=== PATIENT | female | born 1980 | race Caucasian/White ===

== ENCOUNTER 2019-08-04 12:22 | Observation (INO) | payer BC, SELFPAY ==
[2019-08-04 13:00] VITALS: BP 103/62; PULSE 70
[2019-08-04 13:12] VITALS: BMI 24.6
--- NOTE | 2019-08-04 13:12 | OBADM ---
This patient, Shruti Luque, admitted to the OB room OB Post 117 for observation. Patient/family oriented to hospital policies and general routines including ID bracelet, bed and alarms, visiting hours, pain management, procedures, bathroom and other care routines, personal items, smoking policy, room service/diet, and visiting hours. Patient/Family are encouraged to report perceived risks to care and to ask questions if they do not understand what they are told or what they should do.
[2019-08-04 13:16] VITALS: BP 104/60; PULSE 74
[2019-08-04 13:29] LABS: Add Urine Microscopic? YES; Appearance Urine Cloudy (Clear); Bacteria Urine Trace /hpf; Bilirubin Urine Negative (Negative); Blood Urine 3+ (Negative); Color Urine Yellow (Yellow); Glucose Urine UA Negative (Negative); Ketones Urine Negative (Negative); Leukocyte Esterase Ur Trace LEU/UL (Negative); Mucus Urine Rare /lpf; Nitrate Urine Negative (Negative); Protein Urine Negative (Negative); RBC Urine >75 /hpf (0-2); Specific Grav Ur 1.016 (1.001-1.035); Squamous Epithelial Cell Urine Many /hpf (Few); Urobilinogen Urine Negative mg/dL (<2.0)
[2019-08-04 13:30] VITALS: BP 105/63; PULSE 98
[2019-08-04 13:45] VITALS: BP 101/62; PULSE 74
[2019-08-04 14:00] VITALS: BP 99/85; PULSE 96
--- NOTE | 2019-08-07 18:26 | PM.OBTRLD ---
OB - Triage/Final Diagnosis Evaluation Laboratory results: Laboratory Tests 08/04/19 13:06 Urine Color Yellow Urine Appearance Cloudy H Urine pH 6.0 Ur Specific [place] 1.016 Urine Protein Negative Urine Glucose (UA) Negative Urine Ketones Negative Ur Blood (Man) 3+ H Urine Nitrate Negative Urine Bilirubin Negative Urine Urobilinogen Negative Leukocyte Esterase Rfl Trace H Urine RBC >75 H Urine WBC 7-9 H Ur Squamous Epith Cells Many H Urine Bacteria Trace Urine Mucus Rare Final Diagnosis (1) Back pain affecting : Code(s): O99.89 - Other specified diseases and conditions complicating , childbirth and the puerperium; M54.9 - Dorsalgia, unspecified Status: Acute (2) Vaginal discharge during : Code(s): O26.899 - Other specified related conditions, unspecified trimester; N89.8 - Other specified noninflammatory disorders of vagina Status: Acute
== END 2019-08-04 14:10 | disposition home or self-care (01) ==
PROVIDERS: Admitting Provider Obstetrics & Gynecology; Visit Provider Obstetrics & Gynecology
DX: O26.892 Other specified pregnancy related conditions, second trimester (principal); N89.8 Other specified noninflammatory disorders of vagina; O99.89 Other specified diseases and conditions complicating pregnancy, childbirth and the puerperium; M54.9 Dorsalgia, unspecified; Z3A.22 22 weeks gestation of pregnancy
CPT/HCPCS: 81001; 87086; G0378; G0379

== ENCOUNTER 2019-09-18 14:51 | Observation (INO) | payer BC, SELFPAY ==
--- NOTE | 2019-09-18 15:31 | OBADM ---
This patient, Shruti Luque, admitted to the OB room OB Post 113 for observation. Patient/family oriented to hospital policies and general routines including ID bracelet, bed and alarms, visiting hours, pain management, procedures, bathroom and other care routines, personal items, smoking policy, room service/diet, and visiting hours. Patient/Family are encouraged to report perceived risks to care and to ask questions if they do not understand what they are told or what they should do.
[2019-09-18 15:43] VITALS: BMI 25.2
[2019-09-18 16:00] VITALS: BP 82/39; PULSE 76
[2019-09-18 16:00] LABS: Add Urine Microscopic? YES; Amorphous Sediment Urine Few; Appearance Urine Cloudy (Clear); Bacteria Urine Trace /hpf; Bilirubin Urine Negative (Negative); Blood Urine Negative (Negative); Color Urine Yellow (Yellow); Glucose Urine UA Negative (Negative); Ketones Urine 1+ mg/dL (Negative); Leukocyte Esterase Ur 2+ LEU/UL (NEGATIVE); Mucus Urine Rare /lpf; Nitrate Urine Negative (Negative); Protein Urine Negative (Negative); Specific Grav Ur 1.016 (1.001-1.035); Squamous Epithelial Cell Urine Many /hpf (Few); Urobilinogen Urine Negative mg/dL (<2.0)
--- NOTE | 2019-09-18 16:55 | PM.OBTRLD ---
OB - Triage/Final Diagnosis Visit Information Date of evaluation: 09/18/19 Comments/Additional reasons for admission: dehydration Evaluation Laboratory results: Laboratory Tests 09/18/19 15:37 Urine Color Yellow Urine Appearance Cloudy H Urine pH 7.0 Ur Specific [place] 1.016 Urine Protein Negative Urine Glucose (UA) Negative Urine Ketones 1+ H Ur Blood (Man) Negative Urine Nitrate Negative Urine Bilirubin Negative Urine Urobilinogen Negative Ur Leukocyte Esterase 2+ H Urine RBC 3-5 H Urine WBC 10-15 H Ur Squamous Epith Cells Many H Amorphous Sediment Few H Urine Bacteria Trace Urine Mucus Rare Vital signs: Vital Signs - 24 hr 09/18/19 16:00 Pulse Rate 76 Blood Pressure 82/39 L
[2019-09-18] MEDS: DEXTROSE 5%/LACTATED RINGERS 1,000 ML 125 ML IV CONT (16:57)
[2019-09-18] MEDS: CYCLOBENZAPRINE HCL 10 MG TABLET PO (16:57)
--- NOTE | 2019-09-18 19:16 | PC.NURSE ---
report received from dayshift rn stating day shft rn had received verbal discharge order per dr marcial and that once pt ivf were complete and pt had eaten meal tray pt may be discharged.
== END 2019-09-18 19:40 | disposition home or self-care (01) ==
PROVIDERS: Admitting Provider Obstetrics & Gynecology; PCP Family Medicine; Visit Provider Obstetrics & Gynecology
DX: O99.283 Endocrine, nutritional and metabolic diseases complicating pregnancy, third trimester (principal); E86.0 Dehydration; Z3A.29 29 weeks gestation of pregnancy
CPT/HCPCS: 81001; 87086; 87088; 96360; 96361; A9270; G0378; G0379; J7121

== ENCOUNTER 2019-11-21 05:05 | Observation (INO) | payer BC, SELFPAY ==
--- NOTE | 2019-11-21 07:32 | OBADM ---
This patient, Shruti Luque, admitted to the OB room Labor/Delivery/Recovery 106 for observation. Patient/family oriented to hospital policies and general routines including ID bracelet, bed and alarms, visiting hours, pain management, procedures, bathroom and other care routines, personal items, smoking policy, room service/diet, and visiting hours. Patient/Family are encouraged to report perceived risks to care and to ask questions if they do not understand what they are told or what they should do.
--- NOTE | 2019-11-29 07:05 | PM.OBTRLD ---
OB - Triage/Final Diagnosis Visit Information Date of evaluation: 11/21/19 Reason for evaluation: threatened labor
== END 2019-11-21 08:00 | disposition home or self-care (01) ==
PROVIDERS: Admitting Provider Student in an Organized Health Care Education/Training Program; PCP Family Medicine; Visit Provider Student in an Organized Health Care Education/Training Program
DX: O47.9 False labor, unspecified (principal); Z3A.00 Weeks of gestation of pregnancy not specified
CPT/HCPCS: G0378; G0379

== ENCOUNTER 2019-11-24 12:25 | Outpatient (CLI) | payer BC, SELFPAY ==
[2019-11-24 13:13] VITALS: BP 118/80; PULSE 113
--- NOTE | 2019-11-24 14:00 | PC.NURSE ---
1310- called, informed that pt came in stating she has been leaking green fluid since . 2 ROM plus's performed, both negative. Moderate amount of thick light green mucus found upon SVE. Discharge order received and order received to inform pt that the discharge will be examine on an outpatient basis in the office this week and can be physiological.
--- NOTE | 2019-11-24 14:03 | PC.NURSE ---
1225-Pt came in after calling and stating she has been leaking green fluid for the last two days.
--- NOTE | 2019-11-24 14:05 | PC.NURSE ---
1310-temp 99.2
== END 2019-11-24 13:25 | disposition home or self-care (01) ==
LOC: ANHLDR 15:18 → ANHOBOP 15:18
PROVIDERS: PCP Family Medicine; Visit Provider Student in an Organized Health Care Education/Training Program
DX: O42.90 Premature rupture of membranes, unspecified as to length of time between rupture and onset of labor, unspecified weeks of gestation (principal); Z3A.00 Weeks of gestation of pregnancy not specified
CPT/HCPCS: 59025; 84112; 99199

== ENCOUNTER 2019-11-24 19:55 | Inpatient (IN) | payer BC, SELFPAY ==
[2019-11-24] VITALS (10 sets, daily range): BP systolic 95–143; BP diastolic 73–109; PULSE 71–93; BMI 28.3
[2019-11-24 20:44] LABS: Basophils Percent Auto 0.3 % (0.2-1.2); Eosinophils Absolute Auto 0.1 K/mm3 (0-0.3); Eosinophils Percent Auto 0.5 % (0-4.4); Hemoglobin 11.7 g/dL (12.0-15.0); Immature Granulocyte Absolute 0.06 K/mm3 (0.00-0.031); Immature Granulocyte Percent A 0.4 % (0-0.5); Lymphocytes Percent Auto 16.8 % (18.3-44.2); Mean Corpuscular HGB Conc 33.4 g/dl (32-36); Mean Corpuscular Hemoglobin 30.5 pg (26-34); Mean Corpuscular Volume 91.1 fl (80-100); Monocytes Absolute Auto 0.9 K/mm3 (0.1-0.6); Monocytes Percent Auto 6.6 % (2.6-8.5); Neutrophils Absolute Auto 10.8 K/mm3 (1.3-6.7); Neutrophils Percent Auto 75.4 % (45.5-73.1); Platelet Count Result 269 k/mm3 (150-375); Red Blood Count 3.84 M/mm3 (4.2-5.4); Red Cell Distribution Width 14.4 % (11.5-14.5); White Blood Count 14.3 K/mm3 (4.5-10.0)
[2019-11-24] MEDS: LACTATED RINGERS 1,000 ML 125 ML IV CONT (20:55)
[2019-11-24] MEDS: AMPICILLIN 2 GM/NS 100 ML 2 GM/100 ML BAG IVPB (20:56)
--- NOTE | 2019-11-24 21:00 | LDADM ---
This patient, Shruti Luque, was admitted to Labor/Delivery/Recovery 108 on 11/24/19 at 19:55. Plans for labor, pain management and were discussed with patient. Patient/family oriented to hospital policies and general routines including ID bracelet, bed and alarms, visiting hours, pain management, procedures, bathroom and other care routines, personal items, smoking policy, room service/diet and guest tray routines, infant security routines, and visiting hours. Patient/Family are encouraged to report perceived risks to care and to ask questions if they do not understand what they are told or what they should do. See OBIX for further documentation.
[2019-11-24] MEDS: FAMOTIDINE 20 MG/2 ML VIAL IV PUSH (23:32)
[2019-11-24] MEDS: OXYTOCIN 30 UNITS/NS 500 ML 30 UNITS/500 ML BAG IV CONT (23:32)
[2019-11-25] VITALS (27 sets, daily range): BP systolic 104–152; BP diastolic 64–99; PULSE 55–90; RESP 16–18; TEMP 36.6–37.1
[2019-11-25] MEDS: AMPICILLIN 1 GM/NS 50 ML 1 GM/50 ML BAG IVPB (00:57)
--- NOTE | 2019-11-25 01:59 | WPDOBADMIT ---
Obstetrics - Admit Note Admission Note: record reviewed. Additions to the history and/or subsequent changes in the physical findings follow. 39 y/o at 38 4/7 weeks here with gush of fluid. SROM diagnosed. Now augmenting labor with oxytocin. She has had lower back surgery. Anesthesia has evaluated her and does not think she is an epidural candidate. GBS pos. Smoker. AVSS NST reactive TOCO: contractions every 2-5 min ABD soft, nontender, gravid, vertex EXT nontender Cervix 6-7/80/-1. Vertex. A: IUP at term with SROM. GBS pos. P: Ampicillin. Oxytocin. Anticipate .
[2019-11-25] MEDS: PROMETHAZINE HCL 25 MG/ML AMPUL IM (02:04)
--- NOTE | 2019-11-25 04:21 | PM.OBDSVD ---
DS: Admitting Diagnosis Admitting Diagnosis Admitting Diagnosis: IUP at 38 4/7 weeks SROM GBS colonization DS: Discharge Diagnosis Discharge Diagnosis (1) (normal spontaneous vaginal delivery): Code(s): O80 - Encounter for full-term uncomplicated delivery Status: Acute (2) GBS (group B Streptococcus carrier), +RV culture, currently : Code(s): O99.820 - Streptococcus B carrier state complicating Status: Acute OB - DS: Summary OB Procedures : None OB Procedures Intrapartum: Spontaneous Vag Delivery OB Procedures: : None Time Spent with Patient Time attestation: Total time spent providing and/or coordinating discharge services: DS: Data Data Completed and Pending Labs on day of discharge: Labs from last 24 hours 11/24/19 11/24/19 11/24/19 20:36 20:36 20:36 WBC 14.3 H RBC 3.84 L Hgb 11.7 L Hct 35.0 L MCV 91.1 MCH 30.5 MCHC 33.4 RDW 14.4 Plt Count 269 MPV 11.0 H Immature Gran % (Auto) 0.4 Neut % (Auto) 75.4 H Lymph % (Auto) 16.8 L [place] % (Auto) 6.6 Eos % (Auto) 0.5 Baso % (Auto) 0.3 Lymph # (Auto) 2.40 [place] # (Auto) 0.9 H Eos # (Auto) 0.1 Baso # (Auto) 0.0 Abs Immat Gran (auto) 0.06 H Absolute Neuts (auto) 10.8 H Absolute Nucleated RBC 0.0 Nucleated RBC % 0.0 RPR Pending Blood Type B Positive Antibody Screen Negative Discharge Plan Discharge Attending physician on discharge: Srini Almonte Discharging Clinician: Srini Almonte Patient Disposition: Home, Self-Care Activity: pelvic rest Diet: regular Discharge Instructions: Call or return if temperature above 100.4? F, increased abdominal pain, increased vaginal bleeding or any new problems. Education: Mom and Baby Guide Given to: Mother Follow-Up: Call your delivering provider's office for an appointment to be seen in: 6 Weeks Mom and baby should come to the [facility] for the follow-up appointment. Appointment Date/Time: November 29, 2019 at 8:00 am What to expect at your follow-up visit: Blood Pressure Check Physical Assessment Call [phone] if you are unable to keep your appointment time. BREAST CARE: 1. Wear a snug supportive bra. 2. For engorgement discomfort: Breast Feeding: A. Apply warm moist washcloths B. Express milk as needed to relieve engorgement C. Wear loose clothing Bottle Feeding: A. May apply ice packs 3. For sore nipples: A. Identify correct latch-on B. Apply warm moist washcloths before and after nursing C. Air dry nipples after nursing D. May apply Lansinoh cream to nipples EPISIOTOMY/PERINEAL CARE: 1. Until bleeding stops, use your alejandra bottle after urinating 2. Change your pad frequently throughout the day 3. You may take sitz baths several times a day (fill your bathtub with warm water and soak for 20 minutes.) Do NOT bathe in the water 4. No tub baths until seen by your physician - You may shower ACTIVITY: 1. Rest as much as possible. 2. Do not exercise or lift anything heavier than your baby (such as laundry or other children.) 3. Avoid stairs or driving as much as possible. 4. Do not put anything into the vagina. No douching, tampons, or sexual activity until seen by physician. NOTIFY PHYSICIAN IF YOU HAVE ANY QUESTIONS OR IF ANY OF THE FOLLOWING SYMPTOMS OCCUR: 1. If your episiotomy or incision becomes red, swollen, or more painful than what you have experienced in the hospital. 2. If your vaginal bleeding becomes foul smelling. 3. If your vaginal bleeding becomes more heavy than a period or if your bleeding changes from pink to bright red. However, you may pass an occasional walnut-sized clot once or twice for the first week . 4. If you experience a sharp, shooting pain in you calves. 5. If you discover a hard, red
--- NOTE | 2019-11-25 04:24 | PM.OBPRVD ---
OB - Delivery Note Procedure Delivery date: 11/25/19 Procedure: Delivery augmentation: pitocin Delivery monitor: external FHT and external uterine Route of delivery: Delivery repair: vicryl (3-0) Specimen: Yes (cord blood) Estimated blood loss (mL): 120 Anesthesia type: Local (1% lidocaine) Disposition: PACU Complications: None Narrative: 39 y/o at 38 4/7 weeks gestation who presented to the hospital with complaint of leakage of fluid. SROM was diagnosed. She received ampicillin for GBS colonization. Oxytocin was administered intravenously for labor augmentation. Her labor progressed and her cervix dilated completely. She pushed with good effort and delivered the infant's head to the perineum, followed by the body. The nose and mouth were bulb suctioned. After a delay, the cord was clamped and cut. The infant was handed off the field. Cord blood was collected. The placenta delivered spontaneously and was grossly normal in appearance. The usual 3 vessel cord was noted. Bilateral periurethral lacerations was sustained. These were infiltrated with a total of 8 mL of 1% lidocaine and reapproximated using 3 0 Vicryl in interrupted, figure of eight fashion. Excellent hemostasis resulted as did excellent reapproximation of the normal anatomy. Needle and instrument counts were correct. The patient was taken to recovery room in stable condition. The went to the nursery in stable condition. I was present and scrubbed for the entire delivery. [place] Baby Date of : 11/25/19 Time of : 04:00 Weeks of gestation at delivery: 38 Infant gender: Female Weight (pounds): 7 Weight (ounces): 7 presentation: vertex position: Left Occiput Anterior Placenta delivery description: Spontaneous cord vessel description: 3 Vessels score one minute: 7 score five minutes: 7
[2019-11-25] MEDS: IBUPROFEN 600 MG TABLET PO ×3 (05:43→19:45)
[2019-11-25] MEDS: BENZOCAINE 20% AER SPR (*SP) 56 GM CAN 1 SPRAY TOPICAL (07:58)
[2019-11-25] MEDS: ACETAMINOPHEN 325 MG TABLET 650 MG PO ×3 (07:58→19:45)
[2019-11-25] MEDS: WITCH HAZEL 40 PADS 1 PAD TOPICAL (07:58)
--- NOTE | 2019-11-25 09:38 | PC.NURSE ---
Addendum entered by Melodie Choudhury RN 11/25/19 09:38: admitted to room at 0829 Original Note: This patient, Shruti Luque, was received from PACU on 11/25/19 at 0829. . Patient/family oriented to unit policies and routines
[2019-11-25] MEDS: DOCUSATE SODIUM 100 MG CAPSULE PO (13:48)
[2019-11-25] MEDS: MULTIVIT/MIN/PREN/FOL AC/IRON TABLET 1 TAB PO (13:48)
[2019-11-25] MEDS: CYCLOBENZAPRINE HCL 10 MG TABLET PO (21:31)
[2019-11-26] MEDS: ACETAMINOPHEN 325 MG TABLET 650 MG PO ×3 (04:43→19:25)
[2019-11-26] MEDS: IBUPROFEN 600 MG TABLET PO ×3 (04:44→19:25)
[2019-11-26 04:52] LABS: Hematocrit 31.9 % (37.0-47.0); Hemoglobin 10.6 g/dL (12.0-15.0)
--- NOTE | 2019-11-26 07:17 | PM.OBPNVD ---
OB - PN: Subj Subjective Date/time seen: 11/26/19 07:17 Patient comments: no complaints, pain well controlled and tolerating diet Joiner feeding status: exclusively breast feeding Narrative: patient doing well this AM. No complaints. Pain is well controlled. She reports minimal bleeding. She is ambulating and voiding without difficulty. She is tolerating PO. She denies N/V, fever, chills. OB - PN: Obj Data Labs CBC & Chem 7: 11/26/19 04:42 Labs: Laboratory Results - last 24 hr 11/26/19 04:42 Hgb 10.6 L Hct 31.9 L OB - PN A/P Plan day: 1 Plan: routine care Comments: patient doing well H/H stable continue routine care Time Spent With Patient Time: Total time spent is greater than 50% in coordination of care (as documented) at patient's floor/unit and/or counseling patient: Time with patient: less than 15 minutes Review of Systems Review of Systems: All systems reviewed & are unremarkable except as noted in HPI and below Exam Const: General: comfortable and no acute distress Resp: Effort & Inspection: normal respiratory effort Cardio: Rate: regular rate GI: GI Palp: Yes Soft to palpation and No Tenderness to palpation present (GI) Auscultation: normal bowel sounds Other: fundus firm and below umbilicus. Psych: Affect: normal affect
[2019-11-26 07:42] VITALS: BP 99/61; PULSE 53; RESP 16; TEMP 37.1
[2019-11-26 08:50] LABS: Rapid Plasma Reagin Non-Reactive (NonReactive)
--- NOTE | 2019-11-26 09:10 | PC.NURSE ---
Went to take baby back to the mother after being in the nursery for the agency director to assess baby and mother is not in her room. She has been off the floor now for an hour, infant is hungry and has not eaten since 414 when she was fed a bottle in the nursery by the nurse per mother's request.
--- NOTE | 2019-11-26 09:25 | PC.NURSE ---
Mother called out for assist with feeding. Mother is independently attempting to breast. Mother reports has difficulties with latch, she will attempt, bottle feed and then pump. Reviewed feeding cues, frequencies, duration of feedings, feeding elimination flow sheet, and signs of adequate intake. Demonstrated stimulation techniques to wake for feeding. Assisted with to breast. Reviewed positioning/alignment in cross cradle, holding breast in U hold and guided asymmetrical latch on. Discussed rational for each. Infant keeps tongue up and does not drop to allow nipple over tongue. Mother will get to latch with nipple under tongue. will make a few attempts to suckle and will pull off. Several attempts made without a successful latch. Offered and explained the nipple shield. Nipple shield provided to mother due to ineffective feeding. Discussed nipple shield precautions and possible complications. Instructions given on application and cleaning of shield. Patient able to return demonstration on proper application of shield. Discussed the need for regular pumping if continues to nurse with the shield. Patient verbalizes understanding. With shield in place, was able to latch correctly. Infant nursed eagerly with steady draws for a short burst and would pull off crying. Several attempts made with bursts and pulling off. Suggested mother attempt to breast each feeding using the nipple shield, then supplement and pump. Discussed infant will have to learn to suckle with tongue down and the firm shield and bottle will assist with tongue training.
[2019-11-26] MEDS: FLUoxetine HCL 20 MG CAPSULE 40 MG PO (12:50)
[2019-11-26] MEDS: WITCH HAZEL 40 PADS 1 PAD TOPICAL (12:51)
[2019-11-26] MEDS: DOCUSATE SODIUM 100 MG CAPSULE PO (12:51)
[2019-11-26] MEDS: BENZOCAINE 20% AER SPR (*SP) 56 GM CAN 1 SPRAY TOPICAL (12:51)
[2019-11-26] MEDS: MULTIVIT/MIN/PREN/FOL AC/IRON TABLET 1 TAB PO (12:54)
[2019-11-26 19:18] VITALS: BP 117/83; PULSE 65; RESP 16; TEMP 36.7
[2019-11-26] MEDS: CYCLOBENZAPRINE HCL 10 MG TABLET PO (23:01)
--- NOTE | 2019-11-27 07:11 | PM.OBDSVD ---
OB - DS: Summary OB Procedures : None OB Procedures Intrapartum: Spontaneous Vag Delivery OB Procedures: : None Status at Discharge Functional status at discharge: independent ambulation Overall status at discharge: patient is back to baseline Time Spent with Patient Time attestation: Total time spent providing and/or coordinating discharge services: Time spent: Less than 30 minutes Exam Const: General: comfortable and no acute distress Resp: Effort & Inspection: normal respiratory effort Auscultation: clear to auscultation bilaterally Cardio: Rate: regular rate GI: GI Palp: Yes Soft to palpation Auscultation: normal bowel sounds Other: Fundus firm below umbilicus Psych: Appearance: grossly normal Mental Status: mental status grossly normal Affect: normal affect DS: Data Data Completed and Pending Labs on day of discharge: Labs from last 24 hours 11/24/19 20:36 RPR Non-reactive Discharge Plan Discharge Attending physician on discharge: Srini Almonte Discharging Clinician: Srini Almonte Patient Disposition: Home, Self-Care Activity: pelvic rest Diet: regular Discharge Instructions: Call or return if temperature above 100.4? F, increased abdominal pain, increased vaginal bleeding or any new problems. Patient Instructions: How to Stop Smoking (DC), Vaginal Delivery (DC) Stand Alone Forms: General Discharge Information Follow-up/Referrals: Srini Almonte MD [Physician] - (6 weeks) Discharge Medications: New ibuprofen 600 mg tablet 600 mg PO Q6H PRN (Reason: cramps) Qty: 30 RF: 0 fluoxetine 20 mg Tablet 40 mg PO DAILY Qty: 30 RF: 0 ibuprofen 600 mg Tablet 600 mg PO Q6H PRN (Reason: Cramping) Qty: 30 RF: 0 Ggo-A-Ueocff Cream 1 applic topical PRN PRN (Reason: Sore Nipples) Qty: 1 RF: 0 acetaminophen [Mapap (acetaminophen)] 325 mg Tablet 650 mg PO Q6H PRN (Reason: Mild Pain (1-3) Or Headache) Qty: 30 RF: 0 Continued 28-800 mg-mcg Tablet 1 tablet PO DAILY RF: 0 cyclobenzaprine 10 mg tablet 10 mg PO HS Qty: 20 RF: 0 fluoxetine [Prozac] 40 mg Capsule 40 mg PO DAILY Qty: 30 RF: 3 Date of admission: 11/24/19 19:55 Primary Care Provider: Steffi,Patrick Admitting Provider: Srini Almonte Attending physician on admission: Srini Almonte
[2019-11-27] MEDS: IBUPROFEN 600 MG TABLET PO (07:39)
[2019-11-27] MEDS: ACETAMINOPHEN 325 MG TABLET 650 MG PO (07:39)
[2019-11-27] MEDS: MULTIVIT/MIN/PREN/FOL AC/IRON TABLET 1 TAB PO (07:40)
[2019-11-27] MEDS: FLUoxetine HCL 20 MG CAPSULE 40 MG PO (07:40)
[2019-11-27] MEDS: DOCUSATE SODIUM 100 MG CAPSULE PO (07:40)
[2019-11-27 08:35] VITALS: BP 108/52; PULSE 62; RESP 18; TEMP 36.7; O2SAT 97
--- NOTE | 2019-11-27 11:25 | PC.NURSE ---
Consult with pt., mother states she has been pumping and bottle feeding formula due to cigarette smoking. Discussed nicotine does pass into breastmilk and is fussy and may have some effects from this. Mother states she is cutting back on amount of cigarettes per day and plans to stop within a few weeks. Advised mother to discuss with ICP, and to continue to put to breast and supplement after as she has been. Mother is currently , supplementing and then pumping due to sleepiness and difficulties with latching. Assisted mother with a breastpump thru her insurance. Mother is able to independently latch infant with appropriate positioning/alignment. She denies any nipple discomfort, is feeding as required and waking infant to feed if needed. Infant is currently meeting outcomes for weight, output, jaundice and feeding frequencies. Mother states she feels confident to continue current feeding plan at home and plans to discontinue supplementation once her milk is in and is more consistent with . Reviewed transition to breast milk, signs of adequate intake, and engorgement/relief. Instructed to call ICP if intake/output less than required. Reviewed regular medications mother is taking. Information provided per Lexi. Reviewed community resources on the [facility] website and in the Mom/Baby guide. Information on outpatient services provided. Mother has no further questions at this time.
[2019-11-29 08:20] VITALS: BP 121/77; PULSE 68; RESP 20; TEMP 36.7; O2SAT 100
== END 2019-11-27 14:40 | disposition home or self-care (01) | DRG 806 ==
LOC: ANHLDR 11-25 04:22 → ANHOB2 11-25 08:33
PROVIDERS: Admitting Provider Obstetrics & Gynecology; PCP Family Medicine; Visit Provider Student in an Organized Health Care Education/Training Program
DX: O99.824 Streptococcus B carrier state complicating childbirth (principal); Q79.60 Ehlers-Danlos syndrome, unspecified; Z37.0 Single live birth; Z3A.38 38 weeks gestation of pregnancy; O99.334 Smoking (tobacco) complicating childbirth; F17.210 Nicotine dependence, cigarettes, uncomplicated; O71.82 Other specified trauma to perineum and vulva; O99.344 Other mental disorders complicating childbirth; F32.9 Major depressive disorder, single episode, unspecified; O99.354 Diseases of the nervous system complicating childbirth; G25.81 Restless legs syndrome; O99.89 Other specified diseases and conditions complicating pregnancy, childbirth and the puerperium; M79.7 Fibromyalgia
CPT/HCPCS: 36415; 85014; 85018; 85025; 86592; 86850; 86900; 86901; A9270; J0290; J2550; J2590; J3010; J7120

== ENCOUNTER 2020-03-17 03:40 | Outpatient (CLI) | payer BC, SELFPAY ==
[2020-03-17 20:39] LABS: SARS-CoV-2 RNA PCR Negative
== END 2020-03-17 03:41 | disposition home or self-care (01) ==
LOC: ANHCOVIDDT 03:41
PROVIDERS: PCP Family Medicine; Visit Provider Student in an Organized Health Care Education/Training Program
DX: Z01.812 Encounter for preprocedural laboratory examination (principal); Z11.59 Encounter for screening for other viral diseases
CPT/HCPCS: 87635; C9803; U0003

== ENCOUNTER 2020-03-17 09:16 | Outpatient (CLI) | payer BC, SELFPAY ==
[2020-03-17 09:31] LABS: Hemoglobin 13.3 g/dL (12.0-15.0); Mean Corpuscular HGB Conc 33.3 g/dl (32-36); Mean Corpuscular Hemoglobin 30.4 pg (26-34); Mean Corpuscular Volume 91.5 fl (80-100); Mean Platelet Volume 8.8 fl (7.4-10.4); Platelet Count Result 417 k/mm3 (150-375); Red Blood Count 4.37 M/mm3 (4.2-5.4); Red Cell Distribution Width 15.4 % (11.5-14.5); White Blood Count 10.6 K/mm3 (4.5-10.0)
== END 2020-03-17 09:17 | disposition home or self-care (01) ==
LOC: ANHSURGERY 09:19
PROVIDERS: PCP Family Medicine; Visit Provider Student in an Organized Health Care Education/Training Program
DX: Z01.818 Encounter for other preprocedural examination (principal)
CPT/HCPCS: 36415; 85027; 86850; 86900; 86901

== ENCOUNTER 2020-03-20 01:31 | Day surgery (SDC) | payer BC, SELFPAY ==
[2020-03-13 13:05] VITALS: BMI 23.5
--- NOTE | 2020-03-19 23:42 | PM.IMHP ---
H&P: HPI History of Present Illness Date/Time: 03/19/20 23:42 Chief complaint: Desires Sterilization Narrative: 39 y/o desiring permanent contraception. She would like laparoscopic bilateral salpingectomy. Review of Systems Review of Systems: All systems reviewed & are unremarkable except as noted in HPI and below PMFSH Past Medical History Medical History Justina-Danlos syndrome Fibromyalgia Surgical History Surgical History Previous back surgery Social History Social History Smoking packs per day: 0.5 Smoking cigarettes per day: 10.0 Years smoked: 13 Smoking pack-years: 6.50 Smoking status: Current every day smoker Tobacco type: cigarettes Alcohol intake: current Drinks per week: 1 Substance use: current Gender identity (if verbalized by the patient): Female Spiritual care concerns: No Meds Home Medications and Allergies Home Medications Medication Instructions Recorded Confirmed Type ibuprofen 600 mg PO Q6H PRN #30 tablet 11/25/19 03/13/20 Rx fluoxetine 40 mg PO HS 03/13/20 03/13/20 History Allergies Allergy/AdvReac Type Severity Reaction Status Date / Time prochlorperazine AdvReac Muscle Verified 03/13/20 13:05 [From Compazine] Spasms Exam Const: Orientation/consciousness: patient oriented x3 Other: Well-developed, well-nourished female in no acute distress. Neck: Thyroid: thyroid normal Lymphatic: no lymphadenopathy noted (in neck, axilla or inguinal nodes) Resp: Effort & Inspection: normal respiratory effort Auscultation: clear to auscultation bilaterally Cardio: Rate: regular rate Rhythm: regular rhythm Heart sounds: S1 normal heart sound present and S2 normal heart sound present GI: Other: ABD: Soft, nontender, nondistended. No guarding or rebound tenderness. No hepatosplenomegaly. : General: Yes no CVA tenderness Other: External genitalia: normal female hair distribution, without lesion. Urethral meatus: no lesion, non prolapsed. Bladder: no mass, nontender Vagina: well-estrogenized, without lesion or discharge. No cystocele or rectocele. Cervix: no lesion or discharge. Uterus: small, anteverted, freely mobile, nontender Adnexa: no mass or tenderness. Anus/perineum: no lesions, nontender Back/Spine/Pelvis: Back: no CVA tenderness Skin: General skin exam: normal color and no rashes or lesions noted Neuro: General: patient oriented x3 Extrem: Other: Extremities: nontender with no edema Psych: Mental Status: mental status grossly normal Affect: normal affect Assessment and Plan Assessment and plan (1) Unwanted fertility: Code(s): Z30.09 - Encounter for other general counseling and advice on contraception Status: Acute Assessment and Plan: She understands there are temporary methods of contraception available to her. She understands that there are nonsurgical options as well as surgical options. She understands that bilateral salpingectomies will render her permanently sterile. She understands that there is a failure rate associated with salpingectomies, as well as an inherent ectopic gestation risk. Furthermore, she understands risks of surgery to include risks of anesthesia, risks of pain, infection, bleeding, blood products, thromboembolic phenomena and damage to adjacent structures such as bowel, bladder, ureters, blood vessels and nerves. She understands all these risks and elects to proceed with surgery.
[2020-03-20] VITALS (7 sets, daily range): BP systolic 103–126; BP diastolic 56–74; PULSE 58–77; RESP 12–16; TEMP 36.2–36.6; O2SAT 96–100
[2020-03-20] MEDS: ACETAMINOPHEN 500 MG TABLET 1000 MG PO (11:41)
[2020-03-20] MEDS: LACTATED RINGERS 1,000 ML 30 ML IV CONT ×2 (11:46→14:00)
[2020-03-20] MEDS: KETOROLAC 15 MG/ML VIAL (*BKC) IV PUSH (11:55)
--- NOTE | 2020-03-20 12:01 | WPDANESEPPF ---
Anes - Initial Pre Proc Eval Procedure: Operation Date: 03/20/20 13:00 Proposed Procedures p Laparoscopic Bilateral Salpingectomy - Srini Almonte MD Date/Time: 03/20/20 12:01 Surgeon: Srini Almonte MD Pre Op Diagnosis: Desires Sterilization Patient Data Age: 39 Gender: F Height: 5 ft 7 in Weight: 68.8 kg Last Vital Signs Temp 36.6 C 03/20/20 11:56 Pulse 66 03/20/20 11:56 BP 109/71 03/20/20 11:56 Pulse Ox 100 03/20/20 11:56 Allergies Allergy/AdvReac Type Severity Reaction Status Date / Time prochlorperazine AdvReac Muscle Verified 03/13/20 13:05 [From Compazine] Spasms Home Medications Medication Instructions Recorded Confirmed Type ibuprofen 600 mg PO Q6H PRN #30 tablet 11/25/19 03/13/20 Rx fluoxetine 40 mg PO HS 03/13/20 03/13/20 History Patient hx anesthesia problems: none Family hx anesthesia problems: none PMFSH Past Medical History Medical History Justina-Danlos syndrome Fibromyalgia Surgical History Surgical History Previous back surgery Social History Social History Smoking packs per day: 0.5 Smoking cigarettes per day: 10.0 Years smoked: 13 Smoking pack-years: 6.50 Smoking status: Current every day smoker Tobacco type: cigarettes Alcohol intake: current Drinks per week: 1 Substance use: current Gender identity (if verbalized by the patient): Female Spiritual care concerns: No Anes - Eval Final PreProcedure Day of Procedure 03/20/20 12:01 Patient weight: normal Heart: regular rate and rhythm Lungs: decreased breath sounds Airway: Mallampati scale class II Neurological: alert and oriented Last oral intake: >/= 8 hours ASA classification: III Emergent: no Anesthetic plan: proceed Anesthesia type and monitoring: general ETT and standard monitoring Informed Consent: The patient's anesthetic plan and its attendant risks and benefits were discussed with the patient/family/POA. Questions were solicited and answers provided to the satisfaction of the patient/family/POA.
--- NOTE | 2020-03-20 12:15 | WPDHPUPDATE1 ---
History and Physical Update Update Date/Time: 03/20/20 12:15 History and Physical has been reviewed, including an updated exam of the patient. There are NO changes in the patient's condition. Risks, benefits, and alternatives have been discussed and questions answered. Patient agrees to proceed with procedure.
--- NOTE | 2020-03-20 13:53 | P.OP_ITS ---
Procedure Note - Detailed Date of procedure: 03/20/20 Pre-op diagnosis: Desires Sterilization Post-op diagnosis: same Procedure performed: Laparoscopic bilateral salpingectomy Description of procedure: The patient was taken to the operating room where general endotracheal anesthesia was administered. She was prepared and draped in the usual sterile fashion in the dorsal lithotomy position. The bladder was drained with a red rubber catheter. A sterile speculum was inserted into the vagina and the anterior lip of the cervix was grasped with a single-toothed tenaculum. The acorn uterine manipulator was placed. The speculum was withd rawn. Gloves were changed and attention was turned to the abdomen. An infraumbilical skin incision was made with a scalpel. The abdomen was tented and a 5 millimeter bladeless trocar trocar was advanced under direct laparoscopic visualization. Pneumoperitoneum was administered using carbon dioxide gas. A survey of the pelvis and abdomen yielded the findings noted above. The left Fallopian tube was grasped and elevated. The tube was freed from the mesentery using laparoscopic scissors. The tube was amputated and passed off to be sent to pathology. The right side was similarly identified, freed and excised. The pelvis was irrigated with warmed normal saline. Hemostasis was excellent. The trocar was withdrawn and the gas was allowed to escape. The skin incision was reapproximated using 4-0 Vicryl in interrupted subcuticular fashion. Dermaflex was applied externally. The vaginal instrumentation was withdrawn and hemostasis was excellent here as well. Sponge, lap, needle and instrument counts were correct. The patient was awakened and taken to recovery in stable condition. I was present and scrubbed through the entire procedure. Implants: None Anesthesia: GETA Surgeon: Red Snyder MD Estimated blood loss (mL): 10 Drains: No Packing: No Pathology: yes (bilateral Fallopian tubes) Complications: None Condition: stable Disposition: PACU Findings: Normal-appearing uterus, tubes and ovaries. Normal anterior and posterior cul-de-sac. Normal bilateral round and uterosacral ligaments. Normal-appearing vermiform appendix.
[2020-03-20] MEDS: fentaNYL CITRATE INJ (*CRX) 100 MCG/2 ML VIAL 25 MCG IV PUSH ×8 (14:04→14:31)
[2020-03-20] MEDS: SCOPOLAMINE 1.5 MG PATCH TRANSDERM (14:24)
== END 2020-03-20 15:36 | disposition home or self-care (01) ==
PROVIDERS: PCP Family Medicine; Visit Provider Student in an Organized Health Care Education/Training Program
PROC: (CPT 49320; principal; 2020-03-20 13:00)
DX: Z30.2 Encounter for sterilization (principal); Q79.60 Ehlers-Danlos syndrome, unspecified; M79.7 Fibromyalgia; F17.210 Nicotine dependence, cigarettes, uncomplicated
CPT/HCPCS: 58661; 88302; A9270; J1100; J1885; J2250; J2704; J3010; J7030; J7120

== ENCOUNTER 2020-12-15 18:17 | Emergency (ER) | payer BC, SELFPAY ==
--- NOTE | ~2020-12-15 | CT_ITS ---
EXAMINATION: CT abdomen pelvis w con DATE: 12/15/2020 21:55 INDICATION: Right lower quadrant abdominal pain, nausea and diarrhea TECHNIQUE: Computed tomography (CT) of the abdomen and pelvis was performed with 100 mL Omnipaque-350 intravenous contrast. Automated exposure control and iterative reconstruction technique were employe d. The dose-length product was 402.08 mGy-cm. COMPARISON: 06/07/2017 FINDINGS: Minimal dependent atelectasis in the bilateral lower lobes. Heart size is normal. No pericardial or p leural effusion. Incompletely visualized at least 1.8 cm nodular density at the inferior left breast. Liver, gallbladder, spleen, pancreas and bilateral adrenal glands are normal. There are couple nonob structing bilateral 1-2 mm renal stones. No evident ureteral stones or hydronephrosis. A couple left renal cysts the largest measuring 9 mm . Duplicated bilateral renal veins including circumaortic left renal veins. A few small phleboliths in the pelvis. Bladder, anteverted uterus and bilateral adnexa are unremarkable. No abnormal bowel wall thickening or obstruction. Normal appendix. No free intraper itoneal gas or fluid. No pathologically enlarged abdominal or pelvic lymphadenopathy. Mild lumbar lev ocurvature. Instrumented anterior and posterior spinal fusion at L5-S1 with interbody bone graft cage s and bilateral vertical aurora and pedicle screw fixation. IMPRESSION: 1. Nonobstructing 1-2 mm bilateral renal stones. No ureteral stones or hydronephrosis. 2. Incompletely visualized at least 1.8 cm nodular density at the inferior left breast. Consider br[facility] ultrasound for further evaluation. Reviewed, dictated and finalized at location A. IMPRESSION: 1. Nonobstructing 1-2 mm bilateral renal stones. No ureteral stones or hydronep hrosis. 2. Incompletely visualized at least 1.8 cm nodular density at the inferior left breast. Consider breast ultrasound for further evaluation.
[2020-12-15 19:15] VITALS: BP 113/87; PULSE 90; RESP 18; TEMP 36.1; O2SAT 99
--- NOTE | 2020-12-15 19:44 | ED.ABDPAIN ---
HPI - Abdominal Pain General Chief Complaint: Abdominal Pain Stated Complaint: abd pain,R side pain Time Seen by Provider: 12/15/20 19:44 Source: patient Mode of arrival: ambulatory Limitations: no limitations History of Present Illness HPI narrative: 40-year-old woman comes in today complaining of intermittent sharp right lower quadrant and right flank pain radiating to her groin and nausea that started yesterday morning about 11:00 a.m.. She started her period yesterday and she has had some diarrhea since 2 days ago. Her appetite has been good, eating just prior to arrival. States she often has cramping but this is different. She states she also has a history of kidney stones but this feels different. She has had no vomiting, fever, dysuria, hematuria, cough, cold symptoms, or chest pain. MD elicited complaint: abdominal pain Related Data Home Medications Medication Instructions Recorded Confirmed fluoxetine 40 mg PO HS 03/13/20 12/15/20 Allergies Allergy/AdvReac Type Severity Reaction Status Date / Time prochlorperazine AdvReac Muscle Verified 03/13/20 13:05 [From Compazine] Spasms Review of Systems Review of Systems: All systems reviewed & are unremarkable except as noted in HPI and below Constitutional: Constitutional: Denies chills and Denies fever(s) Eyes: Eyes: Denies change in vision and Denies photophobia ENT: Denies nasal congestion and Denies sore throat Cardiovascular: Cardiovascular: Denies chest pain and Denies radiating jaw, neck or arm pain Respiratory: Respiratory: Denies cough and Denies dyspnea Gastrointestinal: Gastrointestinal: Reports as per HPI, Reports abdominal pain, Reports diarrhea, Reports nausea and Denies vomiting Genitourinary: Genitourinary: Denies hematuria, Reports nocturia and Denies dysuria Musculoskeletal: Musculoskeletal: Denies back pain, Denies arthralgias and Denies joint swelling Integumentary/Breasts: Skin/Breast: Denies pruritus, Denies erythema and Denies rash Neurologic: Denies vertigo, Denies dizziness and Denies syncope Hematologic/Lymphatic: Hematologic/Lymphatic: Denies easy bleeding and Denies easy bruising PMFSH Past Medical History Medical History Justina-Danlos syndrome Fibromyalgia Surgical History Surgical History Previous back surgery Social History Social History Smoking packs per day: 0.5 Smoking cigarettes per day: 10.0 Years smoked: 13 Smoking pack-years: 6.50 Smoking status: Current every day smoker Tobacco type: cigarettes Alcohol intake: current Drinks per week: 1 Substance use: current Gender identity (if verbalized by the patient): Female Spiritual care concerns: No Exam Const: General: healthy appearing and alert Orientation/consciousness: patient oriented x3 Limitations: no limitations Other: Moderate acute distress. HENMT: Head: normal to inspection Mouth: Yes moist mucous membranes Eyes: Conjunctivae: conjunctivae normal Pupils: Equal, round and reactive pupils present EOM: EOMs intact bilaterally Resp: Effort & Inspection: normal respiratory effort and not labored Auscultation: clear to auscultation bilaterally, no rales, no rhonchi and no wheezes Cardio: Rate: regular rate Rhythm: regular rhythm Heart sounds: no murmurs GI: Inspection: non-distended GI Palp: Yes Soft to palpation, Yes Tenderness to palpation present (GI) (Right lower quadrant), No Guarding due to palpation present (GI), No Rigid due to palpation and No Palpable mass present Auscultation: normal bowel sounds Skin: General skin exam: normal color, no jaundice and no pallor Rashes: no rashes Neuro: General: patient oriented x3, moves all extremities, no focal motor deficits and CN's II-XI intact bilaterally Speech: normal speech Gait exam (Neuro):
[2020-12-15] MEDS: SODIUM CHLORIDE 0.9% IV 1,000 ML 999 ML IV CONT (20:00)
[2020-12-15] MEDS: MORPHINE SULFATE (*CRX) 4 MG/ML INJ IV PUSH (20:00)
[2020-12-15] MEDS: ONDANSETRON INJ 4 MG/2 ML VIAL IV PUSH (20:00)
[2020-12-15 20:11] LABS: Basophils Absolute Auto 0.07 K/mm3 (0.00-0.10); Basophils Percent Auto 0.7 % (0.0-1.0); Eosinophils Absolute Auto 0.63 K/mm3 (0.02-0.50); Eosinophils Percent Auto 6.7 % (1.0-6.0); Hemoglobin 12.4 g/dL (12.0-15.0); Immature Granulocyte Absolute 0.04 K/mm3 (0.00-0.00); Immature Granulocyte Percent A 0.4 % (0.0-0.0); Lymphocytes Absolute Auto 3.99 K/mm3 (1.10-4.50); Lymphocytes Percent Auto 42.3 % (18.0-42.0); Mean Corpuscular HGB Conc 31.8 g/dL (32.0-36.0); Mean Corpuscular Hemoglobin 28.4 pg (27.0-31.0); Mean Corpuscular Volume 89.4 fL (78.0-102.0); Mean Platelet Volume 8.9 fl (9.2-11.8); Monocytes Absolute Auto 0.86 K/mm3 (0.10-0.90); Monocytes Percent Auto 9.1 % (2.0-11.0); Neutrophils Absolute Auto 3.8 K/mm3 (1.7-7.2); Neutrophils Percent Auto 40.8 % (50.0-70.0); Platelet Count Result 475 K/mm3 (150-420); Red Blood Count 4.36 M/mm3 (4.20-5.40); White Blood Count 9.4 K/mm3 (4.8-10.8)
[2020-12-15 20:21] LABS: Add Urine Microscopic? YES; Appearance Urine Sl Cloudy (Clear); Bilirubin Urine Negative (Negative); Blood Urine 3+ (Negative); Color Urine Yellow (Yellow); Glucose Urine UA Negative (Negative); Ketones Urine Negative (Negative); Leukocyte Esterase Ur Negative LEU/UL (Negative); Nitrate Urine Negative (Negative); Protein Urine 1+ (Negative); Specific Grav Ur >= 1.030 (1.010-1.020); Urobilinogen Urine 0.2 mg/dL (0.2-1.0); pH Urine 5.5 (5.0-8.0)
[2020-12-15 20:36] LABS: Alanine Aminotransferase 26 U/L (14-59); Albumin Level 3.7 g/dL (3.4-5.0); Alkaline Phosphatase 97 U/L (46-116); Anion Gap 9 mmol/L (8-16); Bilirubin,Total 0.1 mg/dL (0.00-1.00); Blood Urea Nitrogen 20 mg/dL (7-18); Carbon Dioxide 28 mmol/L (21-32); Chloride 107 mmol/L (98-108); Estimated CRCL calculation 67 ml/min; Estimated Glomerular Filt Rate > 60; Glucose 76 mg/dL (70-99); Lipase 162 U/L (73-393); Osmolality Calculated 299 mOsm/kg (285-295); Potassium 3.9 mmol/L (3.5-5.1); Sodium 144 mmol/L (136-145); Total Protein 6.9 g/dL (6.4-8.2)
[2020-12-15 20:38] LABS: SARS-CoV-2 Ag Negative (Negative)
[2020-12-15 20:44] LABS: Bacteria Urine Trace /hpf; Calcium Oxalate Crystals Urine Present /hpf; Squamous Epithelial Cell Urine Rare /hpf (Few); WBC Urine 0-3 /hpf (0-3)
[2020-12-15 20:46] LABS: Lactic Acid Reflex 0.6 mmol/L (0.4-2.0)
[2020-12-15 20:52] LABS: Calcium 8.6 mg/dL (8.5-10.1)
[2020-12-15 20:56] LABS: Beta HCG Quantitative < 1.00 mIU/mL (0-6)
[2020-12-15] MEDS: HYDROmorphone HCL INJ (*CRX) 2 MG/ML VIAL 0.5 MG IV PUSH (21:00)
--- NOTE | 2020-12-15 21:36 | PC.NURSE ---
IV started 2049, completed 2139
[2020-12-15 22:31] VITALS: BP 132/68; PULSE 88; RESP 18; TEMP 37; O2SAT 98
[2020-12-15 23:23] LABS: Aspartate Amino Transferase 15 U/L (15-37)
== END 2020-12-15 22:38 | disposition home or self-care (01) ==
PROVIDERS: Emergency Provider Emergency Medicine; PCP Family Medicine
DX: R10.31 Right lower quadrant pain (principal); Z20.822 Contact with and (suspected) exposure to COVID-19
CPT/HCPCS: 36415; 74177; 80053; 81001; 83605; 83690; 84702; 85025; 87426; 96361; 96374; 96375; 99283; 99284; C9803; J1170; J2270; J2405; J7030; Q9967

== ENCOUNTER 2020-12-24 12:09 | Outpatient (CLI) | payer BC, SELFPAY ==
--- NOTE | ~2020-12-24 | MMUS_ITS ---
EXAMINATION: MM diagnostic tyesha BI w mary, US breast LT limited HISTORY: Mass at the 6:00 location of the left breast. TECHNIQUE: Craniocaudal, mediolateral, and mediolateral oblique 3-D tomosynthesis images of the [place] ts were performed and synthetic 2-D images were generated. CAD analysis was submitted and interpreted . High resolution limited left breast ultrasound was performed. COMPARISON: None, baseline BREAST PARENCHYMAL COMPOSITION: The breasts are heterogeneously dense, which may obscure small masses . FINDINGS: MAMMOGRAPHIC FINDINGS: Right breast: There is no evidence of suspicious mass, calcification, or architectural distortion to suggest malignancy. Left breast: There is a 2.2 cm oval, obscured, equal density mass in the middle third of the lower br east at the 6:00 location 4.5 cm from the nipple corresponding to the mammographic finding cancer. Th ere are also grouped fine pleomorphic calcifications in the middle third of the upper outer quadrant of the breast at the 1:00 location 6 cm from the nipple. ULTRASOUND: There is a 1.7 x 1.1 cm oval, circumscribed, parallel, hypoechoic mass with posterior acoustic enhanc ement and peripheral vascularity at the 4:00 location 4 cm from the nipple corresponding to palpable abnormality of concern. There is also an approximately 1.6 x 0.4 cm oval, circumscribed, parallel, hy poechoic mass with internal calcification at the 1:00 location 3 cm from the nipple. IMPRESSION: 1. Indeterminate masses at the 4:00 location and 1:00 location of the left breast. The mass at the 4: 00 location corresponds to the palpable abnormality. The mass at the 1:00 location may correspond to be grouped calcifications in the upper outer quadrant of the breast. 2. Ultrasound-guided biopsy of the sonographically detected masses at 4:00 and 1:00 is recommended. I f the biopsy marker at the 1:00 location does not correspond to the grouped fine pleomorphic calcific ations, follow-up stereotactic biopsy of the calcifications would be recommended. BI-RADS category 4, suspicious findings. Reviewed, dictated and finalized at location A. IMPRESSION: 1. Indeterminate masses at the 4:00 location and 1:00 location of the left br[facility]. The mass at the 4:00 location corresponds to the palpable abnormality. The mass at the 1:00 location may correspond to be grouped calcifications in the up per outer quadrant of the breast. 2. Ultrasound-guided biopsy of the sonographically detected masses at 4:00 and 1:00 is recommended. If the biopsy marker at the 1:00 location does not corresp ond to the grouped fine pleomorphic calcifications, follow-up stereotactic biop sy of the calcifications would be recommended. BI-RADS category 4, suspicious findings.
== END 2020-12-24 12:10 | disposition home or self-care (01) ==
PROVIDERS: PCP Family Medicine; Visit Provider Nurse Practitioner Psychiatric/Mental Health
DX: N63.21 Unspecified lump in the left breast, upper outer quadrant (principal)
CPT/HCPCS: 76642; 77062; 77066; G0279

== ENCOUNTER 2020-12-31 13:00 | Outpatient (CLI) | payer BC, SELFPAY ==
--- NOTE | ~2020-12-31 | MMUS_ITS ---
EXAMINATION: US breast biopsy LT w image, US breast bx add lesion LT, MM post biopsy diagnostic LT DATE: 12/31/2020 14:34 (accession [id number]), 12/31/2020 14:34 (accession [id number]), 12/08 14:41 (accession [id number]) INDICATION: Indeterminate mass at the 4:00 location of the left breast and indeterminate calcificatio ns with associated mass in the upper outer quadrant of the breast. Ultrasound-guided core biopsy is r equested to evaluate for malignancy. TECHNIQUE AND FINDINGS: The risks and potential benefits of the procedure were discussed with the patient including bleeding and infection. A time out was performed. The skin of the left breast was prepared and draped in usual sterile fashion. 1% lidocaine was used for superficial anesthesia. 1% lidocaine with epinephrine was used for deep anesthesia. A vacuum-assisted biopsy gun needle was advanced through to the outer edge of the mass at the 4:00 po sition from a lateral approach utilizing sonographic guidance. A total of three tissue core samples w ere obtained through the lesion. A tissue marker clip was then placed at the biopsy site. A vacuum-as sisted biopsy gun needle was then advanced through to the outer edge of the mass and calcification at the 1:00 from a lateral approach utilizing sonographic guidance. A total of five tissue core samples were obtained through the lesion. A tissue marker clip was then placed at the biopsy site. Of note, the biopsy marker at the 1:00 position is seen in the area of calcification. Hemostasis was achieved. A sterile bandage was applied. The patient tolerated procedure well and there was no evidence of immediate complication. The patient was given verbal instructions to return to the Emergency Department in the event of severe breast pa in or rapid breast enlargement. A two view left breast mammogram was obtained to document tissue ruchi er placements. IMPRESSION: 1. Successful ultrasound-guided vacuum-assisted biopsy of left breast masses and indeterminate calcif ications with tissue marker placements. Reviewed, dictated and finalized at location A. IMPRESSION: 1. Successful ultrasound-guided vacuum-assisted biopsy of left breast masses an d indeterminate calcifications with tissue marker placements. IMPRESSION: 1. Successful ultrasound-guided vacuum-assisted biopsy of left breast masses an d indeterminate calcifications with tissue marker placements.
== END 2020-12-31 13:01 | disposition home or self-care (01) ==
LOC: CHSIMG 13:02
PROVIDERS: PCP Family Medicine; Visit Provider Nurse Practitioner Psychiatric/Mental Health
DX: C50.412 Malignant neoplasm of upper-outer quadrant of left female breast (principal); Z17.0 Estrogen receptor positive status [ER+]; D24.2 Benign neoplasm of left breast
CPT/HCPCS: 19083; 19084; 77065; 88305; 88342; A4648

== ENCOUNTER 2021-01-02 06:53 | Emergency (ER) | payer BC, SELFPAY ==
--- NOTE | ~2021-01-02 | CT_ITS ---
EXAMINATION: CT abd pelvis lumbar wo con EXAM DATE: 01/02/2021 08:01 INDICATION: low back/flank pain, hx of kidney stones. TECHNIQUE: Spiral CT of the abdomen and pelvis, and lumbar spine was performed without contrast. Ax ial, coronal and sagittal images of the abdomen and pelvis were reviewed. Axial, coronal and sagittal images of the lumbar spine were reviewed. The dose-length product (DLP) for this examination was 36 6.83 mGy-cm. The exposure was tailored according to patient size (auto mA exposure control), and ite rative reconstruction (ASIR) was used as additional dose reduction technique. Comparison is made to p rior examination from 12/16/2019. FINDINGS: The liver, spleen, adrenal glands and pancreas are unremarkable. Gallbladder is unremarkab le. No biliary obstruction. There is 2 mm right superior calyceal stone. Several other smaller punc valera bilateral calyceal stones. No ureteral stones or hydronephrosis. The uterus is anteverted and m orphologically normal. The bladder is unremarkable. There is no retroperitoneal or pelvic lymphade nopathy. The appendix is normal. The stomach and small bowel are unremarkable. There is expected amount of c olonic stool. No free intraperitoneal gas. The heart is normal in size. There are no pericardial or pleural effusions. The lung bases are unremarkable. Lumbar spine demonstrates mild levoscoliosis. Posterior and interbody fusion at L4-5, with L5 laminec tomies. There is no lucency surrounding the pedicular screws. Incomplete solid bone bridging at the i nterbody device. The vertebral bodies are aligned in the AP dimension. Vertebral body and disc height s are well-maintained. There are no acute fractures identified. There are no bony erosions identified . There is moderate to severe bilateral facet arthropathy at L4-5, moderate at L3-4. Mild disc bulge at L4-5. Lumbar neural foramina an Central canal appear widely patent. There are no osteoblastic or o steolytic lesions identified. There is mild bilateral sacroiliac joint primary osteoarthritis. IMPRESSION: 1. No acute intra-abdominal findings. 2. Small bilateral nephrolithiasis. 3. Intact L5-S1 fusion. 4. Advanced L4-5 facet arthropathy. No stenosis. 5. Mild lumbar levoscoliosis. Reviewed, dictated and finalized at location A.
[2021-01-02] MEDS: KETOROLAC 30 MG/ML VIAL (*BKC) (07:18)
[2021-01-02 07:20] VITALS: BP 121/86; PULSE 84; RESP 16; TEMP 36.9; O2SAT 99
--- NOTE | 2021-01-02 07:20 | ED.GENADULT ---
HPI - General Adult General Chief complaint: Back Pain/Injury Stated complaint: BACK PAIN Source: patient Mode of arrival: ambulatory Limitations: no limitations History of Present Illness HPI narrative: Shruti is a 40M with a PMH of fibromyalgia, Justina-Danlos type 3, and chronic back pain s/p L5/S1 fusion that presented with right sided low back pain. She has had some back pain for some time but it has been worse for the last day particularly. It is right sided tail bone pain that does not radiate. No loss of bowel or bladder control, numbness/tingling, or lower extremity weakness/paralysis. Related Data Home Medications Medication Instructions Recorded Confirmed fluoxetine 40 mg PO HS 03/13/20 01/02/21 cholecalciferol (vitamin D3) 100 mcg PO DAILY 01/02/21 01/02/21 Allergies Allergy/AdvReac Type Severity Reaction Status Date / Time prochlorperazine AdvReac Muscle Verified 03/13/20 13:05 [From Compazine] Spasms Review of Systems Constitutional: Constitutional: Reports no additional constitutional complaints Eyes: Eyes: Reports no additional eye complaints ENT: Reports system reviewed and no additional complaints, except as documented Cardiovascular: Cardiovascular: Reports no additional cardiovascular complaints Respiratory: Respiratory: Reports no additional respiratory complaints Gastrointestinal: Gastrointestinal: Reports no additional gastrointestinal complaints Genitourinary: Genitourinary: Reports no additional female genitourinary complaints Musculoskeletal: Musculoskeletal: Reports as per HPI Integumentary/Breasts: Skin/Breast: Reports system reviewed and no additional complaints, except as docu Neurologic: Reports system reviewed and no additional complaints, except as documented Psychiatric: Psychiatric: Reports no additional psychiatric complaints Endocrine: Endocrine: Reports no additional endocrine complaints Hematologic/Lymphatic: Hematologic/Lymphatic: Reports no additional hematologic/lymphatic complaints Allergic/Immunologic: Allergic/Immunologic: Reports no additional allergic/immunologic complaints [facility] Past Medical History Medical History Justina-Danlos syndrome Fibromyalgia Surgical History Surgical History Previous back surgery Social History Social History Smoking packs per day: 0.5 Smoking cigarettes per day: 10.0 Years smoked: 13 Smoking pack-years: 6.50 Smoking status: Current every day smoker Tobacco type: cigarettes Alcohol intake: current Drinks per week: 1 Substance use: current Gender identity (if verbalized by the patient): Female Spiritual care concerns: No Exam Const: General: no acute distress Orientation/consciousness: patient oriented x3 Limitations: No altered mental status HENMT: Head: normal to inspection Other: atraumatic Eyes: Conjunctivae: conjunctivae normal Pupils: Equal, round and reactive pupils present Neck: Neck: normal visual inspection Chest: Chest palpation & inspection: normal inspection of the chest Resp: Effort & Inspection: normal respiratory effort, not labored and not tachypneic Auscultation: clear to auscultation bilaterally Cardio: Rate: regular rate and not tachycardic Rhythm: regular rhythm Heart sounds: no murmurs GI: Inspection: non-distended GI Palp: Yes Soft to palpation, No Tenderness to palpation present (GI), No Guarding due to palpation present (GI) and No Rigid due to palpation : General: Yes no CVA tenderness Back/Spine/Pelvis: Back: no CVA tenderness Skin: General skin exam: normal color Rashes: no rashes Neuro: General: patient oriented x3, moves all extremities, no meningeal signs, no focal motor deficits and CN's II-XI intact bilaterally Speech: normal speech Other: 5/5 strength through the lowe
[2021-01-02 07:42] LABS: Appearance Urine Clear (Clear); Bilirubin Urine Negative (Negative); Color Urine Light Yellow (Yellow); Glucose Urine UA Negative (Negative); Ketones Urine Negative (Negative); Leukocyte Esterase Ur Trace (Negative); Nitrate Urine Negative (Negative); Protein Urine Negative (Negative); Urobilinogen Urine 0.2 mg/dL (0.2-1.0)
[2021-01-02 07:43] LABS: Pregnancy On Board Control Positive; Urine Pregnancy Test Negative
[2021-01-02] MEDS: MORPHINE SULFATE (*CRX) 4 MG/ML INJ IV PUSH (07:44)
[2021-01-02 07:47] LABS: Basophils Absolute Auto 0.06 K/mm3 (0.00-0.10); Basophils Percent Auto 0.6 % (0.0-1.0); Eosinophils Absolute Auto 0.51 K/mm3 (0.02-0.50); Eosinophils Percent Auto 5.3 % (1.0-6.0); Hemoglobin 12.2 g/dL (12.0-15.0); Immature Granulocyte Absolute 0.03 K/mm3 (0.00-0.00); Immature Granulocyte Percent A 0.3 % (0.0-0.0); Lymphocytes Percent Auto 27.1 % (18.0-42.0); Mean Corpuscular HGB Conc 31.3 g/dL (32.0-36.0); Mean Corpuscular Hemoglobin 27.5 pg (27.0-31.0); Mean Platelet Volume 8.8 fl (9.2-11.8); Monocytes Absolute Auto 0.81 K/mm3 (0.10-0.90); Monocytes Percent Auto 8.4 % (2.0-11.0); Neutrophils Absolute Auto 5.6 K/mm3 (1.7-7.2); Neutrophils Percent Auto 58.3 % (50.0-70.0); Platelet Count Result 394 K/mm3 (150-420); Red Blood Count 4.43 M/mm3 (4.20-5.40); Red Cell Distribution Width 15.1 % (11.6-14.4); White Blood Count 9.6 K/mm3 (4.8-10.8)
[2021-01-02 07:59] LABS: Add Urine Microscopic? YES; Blood Urine Trace-lysed (Negative); WBC Urine 0-3 /hpf (0-3)
[2021-01-02 08:00] LABS: Squamous Epithelial Cell Urine Moderate /hpf (Few)
[2021-01-02 08:01] LABS: Bacteria Urine Trace /hpf
[2021-01-02 08:05] LABS: Alanine Aminotransferase 21 U/L (14-59); Albumin Level 3.5 g/dL (3.4-5.0); Alkaline Phosphatase 90 U/L (46-116); Anion Gap 11 mmol/L (8-16); Aspartate Amino Transferase 11 U/L (15-37); Bilirubin,Total 0.3 mg/dL (0.00-1.00); Blood Urea Nitrogen 11 mg/dL (7-18); Calcium 8.5 mg/dL (8.5-10.1); Carbon Dioxide 23 mmol/L (21-32); Chloride 105 mmol/L (98-108); Estimated CRCL calculation 84 ml/min; Estimated Glomerular Filt Rate > 60; Glucose 92 mg/dL (70-99); Lipase 76 U/L (73-393); Osmolality Calculated 287 mOsm/kg (285-295); Potassium 3.9 mmol/L (3.5-5.1); Sodium 139 mmol/L (136-145); Total Protein 6.8 g/dL (6.4-8.2)
[2021-01-02 08:50] VITALS: BP 113/83; PULSE 64
== END 2021-01-02 08:50 | disposition home or self-care (01) ==
PROVIDERS: Emergency Provider Family Medicine; PCP Family Medicine
DX: M54.5 Low back pain (principal)
CPT/HCPCS: 36415; 72131; 74176; 80053; 81001; 81025; 83690; 85025; 96374; 96375; 99283; 99284; J1885; J2270

== ENCOUNTER 2021-04-30 12:08 | Outpatient (CLI) | payer BC, SELFPAY ==
[2021-04-30 18:15] LABS: SARS-CoV-2 Ag Negative (Negative)
== END 2021-04-30 12:09 | disposition home or self-care (01) ==
LOC: CHSLAB 12:11
PROVIDERS: PCP Family Medicine; Visit Provider Nurse Practitioner Psychiatric/Mental Health
DX: Z20.822 Contact with and (suspected) exposure to COVID-19 (principal)
CPT/HCPCS: 87426; C9803

== ENCOUNTER 2021-05-26 17:46 | Emergency (ER) | payer OTHER, SELFPAY ==
--- NOTE | ~2021-05-26 | CT_ITS ---
EXAMINATION:CT diagnostic chest wo con DATE: 05/26/2021 19:57 INDICATION: Right breast abscess. TECHNIQUE: Computed tomography (CT) of the chest was performed without intravenous contrast. Automate d exposure control and iterative reconstruction technique were employed. The dose-length product (DLP ) was 252.92 mGy-cm. COMPARISON: CT abdomen and pelvis 01/02/2021 FINDINGS: There is mild scarring at the lung apices. There is minimal atelectasis bilaterally. A calc ified left lung nodule is consistent with old granulomatous disease. No pleural effusion. The heart s ize is normal. No pericardial effusion. There are bilateral breast implants. There are foci of gas ar ound the right breast implant. There is mild thoracic spondylosis. IMPRESSION: 1. Foci of gas around the right breast implant. Reviewed, dictated and finalized at location A. N PICKER
[2021-05-26 18:10] VITALS: BP 119/107; PULSE 89; RESP 20; TEMP 36.8; O2SAT 100
[2021-05-26 19:06] LABS: Basophils Absolute Auto 0.06 K/mm3 (0.00-0.10); Basophils Percent Auto 0.6 % (0.0-1.0); Eosinophils Absolute Auto 0.36 K/mm3 (0.02-0.50); Eosinophils Percent Auto 3.8 % (1.0-6.0); Hematocrit 34.9 % (35.0-49.0); Hemoglobin 10.7 g/dL (12.0-15.0); Immature Granulocyte Absolute 0.03 K/mm3 (0.00-0.00); Immature Granulocyte Percent A 0.3 % (0.0-0.0); Lymphocytes Absolute Auto 3.22 K/mm3 (1.10-4.50); Lymphocytes Percent Auto 33.9 % (18.0-42.0); Mean Corpuscular HGB Conc 30.7 g/dL (32.0-36.0); Mean Corpuscular Hemoglobin 25.8 pg (27.0-31.0); Mean Corpuscular Volume 84.1 fL (78.0-102.0); Mean Platelet Volume 9.7 fl (9.2-11.8); Monocytes Absolute Auto 0.93 K/mm3 (0.10-0.90); Monocytes Percent Auto 9.8 % (2.0-11.0); Neutrophils Absolute Auto 4.9 K/mm3 (1.7-7.2); Neutrophils Percent Auto 51.6 % (50.0-70.0); Platelet Count Result 444 K/mm3 (150-420); Red Blood Count 4.15 M/mm3 (4.20-5.40); Red Cell Distribution Width 16.6 % (11.6-14.4); White Blood Count 9.5 K/mm3 (4.8-10.8)
[2021-05-26] MEDS: cefTRIAXone 1 GM VIAL IM (19:10)
[2021-05-26] MEDS: KETOROLAC (*BKC) 60 MG/2 ML VIAL IM (19:10)
[2021-05-26] MEDS: ONDANSETRON HCL ODT 4 MG TABLET PO (19:10)
[2021-05-26 19:11] VITALS: BP 123/82; PULSE 80; RESP 20; O2SAT 100
--- NOTE | 2021-05-26 19:24 | PC.NURSE ---
Took Pt reoprt on Pt at this time. Pt. resting comfortable on stretcher. Stretcher in low Position. Significant other at bedside.
--- NOTE | 2021-05-26 19:25 | PC.NURSE ---
Pt to CT per w/c at this time.
[2021-05-26] MEDS: LIDOCAINE HCL 1% LOCAL INJ 20 ML VIAL (20:20)
--- NOTE | 2021-05-26 20:23 | ED.SKABFB ---
HPI - Skin/Abscess/Foreign Bdy General Chief complaint: Skin/Abscess/Foreign Body Stated complaint: possible infection rt breast Time Seen by Provider: 05/26/21 17:50 Source: patient, family and RN notes reviewed Mode of arrival: ambulatory Limitations: no limitations History of Present Illness complaint: abscess/boil (right breast lateral redness and swelling + minimal clear drainage) Onset (ago): day(s) (3) Tetanus up to date: yes Location: chest (right breast) Severity: mild Severity scale (1-10): 3 Quality: aching and dull Pain Consistency: constant Relieving factors: none Exacerbating factors: none Context: recent antibiotic and other (post surgical) Associated symptoms: denies other symptoms Treatments prior to arrival: bandages Related Data Home Medications Medication Instructions Recorded Confirmed fluoxetine 40 mg PO HS 03/13/20 05/26/21 cholecalciferol (vitamin D3) 100 mcg PO DAILY 01/02/21 05/26/21 Allergies Allergy/AdvReac Type Severity Reaction Status Date / Time prochlorperazine AdvReac Muscle Verified 05/26/21 18:22 [From Compazine] Spasms Review of Systems Review of Systems: All systems reviewed & are unremarkable except as noted in HPI and below PMFSH Past Medical History Medical History (Updated 06/08/21 @ 13:44 by Courtney Novak MD) Cellulitis of right breast Justina-Danlos syndrome Fibromyalgia Surgical History Surgical History Previous back surgery Social History Social History Smoking packs per day: 0.5 Smoking cigarettes per day: 10.0 Years smoked: 13 Smoking pack-years: 6.50 Smoking status: Current every day smoker Tobacco type: cigarettes Alcohol intake: current Drinks per week: 1 Substance use: current Gender identity (if verbalized by the patient): Female Sexual Orientation (if Verbalized by the Patient): Straight or Heterosexual Spiritual care concerns: No Exam Const: General: no acute distress Nutritional Appearance: well nourished Orientation/consciousness: patient oriented x3 Limitations: no limitations HENMT: Head: normal to inspection Ears: external ears normal and TM's normal bilaterally General nose exam: Normal external nose present and Normal nares present Face and sinus: no sinus tenderness Mouth: Yes lip normal Eyes: Conjunctivae: conjunctivae normal Pupils: Equal, round and reactive pupils present EOM: EOMs intact bilaterally Neck: Neck: normal visual inspection Chest: Chest palpation & inspection: normal inspection of the chest Resp: Effort & Inspection: normal respiratory effort Auscultation: clear to auscultation bilaterally Cardio: Rate: regular rate Rhythm: regular rhythm GI: Auscultation: normal bowel sounds : General: Yes bladder normal to palpation and Yes no CVA tenderness Back/Spine/Pelvis: Back: no CVA tenderness Skin: General skin exam: normal color Rashes: no rashes Other: lateral right breast lesion: with mild redness Neuro: General: moves all extremities, no meningeal signs, no focal motor deficits and CN's II-XI intact bilaterally Extrem: General: normal to inspection and no pedal edema Psych: Appearance: grossly normal and well kempt Mental Status: mental status grossly normal Affect: normal affect Thought content: Yes Normal thought content present Course Course Emergency Course: Pt was stable and pain-free in the ED. Reevaluation(s) Reevaluation #1: VSS. pt will seek early Surgical review. Date: 05/26/21 Time: 18:45 Vital Signs Vital signs: Vital Signs Temperature 36.8 C 05/26/21 18:10 Pulse Rate 89 05/26/21 18:10 Respiratory Rate 20 05/26/21 18:10 Blood Pressure 119/107 H 05/26/21 18:10 Pulse Oximetry 100 05/26/21 18:10 Temperature 36.7 C 05/26/21 20:37 Pulse Rate 60 05/26/21 20:37 Respiratory Rate 18 05/26/21 20:37 Blood
--- NOTE | 2021-05-26 20:27 | PC.NURSE ---
Pt returned form Ct. 0 Change in condition. Awaiting results.
[2021-05-26 20:37] VITALS: BP 118/80; PULSE 60; RESP 18; TEMP 36.7; O2SAT 98
== END 2021-05-26 20:37 | disposition home or self-care (01) ==
PROVIDERS: Emergency Provider Emergency Medicine; PCP Family Medicine
DX: L03.90 Cellulitis, unspecified (principal)
CPT/HCPCS: 36415; 71250; 85025; 96372; 99283; 99284; A9270; J0696; J1885

== ENCOUNTER 2021-09-05 06:50 | Emergency (ER) | payer OTHER, SELFPAY ==
[2021-09-05 07:08] VITALS: BP 110/84; PULSE 111; RESP 16; TEMP 36.5; O2SAT 98
--- NOTE | 2021-09-05 07:12 | ED.WOUNDLAC ---
HPI - Wound/Laceration General Chief Complaint: Wound/Laceration Stated Complaint: pain in R ribs after breast tissue plastic sewer Source: patient and family Mode of arrival: ambulatory Limitations: no limitations History of Present Illness HPI narrative: This is a 41-year-old female was seen at [facility] had a breast plastic sewer place with a drain, patient is here today with pain and tenderness at the drainage site on the right lateral breast area, site is draining the port drain is patent there is no surrounding erythema and no swelling in the surrounding area where the port is, with no fever chills, the patient rates her pain about a 7/10 is down to her last 2 pills of oxycodone is currently on doxycycline. Onset (ago): hour(s) Related Data Home Medications Medication Instructions Recorded Confirmed fluoxetine 40 mg PO HS 03/13/20 09/05/21 cholecalciferol (vitamin D3) 100 mcg PO DAILY 01/02/21 09/05/21 doxycycline hyclate 100 mg PO BID 09/05/21 09/05/21 Allergies Allergy/AdvReac Type Severity Reaction Status Date / Time prochlorperazine AdvReac Muscle Verified 09/05/21 07:02 [From Compazine] Spasms Review of Systems Review of Systems: All systems reviewed & are unremarkable except as noted in HPI and below PMFSH Past Medical History Medical History Cellulitis of right breast Justina-Danlos syndrome Fibromyalgia Surgical History Surgical History Previous back surgery Social History Social History Smoking packs per day: 0.5 Smoking cigarettes per day: 10.0 Years smoked: 13 Smoking pack-years: 6.50 Smoking status: Current every day smoker Tobacco type: cigarettes Alcohol intake: current Drinks per week: 1 Substance use: current Gender identity (if verbalized by the patient): Female Sexual Orientation (if Verbalized by the Patient): Straight or Heterosexual Spiritual care concerns: No Exam Const: General: no acute distress and alert Orientation/consciousness: patient oriented x3 HENMT: Head: normal to inspection Eyes: Conjunctivae: conjunctivae normal Pupils: Equal, round and reactive pupils present Neck: Neck: normal visual inspection, no lymphadenopathy and no meningeal signs Chest: Chest palpation & inspection: normal inspection of the chest Resp: Effort & Inspection: normal respiratory effort Auscultation: clear to auscultation bilaterally Cardio: Rate: regular rate Rhythm: regular rhythm GI: GI Palp: Yes Soft to palpation Percussion: Yes normal to percussion Back/Spine/Pelvis: Back: no CVA tenderness Skin: Other: Has a drain in place right lateral breast area with drain is patent with no surrounding erythema no redness. Neuro: General: patient oriented x3 and moves all extremities Course Course Emergency Course: Patient received a 60mg IM Toradol, patient Pain level has improved. Vital Signs Vital signs: Vital Signs Temperature 36.5 C 09/05/21 07:08 Pulse Rate 111 H 09/05/21 07:08 Respiratory Rate 16 09/05/21 07:08 Blood Pressure 110/84 09/05/21 07:08 Pulse Oximetry 98 09/05/21 07:08 Temperature 36.5 C 09/05/21 07:08 Pulse Rate 111 H 09/05/21 07:08 Respiratory Rate 16 09/05/21 07:08 Blood Pressure 110/84 09/05/21 07:08 Pulse Oximetry 98 09/05/21 07:08 Critical Care Time Critical Care Time Critical Care Time: No Discharge Plan Discharge Clinical Impression: Cellulitis Qualifiers: Site of cellulitis: unspecified site Qualified Code(s): L03.90 - Cellulitis, unspecified Patient Disposition: Home, Self-Care Condition: Stable Instructions: Antibiotic Form, Cellulitis (ED) Additional Instructions: advised to continue current antibiotics, and will advised patient to follow-up with physician that place the drain, continue current ant
[2021-09-05] MEDS: KETOROLAC (*BKC) 60 MG/2 ML VIAL IM (07:25)
[2021-09-05 07:30] VITALS: BP 110/84; PULSE 111; RESP 16; TEMP 36.5; O2SAT 98
== END 2021-09-05 07:31 | disposition home or self-care (01) ==
PROVIDERS: Emergency Provider Emergency Medicine; PCP Family Medicine
DX: L03.90 Cellulitis, unspecified (principal)
CPT/HCPCS: 96372; 99283; J1885

== ENCOUNTER 2021-09-18 01:46 | Emergency (ER) | payer OTHER, SELFPAY ==
[2021-09-18 01:46] VITALS: BP 137/98; PULSE 98; RESP 16; TEMP 36.7; O2SAT 98
[2021-09-18 01:49] VITALS: BP 126/76; PULSE 90; RESP 16; O2SAT 98
--- NOTE | 2021-09-18 02:05 | ED.GENADULT ---
HPI - General Adult General Chief complaint: Unspecified Stated complaint: Right Sided Numbness Source: patient and family Mode of arrival: ambulatory Limitations: no limitations History of Present Illness HPI narrative: This is a 41-year-old female recently diagnosed with shingles patch on the left midback area apparently appears crusting currently there is no oozing or drainage presents this morning with headache and some blurred vision with upper back pain, patient was recently started on acyclovir and gabapentin if by her primary care physician, currently headache is eased to around 6 out of 10, with some no neurological deficits no fever chills no rash around her facial area no neck injury no blurry vision no dizziness no chest pain or shortness of breath no abdominal pain no dysuria. there is no neck pain no neck stiffness no fever chills no slurred speech. Onset (ago): hour(s) Location: head Radiation: back Related Data Home Medications Medication Instructions Recorded Confirmed fluoxetine 40 mg PO HS 03/13/20 09/05/21 cholecalciferol (vitamin D3) 100 mcg PO DAILY 01/02/21 09/05/21 bupropion HCl 150 mg PO DAILY 09/18/21 09/18/21 gabapentin 100 mg PO TID 09/18/21 09/18/21 valacyclovir 1,000 mg PO TID 09/18/21 09/18/21 Allergies Allergy/AdvReac Type Severity Reaction Status Date / Time prochlorperazine AdvReac Muscle Verified 09/18/21 02:07 [From Compazine] Spasms Review of Systems Review of Systems: All systems reviewed & are unremarkable except as noted in HPI and below PMFSH Past Medical History Medical History Cellulitis of right breast Justina-Danlos syndrome Fibromyalgia Surgical History Surgical History Previous back surgery Social History Social History Smoking packs per day: 0.5 Smoking cigarettes per day: 10.0 Years smoked: 13 Smoking pack-years: 6.50 Smoking status: Current every day smoker Tobacco type: cigarettes Alcohol intake: current Drinks per week: 1 Substance use: current Gender identity (if verbalized by the patient): Female Sexual Orientation (if Verbalized by the Patient): Straight or Heterosexual Spiritual care concerns: No Exam Const: General: cooperative and healthy appearing HENMT: Head: normal to inspection Ears: hearing grossly normal bilaterally General nose exam: Normal external nose present Face and sinus: normal facial exam Mouth: Yes Normal oral and palatal mucosa present Throat: posterior oropharynx normal Eyes: General: appearance normal, both eyes and all related structures Neck: Neck: normal visual inspection, full ROM, no lymphadenopathy and no meningeal signs Resp: Effort & Inspection: normal respiratory effort Cardio: Jugular venous distension: no JVD Palpation: normal PMI Rate: regular rate Rhythm: regular rhythm GI: Inspection: normal to inspection Back/Spine/Pelvis: Back: no CVA tenderness Cervical Spine: normal cervical lordosis Skin: General skin exam: normal color Full body images: 1. Patch in healing process with scabs diagnosis is shingles Neuro: General: oriented to person, oriented to place, oriented to time, patient oriented x3, gait normal, tone normal, moves all extremities and Normal light touch and pain sensation Extrem: General: normal to inspection, full ROM and capillary refill normal Psych: Appearance: grossly normal and well kempt Course Course Emergency Course: Patient received 4mg of IM morphine and has no neurological deficit and has a follow-up appoint with her primary care physician advised her to discontinue the gabapentin until she sees her primary care doctor. Critical Care Time Critical Care Time Critical Care Time: No Discharge Plan Discharge Clinical Impression: Headache Qualifiers: Headache typ
[2021-09-18] MEDS: MORPHINE SULFATE (*CRX) 4 MG/ML INJ IM (02:17)
== END 2021-09-18 02:28 | disposition home or self-care (01) ==
PROVIDERS: Emergency Provider Emergency Medicine; PCP Family Medicine
DX: R51.9 Headache, unspecified (principal); B02.8 Zoster with other complications
CPT/HCPCS: 96372; 99283; J2270

== ENCOUNTER 2022-01-18 21:07 | Emergency (ER) | payer OTHER, SELFPAY ==
--- NOTE | ~2022-01-18 | XR_ITS ---
EXAM: XR pelvis 1-2V DATE: 01/18/2022 22:17 HISTORY: LOWER BACK PAIN/NO TRAUMA . COMPARISON: None available. FINDINGS: Lower lumbar fusion hardware. Normal mineralization. No fracture or dislocation. No lytic o r blastic lesion. Joint spaces are maintained. No erosion or periosteal change. Soft tissues within n ormal limits. IMPRESSION: No acute osseous finding in the pelvis. Reviewed, dictated and finalized at location K.
--- NOTE | ~2022-01-18 | XR_ITS ---
EXAMINATION: XR chest 1V portable Exam Date/Time: 01/18/2022 22:02 CDT HISTORY: SHAKEY Comparison: None available. RESULT: Lines, tubes, and devices: Bilateral breast augmentation. Lungs and pleura: Clear. Cardiomediastinal silhouette: Normal. Other: No acute osseous or upper abdominal finding. IMPRESSION: No acute cardiopulmonary process. Reviewed, dictated and finalized at location K.
--- NOTE | 2022-01-18 21:38 | ED.GENADULT ---
HPI - General Adult General Chief complaint: Unspecified Stated complaint: headache, chills, pedal numbness Time Seen by Provider: 01/18/22 21:37 Mode of arrival: wheelchair History of Present Illness HPI narrative: 41-year-old female with a history of Justina-Danlos, fibromyalgia status post back surgery, anxiety /depression, breast cancer status post bilateral mastectomy in 2020( positive family history of breast cancer with possible BRCA 1) presents to the ER with a 4 day history of -- nausea without vomiting. no abdominal pain or diarrhea. -- Heartburn -- numbness and tingling of her toes and fingertips -- chronic Backpain with new onset jaw pain, ear pain and right sacroiliac pain she had been having these symptoms for the past 3-4 days but they got worse when she went to her son's football game today afternoon. she had a CT in the past which revealed L5-S1 fusion, L4/5 facet arthropathy and bilateral sacroiliac osteoarthritis. -- generalized headache -- chest discomfort without any radiation. -- Fever with a T-max of 38.3?. Onset (ago): day(s) ( Started 3 days ago.) Location: chest and back Radiation: non-radiation Severity: moderate Quality: aching Pain Consistency: intermittent Relieving factors: none Exacerbating factors: none Associated symptoms: chest pain Related Data Home Medications Medication Instructions Recorded Confirmed fluoxetine 20 mg tablet 60 mg PO HS 03/13/20 01/18/22 cholecalciferol (vitamin D3) 100 100 mcg PO DAILY 01/02/21 09/18/21 mcg (4,000 unit) tablet bupropion HCl 150 mg 24 hr tablet, 300 mg PO DAILY 09/18/21 01/18/22 extended release gabapentin 100 mg capsule 100 mg PO TID 09/18/21 09/18/21 valacyclovir 1 gram tablet 1,000 mg PO TID 09/18/21 09/18/21 Allergies Allergy/AdvReac Type Severity Reaction Status Date / Time prochlorperazine AdvReac Muscle Verified 01/18/22 21:34 [From Compazine] Spasms Review of Systems Review of Systems: All systems reviewed & are unremarkable except as noted in HPI and below Constitutional: Constitutional: Reports as per HPI, Reports no additional constitutional complaints, Reports body ache(s), Reports chills and Reports fever(s) Eyes: Eyes: Reports as per HPI and Reports no additional eye complaints ENT: Reports system reviewed and no additional complaints, except as documented, Reports as per HPI and Reports headache(s) Cardiovascular: Cardiovascular: Reports as per HPI, Reports no additional cardiovascular complaints and Reports chest pain Respiratory: Respiratory: Reports as per HPI and Reports no additional respiratory complaints Gastrointestinal: Gastrointestinal: Reports as per HPI and Reports no additional gastrointestinal complaints Genitourinary: Genitourinary: Reports no additional female genitourinary complaints and Reports as per HPI Musculoskeletal: Musculoskeletal: Reports no additional musculoskeletal complaints, Reports as per HPI, Reports back pain, Reports myalgias and Reports arthralgias Integumentary/Breasts: Skin/Breast: Reports system reviewed and no additional complaints, except as docu and Reports as per HPI Neurologic: Reports system reviewed and no additional complaints, except as documented, Reports as per HPI and Reports numbness Psychiatric: Psychiatric: Reports no additional psychiatric complaints, Reports as per HPI and Reports anxiety Endocrine: Endocrine: Reports no additional endocrine complaints and Reports as per HPI Hematologic/Lymphatic: Hematologic/Lymphatic: Reports no additional hematologic/lymphatic complaints and Reports as per HPI Allergic/Immunologic: Allergic/Immunologic: Reports no additional allergic/immunologic complaints and Reports as per HPI PMFSH Past Medical History Medical History Cellulitis of right breast Justina-Danlos syndrome Fibromyalgia Surgical History Surgical History (Reviewed 01/18/22 @ 22:03 by Cas Munoz
[2022-01-18 21:40] VITALS: BP 111/66; PULSE 106; RESP 16; TEMP 38.3; O2SAT 100
[2022-01-18 21:45] LABS: Add Urine Microscopic? NO; Appearance Urine Clear (Clear); Bilirubin Urine Negative (Negative); Blood Urine Negative (Negative); Color Urine Light Yellow (Yellow); Glucose Urine UA Negative (Negative); Ketones Urine Negative (Negative); Leukocyte Esterase Ur Negative LEU/UL (Negative); Nitrate Urine Negative (Negative); Protein Urine Negative (Negative); Specific Grav Ur 1.025 (1.010-1.020); Urobilinogen Urine 0.2 mg/dL (0.2-1.0)
[2022-01-18 21:47] LABS: Pregnancy On Board Control Positive; Urine Pregnancy Test Negative
--- NOTE | 2022-01-18 21:55 | ECG_ITS ---
Measurements Intervals [place] Rate: 107 P: 69 MD: 142 QRS: 52 QRSD: 93 T: 60 QT: 306 QTc: 410 Interpretive Statements SINUS TACHYCARDIA POSSIBLE LEFT ATRIAL ENLARGEMENT INCOMPLETE RIGHT BUNDLE BRANCH BLOCK ABNORMAL ECG NO PREVIOUS ECG AVAILABLE FOR COMPARISON Electronically Signed On 01-19-2022 6:33:13 CDT by Arias Vasques D.O.
[2022-01-18] MEDS: KETOROLAC 30 MG/ML VIAL (*BKC) IM (22:05)
[2022-01-18] MEDS: ONDANSETRON HCL ODT 4 MG TABLET PO (22:05)
[2022-01-18 22:22] LABS: Basophils Absolute Auto 0.04 K/mm3 (0.00-0.10); Basophils Percent Auto 0.5 % (0.0-1.0); Eosinophils Absolute Auto 0.14 K/mm3 (0.02-0.50); Eosinophils Percent Auto 1.7 % (1.0-6.0); Hematocrit 33.2 % (35.0-49.0); Hemoglobin 10.1 g/dL (12.0-15.0); Immature Granulocyte Absolute 0.03 K/mm3 (0.00-0.00); Immature Granulocyte Percent A 0.4 % (0.0-0.0); Lymphocytes Percent Auto 2.4 % (18.0-42.0); Mean Corpuscular HGB Conc 30.4 g/dL (32.0-36.0); Mean Corpuscular Hemoglobin 24.2 pg (27.0-31.0); Mean Corpuscular Volume 79.4 fL (78.0-102.0); Mean Platelet Volume 9.2 fl (9.2-11.8); Monocytes Absolute Auto 0.75 K/mm3 (0.10-0.90); Neutrophils Absolute Auto 7.1 K/mm3 (1.7-7.2); Platelet Count Result 416 K/mm3 (150-420); Red Blood Count 4.18 M/mm3 (4.20-5.40); Red Cell Distribution Width 20.5 % (11.6-14.4); White Blood Count 8.3 K/mm3 (4.8-10.8)
[2022-01-18 22:43] LABS: SARS-CoV-2 Ag Positive (Negative)
[2022-01-18 22:45] LABS: Alanine Aminotransferase 20 U/L (14-59); Albumin Level 3.7 g/dL (3.4-5.0); Alkaline Phosphatase 127 U/L (46-116); Anion Gap 7 mmol/L (8-16); Aspartate Amino Transferase 13 U/L (15-37); Bilirubin,Total 0.1 mg/dL (0.00-1.00); Blood Urea Nitrogen 13 mg/dL (7-18); Calcium 9.1 mg/dL (8.5-10.1); Carbon Dioxide 27 mmol/L (21-32); Chloride 103 mmol/L (98-108); Estimated CRCL calculation 68 ml/min; Estimated Glomerular Filt Rate > 60; Glucose 111 mg/dL (70-99); NT Pro B Type Natriuretic Pept 61 pg/mL (0-125); Osmolality Calculated 285 mOsm/kg (285-295); Potassium 3.4 mmol/L (3.5-5.1); Sodium 137 mmol/L (136-145); Total Protein 6.8 g/dL (6.4-8.2)
[2022-01-18] MEDS: POTASSIUM CHLORIDE 20 MEQ TABLET PO (23:23)
[2022-01-18 23:31] VITALS: BP 110/65; PULSE 98; RESP 16; TEMP 37.2; O2SAT 99
== END 2022-01-18 23:33 | disposition home or self-care (01) ==
PROVIDERS: Emergency Provider Internal Medicine Critical Care Medicine; PCP Family Medicine
DX: U07.1 COVID-19 (principal); R52 Pain, unspecified; E86.0 Dehydration
CPT/HCPCS: 36415; 71045; 72170; 80053; 81003; 81025; 83880; 84484; 85025; 87426; 93005; 96372; 99284; A9270; C9803; J1885

== ENCOUNTER 2022-05-01 15:22 | Emergency (ER) | payer OTHER, MEDICAID, SELFPAY ==
--- NOTE | ~2022-05-01 | XR_ITS ---
EXAMINATION: XR chest 2V Exam Date/Time: 05/01/2022 16:30 [employer] HISTORY: Cough X 4 DAYS/HX OF DOUBLE MASECTOMY Comparison: None available. RESULT: Lines, tubes, and devices: Bilateral breast reconstruction. Lungs and pleura: Clear. Cardiomediastinal silhouette: Stable. Other: No acute osseous or upper abdominal finding. IMPRESSION: No acute cardiopulmonary process. Reviewed, dictated and finalized at location K. MBLER [employer]AME
[2022-05-01 15:28] VITALS: BP 94/70; PULSE 69; RESP 18; TEMP 36.6; O2SAT 100
[2022-05-01 15:37] VITALS: O2SAT 100
--- NOTE | 2022-05-01 15:39 | ED.URI ---
HPI - URI/Sore Throat General Chief Complaint: Upper Respiratory Infection Stated Complaint: fever, coughing Time Seen by Provider: 05/01/22 15:24 History of Present Illness HPI Narrative: This is a 41-year-old female with past medical history of Justina-Danlos and fibromyalgia, who presents to the emergency department complaining of 4 days worth of upper respiratory congestion, cough productive nonbloody, yellow sputum and myalgias. The patient states her symptoms are somewhat improved with ibuprofen but have been overall worsening. She states her muscle aches are 3 of 10 and diffuse, accompanied by chest soreness with coughing. She has had intermittent nausea and vomiting without bleeding. She is not vaccinated for COVID or flu. She states her last menstrual period was 2 weeks ago, they occur regularly and she is status post bilateral oophorectomy. Related Data Home Medications Medication Instructions Recorded Confirmed fluoxetine 20 mg tablet 60 mg PO HS 03/13/20 01/18/22 cholecalciferol (vitamin D3) 100 100 mcg PO DAILY 01/02/21 09/18/21 mcg (4,000 unit) tablet bupropion HCl 150 mg 24 hr tablet, 300 mg PO DAILY 09/18/21 01/18/22 extended release gabapentin 100 mg capsule 100 mg PO TID 09/18/21 09/18/21 valacyclovir 1 gram tablet 1,000 mg PO TID 09/18/21 09/18/21 Allergies Allergy/AdvReac Type Severity Reaction Status Date / Time prochlorperazine AdvReac Muscle Verified 01/18/22 21:34 [From Compazine] Spasms Review of Systems Review of Systems: CONSTITUTIONAL: Fever, chills, Denies sweats. EYES: Denies visual changes, redness, or discharge. ENT: Rhinorrhea, congestion, sore throat, Denies otalgia. CARDIOVASCULAR: Chest soreness related to coughing denies other chest pain, palpitations, or edema. RESPIRATORY: cough productive of yellow sputum without blood Denies dyspnea. GASTROINTESTINAL: Nausea and intermittent vomiting, Denies abdominal pain, or diarrhea. GENITOURINARY: Denies dysuria or hematuria. SKIN: Denies rash or itching. MUSCULOSKELETAL: Diffuse myalgias denies back pain, joint pain NEUROLOGIC: Denies headache, numbness, dizziness, or weakness. PSYCHIATRIC: Denies anxiety or depression. PMFSH Past Medical History Medical History Cellulitis of right breast Justina-Danlos syndrome Fibromyalgia Surgical History Surgical History Previous back surgery Social History Social History (Updated 05/01/22 @ 15:45 by Eleazar Davidson MD) Smoking status: Former smoker Tobacco type: cigarettes Alcohol intake: current Drinks per week: 1 Substance use: current Gender identity (if verbalized by the patient): Female Sexual Orientation (if Verbalized by the Patient): Straight or Heterosexual Spiritual care concerns: No Exam Narrative: GENERAL: Well-developed, well-nourished, appears uncomfortable HEAD: Normocephalic, atraumatic. EYES: PERRLA and EOMI. ENT: Clear bilateral nasal drainage, no epistaxis. Mucous membranes moist. Oropharynx without tonsillar hypertrophy exudate or other lesions. NECK: Supple. No adenopathy or masses. No carotid bruits or JVD CHEST: Clear to auscultation. No respiratory distress. No wheezes rales or rhonchi HEART: Regular rate and rhythm. No murmur heard. Normal peripheral pulses. ABDOMEN: Soft, nontender, nondistended, normal active bowel sounds. EXTREMITIES: Normal range of motion. No edema. SKIN: Warm, dry, no rash. NEURO: No focal deficits. Alert and oriented x3. PSYCH: Normal mood and affect. Course Course Emergency Course: 16:56 - The patient tested negative for COVID, RSV and flu. Chest x-ray is not concerning for pneumonia. Patient states her nausea is improved with Zofran. Will discharge home for symptomatic management. Discussed return emergency precautions including signs/symptoms of respiratory distress and ACS. The pat
[2022-05-01] MEDS: ONDANSETRON HCL ODT 4 MG TABLET PO (15:47)
[2022-05-01] MEDS: ACETAMINOPHEN 500 MG TABLET 1000 MG PO (15:47)
[2022-05-01 16:13] LABS: Influenza A QL RT-PCR Negative (Negative); Influenza B QL RT-PCR Negative (Negative); SARS-CoV-2 RNA PCR Negative (Negative)
[2022-05-01 16:14] LABS: RSV RNA, RT-PCR Negative (Negative)
[2022-05-01 16:55] VITALS: BP 107/67; PULSE 81; RESP 16; TEMP 36.8; O2SAT 98
== END 2022-05-01 17:05 | disposition home or self-care (01) ==
PROVIDERS: Emergency Provider Preventive Medicine Aerospace Medicine; PCP Family Medicine
DX: R50.9 Fever, unspecified (principal); R05.9 Cough, unspecified; R09.89 Other specified symptoms and signs involving the circulatory and respiratory systems; Q79.60 Ehlers-Danlos syndrome, unspecified; M79.7 Fibromyalgia; Z87.891 Personal history of nicotine dependence; Z20.822 Contact with and (suspected) exposure to COVID-19
CPT/HCPCS: 71046; 87637; 99283; A9270

== ENCOUNTER 2022-05-17 19:03 | Emergency (ER) | payer MEDICAID, SELFPAY ==
[2022-05-17] VITALS (8 sets, daily range): BP systolic 128–149; BP diastolic 88–95; PULSE 64–75; RESP 18–26; TEMP 36.4–36.6; O2SAT 95–100
--- NOTE | ~2022-05-17 | CT_ITS ---
EXAMINATION: CT brain wo con DATE: 05/17/2022 20:04 INDICATION: AMS, confusion, claims to have used drugs today . TECHNIQUE: Computed tomography (CT) of the head was performed without intravenous contrast. The mA wa s adjusted according to patient size. Iterative reconstruction technique was employed. The dose-lengt h product was 605.33 mGy-cm. COMPARISON: None. FINDINGS: Exam limited by nonstandard positioning and planes of reconstruction as well as portions of the left scalp be excluded from the [id number]. No acute intracranial hemorrhage or extra-axial fluid colle ction. No hydrocephalus, mass, or herniation. No acute ischemic infarct. Unremarkable dural venous sinus attenuation. No acute osseous abnormality. Trace left mastoid fluid, the remaining aerated spaces are clear. IMPRESSION: Limited examination as detailed above. No definite acute intracranial process. Reviewed, dictated and finalized at location K. [facility] [employer] [facility]
--- NOTE | 2022-05-17 19:40 | PC.NURSE ---
Pt is alert and answers all ERP Dr Gaston's questions. She is hyperventilating during assessment and c/o leg spasms. ERP encouraged pt t slow breathing as hyperventilating causes this issue. Pt follows commands but states she can't move her arms or legs. During neuro test, pt has noted good reflexes during testing. She won't move her head when asked, and keeps head turned to side during testing. Pt asking for b-friend. Monitor shows NSR, VSS.
--- NOTE | 2022-05-17 19:41 | ECG_ITS ---
Measurements Intervals [place] Rate: 74 P: 71 CT: 151 QRS: 50 QRSD: 84 T: 56 QT: 384 QTc: 427 Interpretive Statements SINUS RHYTHM WITH SINUS ARRHYTHMIA POSSIBLE LEFT ATRIAL ENLARGEMENT MINIMAL Q WAVES- ANTEROLATERAL LEADS BORDERLINE ECG COMPARED TO ECG 01/18/2022 22:04:17 SINUS RHYTHM NOW PRESENT SINUS ARRHYTHMIA NOW PRESENT Electronically Signed On 05-17-2022 20:18:55 LEATHER STITCHER by Arias Vasques D.O.
--- NOTE | 2022-05-17 19:54 | ED.GENADULT ---
HPI - General Adult General Chief complaint: Altered Mental Status Stated complaint: ambulance Time Seen by Provider: 05/17/22 19:29 Source: patient and EMS Limitations: no limitations History of Present Illness HPI narrative: Patient is a 42-year-old white female brought in by EMS. Patient stated she did not feel well at work and left work early today and was at home at 1:00 a.m. parent. 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 . She had taken some liquid marijuana. EMS gave her Narcan with no report changes. They gave her Zofran 4 mg her EKG per EMS was okay her vital signs were also okay per EMS. Blood sugar was 80. Today she said she went to [place] to get some cigarettes she was complaining of dizziness and vertigo symptoms had told her boss that she was not feeling right so she went home early took some ibuprofen and her Prozac. She has multiple complaints she says she can move her arms and then she cannot move her legs. She fit as she feels tingling all over pain in left foot. Denies any other pains or difficulty breathing or changes in her vision. Denies any chest pain shortness of breath or cough. EMS said they gave her Narcan but they did see much change in her. Said she was altered is talking more now. Patient said she took some with liquid we had meeting marijuana today but denied other illicit drug use. Related Data Home Medications Medication Instructions Recorded Confirmed fluoxetine 20 mg tablet 60 mg PO HS 03/13/20 05/17/22 cholecalciferol (vitamin D3) 100 100 mcg PO DAILY 01/02/21 05/17/22 mcg (4,000 unit) tablet bupropion HCl 150 mg 24 hr tablet, 300 mg PO DAILY 09/18/21 05/17/22 extended release Allergies Allergy/AdvReac Type Severity Reaction Status Date / Time prochlorperazine AdvReac Muscle Verified 01/18/22 21:34 [From Compazine] Spasms Review of Systems Constitutional: Constitutional: Reports no additional constitutional complaints, Denies chills, Denies fatigue, Denies fever(s) and Denies weakness Eyes: Eyes: Denies no additional eye complaints and Denies change in vision ENT: Reports system reviewed and no additional complaints, except as documented, Reports vertigo and Reports dizziness Cardiovascular: Cardiovascular: Denies no additional cardiovascular complaints and Denies chest pain Respiratory: Respiratory: Denies no additional respiratory complaints, Denies chest congestion, Denies cough and Denies dyspnea Gastrointestinal: Gastrointestinal: Reports no additional gastrointestinal complaints, Denies abdominal pain, Denies diarrhea, Denies nausea and Denies vomiting Genitourinary: Genitourinary: Denies no additional female genitourinary complaints, Reports abnormal vaginal bleeding, Denies hematuria, Denies nocturia, Denies dysuria and Denies flank pain Comments: she started her period yesterday and has had some cramping today. Musculoskeletal: Musculoskeletal: Reports no additional musculoskeletal complaints and Denies as per HPI Neurologic: Reports system reviewed and no additional complaints, except as documented, Reports as per HPI, Denies confusion, Reports dizziness and Denies headache(s) Comments: Feels numb and tingly all over. Psychiatric: Psychiatric: Reports anxiety Hematologic/Lymphatic: Hematologic/Lymphatic: Denies easy bleeding and Denies easy bruising [facility] Past Medical History Medical History Cellulitis of right breast Justina-Danlos syndrome Fibromyalgia Surgical History Surgical History Previous back surgery Social History Social History (Reviewed 05/17/22 @ 20:42 by Germain Gaston,
[2022-05-17] MEDS: SODIUM CHLORIDE 0.9% IV 1,000 ML 999 ML IV CONT (19:58)
[2022-05-17 20:09] LABS: Hematocrit 35.1 % (35.0-49.0); Hemoglobin 10.8 g/dL (12.0-15.0); Immature Platelet Fraction Pct 1.6 % (1.0-7.0); Mean Corpuscular HGB Conc 30.8 g/dL (32.0-36.0); Mean Corpuscular Hemoglobin 24.3 pg (27.0-31.0); Mean Corpuscular Volume 78.9 fL (78.0-102.0); Mean Platelet Volume 9.2 fl (9.2-11.8); Platelet Count Result 672 K/mm3 (150-420); Red Blood Count 4.45 M/mm3 (4.20-5.40); Red Cell Distribution Width 18.2 % (11.6-14.4); White Blood Count 9.4 K/mm3 (4.8-10.8)
[2022-05-17 20:21] LABS: Amphetamine Screen Urine Positive (Negative); Barbiturate Screen Urine Negative (Negative); Benzodiazepines Screen Urine Negative (Negative); Cannabinoid Screen Urine Positive (Negative); Cocaine Screen Urine Negative (Negative); Methadone Screen Urine Negative (Negative); Opiate Screen Urine Negative (Negative); Phencyclidine Screen Urine Negative (Negative)
[2022-05-17 20:29] LABS: Partial Thromboplastin Time 25.7 SEC (23.90-30.70); Prothrombin Time 10.7 Seconds (9.50-12.10)
[2022-05-17 20:30] LABS: Alanine Aminotransferase 16 U/L (14-59); Albumin Level 3.7 g/dL (3.4-5.0); Alkaline Phosphatase 117 U/L (46-116); Anion Gap 7 mmol/L (8-16); Aspartate Amino Transferase 21 U/L (15-37); Bilirubin,Total 0.2 mg/dL (0.00-1.00); Blood Urea Nitrogen 14 mg/dL (7-18); Calcium 8.9 mg/dL (8.5-10.1); Carbon Dioxide 27 mmol/L (21-32); Chloride 102 mmol/L (98-108); Estimated CRCL calculation 76 ml/min; Estimated Glomerular Filt Rate > 60; Glucose 87 mg/dL (70-99); Magnesium 2.1 mg/dL (1.8-2.4); Osmolality Calculated 281 mOsm/kg (285-295); Potassium 3.3 mmol/L (3.5-5.1); Sodium 136 mmol/L (136-145); Total Protein 7.1 g/dL (6.4-8.2)
--- NOTE | 2022-05-17 20:35 | PC.NURSE ---
Pt crying upon entering room, VSS, monitor shows NSR, Pt encouraged to turn her head straight and cries when asked to do any commands, Pt head assisted to move to side and pt. then moves her head per self c little help. Pt reports unable to move extremities but yet has good reflexes present. Will continue to monitor and awaiting lab tests.
[2022-05-17 20:47] LABS: Influenza A QL RT-PCR Negative (Negative); Influenza B QL RT-PCR Negative (Negative); SARS-CoV-2 RNA PCR Negative (Negative)
[2022-05-17 20:48] LABS: RSV RNA, RT-PCR Negative (Negative)
--- NOTE | 2022-05-17 21:30 | PC.NURSE ---
Pt re-evaluated by ERP, pt awakens easily when entering room, still holds her head to side and states her extremities are numb and tingling and states she can't move anything. When assisting her head to neutral position, pt will hold it there and still answers all questions appropriately. Pts b-friend in room at bedside and ERP discussed option c pt and b-friend for further neuro eval and transfer. Pt agreeable to go where needed.
--- NOTE | 2022-05-17 22:02 | PC.NURSE ---
Pt in room discussing transfer c b-friend, this RN called back to room, pt upset about treatment and transfer. Pt not wanting this MD to take care of her and wanting to go home now, pt is refusing transfer to anyplace else and states she will get up on her own, now she only has paresthias c numbness and cramping to her lower legs. Pt will sign AMA form.
--- NOTE | 2022-05-17 22:05 | PC.NURSE ---
DR Gaston in to speak c pt. She tells him she doesn't want transfer and is upset about his treatment. Dr Gaston spoke c pt and b-friend in length about need for transfer and further neurology workup if she isn't able to walk. Pt then sat up on side of bed per self, angry at this time and wanting sign AMA even p all risks/benefits explained to pt and her b-friend. B-friend agreeable to taking pt home, she rewports she will call her FMD in morning. Dr Gaston specifically stated to pt. and b-friend that he was concernedfor her and she could return anytime. Pt still wanting to go home and not be transferred.
--- NOTE | 2022-05-17 22:11 | PC.NURSE ---
Pt sitting on side of bed by herself at time of d/c, pt is able to lift herself from bed and sit upright in w/c out by herself. Pt signed AMA and left c b-friend stating she will see her Dr tomorrow.
--- NOTE | 2022-05-20 13:39 | PC.NURSE ---
FINAL URINE CULTURE REPORT: NO GROWTH, NO FURTHER ACTION NEEDED.
--- NOTE | 2022-05-25 14:29 | PC.NURSE ---
FINAL BLOOD CULTURE RESULTS X2: NO GROWTH AFTER 5 DAYS. NO FURTHER ACTION NEEDED.
== END 2022-05-17 22:15 | disposition left against medical advice (07) ==
PROVIDERS: Emergency Provider Emergency Medicine; PCP Family Medicine
DX: R29.818 Other symptoms and signs involving the nervous system (principal); R53.1 Weakness; R41.82 Altered mental status, unspecified; R79.89 Other specified abnormal findings of blood chemistry; Q79.60 Ehlers-Danlos syndrome, unspecified; M79.7 Fibromyalgia; Z87.891 Personal history of nicotine dependence; Z20.822 Contact with and (suspected) exposure to COVID-19; F12.90 Cannabis use, unspecified, uncomplicated
CPT/HCPCS: 36415; 70450; 80053; 80307; 83735; 84484; 85027; 85055; 85610; 85730; 87040; 87086; 87637; 93005; 96360; 99284; J7030

== ENCOUNTER 2024-07-31 22:57 | Emergency (ER) | payer OTHER, SELFPAY ==
[2024-07-31 22:57] VITALS: BP 128/90; PULSE 100; RESP 20; TEMP 36.7; O2SAT 100
--- OUTSIDE RECORDS SUMMARY | 2024-07-31 23:01 | XMS_ITS ---
Author Organization [facility] Address [address] [place] [address] Care Team Providers Care Supervisor Forming And Tempering Name Role Phone Patrick Kapadia MD Primary Care Provider Active Problems Problem Noted Date Diagnosed Date Pericarditis 05/15/2024 Chest pain, unspecified type 05/14/2024 Smoker 05/14/2024 Mass of right breast 04/26/2022 Absence of both breasts 08/19/2021 Overview (08/19/2021): Added automatically from request for surgery [id number] Encounter to discuss treatment options 2 Infection of breast implant 05/27/2021 Overview (05/27/2021): Added automatically from request for surgery [id number] Encounter for postoperative wound check 05/14/19 22 History of breast cancer 05/14/2021 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 Past Treatment and Therapy Plans No past plan information found. Lifetime Dose Tracking * Chemical Lifetime Dose Automatic Entry Manual Entr y Air kerma at the reference point (Ka,r) 399 mGy 0 mGy 399 mGy
--- OUTSIDE RECORDS SUMMARY | 2024-07-31 23:01 | XMS_ITS | Clinical Summary ---
Author Organization [facility] Address [address] [place] [address] Care Team Providers Care Traffic Chief Name Role Phone Patrick Kapadia MD Primary Care Provider [phone] Allergies Active Allergy Reactions Criticality Noted Date Comments Prochlorperazine Muscle pain Medium 02/02/2021 Sulfamethoxazole-Trimethoprim Rash Medium 2018 Medications ibuprofen (ADVIL,MOTRIN) 200 mg tab/cap Take 2 tablet/capsul e (400 mg total) by mouth as needed for pain Active acetaminophen-aspi rin-caffeine (EXCEDRIN MIGRAINE) 250-250-65 mg per tablet Take 1 tablet by mouth as needed for pain or headaches Active acetaminophen (TYLENOL) 500 mg tablet Take 2 tablets (1,000 mg total) by mouth as needed for pain Active multivitamin capsule Take 1 capsule by mouth paid search marketing strategist before breakfast Active cyclobenzaprine (FLEXERIL) 5 mg tablet Take 1 tablet (5 mg total) by mouth 3 (three) times a day as needed for muscle spasms 15 tablet 2 Active buPROPion XL (WELLBUTRIN XL) 300 mg 24 hr tablet 2 Active ondansetron ODT (ZOFRAN-ODT) 4 mg disintegrating tablet Take 1 tablet (4 mg total) by mouth every 8 (eight) hours as needed for nausea or vomiting 12 tablet 5 Active ALPRAZolam (XANAX) 0.25 mg tablet Take 1 tablet (0.25 mg total) by mouth nightly as needed for anxiety Active nicotine (NICODERM CQ) [address] 1 patch on the skin daily 30 patch 1 5 Active dicyclomine (BENTYL) 20 mg tablet Take 1 tablet (20 mg total) by mouth 2 (two) times a day 60 tablet 5 Active diclofenac sodium (VOLTAREN) 1 % gel Apply 4 g topically 4 (four) times a day 100 g 5 Active ferrous sulfate 325 mg (65 mg of elemental iron) tabletIndications: Iron Deficiency Anemia Take 1 tablet (325 mg total) by mouth every other day 15 tablet 1 5 025 Active Problems Problem Noted Date Diagnosed Date Pericarditis 05/15/2024 Chest pain, unspecified type 05/14/2024 Smoker 05/14/2024 Mass of right breast 04/26/2022 Absence of both breasts 08/19/2021 Overview (08/19/2021): Added automatically from request for surgery [id number] Encounter to discuss treatment options 2 Infection of breast implant 05/27/2021 Overview (05/27/2021): Added automatically from request for surgery [id number] Encounter for postoperative wound check 05/14/19 22 History of breast cancer 05/14/2021 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 05/09/2020 Overview (03/09/2021): Added automatically from request for surgery [id number] Encounters Date Type Department Care Team Description 05/18/2024 Telephone [facility] Cardiology [address] [facility] [address] [place] [address] Ritu Contreras NP 05/15/2024 3:30 PM BRANCH CREDIT COUNSELOR - 05/15/2024 4:30 PM [facility] Surgery [facility] Cardiac Transport Tank Technician [address] [place] [address] Ja Porras MD LEFT HEART CATHETERIZATION WITH CORONARY ANGIOGRAPHY AND WITH OR WITHOUT LEFT VENTRICULOGRAM [id number] 05/14/2024 7:31 PM BRANCH CREDIT COUNSELOR - 05/16/2024 11:40 AM [facility] Hospital Encounter [address] [address] Sheri Carr MD Brother, MD Branden Bazzi Vibhu, MD Telemaque, Magdalene Weaver MD Chest pain, unspecified type (Primary Dx); SOB (shortness of breath); Pericarditis; Smoker Discharge Disposition: Discharge to home or self care 05/08/2024 11:15 PM BRANCH CREDIT COUNSELOR - 05/09/2024 12:47 AM [facility] Emergency [address] [address] Viral syndrome (Primary Dx); Anemia, unspecified type Discharge Disposition: Discharge to home or self care from Last 3 Months Immunizations Immunization Administration Dates Next Due DTP 11/06/1986,12/14/1983,1982 ,1982,1982 MMR 07/19/1991,10/12/1983 OPV 11/06/1986,10/12/1983,1982 ,1982 Tdap 09/11/2019 Surgical History Surgery Date Site/Laterality Comments SALPINGECTOMY 03/09/2020 - 04/07/2020 Bilateral BREAST BIOPSY 05/09/2020 - 05/08/2021 Left BACK SURGERY 2009, 2012 MASTECTOMY 03/27/2021 Bilateral sentinal lymph node, bilateral tissue expanders. TISSUE RN HOSPITAL REMOVAL 05/09/2021 - 06/08/2021 Right TISSUE RN HOSPITAL PLACEMENT 08/07/2021 - 09/05/2021 Right Medical History Medical History Date Comments Depression PONV (postoperative nausea and vomiting) Nausea - IV antiemetics have helped in the past Family History Medical History Relation Name Comments No Known Problems Father No Known Problems Mother Breast cancer Mother's Sister Heart attack Paternal Grandfather Sudden Cardiac Paternal Grandfather Anesthesia problems Neg Hx Relation Name Status Comments Father Mother Mother's Sister Paternal Grandfather Social History Tobacco Use Types Packs/Day Years Used Date Smoking Tobacco: Every Day Cigarettes 0.3 20 Started: 2001; Last attempted to quit: 2021 Smokeless Tobacco: Never Tobacco Cessation:Ready to Q uit: Not Asked; Counseling Given: Not Answered [facility] Utilities Answer Date Recorded In the past 12 months has th e electric, gas, oil, or water company threatened to shut off services in your home? No 05/15/2024 Social Connection and Isolation Panel [NHANES] A nswer Date Recorded In a typical week, how many times do you talk on the phone with family, friends, or neighbors? Three times a week 05/15/19 How often do you get togethe r with friends or relatives? Three times a week 05/15/2024 How often do you attend chur ch or anabaptist services? Never 05/15/2024 Do you belong to any clubs o r organizations such as faith groups, unions, fraternal or athletic groups, or school groups? No 05/15/2024 How often do you attend meet ings of the clubs or organizations you belong to? Never 05/15/2024 Are you , , di vorced, , never , or living with a partner? Living with partner 05/15/2024 AUDIT-C Answer Date Recorded Q1: How often do you have a drink containing alcohol? Never 05/15/2024 Q2: How many drinks containi ng alcohol do you have on a typical day when you are drinking? Patient does not drink Q3: How often do you have si x or more drinks on one occasion? Never 05/15/2024 Overall Financial Resource Strain (CARDIA) Answe r Date Recorded How hard is it for you to pa y for the very basics like food, housing, medical care, and heating? Somewhat hard 05/15/2024 Hunger Vital Sign Answer Date Recorded Within the past 12 months, y ou worried that your food would run out before you got the money to buy more. Sometimes true Within the past 12 months, t he food you bought just didn't last and you didn't have money to get more. Sometimes true 11/2024 PRAPARE - Transportation Answer Date Re corded In the past 12 months, has l ack of transportation kept you from medical appointments or from getting medications? No 11/2024 In the past 12 months, has l ack of transportation kept you from meetings, work, or from getting things needed for daily living? No 05/15/2024 Housing Stability Vital Sign Answer Abhishek e Recorded In the last 12 months, was t here a time when you were not able to pay the mortgage or rent on time? No 05/15/2024 In the past 12 months, how m any times have you moved where you were living? 1 05/15/2024 At any time in the past 12 m [facility], were you homeless or living in a mcc (including now)? No 05/15/2024 Personal Safety Answer Date Recorded Have you ever been in or are you currently in a harmful physical or emotional relationship or is someone making you feel afraid or unsafe? Denies 05/14/2024 Comments No Sex and Gender Information Value Date Recorded Sex Assigned at Not on file Legal Sex Female 3:11 PM CDT Gender Identity Not on file Sexual Orientation Not on file Obstetrics History Last Filed Vital Signs Vital Sign Reading Time Taken Comments Blood Pressure 116/72 05/16/2024 11:00 AM BRANCH CREDIT COUNSELOR Pulse 72 05/16/2024 11:00 AM BRANCH CREDIT COUNSELOR Temperature 36.6 C (97.8 F) 05/16/2024 11:00 AM BRANCH CREDIT COUNSELOR Respiratory Rate 18 05/16/2024 11:00 AM BRANCH CREDIT COUNSELOR Oxygen Saturation 100% 05/16/2024 11:00 AM BRANCH CREDIT COUNSELOR Inhaled Oxygen Concentration - - Weight 63.5 kg (140 lb) 05/14/2024 6:43 PM BRANCH CREDIT COUNSELOR Height 170.2 cm (5' 7 ) 05/14/2024 6:43 PM BRANCH CREDIT COUNSELOR Body Mass Index 21.93 05/14/2024 6:43 PM BRANCH CREDIT COUNSELOR Plan of Treatment Health Maintenance Due Date Last Done Comments Breast Cancer Screening-Mammogram 1982 Cervical Cancer Screening 1982 Depression Screening 1982 Hepatitis C Screening 1982 Varicella Vaccines (1 of 2 - 13+ 2-dose series) 1995 Hepatitis B Screening 2000 Regular Well Visit/Exam 18-64 2000 Pneumococcal vaccine <65 (1 of 2 - PCV) 2001 Influenza Vaccine (#1) 2024 DTaP/Tdap/Td Vaccine (7 - Td or Tdap) 09/10/2029 09/11/2019, 11/06/1986, 12/14/1983, Additional history exists HPV Vaccines Aged Out No longer eligi ble based on patient's age to complete this topic Medical Devices Implanted Type Area Professor Of Food Biochemistry Device Identifier Shelf Expiration Date Model / Serial / Lot [employer] Natrelle Inspira Smooth Shell Surface Xfull Profile Implant 445cc Srx-445 - [id number] - [id number] Implanted:Qty: 1 on 02/25/2022 by Red Leon MD at [facility] Breast Right: Breast [employer] [id number] 02/22/2026 SRX-445 / [id number] / [employer] Natrelle Inspira Smooth Shell Surface Xfull Profile Implant 445cc Srx-445 - [id number] - [id number] Implanted:Qty: 1 on 02/25/2022 by Red Leon MD at [facility] Breast Right: Breast [employer] [id number] 02/10/2026 SRX-445 / [id number] / [employer] 756a-Bz-60-T Implant Mammary Natrelle Te Smooth 257m-Hb-68-T With Fourte - [id number] - [id number] Implanted:Qty: 1 on 03/27/2021 by Red Leon MD at [facility] Right: Breast [employer] [id number] 01/04/2024 133S-FX-1 1-T / [id number] / [id number] [employer] 142y-Fz-73-T Implant Mammary Natrelle Te Smooth 766z-Vk-51-T With Fourte - [id number] - [id number] Implanted:Qty: 1 on 08/27/2021 by Red Loen MD at [facility] Right: Breast [employer] [id number] 08/12/2025 133S-FX-1 1-T / [id number] / Description:Filled with 100c c of 0.9% Sodium Chloride [employer] System Closure Repair Femoral Artery Suture Mediated Perclose Prostyle 96251-08 - [id number] Implanted:Qty: 1 on 05/15/2024 by Ja Porras MD at [facility] [employer] 03/08/2026 [id number] / / [id number] Explanted Type Area Professor Of Food Biochemistry Device Identifier Shelf Expiration Date Model / Serial / Lot Right Tissue Petroleum Transport Driver Explanted:Qty : 1 on 02/25/2022 by Red Leon MD at [facility] Breast Right: Breast [employer] / / [id number] [employer] 602e-Ha-68-T Implant Mammary Naomi Te Smooth 771d-Gr-40-T With Fourte - [id number] - [id number] Implanted:Qty : 1 on 03/27/2021 by Red Leon MD at [facility] Explanted:Qty : 1 on 02/25/2022 by Nataliya Noe MD at [facility] Left: Breast [employer] [id number] 11/25/2023 133S-FX-1 1-T / [id number] / [id number] Procedures Procedure Name Priority Date/Time Associated Diagnosis Comments DIFFERENTIAL AUTO Add On 05/16/2024 8:4 6 AM BRANCH CREDIT COUNSELOR CBC WITH AUTO DIFFERENTIAL Add-On 05/16/2024 8:46 AM BRANCH CREDIT COUNSELOR EGFR Routine 05/16/2024 2:52 AM BRANCH CREDIT COUNSELOR HEPARIN ANTI FACTOR XA ACTIVITY Routine 05/16/2024 2:52 AM BRANCH CREDIT COUNSELOR BASIC METABOLIC PANEL Routine 05/16/2024 2:52 AM BRANCH CREDIT COUNSELOR LEFT HEART CATHETERIZATION WITH CORONARY ANGIOGRAPHY AND WITH AND WITHOUT LEFT VENTRICULOGRAM Routine 05/15/2024 3:51 PM BRANCH CREDIT COUNSELOR Chest pain, unspecified type POCT ACTIVATED CLOTTING TIME, LOW RANGE Routine 05/15/2024 3:31 PM BRANCH CREDIT COUNSELOR B ABO / RH CONFIRMATION TESTING STAT 05/15/2024 2:10 PM BRANCH CREDIT COUNSELOR ANTIBODY SCREEN STAT 05/15/2024 12:56 PM BRANCH CREDIT COUNSELOR ABO/RH STAT 05/15/2024 12:56 PM BRANCH CREDIT COUNSELOR HCG, BLOOD, QUANTITATIVE STAT 05/15/2024 12:56 PM BRANCH CREDIT COUNSELOR TYPE AND SCREEN STAT 05/15/2024 12:56 PM BRANCH CREDIT COUNSELOR HEPARIN ANTI FACTOR XA ACTIVITY Timed 05/15/2024 10:01 AM BRANCH CREDIT COUNSELOR TRANSTHORACIC ECHO (TTE) COMPLETE W DOPPLER/CF WO CONTRAST Routine 05/15/2024 9:27 AM BRANCH CREDIT COUNSELOR ECG 12-LEAD Routine 05/15/2024 9:24 AM BRANCH CREDIT COUNSELOR ECG 12-LEAD Routine 05/15/2024 8:03 AM BRANCH CREDIT COUNSELOR CRP (ACUTE PHASE) Timed 05/15/2024 7:2 5 AM BRANCH CREDIT COUNSELOR ERYTHROCYTE SEDIMENTATION RATE Routine 05/15/2024 7:25 AM BRANCH CREDIT COUNSELOR TROPONIN T HIGH-SENSITIVITY 6-HOUR Timed 05/15/2024 7:25 AM BRANCH CREDIT COUNSELOR TROPONIN T HIGH-SENSITIVITY 4-HR Timed 05/15/2024 5:11 AM BRANCH CREDIT COUNSELOR TROPONIN T HIGH-SENSITIVITY 2-HOUR Timed 05/15/2024 3:47 AM BRANCH CREDIT COUNSELOR HEPARIN ANTI FACTOR XA ACTIVITY Timed 05/15/2024 3:47 AM BRANCH CREDIT COUNSELOR EGFR Routine 05/15/2024 1:29 AM BRANCH CREDIT COUNSELOR TROPONIN T HIGH-SENSITIVITY SERIES (BASELINE, 2HR, 4HR, 6HR) Routine 05/15/2024 1:29 AM BRANCH CREDIT COUNSELOR CBC WITHOUT DIFFERENTIAL Routine 05/15/2024 1:29 AM BRANCH CREDIT COUNSELOR BASIC METABOLIC PANEL Routine 05/15/2024 1:29 AM BRANCH CREDIT COUNSELOR TROPONIN T HIGH-SENSITIVITY 6-HOUR Timed 05/15/2024 1:29 AM BRANCH CREDIT COUNSELOR CBC WITHOUT DIFFERENTIAL STAT 05/14/2024 11:19 PM BRANCH CREDIT COUNSELOR TROPONIN T HIGH-SENSITIVITY 4-HR Timed 05/14/2024 11:19 PM BRANCH CREDIT COUNSELOR PROTIME-INR STAT 05/14/2024 9:16 PM BRANCH CREDIT COUNSELOR HEPARIN ANTI FACTOR XA ACTIVITY STAT 05/14/2024 9:16 PM BRANCH CREDIT COUNSELOR LIPID PANEL Timed 05/14/2024 8:38 PM BRANCH CREDIT COUNSELOR IRON PROFILE W/ IBC Timed 05/14/2024 8 :38 PM BRANCH CREDIT COUNSELOR TROPONIN T HIGH-SENSITIVITY 2-HOUR Timed 05/14/2024 8:38 [address]CH CR[address] CHEST PE W CONTRAST ED 8:30 PM BRANCH CREDIT COUNSELOR POCT TROPONIN DEVICE Routine 05/14/2024 6:59 PM BRANCH CREDIT COUNSELOR XR CHEST 1 VIEW ED 05/14/2024 6:52 PM BRANCH CREDIT COUNSELOR EGFR STAT 05/14/2024 6:48 PM BRANCH CREDIT COUNSELOR DIFFERENTIAL AUTO STAT 05/14/2024 6:4 8 PM BRANCH CREDIT COUNSELOR TROPONIN T HIGH-SENSITIVITY SERIES (BASELINE, 2HR, 4HR, 6HR) STAT 05/14/2024 6:48 PM BRANCH CREDIT COUNSELOR COMPREHENSIVE METABOLIC PANEL STAT 05/14/2024 6:48 PM BRANCH CREDIT COUNSELOR CBC WITH AUTO DIFFERENTIAL STAT 05/14/2024 6:48 PM BRANCH CREDIT COUNSELOR ECG 12-LEAD Routine 05/14/2024 6:41 PM BRANCH CREDIT COUNSELOR ECG 12-LEAD STAT 05/14/2024 6:41 PM BRANCH CREDIT COUNSELOR URINALYSIS, MICROSCOPIC ONLY STAT 05/08/2024 8:37 PM BRANCH CREDIT COUNSELOR URINE CULTURE STAT 05/08/2024 8:37 PM BRANCH CREDIT COUNSELOR URINALYSIS AND REFLEX TO MICROSCOPIC AND CULTURE STAT 05/08/2024 8:37 PM BRANCH CREDIT COUNSELOR EGFR STAT 05/08/2024 8:32 PM BRANCH CREDIT COUNSELOR DIFFERENTIAL AUTO STAT 05/08/2024 8:3 2 PM BRANCH CREDIT COUNSELOR SEPSIS LACTATE WITH REFLEX Routine 05/08/2024 8:32 PM BRANCH CREDIT COUNSELOR COMPREHENSIVE METABOLIC PANEL STAT 05/08/2024 8:32 PM BRANCH CREDIT COUNSELOR CBC WITH AUTO DIFFERENTIAL STAT 05/08/2024 8:32 PM BRANCH CREDIT COUNSELOR INFLUENZA A/B, RSV, AND COVID-19 PCR Routine 05/08/2024 8:32 PM BRANCH CREDIT COUNSELOR XR CHEST 1 VIEW ED 05/08/2024 8:26 PM BRANCH CREDIT COUNSELOR from Last 3 Months Results * Differential, auto (05/16/2024 8:46 AM BRANCH CREDIT COUNSELOR) Pathologist [facility] [place] Neutrophil abs 4.6 1.5 - 6.5 K/cumm Imm gran abs 0.0 0.0 - 0.1 K/cumm [facility] Lymphocyte abs 2.6 0.8 - 3.3 K/cumm [facility] Monocyte abs 0.8 0.2 - 0.8 K/cumm [facility] Eosinophil abs 0.1 0.0 - 0.5 K/cumm [facility] Basophil abs 0.1 0.0 - 0.1 K/cumm [facility] Neutrophil pct 56.1 % [facility] Comment: Interpretive Data Percent cell count reference ranges are not reported, since discordance with absolute values may lead to misinterpretation of CBC data. Current Interpretive Data was last revised on 2017. Imm gran pct 0.4 % [facility] Comment: Interpretive Data Percent cell count reference ranges are not reported, since discordance with absolute values may lead to misinterpretation of CBC data. Current Interpretive Data was last revised on 2017. Lymphocyte pct 31.6 % [facility] Comment: Interpretive Data Percent cell count reference ranges are not reported, since discordance with absolute values may lead to misinterpretation of CBC data. Current Interpretive Data was last revised on 2017. Monocyte pct 10.1 % [facility] Comment: Interpretive Data Percent cell count reference ranges are not reported, since discordance with absolute values may lead to misinterpretation of CBC data. Current Interpretive Data was last revised on 2017. Eosinophil pct 1.1 % [facility] Comment: Interpretive Data Percent cell count reference ranges are not reported, since discordance with absolute values may lead to misinterpretation of CBC data. Current Interpretive Data was last revised on 2017. Basophil pct 0.7 % [facility] Comment: Interpretive Data Percent cell count reference ranges are not reported, since discordance with absolute values may lead to misinterpretation of CBC data. Current Interpretive Data was last revised on 2017. Blood 05/16/2024 8:46 AM BRANCH CREDIT COUNSELOR 05/16/2024 8:52 AM BRANCH CREDIT COUNSELOR us Magdalene Spears MD LAB BLOOD ORDERABLES Final Result [facility] [address] [facility] Department [place] [address] * (ABNORMAL) CBC with auto differential (05/16/2024 8:46 AM BRANCH CREDIT COUNSELOR) Pathologist [facility] [place] WBC 8.1 3.8 - 9.9 K/cumm Hgb 7.6(L) 11.9 - 15.5 g/dL [facility] Hct 27.0(L) 35.6 - 45.5 % [facility] Plt 466(H) 150 - 400 K/cumm [facility] MPV 8.9(L) 9.1 - 12.3 fL [facility] RBC 3.77(L) 3.90 - 5.20 M/cumm [facility] MCV 71.6(L) 81.3 - 96.4 fL [facility] MCH 20.2(L) 27.1 - 33.3 pg [facility] MCHC 28.1(L) 32.3 - 35.7 g/dL [facility] RDW CV 19.0(H) 11.1 - 14.9 % [facility] RDW SD 48.7(H) 35.7 - 48.1 fL [facility] NRBC abs 0.00 0.00 - 0.01 K/cumm [facility] Blood 05/16/2024 8:46 AM BRANCH CREDIT COUNSELOR 05/16/2024 8:52 AM BRANCH CREDIT COUNSELOR us Magdalene Spears MD LAB BLOOD ORDERABLES Final Result [facility] [address] [facility] Department [place] [address] * eGFR (05/16/2024 2:52 AM BRANCH CREDIT COUNSELOR) eGFR >90 >=60 mL/min/1. 73 m2 Comment: Interpretive Data Reference Interval Normal >/= 90 mL/min/1.73m2 Mildly decreased* 60 - 89 mL/min/1.73m2 Mildly to moderately decreased 45 - 59 mL/min/1.73m2 Moderately to severely decreased 30 - 44 mL/min/1.73m2 Severely decreased 15 - 29 mL/min/1.73m2 Kidney Failure < 15 mL/min/1.73m2 *Relative to young adult level Estimated glomerular filtration rate is determined by the 2020 CKD-EPI equation recommended by the National Kidney Foundation (A Unifying Approach to GFR Estimation: Recommendations of the NKF-ASK Task Force on Reassessing the Inclusion of Race in Diagnosing Kidney Disease, JASN 2020). The CKD-EPI equation should not be used for patients with unstable renal function and has not been validated in children and those over 70. Current interpretive data was last reviewed 2021. Blood 05/16/2024 2:52 AM BRANCH CREDIT COUNSELOR 05/16/2024 3:10 AM BRANCH CREDIT COUNSELOR us Eileen Otero MD LAB BLOOD ORDERABLES Final Resul t Performing Organization Address [facility]/ZIP Co de Phone Number [facility] [id number] [facility] [place] [address] * Heparin anti factor Xa activity (05/16/2024 2:52 AM BRANCH CREDIT COUNSELOR) Pathologist [facility] [place] Anti Factor Xa 0.23 IUnits/mL Comment: Ref Range Low Interpretive Data Enoxaparin therapeutic range (peak): VTE treatment, Q12hr dosin.60-1.00 IUnits/mL VTE treatment, Q24hr dosin.00-2.00 IUnits/mL Q24hr dosing for renal impairment (CrCl <30 mL/min): 0.60-1.00 IUnits/mL VTE prevention: 0.10-0.40 IUnits/mL - Anti-Xa therapeutic ranges apply to blood samples drawn 4 hours after last dose (peak). - Unfractionated heparin (UFH) therapeutic range: 0.30-0.70 IUnits/mL - Direct factor Xa inhibitors (rivaroxaban, apixaban): Results must be interpreted qualitatively. No activity detected suggests little anticoagulant activity. - In severe antithrombin deficiency, anti-Xa measurement may be inaccurate. - Interpretive guidelines developed in adult populations. Interpretive guidelines for pediatric patients have not been rigorously defined. - Current interpretive data was last revised on 2018. Blood 05/16/2024 2:52 AM BRANCH CREDIT COUNSELOR 05/16/2024 3:10 AM BRANCH CREDIT COUNSELOR Magdalene Spears MD LAB BLOOD ORDERABLES Final Result Performing Organization Address City/[facility]/ZIP Co de Phone Number [facility] [address] [facility] [place] [address] * (ABNORMAL) Basic metabolic panel (05/16/2024 2:52 AM BRANCH CREDIT COUNSELOR) Pathologist [facility] [place] Sodium 143 135 - 145 mmol/L Potassium, pl 4.0 3.3 - 4.9 mmol/L [facility] Chloride 111(H) 97 - 110 mmol/L [facility] CO2 23 22 - 32 mmol/L [facility] Anion gap 9 2 - 15 mmol/L [facility] BUN 10 6 - 25 mg/dL [facility] Creatinine 0.59(L) 0.60 - 1.10 mg/dL [facility] Glucose 108 70 - 199 mg/dL [facility] Comment: Interpretive Data Fasting glucose >/= 126 mg/dl is diagnostic for diabetes. Fasting is defined as no caloric intake for at least 8 hours. Fasting glucose between 100 mg/dl to 125 mg/dl is diagnostic of prediabetes. In a patient with classic symptoms of hyperglycemia or hyperglycemic crisis, a random glucose >/= 200 mg/dl is diagnostic for diabetes. In the absence of unequivocal hyperglycemia, results should be confirmed by repeat testing. The classification and Diagnosis of Diabetes Diabetes Care 202; 46: S19-S40. Current interpretive data was last revised 2022. Calcium 8.6 8.5 - 10.3 mg/dL [facility] Blood 05/16/2024 2:52 AM BRANCH CREDIT COUNSELOR 05/16/2024 3:10 AM BRANCH CREDIT COUNSELOR us Eileen Otero MD LAB BLOOD ORDERABLES Final Resul t [facility] [address] [facility] Department [place] [address] * LEFT HEART CATHETERIZATION WITH CORONARY ANGIOGRAPHY AND WITH AND WITHOUT LEFT VENTRICULOGRAM (05/15/2024 3:51 PM BRANCH CREDIT COUNSELOR) Anatomical Region Laterality Modality X-Ray Angiograph y Narrative 05/16/2024 7:19 AM BRANCH CREDIT COUNSELOR Patient Id: Shruti Luque is a 44 y.o. female. MR#: [id number] Date of the procedure: 05/15/2024 Procedure: Left heart catheterization Coronary angiogram Left ventricular cineangiogram Perclose Moderate sedation Indications: I was asked by Dr. Garcia to do cardiac catheterization on this patient came in chest pain and EKG showed J-point elevation in the inferior and the anterolateral leads with a GA depressions suggestive of pericarditis. But her troponins increased. Given the clinical scenario of the asked to do cardiac catheterization. Procedure, complications and rationale for cardiac catheterization discussed in detail. She understood and agreed to proceed. All questions answered. Procedure and complications of the cardiac catheterization, PCI and stent placement discussed with the patient in detail. Alternatives for cardiac catheterization including medical therapy also discussed. Pros and cons of the medical therapy and cardiac catheterization also discussed. Patient understood and agreed to proceed with cardiac catheterization. Patient aware of all the risks of the cardiac catheterization and the PCI including but not limited to bleeding, bruising, need for blood transfusion, neurovascular complications, need for peripheral vascular surgery, thrombus formation, embolization, CVA, pulmonary emboli, pseudoaneurysm formation, AV fistula formation, loss of limb, allergic reactions, worsening of renal function, renal failure, possible permanent hemodialysis, x-ray exposure, coronary perforation, dissection of coronaries vessels, distal embolization, pericardial effusion, need for pericardiocentesis, subacute closure of the coronaries, arrhythmias, emergency bypass, CVA, need for intra-aortic balloon pump placement, need for IFR measurement, need for Impella placement need for blood pressure supporting medications and devices. Also discussed about dislodgement of the stents with embolization also. Patient also aware of risk of . Patient verbalized understanding of all the risks and benefits. Patient understood and agreed to proceed with cardiac catheterization and intervention. Procedure Note: Patient brought to cardiac catheterization lab after obtaining informed consent. Right femoral region prepped and draped in the usual fashion. Six American sheath placed in the right femoral artery by using Seldinger technique. Left heart catheterization and CHAPA left ventricular cineangiogram performed by using 6 American pigtail catheter. Left and right coronary angiography performed using 6 American JL4 and 6 JR4 catheters. There were no complications. The sheath removed and hemostasis secured with Perclose. Anesthesia: Local Moderate sedation: Patient received 1 mg of Versed and 75 mcg of fentanyl by the nurse for conscious sedation. Patient vital signs monitored under my supervision in the laborer laboratory during and after the procedure for at least the 30 minutes. Please see the laborer laboratory log report for details Hemodynamics: Procedure performed with patient in sinus rhythm. Systemic arterial blood pressure is 105/71 with a mean of 88 mm of mercury. Left ventricular systolic pressure is 109 mm of mercury with an elevated end-diastolic pressure 16 mm of mercury . There is no peak to peak gradient noted across the aortic valve on pullback Medication: lidocaine: 20 cc Sublingual nitroglycerin: 0.4 mg Contrast: 110 cc IV Versed: 1 mg IV Fentanyl: 75 mcg Left ventricular cineangiogram: CHAPA left ventricular cineangiogram normal wall motion. Visually estimated ejection fraction around 55%. Coronary circulation: Coronary circulation is right dominant Left main coronary artery: Normal angiographically Left anterior descending artery: Gives diagonal branches and extends around the apex and it has mid 25% stenosis with a slight ectasia. First diagonal branch is medium to large in size and normal. Second, 3rd 4th diagonal branches are small and normal Circumflex coronary artery: Gives marginal branches and is normal. First 2 marginal branches are tiny vessels and normal. Third marginal is large and normal. Right coronary artery: Gives PDA and PLV branches and has a mid 25% smooth narrowing Impressions: Nonocclusive coronary artery disease Normal left ventricle wall motion Visually estimated ejection fraction around 55% Elevated left ventricular end-diastolic pressure Plan: Findings discussed with the patient , vicky, nurse practitioner Remingtonnd also Dr. Garcia. Continue IV fluids. Encouraged patient to take p.o. fluids. Closure device instructions were given. Advised patient not to drive for 24 hours and not to lift any weights more than 5 lb for next 1 week. Advised patient to contact me or go to emergency room if patient has any groin problems. Advised patient follow-up with the primary care physician in 2 weeks. Risk modification discussed. Copy to Patrick Kapadia MD This report was transcribed using the [employer] voice recognition system without human wood processing worker. In an effort to expedite patient care, this report has not been adjusted for typographical, grammatical, and syntax by a trained medical van driver. Despite proof reading there may be errors. Please contact me if you have any questions. us Ritu Contreras NP CV CARDIAC CATH PROCEDURES Final Result * POCT Activated clotting time, low range (05/15/2024 3:31 PM BRANCH CREDIT COUNSELOR) ACT 123 123 - 168 sec POC Performer [id number] DEEPAK SIMEON POC Device Number [id number] DEEPAK Blood 05/15/2024 3:31 PM BRANCH CREDIT COUNSELOR 05/15/2024 3:31 PM BRANCH CREDIT COUNSELOR Magdalene Spears MD LAB POCT ORDERABLES - DEVICE Final Result [address] [address] * ABO / Rh Confirmation Testing (05/15/2024 2:10 PM BRANCH CREDIT COUNSELOR) Pathologist [facility] [place] ABO/Rh Confirmation B Positive MHB Blood 05/15/2024 2:10 PM BRANCH CREDIT COUNSELOR 05/15/2024 2:41 PM BRANCH CREDIT COUNSELOR Ja Porras MD LAB BLOOD ORDERABLES Final Result Performing Organization Address [facility] Co de Phone Number [address] [place] [place] [address] MHB * ABO/Rh (05/15/2024 12:56 PM BRANCH CREDIT COUNSELOR) Pathologist [facility] [place] ABO/Rh B Positive Blood 05/15/2024 12:5 6 PM BRANCH CREDIT COUNSELOR 05/15/2024 1:11 PM BRANCH CREDIT COUNSELOR Ja Porras MD LAB BLOOD BANK TEST ORDERAB LES Final Result Performing Organization Address [facility] Co de Phone Number [address] [place] [address] * Antibody screen (05/15/2024 12:56 PM BRANCH CREDIT COUNSELOR) Pathologist [facility] [place] Migdalia, indirect, Gel Interpretation Negative ABSC Blood 05/15/2024 12:5 6 PM BRANCH CREDIT COUNSELOR 05/15/2024 1:11 PM BRANCH CREDIT COUNSELOR Ja Porras MD LAB BLOOD BANK TEST ORDERAB LES Final Result Performing Organization Address [facility] Co de Phone Number [address] [place] [address] * hCG, blood, quantitative (05/15/2024 12:56 PM BRANCH CREDIT COUNSELOR) Pathologist [facility] [place] hCG, quant <5.0 0.0 - 5.0 IUnits/L Comment: Interpretive Data Male: < 5 IU/L Non- premenopausal Female: <5 IU/L The Sol hCG Beta Quant assay procedure was used. Results from different manufacturers or methods may not be comparable. Serial testing should be performed using the same method. Interpretive Data was last revised on 2023 Blood 05/15/2024 12:5 6 PM BRANCH CREDIT COUNSELOR 05/15/2024 1:11 PM BRANCH CREDIT COUNSELOR Ja Porras MD LAB BLOOD ORDERABLES Final Result Performing Organization Address [facility] de Phone Number DEEPAK [address] [facility] [place] [address] * Heparin anti factor Xa activity (05/15/2024 10:01 AM BRANCH CREDIT COUNSELOR) [facility] Anti Factor Xa 0.30 IUnits/mL Comment: Interpretive Data Enoxaparin therapeutic range (peak): VTE treatment, Q12hr dosin.60-1.00 IUnits/mL VTE treatment, Q24hr dosin.00-2.00 IUnits/mL Q24hr dosing for renal impairment (CrCl <30 mL/min): 0.60-1.00 IUnits/mL VTE prevention: 0.10-0.40 IUnits/mL - Anti-Xa therapeutic ranges apply to blood samples drawn 4 hours after last dose (peak). - Unfractionated heparin (UFH) therapeutic range: 0.30-0.70 IUnits/mL - Direct factor Xa inhibitors (rivaroxaban, apixaban): Results must be interpreted qualitatively. No activity detected suggests little anticoagulant activity. - In severe antithrombin deficiency, anti-Xa measurement may be inaccurate. - Interpretive guidelines developed in adult populations. Interpretive guidelines for pediatric patients have not been rigorously defined. - Current interpretive data was last revised on 2018. Blood 05/15/2024 10:0 1 AM BRANCH CREDIT COUNSELOR 05/15/2024 10:58 AM BRANCH CREDIT COUNSELOR Eileen Otero MD LAB BLOOD ORDERABLES Final Resul t Performing Organization Address City/[facility]/ZIP Co de Phone Number DEEPAK [address] [facility] Department [place] [address] * TRANSTHORACIC ECHO (TTE) COMPLETE W DOPPLER/CF WO CONTRAST (05/15/2024 9:27 AM BRANCH CREDIT COUNSELOR) Anatomical Region Laterality Modality Ultrasound 05/15/2024 9:01 AM BRANCH CREDIT COUNSELOR Narrative 05/15/2024 11:15 AM BRANCH CREDIT COUNSELOR Adult Echocardiogram + ----- + :Name: SHRUTI LUQUE Study Date: 05/15/2024 Status: B : : Patient Location: [address]^[id number]^Height: 67 in : : Weight: 140 lbBP: 126/79 mmHg: :: 1980 Gender: Female BSA: 1.7 m2 : :Reason For Study: myocarditis : :Ordering Physician: : :SHERI CARR : : : :Performed By: Reji Marino, : :MARIO, RVT : + ----- + Procedure A two-dimensional transthoracic echocardiogram with color flow and Doppler was performed. The study was technically difficult due to patient's 'body habitus'. Left Ventricle Left ventricular chamber size is normal. There is normal left ventricular wall thickness. Left ventricular systolic function is normal. The left ventricular ejection fraction is normal. Ejection Fraction = 55-60%. No obvious regional wall motion abnormalities noted. Right Ventricle The right ventricle is normal in size and function. Atria The left atrial size is normal. Right atrial size is normal. There is no Doppler evidence for an atrial septal defect. Mitral Valve The mitral valve is normal. There is no evidence of mitral valve prolapse. There is no mitral valve stenosis. There is no mitral regurgitation noted. Tricuspid Valve The tricuspid valve is normal. There is trace tricuspid regurgitation. Right ventricular systolic pressure is normal. Aortic Valve The aortic valve is not well visualized. No aortic stenosis . No aortic regurgitation is present. Pulmonic Valve The pulmonic valve is not well visualized. Great Vessels The aortic root is normal size. Pericardium There is no pericardial effusion. Diastology Mitral inflow pattern is normal. E/E prime ratio is <8 suggesting normal pulmonary wedge pressure and no LV diastolic dysfunction. Interpretation Summary Left ventricular systolic function is normal. Ejection Fraction = 55-60%. There is trace tricuspid regurgitation. Right ventricular systolic pressure is normal. + + :Measurements with Normals : :IVSd: (0.6-1.2 LVIDd: (3.5-5.7 Ao root diam: (2.0-3.7 : :0.65 cm cm) 3.7 cm cm) 2.8 cm cm) : :LVPWd: (0.6-1.1 LVIDs: (3.1-4.6 LA dimension: (1.9-4.0 : :0.75 cm cm) 2.6 cm cm) 2.3 cm cm) : + + MMode/2D Measurements & Calculations FS: 31.2 % Ao root area: LVLd ap4: 9.3 cm SV(MOD-sp4): EDV(Teich): 6.2 cm2 EDV(MOD-sp4): 40.2 ml 58.9 ml 73.6 ml ESV(Teich): LVLs ap4: 7.8 cm 23.7 ml ESV(MOD-sp4): 33.4 ml EF(MOD-sp4): 54.6 % Doppler Measurements & Calculations MV E max true: MV dec time: Ao V2 max: LV V1 max P.4 cm/sec 0.20 sec 116.0 cm/sec 2.8 mmHg MV A max true: Ao max P.4 mmHg LV V1 max: 51.4 cm/sec 83.6 cm/sec MV E/A: 1.4 TR max true: RAP systole: 210.0 cm/sec 3.0 mmHg TR max P.6 mmHg RVSP(TR): 20.6 mmHg Electronically signed by: Ja Porras MD 05/15/2024 11:15 AM Procedure Note Ja Porras MD - 05/15/2024 Adult Echocardiogram + ----- + :Name: SHRUTI LUQUE Study Date: 05/15/2024Status: ADITHYA : : Patient Location: [address]^[id number]^Height: 67 in : : : 140 lbBP: 126/79 mmHg: :: 1980 Gender: FemaleBSA: 1.7 m2 : :Reason For Study: myocarditis: :Ordering Physician:: :SHERI CARR: :: :Performed By: Reji Marino,: :AMLKA MARTINT: + ----- + Procedure A two-dimensional transthoracic echocardiogram with color flow and Dopplerwas performed. The study was technically difficult due to patient's 'body habitus'. Left Ventricle Left ventricular chamber size is normal. There is normal left ventricularwall thickness. Left ventricular systolic function is normal. The leftventricular ejection fraction is normal. Ejection Fraction = 55-60%. No obviousregional wall motion abnormalities noted. Right Ventricle The right ventricle is normal in size and function. Atria The left atrial size is normal. Right atrial size is normal. There is no Doppler evidence for an atrial septal defect. Mitral Valve The mitral valve is normal. There is no evidence of mitral valveprolapse. There is no mitral valve stenosis. There is no mitral regurgitationnoted. Tricuspid Valve The tricuspid valve is normal. There is trace tricuspid regurgitation.Right ventricular systolic pressure is normal. Aortic Valve The aortic valve is not well visualized. No aortic stenosis . No aortic regurgitation is present. Pulmonic Valve The pulmonic valve is not well visualized. Great Vessels The aortic root is normal size. Pericardium There is no pericardial effusion. Diastology Mitral inflow pattern is normal. E/E prime ratio is <8 suggesting normal pulmonary wedge pressure and no LV diastolic dysfunction. Interpretation Summary Left ventricular systolic function is normal. Ejection Fraction = 55-60%. There is trace tricuspid regurgitation. Right ventricular systolic pressure is normal. + + :Measurements with Normals: :IVSd: (0.6-1.2 LVIDd: (3.5-5.7 Ao root diam:(2.0-3.7 : :0.65 cm cm) 3.7 cm cm) 2.8 cm cm): :LVPWd: (0.6-1.1 LVIDs: (3.1-4.6 LA dimension:(1.9-4.0 : :0.75 cm cm) 2.6 cm cm) 2.3 cm cm): + + MMode/2D Measurements & Calculations FS: 31.2 % Ao root area: LVLd ap4: 9.3 cm SV(MOD-sp4): EDV(Teich): 6.2 cm2 EDV(MOD-sp4): 40.2 ml 58.9 ml 73.6 ml ESV(Teich): LVLs ap4: 7.8 cm 23.7 ml ESV(MOD-sp4): 33.4 ml EF(MOD-sp4): 54.6 % Doppler Measurements & Calculations MV E max true: MV dec time: Ao V2 max: LV V1 max P.4 cm/sec 0.20 sec 116.0 cm/sec 2.8 mmHg MV A max true: Ao max P.4 mmHg LV V1 max: 51.4 cm/sec 83.6 cm/sec MV E/A: 1.4 TR max true: RAP systole: 210.0 cm/sec 3.0 mmHg TR max P.6 mmHg RVSP(TR): 20.6 mmHg Electronically signed by: Ja Porras MD 05/15/2024 11:15 AM us Sheri Carr MD CV ECHO PROCEDURES Monique l Result * ECG 12 lead (05/15/2024 9:24 AM BRANCH CREDIT COUNSELOR) Pathologist [facility] [place] Ventricular Rate EKG/Min 65 BPM [facility] Atrial Rate 65 BPM [facility] GA-Interval (MSEC) 142 ms [facility] QRS-Interval (MSEC) 88 ms [facility] QT-Interval (MSEC) 394 ms [facility] QTc 409 ms [facility] P Freeman 76 degrees [facility] R Freeman 69 degrees [facility] T Freeman 64 degrees [facility] Diagnosis Normal sinus rhythm ST elevation, consider early repolarization , pericarditis, or injury Abnormal ECG When compared with ECG of 15-MAY-2024 08:03, No significant change was found Confirmed by JAMES ROBBINS M.D. ([id number]) on 05/16/2024 3:16:42 PM [facility] 05/15/2024 9:24 AM BRANCH CREDIT COUNSELOR 05/16/2024 3:16 PM BRANCH CREDIT COUNSELOR us Magdalene Spears MD ECG ORDERABLES Monique l Result [facility] * ECG 12 lead (05/15/2024 8:03 AM BRANCH CREDIT COUNSELOR) Pathologist [facility] [place] Ventricular Rate EKG/Min 67 BPM [facility] Atrial Rate 67 BPM [facility] GA-Interval (MSEC) 150 ms [facility] QRS-Interval (MSEC) 80 ms [facility] QT-Interval (MSEC) 398 ms [facility] QTc 420 ms [facility] P Freeman 74 degrees [facility] R Freeman 51 degrees [facility] T Freeman 45 degrees [facility] Diagnosis Normal sinus rhythm ST elevation, consider early repolarization , pericarditis, vs injury Borderline ECG When compared with ECG of 14-MAY-2024 18:41, No significant change was found Confirmed by JAMES ROBBINS M.D. ([id number]) on 05/15/2024 5:23:45 PM [facility] 05/15/2024 8:03 AM BRANCH CREDIT COUNSELOR 05/15/2024 5:23 PM BRANCH CREDIT COUNSELOR Eileen Otero MD ECG ORDERABLES Final Result [facility] * (ABNORMAL) Troponin T high-sensitivity 6-hour (05/15/2024 7:25 AM BRANCH CREDIT COUNSELOR) Pathologist [facility] [place] Trop T hs 530(C) <=14 ng/L Comment: Critical Result called to and read back by Jo WARE [id number], DATE: 2024-05-15 08:34:40 BY: [id number] Interpretive Data For further hscTnT resources including the diagnostic algorithm and an aid in interpretation, copy and paste this link: [email or web address].[email or web address]/[email or web address] Current Interpretive Data last revised 2020. Trop T hs interp Significa nt(C) DEEPAK SIMEON Comment:Critical Result call ed to and read back by Jo WARE [id number], DATE: 2024-05-15 08:34:40 BY: [email or web address] Blood 05/15/2024 7:25 AM BRANCH CREDIT COUNSELOR 05/15/2024 8:04 AM BRANCH CREDIT COUNSELOR Eileen Otero MD LAB BLOOD ORDERABLES Final Resul t Performing Organization Address [facility] Co de Phone Number DEEPAK [address] [address] * Erythrocyte sedimentation rate (05/15/2024 7:25 AM BRANCH CREDIT COUNSELOR) Erythrocyte sedimentation rate <2 1 - 20 mm/hr Blood 05/15/2024 7:25 AM BRANCH CREDIT COUNSELOR 05/15/2024 8:03 AM BRANCH CREDIT COUNSELOR Eileen Otero MD LAB BLOOD ORDERABLES Final Resul t Performing Organization Address [facility] de Phone Number DEEPAK [address] [address] * CRP (acute phase) (05/15/2024 7:25 AM BRANCH CREDIT COUNSELOR) Pathologist [facility] [place] CRP <0.2 <=10.0 mg/L Blood 05/15/2024 7:25 AM BRANCH CREDIT COUNSELOR 05/15/2024 8:04 AM BRANCH CREDIT COUNSELOR Magdalene Spears MD LAB BLOOD ORDERABLES Final Result Performing Organization Address [facility] de Phone Number DEEPAK [address] [address] * (ABNORMAL) Troponin T high-sensitivity 4-hour (05/15/2024 5:11 AM BRANCH CREDIT COUNSELOR) Trop T hs 423(C) <=14 ng/L Comment: Critical Result called to and read back by [id number], DATE: 2024-05-15 06:15:57 BY: [id number] Interpretive Data For further hscTnT resources including the diagnostic algorithm and an aid in interpretation, copy and paste this link: [email or web address].[email or web address]/[email or web address] Current Interpretive Data last revised 2020. Trop T hs pct delta 49(C) % [facility] Comment:Critical Result call ed to and read back by [id number], DATE: 2024-05-15 06:15:57 BY: [id number] Trop T hs interp Significa nt(C) DEEPAK Comment:Critical Result call ed to and read back by [id number], DATE: 2024-05-15 06:15:57 BY: [id number] Blood 05/15/2024 5:11 AM BRANCH CREDIT COUNSELOR 05/15/2024 5:35 AM BRANCH CREDIT COUNSELOR Eileen Otero MD LAB BLOOD ORDERABLES Final Resul t Performing Organization Address [facility] de Phone Number DEEPAK [address] [place] [employer] [place] [address] * (ABNORMAL) Troponin T high-sensitivity 2-hour (05/15/2024 3:47 AM BRANCH CREDIT COUNSELOR) Trop T hs 348(C) <=14 ng/L Comment: Critical Result called to and read back by [id number], DATE: 2024-05-15 04:45:33 BY: [id number] Interpretive Data For further hscTnT resources including the diagnostic algorithm and an aid in interpretation, copy and paste this link: [email or web address] Current Interpretive Data last revised 2020. Trop T hs pct delta 23(C) % DEEPAK Comment:Critical Result call ed to and read back by [id number], DATE: 2024-05-15 04:45:33 BY: [id number] Trop T hs interp Significa nt(C) DEEPAK Comment:Critical Result call ed to and read back by [id number], DATE: 2024-05-15 04:45:33 BY: [id number] Blood 05/15/2024 3:47 AM BRANCH CREDIT COUNSELOR 05/15/2024 4:00 AM BRANCH CREDIT COUNSELOR Eileen Otero MD LAB BLOOD ORDERABLES Final Resul t Performing Organization Address City/[facility] Co de Phone Number DEEPAK [address] [place] [address] * Heparin anti factor Xa activity (05/15/2024 3:47 AM BRANCH CREDIT COUNSELOR) Anti Factor Xa 0.40 IUnits/mL Comment: Interpretive Data Enoxaparin therapeutic range (peak): VTE treatment, Q12hr dosin.60-1.00 IUnits/mL VTE treatment, Q24hr dosin.00-2.00 IUnits/mL Q24hr dosing for renal impairment (CrCl <30 mL/min): 0.60-1.00 IUnits/mL VTE prevention: 0.10-0.40 IUnits/mL - Anti-Xa therapeutic ranges apply to blood samples drawn 4 hours after last dose (peak). - Unfractionated heparin (UFH) therapeutic range: 0.30-0.70 IUnits/mL - Direct factor Xa inhibitors (rivaroxaban, apixaban): Results must be interpreted qualitatively. No activity detected suggests little anticoagulant activity. - In severe antithrombin deficiency, anti-Xa measurement may be inaccurate. - Interpretive guidelines developed in adult populations. Interpretive guidelines for pediatric patients have not been rigorously defined. - Current interpretive data was last revised on 2018. Blood 05/15/2024 3:47 AM BRANCH CREDIT COUNSELOR 05/15/2024 4:01 AM BRANCH CREDIT COUNSELOR us Eileen Otero MD LAB BLOOD ORDERABLES Final Resul t [facility] [address] [facility] Department [place] [address] * (ABNORMAL) Troponin T high-sensitivity 6-hour (05/15/2024 1:29 AM BRANCH CREDIT COUNSELOR) Trop T hs 278(C) <=14 ng/L Comment: Critical Result called to and read back by [id number], DATE: 2024-05-15 02:04:46 BY: [id number] Interpretive Data For further hscTnT resources including the diagnostic algorithm and an aid in interpretation, copy and paste this link: [email or web address]/show/[email or web address] Current Interpretive Data last revised 2020. Trop T hs delta See Comment ng/L DEEPAK Comment:Inappropriate collec tion time to report a delta. Trop T hs pct delta See Comment % DEEPAK Comment:Inappropriate collec tion time to report a delta. Trop T hs interp See Comment DEEPAK Comment:Inappropriate collec tion time to report a delta. Blood 05/15/2024 1:29 AM BRANCH CREDIT COUNSELOR 05/15/2024 1:33 AM BRANCH CREDIT COUNSELOR us Waqas Mcdonald MD LAB BLOOD ORDERABLE S Final Result Performing Organization Address City/[facility]/ZIP Co de Phone Number DEEPAK [address] [employer] [place], [place] [id number] * (ABNORMAL) Troponin T high-sensitivity series (baseline, 2hr, 4hr, 6hr) (05/15/2024 1:29 AM BRANCH CREDIT COUNSELOR) Pathologist [facility] [place] Trop T hs 283(C) <=14 ng/L Comment: Critical Result called to and read back by [id number], DATE: 2024-05-15 02:04:53 BY: [id number] Interpretive Data For further hscTnT resources including the diagnostic algorithm and an aid in interpretation, copy and paste this link: [email or web address]/[email or web address] Current Interpretive Data last revised 2020. Blood 05/15/2024 1:29 AM BRANCH CREDIT COUNSELOR 05/15/2024 1:33 AM BRANCH CREDIT COUNSELOR us Eileen Otero MD LAB BLOOD ORDERABLES Final Resul t DEEPAK [address] [place] [address] * eGFR (05/15/2024 1:29 AM BRANCH CREDIT COUNSELOR) Pathologist [facility] [place] eGFR >90 >=60 mL/min/1. 73 m2 Comment: Interpretive Data Reference Interval Normal >/= 90 mL/min/1.73m2 Mildly decreased* 60 - 89 mL/min/1.73m2 Mildly to moderately decreased 45 - 59 mL/min/1.73m2 Moderately to severely decreased 30 - 44 mL/min/1.73m2 Severely decreased 15 - 29 mL/min/1.73m2 Kidney Failure < 15 mL/min/1.73m2 *Relative to young adult level Estimated glomerular filtration rate is determined by the 2020 CKD-EPI equation recommended by the National Kid[employer] (A Unifying Approach to GFR Estimation: Recommendations of the NKF-ASK Task Force on Reassessing the Inclusion of Race in Diagnosing Kidney Disease, JASN 2020). The CKD-EPI equation should not be used for patients with unstable renal function and has not been validated in children and those over 70. Current interpretive data was last reviewed 2021. Blood 05/15/2024 1:29 AM BRANCH CREDIT COUNSELOR 05/15/2024 1:33 AM BRANCH CREDIT COUNSELOR us Eileen Otero MD LAB BLOOD ORDERABLES Final Resul t [facility] [address] [facility] Department of Laboratories [place] [address] * (ABNORMAL) CBC without differential (05/15/2024 1:29 AM BRANCH CREDIT COUNSELOR) WBC 11.3(H) 3.8 - 9.9 K/cumm Hgb 8.3(L) 11.9 - 15.5 g/dL [facility] Hct 28.7(L) 35.6 - 45.5 % [facility] Plt 577(H) 150 - 400 K/cumm [facility] MPV 8.8(L) 9.1 - 12.3 fL [facility] RBC 4.11 3.90 - 5.20 M/cumm [facility] MCV 69.8(L) 81.3 - 96.4 fL [facility] MCH 20.2(L) 27.1 - 33.3 pg [facility] MCHC 28.9(L) 32.3 - 35.7 g/dL [facility] RDW CV 19.0(H) 11.1 - 14.9 % [facility] RDW SD 46.5 35.7 - 48.1 fL [facility] NRBC abs 0.00 0.00 - 0.01 K/cumm [facility] Blood 05/15/2024 1:29 AM BRANCH CREDIT COUNSELOR 05/15/2024 1:33 AM BRANCH CREDIT COUNSELOR Eileen Otero MD LAB BLOOD ORDERABLES Final Resul t Performing Organization Address [facility] de Phone Number [address] [place] [address] * Basic metabolic panel (05/15/2024 1:29 AM BRANCH CREDIT COUNSELOR) [facility] Sodium 140 135 - 145 mmol/L Potassium, pl 3.6 3.3 - 4.9 mmol/L [facility] Chloride 106 97 - 110 mmol/L [facility] CO2 26 22 - 32 mmol/L [facility] Anion gap 8 2 - 15 mmol/L [facility] BUN 8 6 - 25 mg/dL [facility] Creatinine 0.61 0.60 - 1.10 mg/dL [facility] Glucose 86 70 - 199 mg/dL [facility] Comment: Interpretive Data Fasting glucose >/= 126 mg/dl is diagnostic for diabetes. Fasting is defined as no caloric intake for at least 8 hours. Fasting glucose between 100 mg/dl to 125 mg/dl is diagnostic of prediabetes. In a patient with classic symptoms of hyperglycemia or hyperglycemic crisis, a random glucose >/= 200 mg/dl is diagnostic for diabetes. In the absence of unequivocal hyperglycemia, results should be confirmed by repeat testing. The classification and Diagnosis of Diabetes Diabetes Care 2021; 46: S19-S40. Current interpretive data was last revised 2022. Calcium 8.6 8.5 - 10.3 mg/dL [facility] Blood 05/15/2024 1:29 AM BRANCH CREDIT COUNSELOR 05/15/2024 1:33 AM BRANCH CREDIT COUNSELOR us Eileen Otero MD LAB BLOOD ORDERABLES Final Resul t Performing Organization Address [facility] Co de Phone Number [address] [place] [address] * (ABNORMAL) Troponin T high-sensitivity 4-hour (05/14/2024 11:19 PM BRANCH CREDIT COUNSELOR) Pathologist [facility] [place] Trop T hs 238(C) <=14 ng/L Comment: Critical Result called to and read back by [id number], DATE: 2024-05-15 00:04:49 BY: [id number] Interpretive Data For further hscTnT resources including the diagnostic algorithm and an aid in interpretation, copy and paste this link: https://nrl.testcatalog.org/show/hsTrop Current Interpretive Data last revised 2020. Trop T hs pct delta 80(C) % [facility] Comment:Critical Result call ed to and read back by [id number], DATE: 2024-05-15 00:04:49 BY: [id number] Trop T hs interp Significa nt(C) [facility] Comment:Critical Result call ed to and read back by [id number], DATE: 2024-05-15 00:04:49 BY: [id number] Blood 05/14/2024 11:1 9 PM BRANCH CREDIT COUNSELOR 05/14/2024 11:26 PM BRANCH CREDIT COUNSELOR us Waqas Mcdonald MD LAB BLOOD ORDERABLE S Final Result [facility] [id number] [facility] [place] [address] * (ABNORMAL) CBC without differential (05/14/2024 11:19 PM BRANCH CREDIT COUNSELOR) [facility] WBC 10.9(H) 3.8 - 9.9 K/cumm Hgb 8.0(L) 11.9 - 15.5 g/dL [facility] Hct 27.2(L) 35.6 - 45.5 % [facility] Plt 539(H) 150 - 400 K/cumm [facility] MPV 8.7(L) 9.1 - 12.3 fL [facility] RBC 3.92 3.90 - 5.20 M/cumm [facility] MCV 69.4(L) 81.3 - 96.4 fL [facility] MCH 20.4(L) 27.1 - 33.3 pg [facility] MCHC 29.4(L) 32.3 - 35.7 g/dL [facility] RDW CV 19.0(H) 11.1 - 14.9 % [facility] RDW SD 46.5 35.7 - 48.1 fL [facility] NRBC abs 0.00 0.00 - 0.01 K/cumm [facility] Blood 05/14/2024 11:1 9 PM BRANCH CREDIT COUNSELOR 05/14/2024 11:26 PM BRANCH CREDIT COUNSELOR Narrative [facility] - 05/14/2024 11:28 PM BRANCH CREDIT COUNSELOR Baseline prior to heparin initiation Sheri Carr MD LAB BLOOD ORDERABLES nal Result [facility] [address] [facility] Department [place] [address] * Heparin anti factor Xa activity (05/14/2024 9:16 PM BRANCH CREDIT COUNSELOR) Anti Factor Xa <0.10 IUnits/mL Comment: Baseline RN: [id number]/ MLS: [id number] Interpretive Data Enoxaparin therapeutic range (peak): VTE treatment, Q12hr dosin.60-1.00 IUnits/mL VTE treatment, Q24hr dosin.00-2.00 IUnits/mL Q24hr dosing for renal impairment (CrCl <30 mL/min): 0.60-1.00 IUnits/mL VTE prevention: 0.10-0.40 IUnits/mL - Anti-Xa therapeutic ranges apply to blood samples drawn 4 hours after last dose (peak). - Unfractionated heparin (UFH) therapeutic range: 0.30-0.70 IUnits/mL - Direct factor Xa inhibitors (rivaroxaban, apixaban): Results must be interpreted qualitatively. No activity detected suggests little anticoagulant activity. - In severe antithrombin deficiency, anti-Xa measurement may be inaccurate. - Interpretive guidelines developed in adult populations. Interpretive guidelines for pediatric patients have not been rigorously defined. - Current interpretive data was last revised on 2018. Blood 05/14/2024 9:16 PM BRANCH CREDIT COUNSELOR 05/14/2024 9:19 PM BRANCH CREDIT COUNSELOR Narrative [facility] - 05/14/2024 9:40 PM BRANCH CREDIT COUNSELOR Baseline prior to heparin initiation Sheri Carr MD LAB BLOOD ORDERABLES Fi nal Result Performing Organization Address [facility] de Phone Number [address] [address] * Protime-INR (05/14/2024 9:16 PM BRANCH CREDIT COUNSELOR) Pathologist [facility] [place] PT 13.3 12.0 - 14.6 sec INR 1.0 0.9 - 1.2 [facility] Comment: Ref Range High Interpretive data Oral anticoagulant therapeutic ranges: Venous thromboembolism prophylaxis or treatment: 2.0-3.0 CARDIOLOGY Standard range: 2.0-3.0 High-intensity range: 2.5-3.5 Refer to indication-specific guidelines for appropriate target ranges for prosthetic heart valve replacement. Current interpretive data was last revised on 2019. Blood 05/14/2024 9:16 PM BRANCH CREDIT COUNSELOR 05/14/2024 9:19 PM BRANCH CREDIT COUNSELOR Sheri Carr MD LAB BLOOD ORDERABLES nal Result Performing Organization Address [facility] de Phone Number [address] [address] * (ABNORMAL) Troponin T high-sensitivity 2-hour (05/14/2024 8:38 PM BRANCH CREDIT COUNSELOR) Pathologist [facility] [place] Trop T hs 176(H) <=14 ng/L Comment: Interpretive Data For further hscTnT resources including the diagnostic algorithm and an aid in interpretation, copy and paste this link: https://nrl.testcatalog.org/show/hsTrop Current Interpretive Data last revised 2020. Trop T hs pct delta 33(C) % [facility] Comment:Critical Result call ed to and read back by [id number], DATE: 2024-05-14 21:09:28 BY: [id number] Trop T hs interp Significa nt(C) [facility] Comment:Critical Result call ed to and read back by [id number], DATE: 2024-05-14 21:09:28 BY: [id number] Blood 05/14/2024 8:38 PM BRANCH CREDIT COUNSELOR 05/14/2024 8:41 PM BRANCH CREDIT COUNSELOR us Waqas Mcdonald MD LAB BLOOD ORDERABLE S Final Result Performing Organization Address [facility] Co de Phone Number [address] [place] [address] * (ABNORMAL) Iron profile w/ IBC (05/14/2024 8:38 PM BRANCH CREDIT COUNSELOR) Iron 10(L) 35 - 145 mcg/dL TIBC 415(H) 250 - 400 mcg/dL [facility] Transferrin saturation 2(L) 20 - 50 % [facility] Blood 05/14/2024 8:38 PM BRANCH CREDIT COUNSELOR 05/14/2024 8:41 PM BRANCH CREDIT COUNSELOR us Sheri Carr MD LAB BLOOD ORDERABLES Fi nal Result Performing Organization Address [facility] Co de Phone Number [address] [address] * Lipid panel (05/14/2024 8:38 PM BRANCH CREDIT COUNSELOR) Cholesterol 124 30 - 199 mg/dL Comment: Interpretive Data Ages < or = 19 years Acceptable: <170 mg/dL Borderline high: 170-199 mg/dL High: >or= 200 mg/dL Ages > or = 20 years Desirable: <200 mg/dL Borderline high: 200-239 mg/dL High: >or= 240 mg/dL Literature References: 1. Expert Panel on Integrated Guidelines for Cardiovascular Health and Risk Reduction in Children and Adolescents. Pediatrics 2011;128:S213 2. NCEP Expert Panel. Circulation 2004;110:227 Current Interpretive Data was last revised on 2017. Triglycerides 95 <=149 mg/dL [facility] Comment: Interpretive Data Ages < or = 9 years Acceptable: <75 mg/dL Borderline high: 75-99 mg/dL High: >or= 100 mg/dL Ages 10 to 20 years Acceptable: <90 mg/dL Borderline high: 90-129 mg/dL High: >or= 130 mg/dL Ages > or = 20 years Desirable: <150 mg/dL Borderline high: 150-199 mg/dL High: 200-499 mg/dL Very high: >or= 499 mg/dL Literature References: 1. Expert Panel on Integrated Guidelines for Cardiovascular Health and Risk Reduction in Children and Adolescents. Pediatrics 2011;128:S213 2. NCEP Expert Panel. Circulation 2004;110:227 Current Interpretive Data was last revised on 2017. HDL 42 >=40 mg/dL [facility] Comment: Interpretive Data Ages < or = 19 years Acceptable: >45 mg/dL Borderline low: 40-45 mg/dL Low: <40 mg/dL Ages > or = 20 years Desirable: >or= 60 mg/dL Low: <40 mg/dL Literature References: 1. Expert Panel on Integrated Guidelines for Cardiovascular Health and Risk Reduction in Children and Adolescents. Pediatrics 2011;128:S213 2. NCEP Expert Panel. Circulation 2004;110:227 Current Interpretive Data was last revised on 2017. LDL, calculated 64 <=129 mg/dL [facility] Comment: Interpretive Data Ages < or = 19 years Acceptable: <110 mg/dL Borderline high: 110-129 mg/dL High: >or= 130 mg/dL Ages > or = 20 years Optimal: <100 mg/dL Near optimal: 100-129 mg/dL Borderline high: 130-159 mg/dL High: >160 mg/dL Calculated using the Ilya LDL-C estimating equation. This equation was implemented on 2023. Prior to this date LDL-C was estimated using the Friedewald equation. Literature References: 1. Expert Panel on Integrated Guidelines for Cardiovascular Health and Risk Reduction in Children and Adolescents. Pediatrics 2011;128:S213 2. NCEP Expert Panel. Circulation 2004;110:227 3. Ilya Huynh. TOÑO Cardiol. 2020 September 06;5(5):540-548. doi: 10.1001/jamacardio.2020.0013 Current Interpretive Data was last revised on 2023. Non-HDL Cholesterol 82 mg/dL [facility] Comment: Interpretive Data Ages < or = 19 years Acceptable: <120 mg/dL Borderline high: 120-144 mg/dL High: >145 mg/dL Ages > or = 20 years When triglycerides are >200 mg/dL, Non-HDL cholesterol is a secondary target of therapy with treatment goals that are 30 mg/dL greater than the LDL cholesterol target. Literature References: 1. Expert Panel on Integrated Guidelines for Cardiovascular Health and Risk Reduction in Children and Adolescents. Pediatrics 2011;128:S213 2. NCEP Expert Panel. Circulation 2004;110:227 Current Interpretive Data was last revised on 2017. Chol/HDL ratio 3 [facility] Blood 05/14/2024 8:38 PM BRANCH CREDIT COUNSELOR 05/14/2024 8:41 PM BRANCH CREDIT COUNSELOR Narrative [facility] - 05/14/2024 9:43 PM BRANCH CREDIT COUNSELOR This lipid panel was automatically ordered due to a significant change in Troponin. The dietary status of the patient at the collection time should be correlated with the lipid results. us Waqas Mcdonald MD LAB BLOOD ORDERABLE S Final Result [facility] [address] [facility] Department of Laboratories [place], [place] [id number] * CT Chest PE (CTA) W Contrast (05/14/2024 8:30 PM BRANCH CREDIT COUNSELOR) Anatomical Region Laterality Modality Body N/A Computed Tomogra phy 05/14/2024 8:36 PM BRANCH CREDIT COUNSELOR Narrative 05/14/2024 8:39 PM BRANCH CREDIT COUNSELOR EXAM DESCRIPTION: CT CHEST PE (CTA) W CONTRAST REASON FOR STUDY: Chest pain, PE suspected, high prob, is there a pe, clinical pericarditis C/o central chest pain for the past few days that has been intermittent. Patient states since this morning having a cramping and tightness in the chest. Patient states having lower jaw pain. Patient states nausea but no vomiting. Patient states dyspnea for the past week. Patient states non productive cough. States she was swabbed for covid and flu [place] and it was negative. Patient states EMS gave her 324mg of aspirin. Hx of breast CA. TECHNIQUE: CT angiogram of the chest performed with intravenous contrast using helical scanning technique with dynamic intravenous contrast injection. Reconstructed coronal and sagittal MPR images reviewed. All images stored on PACS. 3D MIP images rendered on scanning unit and reviewed at time of interpretation. Automated exposure control was used as a dose optimization technique for this examination. CONTRAST TYPE/DOSE: 100mL of IOVERSOL 350 MG IODINE/ML INTRAVENOUS SYRINGE injected via intravenous COMPARISON: 05/14/2024 FINDINGS: VASCULATURE: There is no definite evidence of a pulmonary embolus. The aorta is grossly normal in course and caliber without definite evidence of acute aortic injury or dissection. LUNGS: There is minimal to mild biapical pleural thickening and scarring. There is no definite evidence of a pneumothorax. There is scattered minimal to mild subsegmental atelectasis, which is most significant in the lung bases. There is no definite evidence of pleural effusion. There are patchy nodular airspace opacities in the posterolateral right upper lobe, which is concerning for airspace disease of inflammatory or infectious etiology. For example, there is a nodular opacity in the posterior right upper lobe measuring 0.4 cm (axial image 26). There is an irregular ground-glass nodular opacity in the lateral right upper lobe measuring 0.7 cm (axial image 42). MEDIASTINUM/JERRY: The heart size is normal. There is no definite evidence of pericardial effusion. There is no definite evidence of mediastinal, hilar, or axillary lymphadenopathy. There are scattered subcentimeter mediastinal lymph nodes noted with largest measuring 0.6 cm in the paratracheal region (axial image 48). CHEST WALL: Postsurgical changes of bilateral mastectomies with bilateral breast prostheses are noted. HARDWARE/LINES/TUBES: None. UPPER ABDOMEN: There are bilateral Bochdalek's hernias. The bilateral adrenal glands are grossly symmetrical and unremarkable. MUSCULOSKELETAL: There is a minimal to mild dextroscoliotic curvature of the spine with mild degenerative changes. OTHER: No significant abnormality. IMPRESSION: No definite evidence of pulmonary embolus. Patchy nodular airspace opacities in the posterolateral right upper lobe, which is concerning for airspace disease of inflammatory or infectious etiology, possibly atypical. Short-term follow-up CT in 6-12 weeks is recommended to assess for resolution and to exclude the presence of an underlying pulmonary nodule as clinically indicated. THIS IS AN ELECTRONICALLY VERIFIED FINAL REPORT 05/14/2024 8:39 PM - Electronically signed by Helene ISSA T: Report ID: [id number] Reading Location: [id number] Procedure Note Olivas Helene Ignacio, DO - 05/14/2024 EXAM DESCRIPTION: CT CHEST PE (CTA) W CONTRAST REASON FOR STUDY: Chest pain, PE suspected, high prob, is there a pe, clinical pericarditis C/o central chest pain for the past few days that has been intermittent. Patient states since this morning having a cramping and tightness in the chest. Patient states having lower jaw pain. Patient states nausea but no vomiting. Patient states dyspnea for the past week. Patient states non productive cough. States she was swabbed for covid and flu [place] and it was negative. Patient states EMS gave her 324mg of aspirin. Hx of breast CA. TECHNIQUE: CT angiogram of the chest performed with intravenous contrastusing helical scanning technique with dynamic intravenous contrast injection. Reconstructed coronal and sagittal MPR images reviewed. All images storedon PACS. 3D MIP images rendered on scanning unit and reviewed at time of interpretation. Automated exposure control was used as a doseoptimization technique for this examination. CONTRAST TYPE/DOSE: 100mL of IOVERSOL 350 MG IODINE/ML INTRAVENOUSSYRINGE injected via intravenous COMPARISON: 05/14/2024 FINDINGS: VASCULATURE: There is no definite evidence of a pulmonaryembolus. The aorta is grossly normal in course and caliber without definiteevidence of acute aortic injury or dissection. LUNGS: There is minimal to mild biapical pleural thickening andscarring. There is no definite evidence of a pneumothorax. There is scatteredminimal to mild subsegmental atelectasis, which is most significant in the lungbases. There is no definite evidence of pleural effusion. There are patchy nodular airspace opacities in the posterolateral rightupper lobe, which is concerning for airspace disease of inflammatory orinfectious etiology. For example, there is a nodular opacity in the posterior right upper lobe measuring 0.4 cm (axial image 26). There is an irregular ground-glass nodular opacity in the lateral right upper lobe measuring 0.7cm (axial image 42). MEDIASTINUM/JERRY: The heart size is normal. There is no definiteevidence of pericardial effusion. There is no definite evidence of mediastinal, hilar, or axillary lymphadenopathy. There are scattered subcentimeter mediastinal lymphnodes noted with largest measuring 0.6 cm in the paratracheal region (axialimage 48). CHEST WALL: Postsurgical changes of bilateral mastectomies withbilateral breast prostheses are noted. HARDWARE/LINES/TUBES: None. UPPER ABDOMEN: There are bilateral Bochdalek's hernias. The bilateral adrenal glands are grossly symmetrical and unremarkable. MUSCULOSKELETAL: There is a minimal to mild dextroscoliotic curvature ofthe spine with mild degenerative changes. OTHER: No significant abnormality. IMPRESSION: No definite evidence of pulmonary embolus. Patchy nodular airspace opacities in the posterolateral right upper lobe, which is concerning for airspace disease of inflammatory or infectious etiology, possibly atypical. Short-term follow-up CT in 6-12 weeks is recommended to assess for resolution and to exclude the presence of an underlying pulmonary nodule as clinically indicated. THIS IS AN ELECTRONICALLY VERIFIED FINAL REPORT 05/14/2024 8:39 PM - Electronically signed by Helene Olivas D.O. PS T: Report ID: [id number] Reading Location: [place] [address] Sheri Carr MD IMG CT PROCEDURES Final Result * (ABNORMAL) POCT troponin (05/14/2024 6:59 PM BRANCH CREDIT COUNSELOR) Pathologist [facility] [place] Troponin I Point of Care 0.78(C) 0.00 - 0.08 ng/mL Comment: Interpretive Data If result is <= 0.08 ng/mL: Not Detected. If result is > 0.08 ng/mL: Detected. The Milian iSTAT point of care assay (Troponin I) was used. The cutoff for a Detected result is 0.08 ng/mL. This Troponin I result will not always exactly correlate with the high sensitivity Troponin T result, which uses a cutoff of 0.022 ng/mL for males and 0.014 ng/mL for females. The point of care assay should be regarded as an initial screening test for the presence of cardiac troponin. Correlation with clinical findings and high sensitivity Troponin T results is recommended. Current interpretive data was last revised 2020. Blood 05/14/2024 6:59 PM BRANCH CREDIT COUNSELOR 05/14/2024 6:59 PM BRANCH CREDIT COUNSELOR us Notinfile Unknown LAB POCT ORDERABLES - DEVICE F inal Result [facility] [address] [facility] Department [place] [address] * XR Chest 1 Vw Portable (if patient condition/safety warrant portable) (05/14/2024 6:52 PM BRANCH CREDIT COUNSELOR) Anatomical Region Laterality Modality Body, Chest N/A Computed Radiogr aphy 05/14/2024 7:05 PM BRANCH CREDIT COUNSELOR Narrative 05/14/2024 7:05 PM BRANCH CREDIT COUNSELOR EXAM DESCRIPTION: XR CHEST 1 VIEW REASON FOR STUDY: chest pain Patient states having central chest pain for the past few days that has been intermittent. Patient states since this morning having a cramping and tightness in the chest. Patient states having lower jaw pain. Patient states nausea but no vomiting. Patient states dyspnea for the past week. Patient states non productive cough. States she was swabbed for covid and flu [place] and it was negative. Patient states EMS gave her 324mg of aspirin. TECHNIQUE: 1 radiographic view(s) of the chest. COMPARISON: 05/08/2024 FINDINGS: LUNGS: No focal opacity, pleural effusion, or pneumothorax. HEART/MEDIASTINUM: Cardiac silhouette normal in size. Mediastinal and hilar contours appear normal. LINES/TUBES: None. BONES: No acute osseous abnormality. IMPRESSION: No acute cardiopulmonary abnormality. THIS IS AN ELECTRONICALLY VERIFIED FINAL REPORT 05/14/2024 7:05 PM - Electronically signed by Van Moon M.D. KT T: Report ID: [id number] Reading Location: [id number] Procedure Note Van Moon MD - 05/14/2024 EXAM DESCRIPTION: XR CHEST 1 VIEW REASON FOR STUDY: chest pain Patient states having central chest pain for the past few days that hasbeen intermittent. Patient states since this morning having a cramping and tightness in the chest. Patient states having lower jaw pain. Patientstates nausea but no vomiting. Patient states dyspnea for the past week.Patient states non productive cough. States she was swabbed for [place]id and flu [place] and [place] was [place]. Patient states EMS gave [id number] of aspirin. TECHNIQUE: 1 radiographic view(s) of the chest. COMPARISON: 05/08/2024 FINDINGS: LUNGS: No focal opacity, pleural effusion, or pneumothorax. HEART/MEDIASTINUM: Cardiac silhouette normal in size. Mediastinal andhilar contours appear normal. LINES/TUBES: None. BONES: No acute osseous abnormality. IMPRESSION: No acute cardiopulmonary abnormality. THIS IS AN ELECTRONICALLY VERIFIED FINAL REPORT 05/14/2024 7:05 PM - Electronically signed by Van Moon M.D. KT T: Report ID: [id number] Reading Location: [place] [address] Sheri Carr MD IMG XR PROCEDURES Final Result * (ABNORMAL) Troponin T high-sensitivity series (baseline, 2hr, 4hr, 6hr) (05/14/2024 6:48 PM BRANCH CREDIT COUNSELOR) Pathologist [facility] [place] Trop T hs 132(H) <=14 ng/L Comment: Interpretive Data For further hscTnT resources including the diagnostic algorithm and an aid in interpretation, copy and paste this link: https://nrl.testcatalog.org/show/hsTrop Current Interpretive Data last revised 2020. Blood 05/14/2024 6:48 PM BRANCH CREDIT COUNSELOR 05/14/2024 6:52 PM BRANCH CREDIT COUNSELOR Sheri Carr MD LAB BLOOD ORDERABLES Fi nal Result [facility] [address] [facility] Department [place] [address] * eGFR (05/14/2024 6:48 PM BRANCH CREDIT COUNSELOR) Pathologist [facility] [place] eGFR >90 >=60 mL/min/1. 73 m2 Comment: Interpretive Data Reference Interval Normal >/= 90 mL/min/1.73m2 Mildly decreased* 60 - 89 mL/min/1.73m2 Mildly to moderately decreased 45 - 59 mL/min/1.73m2 Moderately to severely decreased 30 - 44 mL/min/1.73m2 Severely decreased 15 - 29 mL/min/1.73m2 Kidney Failure < 15 mL/min/1.73m2 *Relative to young adult level Estimated glomerular filtration rate is determined by the 2020 CKD-EPI equation recommended by the National Kid[employer] (A Unifying Approach to GFR Estimation: Recommendations of the NKF-ASK Task Force on Reassessing the Inclusion of Race in Diagnosing Kidney Disease, JASN 2020). The CKD-EPI equation should not be used for patients with unstable renal function and has not been validated in children and those over 70. Current interpretive data was last reviewed 2021. Blood 05/14/2024 6:48 PM BRANCH CREDIT COUNSELOR 05/14/2024 6:52 PM BRANCH CREDIT COUNSELOR Sheri Carr MD LAB BLOOD ORDERABLES nal Result [facility] [address] [facility] [place] [address] * Differential, auto (05/14/2024 6:48 PM BRANCH CREDIT COUNSELOR) Pathologist [facility] [place] Neutrophil abs 4.3 1.5 - 6.5 K/cumm Imm gran abs 0.0 0.0 - 0.1 K/cumm [facility] Lymphocyte abs 2.7 0.8 - 3.3 K/cumm [facility] Monocyte abs 0.7 0.2 - 0.8 K/cumm [facility] Eosinophil abs 0.1 0.0 - 0.5 K/cumm [facility] Basophil abs 0.1 0.0 - 0.1 K/cumm [facility] Neutrophil pct 54.4 % [facility] Comment: Interpretive Data Percent cell count reference ranges are not reported, since discordance with absolute values may lead to misinterpretation of CBC data. Current Interpretive Data was last revised on 2017. Imm gran pct 0.4 % [facility] Comment: Interpretive Data Percent cell count reference ranges are not reported, since discordance with absolute values may lead to misinterpretation of CBC data. Current Interpretive Data was last revised on 2017. Lymphocyte pct 34.1 % [facility] Comment: Interpretive Data Percent cell count reference ranges are not reported, since discordance with absolute values may lead to misinterpretation of CBC data. Current Interpretive Data was last revised on 2017. Monocyte pct 8.7 % [facility] Comment: Interpretive Data Percent cell count reference ranges are not reported, since discordance with absolute values may lead to misinterpretation of CBC data. Current Interpretive Data was last revised on 2017. Eosinophil pct 1.5 % [facility] Comment: Interpretive Data Percent cell count reference ranges are not reported, since discordance with absolute values may lead to misinterpretation of CBC data. Current Interpretive Data was last revised on 2017. Basophil pct 0.9 % [facility] Comment: Interpretive Data Percent cell count reference ranges are not reported, since discordance with absolute values may lead to misinterpretation of CBC data. Current Interpretive Data was last revised on 2017. Blood 05/14/2024 6:48 PM BRANCH CREDIT COUNSELOR 05/14/2024 6:52 PM BRANCH CREDIT COUNSELOR us Sheri Carr MD LAB BLOOD ORDERABLES Fi nal Result [facility] [address] [facility] Department of Laboratories [place], [place] [id number] * (ABNORMAL) CBC with auto differential (05/14/2024 6:48 PM BRANCH CREDIT COUNSELOR) WBC 7.8 3.8 - 9.9 K/cumm Hgb 8.0(L) 11.9 - 15.5 g/dL [facility] Hct 27.3(L) 35.6 - 45.5 % [facility] Plt 548(H) 150 - 400 K/cumm [facility] MPV 8.6(L) 9.1 - 12.3 fL [facility] RBC 3.93 3.90 - 5.20 M/cumm [facility] MCV 69.5(L) 81.3 - 96.4 fL [facility] MCH 20.4(L) 27.1 - 33.3 pg [facility] MCHC 29.3(L) 32.3 - 35.7 g/dL [facility] RDW CV 18.7(H) 11.1 - 14.9 % [facility] RDW SD 45.6 35.7 - 48.1 fL [facility] NRBC abs 0.00 0.00 - 0.01 K/cumm [facility] Blood Venous blood specimen / Unknown 05/14/2024 6:48 PM BRANCH CREDIT COUNSELOR 05/14/2024 6:52 PM BRANCH CREDIT COUNSELOR us Sheri Carr MD LAB BLOOD ORDERABLES Fi nal Result [facility] [address] [facility] [place] [address] * (ABNORMAL) Comprehensive metabolic panel (05/14/2024 6:48 PM BRANCH CREDIT COUNSELOR) Sodium 140 135 - 145 mmol/L Potassium, pl 4.0 3.3 - 4.9 mmol/L [facility] Chloride 106 97 - 110 mmol/L [facility] CO2 25 22 - 32 mmol/L [facility] Anion gap 9 2 - 15 mmol/L [facility] BUN 10 6 - 25 mg/dL [facility] Creatinine 0.63 0.60 - 1.10 mg/dL [facility] Glucose 102 70 - 199 mg/dL [facility] Comment: Interpretive Data Fasting glucose >/= 126 mg/dl is diagnostic for diabetes. Fasting is defined as no caloric intake for at least 8 hours. Fasting glucose between 100 mg/dl to 125 mg/dl is diagnostic of prediabetes. In a patient with classic symptoms of hyperglycemia or hyperglycemic crisis, a random glucose >/= 200 mg/dl is diagnostic for diabetes. In the absence of unequivocal hyperglycemia, results should be confirmed by repeat testing. The classification and Diagnosis of Diabetes Diabetes Care 2021; 46: S19-S40. Current interpretive data was last revised 2022. Calcium 8.5 8.5 - 10.3 mg/dL [facility] Bilirubin, total 0.2 0.1 - 1.2 mg/dL [facility] Protein, pl 5.9(L) 6.5 - 8.5 g/dL [facility] Albumin 3.8 3.5 - 5.0 g/dL [facility] Alk phos 85 40 - 130 Units/L [facility] ALT 20 7 - 45 Units/L [facility] AST 28 10 - 45 Units/L [facility] Blood 05/14/2024 6:48 PM BRANCH CREDIT COUNSELOR 05/14/2024 6:52 PM BRANCH CREDIT COUNSELOR us Sheri Carr MD LAB BLOOD ORDERABLES Fi nal Result Performing Organization Address City/[facility]/ZIP Co de Phone Number [facility] [address] [facility] Department of Laboratories [place] [id number] * ECG 12 lead (05/14/2024 6:41 PM BRANCH CREDIT COUNSELOR) Ventricular Rate EKG/Min 82 BPM [facility] Atrial Rate 82 BPM [facility] GA-Interval (MSEC) 142 ms [facility] QRS-Interval (MSEC) 76 ms [facility] QT-Interval (MSEC) 368 ms [facility] QTc 429 ms [facility] P Freeman 72 degrees [facility] R Freeman 51 degrees [facility] T Freeman 68 degrees [facility] Diagnosis Age and gender specific ECG analysis Normal sinus rhythm ST elevation, consider early repolarization , pericarditis, vs injury Abnormal ECG When compared with ECG of 14-MAY-2024 18:41, No significant change was found Confirmed by JAMES ROBBINS M.D. ([id number]) on 05/15/2024 4:24:16 PM [facility] 05/14/2024 6:41 PM BRANCH CREDIT COUNSELOR 05/15/2024 4:24 PM BRANCH CREDIT COUNSELOR us Jluis Mason MD ECG ORDERABLES Final Result Performing Organization Address [facility]/ZIP Co de Phone Number [facility] * ECG 12 lead (05/14/2024 6:41 PM BRANCH CREDIT COUNSELOR) Ventricular Rate EKG/Min 79 BPM [facility] Atrial Rate 79 BPM [facility] GA-Interval (MSEC) 142 ms [facility] QRS-Interval (MSEC) 78 ms [facility] QT-Interval (MSEC) 368 ms [facility] QTc 421 ms [facility] P Freeman 71 degrees [facility] R Freeman 46 degrees [facility] T Freeman 63 degrees [facility] Diagnosis Age and gender specific ECG analysis Normal sinus rhythm Early repolarization When compared with ECG of 14-MAR-2024 19:35, ST elevation now present in Inferior leads ST elevation now present in Lateral leads Early repolarization is now. Confirmed by SULTAN BARAJAS M.D. ([id number]) on 05/14/2024 8:09:34 PM [facility] 05/14/2024 6:41 PM BRANCH CREDIT COUNSELOR 05/14/2024 8:09 PM BRANCH CREDIT COUNSELOR us Sheri Carr MD ECG ORDERABLES Final R esult [facility] * (ABNORMAL) Urinalysis reflex to microscopic and culture Urine (05/08/2024 8:37 PM BRANCH CREDIT COUNSELOR) Color, ur Yellow Yellow Clarity, ur Cloudy(A) Clear [facility] Specific gravity, ur 1.025 1.003 - 1.030 [facility] pH, urine 6.0 [facility] Comment: Interpretive Data U rine pH is affected by diet, medications, systemic acid-base disturbances, and renal tubular function. pH may affect urinary stone formation. For example, urine pH below 6.0 may help reduce the tendency for calcium phosphate stones and pH greater than 6.0 may reduce the tendency for uric acid stone formation. Source: [facility] [employer] Current Interpretive Data was last revised on 2017 Protein, ur ql 1+(A) Negative [facility] Glucose, ur ql Negative Negative [facility] Ketones, ur Trace Negative [facility] Bilirubin, ur Negative Negative [facility] Blood, ur 3+(A) Negative [facility] Urobilinogen, ur 2.0(A) <2.0 mg/dL [facility] Nitrite, ur Negative Negative [facility] Leukocyte esterase, ur 3+(A) Negative [facility] UA reflex comment Reflex to microscopic UA will be performed. [facility] Urine 05/08/2024 8:37 PM BRANCH CREDIT COUNSELOR 05/08/2024 8:40 PM BRANCH CREDIT COUNSELOR Narrative [facility] - 05/08/2024 8:51 PM BRANCH CREDIT COUNSELOR If patient unable to urinate, straight cath Raymon Mendoza MD LAB MICROBIOLOGY - GENERAL ORDERABLES Final Result Performing Organization Address [facility] Co de Phone Number [address] [address] * (ABNORMAL) Urinalysis, microscopic only (05/08/2024 8:37 PM BRANCH CREDIT COUNSELOR) WBC, ur 11-20(A) 0 - 5 /HPF RBC, ur >50(A) 0 - 2 /HPF [facility] Epithelial cells, squamous, ur 1-5 0 - 5 /HPF [facility] Mucous, ur Present(A) [facility] Culture Reflex Comment Reflex to urine culture will be performed. [facility] Urine 05/08/2024 8:37 PM BRANCH CREDIT COUNSELOR 05/08/2024 8:40 PM BRANCH CREDIT COUNSELOR Raymon Mendoza MD LAB URINE ORDERABLE S Final Result Performing Organization Address [facility] de Phone Number [address] [address] * Urine culture Urine (05/08/2024 8:37 PM BRANCH CREDIT COUNSELOR) Report Final Report: Growth indicative of contamination with periurethral sowmya. Please submit a new specimen with special attention given to the collection process and to prompt transport to the laboratory. Comment:Testing performed by : [facility], [address], [place]., [address] Organism GROWTH INDICATES CONTAM WITH PERIURETHRAL SOWMYA. [facility] Urine 05/08/2024 8:37 PM BRANCH CREDIT COUNSELOR 05/09/2024 4:01 AM BRANCH CREDIT COUNSELOR Narrative [facility] - 05/10/2024 7:34 AM BRANCH CREDIT COUNSELOR Urine culture reflexed based upon urinalysis results. Testing performed by [facility] ([phone]) Raymon Mendoza MD LAB MICROBIOLOGY - GENERAL ORDERABLES Final Result Performing Organization Address [facility] Co de Phone Number [facility] [place] [address] * Influenza A/B, RSV, and COVID-19 PCR Nasopharyngeal (05/08/2024 8:32 PM BRANCH CREDIT COUNSELOR) [facility] COVID-19 RNA Negative Negative Influenza A RNA Negative Negative [facility] Influenza B RNA Negative Negative [facility] RSV RNA Negative Negative [facility] Comment: Interpretive data: Testing performed by [facility]. This test is performed using the Obvious Xpert Xpress CoV-2/Flu/RSV plus assay. This is a multiplex, real-time reverse transcriptase PCR assay intended for the qualitative detection of nucleic acid from SARS-CoV-2, influenza A, influenza B, and respiratory syncytial virus. This assay has been cleared by the [place] Food and Drug administration. The performance characteristics have been verified by the [facility]. Results must be considered in the clinical context, and a negative result does not rule out infection. Interpretive Data last revised 2023 Nasopharyngeal 05/08/2024 8: 32 PM BRANCH CREDIT COUNSELOR 05/08/2024 8:38 PM BRANCH CREDIT COUNSELOR Narrative [facility] - 05/08/2024 9:19 PM BRANCH CREDIT COUNSELOR Is the Patient experiencing symptoms consistent with COVID?->Yes Raymon Mendoza MD LAB MICROBIOLOGY - GENERAL ORDERABLES Final Result Performing Organization Address City/[facility]/ZIP Co de Phone Number [facility] [address] [place] [address] * Sepsis Lactate w/ Reflex (05/08/2024 8:32 PM BRANCH CREDIT COUNSELOR) [facility] Sepsis Lactate 1.0 0.7 - 2.0 mmol/L Blood 05/08/2024 8:32 PM BRANCH CREDIT COUNSELOR 05/08/2024 8:38 PM BRANCH CREDIT COUNSELOR Raymon Mendoza MD LAB BLOOD ORDERABLE S Final Result Performing Organization Address [facility] Co de Phone Number [facility] [address] [place] [place] [address] * eGFR (05/08/2024 8:32 PM BRANCH CREDIT COUNSELOR) Pathologist [facility] [place] eGFR >90 >=60 mL/min/1. 73 m2 Comment: Interpretive Data Reference Interval Normal >/= 90 mL/min/1.73m2 Mildly decreased* 60 - 89 mL/min/1.73m2 Mildly to moderately decreased 45 - 59 mL/min/1.73m2 Moderately to severely decreased 30 - 44 mL/min/1.73m2 Severely decreased 15 - 29 mL/min/1.73m2 Kidney Failure < 15 mL/min/1.73m2 *Relative to young adult level Estimated glomerular filtration rate is determined by the 2020 CKD-EPI equation recommended by the National Kid[employer] (A Unifying Approach to GFR Estimation: Recommendations of the NKF-ASK Task Force on Reassessing the Inclusion of Race in Diagnosing Kidney Disease, JASN 2020). The CKD-EPI equation should not be used for patients with unstable renal function and has not been validated in children and those over 70. Current interpretive data was last reviewed 2021. Blood 05/08/2024 8:32 PM BRANCH CREDIT COUNSELOR 05/08/2024 8:38 PM BRANCH CREDIT COUNSELOR Raymon Mendoza MD LAB BLOOD ORDERABLE S Final Result Performing Organization Address [facility] Co de Phone Number [facility] [address] [place] [address] * Differential, auto (05/08/2024 8:32 PM BRANCH CREDIT COUNSELOR) Pathologist [facility] [place] Neutrophil abs 4.2 1.5 - 6.5 K/cumm Imm gran abs 0.0 0.0 - 0.1 K/cumm [facility] Lymphocyte abs 1.9 0.8 - 3.3 K/cumm [facility] Monocyte abs 0.6 0.2 - 0.8 K/cumm [facility] Eosinophil abs 0.0 0.0 - 0.5 K/cumm [facility] Basophil abs 0.0 0.0 - 0.1 K/cumm [facility] Neutrophil pct 62.5 % [facility] Comment: Interpretive Data Percent cell count reference ranges are not reported, since discordance with absolute values may lead to misinterpretation of CBC data. Current Interpretive Data was last revised on 2017. Imm gran pct 0.4 % [facility] Comment: Interpretive Data Percent cell count reference ranges are not reported, since discordance with absolute values may lead to misinterpretation of CBC data. Current Interpretive Data was last revised on 2017. Lymphocyte pct 27.4 % [facility] Comment: Interpretive Data Percent cell count reference ranges are not reported, since discordance with absolute values may lead to misinterpretation of CBC data. Current Interpretive Data was last revised on 2017. Monocyte pct 9.1 % [facility] Comment: Interpretive Data Percent cell count reference ranges are not reported, since discordance with absolute values may lead to misinterpretation of CBC data. Current Interpretive Data was last revised on 2017. Eosinophil pct 0.3 % [facility] Comment: Interpretive Data Percent cell count reference ranges are not reported, since discordance with absolute values may lead to misinterpretation of CBC data. Current Interpretive Data was last revised on 2017. Basophil pct 0.3 % [facility] Comment: Interpretive Data Percent cell count reference ranges are not reported, since discordance with absolute values may lead to misinterpretation of CBC data. Current Interpretive Data was last revised on 2017. Blood 05/08/2024 8:32 PM BRANCH CREDIT COUNSELOR 05/08/2024 8:38 PM BRANCH CREDIT COUNSELOR us Raymon Mendoza MD LAB BLOOD ORDERABLE S Final Result [facility] [address] [facility] Department [place] [address] * (ABNORMAL) CBC with auto differential (05/08/2024 8:32 PM BRANCH CREDIT COUNSELOR) WBC 6.8 3.8 - 9.9 K/cumm Hgb 10.0(L) 11.9 - 15.5 g/dL [facility] Hct 34.8(L) 35.6 - 45.5 % [facility] Plt 492(H) 150 - 400 K/cumm [facility] MPV 9.0(L) 9.1 - 12.3 fL [facility] RBC 4.89 3.90 - 5.20 M/cumm [facility] MCV 71.2(L) 81.3 - 96.4 fL [facility] MCH 20.4(L) 27.1 - 33.3 pg [facility] MCHC 28.7(L) 32.3 - 35.7 g/dL [facility] RDW CV 19.0(H) 11.1 - 14.9 % [facility] RDW SD 46.3 35.7 - 48.1 fL [facility] NRBC abs 0.00 0.00 - 0.01 K/cumm [facility] Blood 05/08/2024 8:32 PM BRANCH CREDIT COUNSELOR 05/08/2024 8:38 PM BRANCH CREDIT COUNSELOR us Raymon Mendoza MD LAB BLOOD ORDERABLE S Final Result [facility] [address] [facility] Department [place] [address] * Comprehensive metabolic panel (05/08/2024 8:32 PM BRANCH CREDIT COUNSELOR) Sodium 138 135 - 145 mmol/L Potassium, pl 3.7 3.3 - 4.9 mmol/L [facility] Chloride 104 97 - 110 mmol/L [facility] CO2 22 22 - 32 mmol/L [facility] Anion gap 12 2 - 15 mmol/L [facility] BUN 17 6 - 25 mg/dL [facility] Creatinine 0.75 0.60 - 1.10 mg/dL [facility] Glucose 110 70 - 199 mg/dL [facility] Comment: Interpretive Data Fasting glucose >/= 126 mg/dl is diagnostic for diabetes. Fasting is defined as no caloric intake for at least 8 hours. Fasting glucose between 100 mg/dl to 125 mg/dl is diagnostic of prediabetes. In a patient with classic symptoms of hyperglycemia or hyperglycemic crisis, a random glucose >/= 200 mg/dl is diagnostic for diabetes. In the absence of unequivocal hyperglycemia, results should be confirmed by repeat testing. The classification and Diagnosis of Diabetes Diabetes Care 2021; 46: S19-S40. Current interpretive data was last revised 2022. Calcium 9.4 8.5 - 10.3 mg/dL [facility] Bilirubin, total 0.2 0.1 - 1.2 mg/dL [facility] Protein, pl 7.2 6.5 - 8.5 g/dL [facility] Albumin 4.4 3.5 - 5.0 g/dL [facility] Alk phos 90 40 - 130 Units/L [facility] ALT 13 7 - 45 Units/L [facility] AST 22 10 - 45 Units/L [facility] Blood 05/08/2024 8:32 PM BRANCH CREDIT COUNSELOR 05/08/2024 8:38 PM BRANCH CREDIT COUNSELOR us Raymon Mendoza MD LAB BLOOD ORDERABLE S Final Result [facility] [address] [facility] [place] [address] * XR Chest 1 Vw Portable (if patient condition/safety warrant portable) (05/08/2024 8:26 PM BRANCH CREDIT COUNSELOR) Anatomical Region Laterality Modality Body, Chest N/A Computed Radiogr aphy 05/08/2024 8:46 PM BRANCH CREDIT COUNSELOR Narrative 05/08/2024 8:49 PM BRANCH CREDIT COUNSELOR EXAM DESCRIPTION: XR CHEST 1 VIEW REASON FOR STUDY: Shortness of Breath Pt to ED with c/o shortness of breath, chills, n/v/d, and fatigue x 4 days. PMHx: breast cancer with double mastectomy Pt aox4, ambulatory, nad Breast Implants TECHNIQUE: Single radiographic view(s) of the chest. COMPARISON: Prior exam 03/14/2024 FINDINGS: LUNGS: Pulmonary vascularity appears normal. No confluent infiltrate or effusion. Costophrenic angles are sharp. HEART/MEDIASTINUM: Cardiac silhouette normal in size. Mediastinal and hilar contours appear normal. LINES/TUBES: None. BONES: No acute osseous abnormality. IMPRESSION: No acute cardiopulmonary abnormality. THIS IS AN ELECTRONICALLY VERIFIED FINAL REPORT 05/08/2024 8:49 PM - Electronically signed by Hussein BATRES T: Report ID: [id number] Reading Location: [place] [address] Procedure Note Hussein Jeffries MD - 05/08/2024 EXAM DESCRIPTION: XR CHEST 1 VIEW REASON FOR STUDY: Shortness of Breath Pt to ED with c/o shortness of breath, chills, n/v/d, and fatigue x 4days. PMHx: breast cancer with double mastectomy Pt aox4, ambulatory, nad Breast Implants TECHNIQUE: Single radiographic view(s) of the chest. COMPARISON: Prior exam 03/14/2024 FINDINGS: LUNGS: Pulmonary vascularity appears normal. No confluent infiltrate or effusion. Costophrenic angles are sharp. HEART/MEDIASTINUM: Cardiac silhouette normal in size. Mediastinal andhilar contours appear normal. LINES/TUBES: None. BONES: No acute osseous abnormality. IMPRESSION: No acute cardiopulmonary abnormality. THIS IS AN ELECTRONICALLY VERIFIED FINAL REPORT 05/08/2024 8:49 PM - Electronically signed by Hussein BATRES T: Report ID: [id number] Reading Location: [place] [address] Raymon Mendoza MD IMG XR PROCEDURES F inal Result from Last [address] [place] [place] [address] [facility] H[facility]/PPO Address: [address] [address] [place] [address] [employer] [facility] CHO[employer] [facility] H[facility]/PPO Address: [address] [address] [place] [address] [employer] [facility] [facility] [employer] [facility] Advance Directives For more information, please contact: [phone] * Full Code (Latest Code Status on File) Date Activated Date Inactivated Comments 05/15/2024 12:10 AM 05/16/2024 3:53 PM * Full Code Date Activated Date Inactivated Comments 03/27/2021 1:09 PM 03/28/2021 4:40 PM Care Teams Traffic Chief Relationship Specialty Start Date End Date Patrick Kapadia MD PCP - General Family Medicine 02/11/21
--- OUTSIDE RECORDS SUMMARY | 2024-07-31 23:01 | XMS_ITS | Referral Summary ---
Author Organization [facility] Address [address] [place] [address] Care Team Providers Care Gas Meter Prover Name Role Phone Patrick Kapadia MD Primary Care Provider [phone] Encounters Date Type Department Care Team Description 05/18/2024 Telephone [facility] Cardiology [address] [place] [phone] Ritu Contreras NP 05/14/2024 7:31 PM CEPHALOMETRIC ANALYST - 05/16/2024 11:40 AM [facility] Hospital Encounter [address] [address] Sheri Carr MD Brother, MD Branden Bazzi Vibhu, MD [facility], Magdalene Weaver MD Chest pain, unspecified type (Primary Dx); SOB (shortness of breath); Pericarditis; Smoker Discharge Disposition: Discharge to home or self care 05/15/2024 3:30 PM CEPHALOMETRIC ANALYST - 05/15/2024 4:30 PM [facility] Surgery [facility] Cardiac Design Teacher [address] [place] [id number] Ja Porras MD LEFT HEART CATHETERIZATION WITH CORONARY ANGIOGRAPHY AND WITH OR WITHOUT LEFT VENTRICULOGRAM [id number] 05/08/2024 11:15 PM CEPHALOMETRIC ANALYST - 05/09/2024 12:47 AM CEPHALOMETRIC ANALYST Emergency [address] [address] Viral syndrome (Primary Dx); Anemia, unspecified type Discharge Disposition: Discharge to home or self care from Last 3 Months Allergies Active Allergy Reactions Criticality Noted Date [...] multivitamin capsule Take 1 capsule by mouth marketing communication manager before breakfast Active cyclobenzaprine (FLEXERIL) 5 mg [...] (08/19/2021): Added automatically from request for surgery [id number] Encounter to discuss treatment options 2 Infection of breast implant 05/27/2021 Overview (05/27/2021): Added automatically from request for surgery [id number] Encounter for postoperative wound check 05/14/19 22 History of breast cancer 05/14/2021 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 05/09/2020 Overview (03/09/2021): Added automatically from request for surgery [id number] Immunizations Immunization Administration Dates Next Due DTP 11/06/1986,12/14/1983,1982 ,1982,1982 MMR 07/19/1991,10/12/1983 OPV 11/06/1986,10/12/1983,1982 ,1982 Tdap 09/11/2019 Social History Tobacco Use Types Packs/Day Years Used Date Smoking Tobacco: Every Day Cigarettes 0.3 20 Started: 2001; Last attempted to quit: 2021 Smokeless Tobacco: Never Tobacco Cessation:Ready to Q uit: Not Asked; Counseling Given: Not Answered [facility] Utilities Answer Date Recorded In the past 12 months has th [employer] electric, gas, oil, or water company threatened [...] often do you attend chur ch or adventism services? Never 05/15/2024 Do you belong to any clubs o r organizations such as pentecostal groups, unions, fraternal or athletic groups, or [...] any time in the past 12 m [facility], were you homeless or living in a detention (including now)? No 05/15/2024 Personal Safety Answer [...] on file Sexual Orientation Not on file Last Filed Vital Signs Vital Sign Reading Time Taken Comments Blood Pressure 116/72 05/16/2024 11:00 AM CEPHALOMETRIC ANALYST Pulse 72 05/16/2024 11:00 AM CEPHALOMETRIC ANALYST Temperature 36.6 C (97.8 F) 05/16/2024 11:00 AM CEPHALOMETRIC ANALYST Respiratory Rate 18 05/16/2024 11:00 AM CEPHALOMETRIC ANALYST Oxygen Saturation 100% 05/16/2024 11:00 AM CEPHALOMETRIC ANALYST Inhaled Oxygen Concentration - - Weight 63.5 kg (140 lb) 05/14/2024 6:43 PM CEPHALOMETRIC ANALYST Height 170.2 cm (5' 7 ) 05/14/2024 6:43 PM CEPHALOMETRIC ANALYST Body Mass Index 21.93 05/14/2024 6:43 PM CEPHALOMETRIC ANALYST Plan of Treatment Not on file Medical Devices Implanted Type Area Litigation Specialist Device Identifier Shelf Expiration Date Model / Serial / Lot [employer] Natrelle Inspira Smooth Shell Surface Xfull Profile Implant 445cc Srx-445 - [id number] - [id number] Implanted:Qty: 1 on 02/25/2022 by Red Leon MD at [facility] Breast Right: Breast [employer] [id number] 02/22/2026 SRX-445 / [id number] / [employer] Natrelle Inspira Smooth Shell Surface Xfull Profile Implant 445cc Srx-445 - [id number] - [id number] Implanted:Qty: 1 on 02/25/2022 by Red Leon MD at [facility] Breast Right: Breast [employer] [id number] 02/10/2026 SRX-445 / [id number] / [employer] 299c-Be-51-T Implant Mammary Natrelle Te Smooth 670d-Rl-69-T With Fourte - [id number] - [id number] Implanted:Qty: 1 on 03/27/2021 by Red Leon MD at [facility] Right: Breast [employer] [id number] 01/04/2024 133S-FX-1 1-T / [id number] / [id number] [employer] 525f-Pz-49-T Implant Mammary Natrelle Te Smooth 171a-Ao-28-T With Fourte - [id number] - [id number] Implanted:Qty: 1 on 08/27/2021 by Red Leon MD at [facility] Right: Breast [employer] [id number] 08/12/2025 133S-FX-1 1-T / [id number] / Description:Filled with 100c c of 0.9% Sodium Chloride [employer] System Closure Repair Femoral Artery Suture Mediated Perclose Prostyle 98678-10 - [id number] Implanted:Qty: 1 on 05/15/2024 by Ja Porras MD at [facility] [employer] 03/08/2026 96515-84 / / [id number] Explanted Type Area Litigation Specialist Device Identifier Shelf Expiration Date Model / Serial / Lot Right Tissue Heavy Lift Rigger Explanted:Qty : 1 on 02/25/2022 by Red Leon MD at [facility] Breast Right: Breast [employer] / / [id number] [employer] 794f-Eu-83-T Implant Mammary Natrelle Te Smooth 581f-Bl-90-T With Fourte - [id number] - [id number] Implanted:Qty : 1 on 03/27/2021 by Red Leon MD at [facility] Explanted:Qty : 1 on 02/25/2022 by Nataliya Noe MD at [facility] Left: Breast [employer] [id number] 11/25/2023 133S-FX-1 1-T / [id number] / [id number] Procedures Procedure Name Priority Date/Time Associated Diagnosis Comments DIFFERENTIAL AUTO Add On 05/16/2024 8:4 6 AM CEPHALOMETRIC ANALYST CBC WITH AUTO DIFFERENTIAL Add-On 05/16/2024 8:46 AM CEPHALOMETRIC ANALYST EGFR Routine 05/16/2024 2:52 AM CEPHALOMETRIC ANALYST HEPARIN ANTI FACTOR XA ACTIVITY Routine 05/16/2024 2:52 AM CEPHALOMETRIC ANALYST BASIC METABOLIC PANEL Routine 05/16/2024 2:52 AM CEPHALOMETRIC ANALYST LEFT HEART CATHETERIZATION WITH CORONARY ANGIOGRAPHY AND WITH AND WITHOUT LEFT VENTRICULOGRAM Routine 05/15/2024 3:51 PM CEPHALOMETRIC ANALYST Chest pain, unspecified type POCT ACTIVATED CLOTTING TIME, LOW RANGE Routine 05/15/2024 3:31 PM CEPHALOMETRIC ANALYST B ABO / RH CONFIRMATION TESTING STAT 05/15/2024 2:10 PM CEPHALOMETRIC ANALYST ANTIBODY SCREEN STAT 05/15/2024 12:56 PM CEPHALOMETRIC ANALYST ABO/RH STAT 05/15/2024 12:56 PM CEPHALOMETRIC ANALYST HCG, BLOOD, QUANTITATIVE STAT 05/15/2024 12:56 PM CEPHALOMETRIC ANALYST TYPE AND SCREEN STAT 05/15/2024 12:56 PM CEPHALOMETRIC ANALYST HEPARIN ANTI FACTOR XA ACTIVITY Timed 05/15/2024 10:01 AM CEPHALOMETRIC ANALYST TRANSTHORACIC ECHO (TTE) COMPLETE W DOPPLER/CF WO CONTRAST Routine 05/15/2024 9:27 AM CEPHALOMETRIC ANALYST ECG 12-LEAD Routine 05/15/2024 9:24 AM CEPHALOMETRIC ANALYST ECG 12-LEAD Routine 05/15/2024 8:03 AM CEPHALOMETRIC ANALYST CRP (ACUTE PHASE) Timed 05/15/2024 7:2 5 AM CEPHALOMETRIC ANALYST ERYTHROCYTE SEDIMENTATION RATE Routine 05/15/2024 7:25 AM CEPHALOMETRIC ANALYST TROPONIN T HIGH-SENSITIVITY 6-HOUR Timed 05/15/2024 7:25 AM CEPHALOMETRIC ANALYST TROPONIN T HIGH-SENSITIVITY 4-HR Timed 05/15/2024 5:11 AM CEPHALOMETRIC ANALYST TROPONIN T HIGH-SENSITIVITY 2-HOUR Timed 05/15/2024 3:47 AM CEPHALOMETRIC ANALYST HEPARIN ANTI FACTOR XA ACTIVITY Timed 05/15/2024 3:47 AM CEPHALOMETRIC ANALYST EGFR Routine 05/15/2024 1:29 AM CEPHALOMETRIC ANALYST TROPONIN T HIGH-SENSITIVITY SERIES (BASELINE, 2HR, 4HR, 6HR) Routine 05/15/2024 1:29 AM CEPHALOMETRIC ANALYST CBC WITHOUT DIFFERENTIAL Routine 05/15/2024 1:29 AM CEPHALOMETRIC ANALYST BASIC METABOLIC PANEL Routine 05/15/2024 1:29 AM CEPHALOMETRIC ANALYST TROPONIN T HIGH-SENSITIVITY 6-HOUR Timed 05/15/2024 1:29 AM CEPHALOMETRIC ANALYST CBC WITHOUT DIFFERENTIAL STAT 05/14/2024 11:19 PM CEPHALOMETRIC ANALYST TROPONIN T HIGH-SENSITIVITY 4-HR Timed 05/14/2024 11:19 PM CEPHALOMETRIC ANALYST PROTIME-INR STAT 05/14/2024 9:16 PM CEPHALOMETRIC ANALYST HEPARIN ANTI FACTOR XA ACTIVITY STAT 05/14/2024 9:16 PM CEPHALOMETRIC ANALYST LIPID PANEL Timed 05/14/2024 8:38 PM CEPHALOMETRIC ANALYST IRON PROFILE W/ IBC Timed 05/14/2024 8 :38 PM CEPHALOMETRIC ANALYST TROPONIN T HIGH-SENSITIVITY 2-HOUR Timed 05/14/2024 8:[address] CHEST PE W CONTRAST ED 8:30 PM CEPHALOMETRIC ANALYST POCT TROPONIN DEVICE Routine 05/14/2024 6:59 PM CEPHALOMETRIC ANALYST XR CHEST 1 VIEW ED 05/14/2024 6:52 PM CEPHALOMETRIC ANALYST EGFR STAT 05/14/2024 6:48 PM CEPHALOMETRIC ANALYST DIFFERENTIAL AUTO STAT 05/14/2024 6:4 8 PM CEPHALOMETRIC ANALYST TROPONIN T HIGH-SENSITIVITY SERIES (BASELINE, 2HR, 4HR, 6HR) STAT 05/14/2024 6:48 PM CEPHALOMETRIC ANALYST COMPREHENSIVE METABOLIC PANEL STAT 05/14/2024 6:48 PM CEPHALOMETRIC ANALYST CBC WITH AUTO DIFFERENTIAL STAT 05/14/2024 6:48 PM CEPHALOMETRIC ANALYST ECG 12-LEAD Routine 05/14/2024 6:41 PM CEPHALOMETRIC ANALYST ECG 12-LEAD STAT 05/14/2024 6:41 PM CEPHALOMETRIC ANALYST URINALYSIS, MICROSCOPIC ONLY STAT 05/08/2024 8:37 PM CEPHALOMETRIC ANALYST URINE CULTURE STAT 05/08/2024 8:37 PM CEPHALOMETRIC ANALYST URINALYSIS AND REFLEX TO MICROSCOPIC AND CULTURE STAT 05/08/2024 8:37 PM CEPHALOMETRIC ANALYST EGFR STAT 05/08/2024 8:32 PM CEPHALOMETRIC ANALYST DIFFERENTIAL AUTO STAT 05/08/2024 8:3 2 PM CEPHALOMETRIC ANALYST SEPSIS LACTATE WITH REFLEX Routine 05/08/2024 8:32 PM CEPHALOMETRIC ANALYST COMPREHENSIVE METABOLIC PANEL STAT 05/08/2024 8:32 PM CEPHALOMETRIC ANALYST CBC WITH AUTO DIFFERENTIAL STAT 05/08/2024 8:32 PM CEPHALOMETRIC ANALYST INFLUENZA A/B, RSV, AND COVID-19 PCR Routine 05/08/2024 8:32 PM CEPHALOMETRIC ANALYST XR CHEST 1 VIEW ED 05/08/2024 8:26 PM CEPHALOMETRIC ANALYST from Last 3 Months Results * Differential, auto (05/16/2024 8:46 AM CEPHALOMETRIC ANALYST) Neutrophil abs 4.6 1.5 - 6.5 K/cumm Imm gran abs 0.0 0.0 - 0.1 K/cumm [facility] Lymphocyte abs 2.6 0.8 - 3.3 K/cumm [facility] Monocyte abs 0.8 0.2 - 0.8 K/cumm [facility] Eosinophil abs 0.1 0.0 - 0.5 K/cumm [facility] Basophil abs 0.1 0.0 - 0.1 K/cumm [facility] Neutrophil pct 56.1 % [facility] Comment: Interpretive Data Percent cell count reference ranges are not reported, since discordance with absolute values may lead to misinterpretation of CBC data. Current Interpretive Data was last revised on 2017. Imm gran pct 0.4 % [facility] Comment: Interpretive Data Percent cell count reference ranges are not reported, since discordance with absolute values may lead to misinterpretation of CBC data. Current Interpretive Data was last revised on 2017. Lymphocyte pct 31.6 % [facility] Comment: Interpretive Data Percent cell count reference ranges are not reported, since discordance with absolute values may lead to misinterpretation of CBC data. Current Interpretive Data was last revised on 2017. Monocyte pct 10.1 % [facility] Comment: Interpretive Data Percent cell count reference ranges are not reported, since discordance with absolute values may lead to misinterpretation of CBC data. Current Interpretive Data was last revised on 2017. Eosinophil pct 1.1 % [facility] Comment: Interpretive Data Percent cell count reference ranges are not reported, since discordance with absolute values may lead to misinterpretation of CBC data. Current Interpretive Data was last revised on 2017. Basophil pct 0.7 % [facility] Comment: Interpretive Data Percent cell count reference ranges are not reported, since discordance with absolute values may lead to misinterpretation of CBC data. Current Interpretive Data was last revised on 2017. Blood 05/16/2024 8:46 AM CEPHALOMETRIC ANALYST 05/16/2024 8:52 AM CEPHALOMETRIC ANALYST us Magdalene Spears MD LAB BLOOD ORDERABLES Final Result [facility]EEPAK [address] [facility] Department [place] [address] * (ABNORMAL) CBC with auto differential (05/16/2024 8:46 AM CEPHALOMETRIC ANALYST) [facility] WBC 8.1 3.8 - 9.9 K/cumm Hgb 7.6(L) 11.9 - 15.5 g/dL [facility] Hct 27.0(L) 35.6 - 45.5 % [facility] Plt 466(H) 150 - 400 K/cumm [facility] MPV 8.9(L) 9.1 - 12.3 fL [facility] RBC 3.77(L) 3.90 - 5.20 M/cumm [facility] MCV 71.6(L) 81.3 - 96.4 fL [facility] MCH 20.2(L) 27.1 - 33.3 pg [facility] MCHC 28.1(L) 32.3 - 35.7 g/dL [facility] RDW CV 19.0(H) 11.1 - 14.9 % [facility] RDW SD 48.7(H) 35.7 - 48.1 fL [facility] NRBC abs 0.00 0.00 - 0.01 K/cumm [facility] Blood 05/16/2024 8:46 AM CEPHALOMETRIC ANALYST 05/16/2024 8:52 AM CEPHALOMETRIC ANALYST us Magdalene Spears MD LAB BLOOD ORDERABLES Final Result [address] Department [place] [address] * eGFR (05/16/2024 2:52 AM CEPHALOMETRIC ANALYST) [facility] eGFR >90 >=60 mL/min/1. 73 m2 Comment: [...] last reviewed 2021. Blood 05/16/2024 2:52 AM CEPHALOMETRIC ANALYST 05/16/2024 3:10 AM CEPHALOMETRIC ANALYST us Eileen Otero MD LAB BLOOD ORDERABLES Final Resul t [facility]EE[facility] [address] [facility] Department [place] [address] * Heparin anti factor Xa activity (05/16/2024 2:52 AM CEPHALOMETRIC ANALYST) [facility] Anti Factor Xa 0.23 IUnits/mL Comment: Ref [...] revised on 2018. Blood 05/16/2024 2:52 AM CEPHALOMETRIC ANALYST 05/16/2024 3:10 AM CEPHALOMETRIC ANALYST Magdalene Spears MD LAB BLOOD ORDERABLES Final Result Performing Organization Address City/[facility]/ZIP Co de Phone Number DEEPAK [address] [facility] Department [place] [address] * (ABNORMAL) Basic metabolic panel (05/16/2024 2:52 AM CEPHALOMETRIC ANALYST) Sodium 143 135 - 145 mmol/L Potassium, pl 4.0 3.3 - 4.9 mmol/L [facility] Chloride 111(H) 97 - 110 mmol/L [facility] CO2 23 22 - 32 mmol/L [facility] Anion gap 9 2 - 15 mmol/L [facility] BUN 10 6 - 25 mg/dL [facility] Creatinine 0.59(L) 0.60 - 1.10 mg/dL [facility] Glucose 108 70 - 199 mg/dL [facility] Comment: Interpretive Data Fasting glucose >/= 126 [...] 2022. Calcium 8.6 8.5 - 10.3 mg/dL [facility] Blood 05/16/2024 2:52 AM CEPHALOMETRIC ANALYST 05/16/2024 3:10 AM CEPHALOMETRIC ANALYST Eileen Otero MD LAB BLOOD ORDERABLES Final Resul t Performing Organization Address City/[facility]/ZIP Co de Phone Number DEEPAK [address] [facility] Department [place] [address] * LEFT HEART CATHETERIZATION WITH CORONARY ANGIOGRAPHY AND WITH AND WITHOUT LEFT VENTRICULOGRAM (05/15/2024 3:51 PM CEPHALOMETRIC ANALYST) Anatomical Region Laterality Modality X-Ray Angiograph y Narrative 05/16/2024 7:19 AM CEPHALOMETRIC ANALYST Patient Id: Shruti Luque is a 44 y.o. female. MR#: [id number] Date of the procedure: 05/15/2024 Procedure: Left heart catheterization Coronary angiogram Left ventricular cineangiogram Perclose Moderate sedation Indications: I was asked by Dr. Garcia to do cardiac catheterization on this patient came in chest pain and EKG showed J-point elevation in the inferior and the anterolateral leads with a OH depressions suggestive of pericarditis. But her troponins [...] and draped in the usual fashion. Six Peruvian sheath placed in the right femoral artery by using Seldinger technique. Left heart catheterization and CHAPA left ventricular cineangiogram performed by using 6 Peruvian pigtail catheter. Left and right coronary angiography performed using 6 Peruvian JL4 and 6 JR4 catheters. There were no complications. The sheath removed and hemostasis secured with Perclose. Anesthesia: Local Moderate sedation: Patient received 1 mg of Versed and 75 mcg of fentanyl by the nurse for conscious sedation. Patient vital signs monitored under my supervision in the laborer demolition during and after the procedure for at least the 30 minutes. Please see the laborer demolition log report for details Hemodynamics: Procedure performed [...] with the patient , vicky, nurse practitioner Estefania also Dr. Garcia. Continue IV fluids. Encouraged [...] MD This report was transcribed using the i[employer]VER[employer] voice recognition system without human plater barrel. In an effort to expedite patient care, this report has not been adjusted for typographical, grammatical, and syntax by a trained medical pathologist. Despite proof reading there may be errors. Please contact me if you have any questions. Ritu Contreras NP CV CARDIAC CATH PROCEDURES Final Result * POCT Activated clotting time, low range (05/15/2024 3:31 PM CEPHALOMETRIC ANALYST) Pathologist [facility] ACT 123 123 - 168 sec POC Performer [id number] [facility] POC Device Number [id number] [facility] Blood 05/15/2024 3:31 PM CEPHALOMETRIC ANALYST 05/15/2024 3:31 PM CEPHALOMETRIC ANALYST Magdalene Spears MD LAB POCT ORDERABLES - DEVICE Final Result Performing Organization Address [facility]/ZIP Co de Phone Number [address] [place] [place] [address] * ABO / Rh Confirmation Testing (05/15/2024 2:10 PM CEPHALOMETRIC ANALYST) [facility] ABO/Rh Confirmation B Positive [facility] Blood 05/15/2024 2:10 PM CEPHALOMETRIC ANALYST 05/15/2024 2:41 PM CEPHALOMETRIC ANALYST Ja Porras MD LAB BLOOD ORDERABLES Final Result Performing Organization Address [facility] Co de Phone Number [address] [employer] [place] [address] [facility] * ABO/Rh (05/15/2024 12:56 PM CEPHALOMETRIC ANALYST) [facility] ABO/Rh B Positive Blood 05/15/2024 12:5 6 PM CEPHALOMETRIC ANALYST 05/15/2024 1:11 PM CEPHALOMETRIC ANALYST Ja Porras MD LAB BLOOD BANK TEST ORDERAB LES Final Result Performing Organization Address [facility] Co de Phone Number [address] [place] [address] * Antibody screen (05/15/2024 12:56 PM CEPHALOMETRIC ANALYST) Pathologist [facility] Migdalia, indirect, Gel Interpretation Negative ABSC Blood 05/15/2024 12:5 6 PM CEPHALOMETRIC ANALYST 05/15/2024 1:11 PM CEPHALOMETRIC ANALYST Ja Porras MD LAB BLOOD BANK TEST ORDERAB LES Final Result Performing Organization Address [facility] de Phone Number DEEPAK [address] [address] * hCG, blood, quantitative (05/15/2024 12:56 PM CEPHALOMETRIC ANALYST) hCG, quant <5.0 0.0 - 5.0 IUnits/L Comment: Interpretive Data Male: < 5 IU/L Non- premenopausal Female: <5 IU/L The Sol hCG Beta Quant assay procedure was used. Results from different manufacturers or methods may not be comparable. Serial testing should be performed using the same method. Interpretive Data was last revised on 2023 Blood 05/15/2024 12:5 6 PM CEPHALOMETRIC ANALYST 05/15/2024 1:11 PM CEPHALOMETRIC ANALYST Ja Porras MD LAB BLOOD ORDERABLES Final Result Performing Organization Address [facility] de Phone Number DEEPAK [address] [address] * Heparin anti factor Xa activity (05/15/2024 10:01 AM CEPHALOMETRIC ANALYST) Anti Factor Xa 0.30 IUnits/mL Comment: Interpretive [...] on 2018. Blood 05/15/2024 10:0 1 AM CEPHALOMETRIC ANALYST 05/15/2024 10:58 AM CEPHALOMETRIC ANALYST us Eileen Otero MD LAB BLOOD ORDERABLES Final Resul t [facility] [address] [facility] Department [place] [address] * TRANSTHORACIC ECHO (TTE) COMPLETE W DOPPLER/CF WO CONTRAST (05/15/2024 9:27 AM CEPHALOMETRIC ANALYST) Anatomical Region Laterality Modality Ultrasound 05/15/2024 9:01 AM CEPHALOMETRIC ANALYST Narrative 05/15/2024 11:15 AM CEPHALOMETRIC ANALYST Adult Echocardiogram + ----- + :Name: SHRUTI LUQUE Study Date: 05/15/2024 Status: B : : Patient Location: [address]^[id number]^Height: 67 in : : Weight: 140 lbBP: [...] + :Name: SHRUTI LUQUE Study Date: 05/15/2024Status: MHB : : Patient Location: [address]^[id number]^Height: 67 in : : : 140 lbBP: 126/79 mmHg: :: 1980 Gender: FemaleBSA: 1.7 m2 : :Reason For Study: myocarditis: :Ordering Physician:: :SHERI CARR: :: :Performed By: Reji Marino,: :MALKA MARTINT: + ----- + Procedure A two-dimensional [...] * ECG 12 lead (05/15/2024 9:24 AM CEPHALOMETRIC ANALYST) Ventricular Rate EKG/Min 65 BPM [facility] Atrial Rate 65 BPM [facility] OH-Interval (MSEC) 142 ms [facility] QRS-Interval (MSEC) 88 ms [facility] QT-Interval (MSEC) 394 ms [facility] QTc 409 ms [facility] P [place] 76 degrees [facility] R [place] 69 degrees [facility] T [place] 64 degrees [facility] Diagnosis Normal sinus rhythm ST elevation, consider early repolarization , pericarditis, or injury Abnormal ECG When compared with ECG of 15-MAY-2024 08:03, No significant change was found Confirmed by JAMES ROBBINS M.D. ([id number]) on 05/16/2024 3:16:42 PM [facility] 05/15/2024 9:24 AM CEPHALOMETRIC ANALYST 05/16/2024 3:16 PM CEPHALOMETRIC ANALYST Magdalene Spears MD ECG ORDERABLES Monique l Result Performing Organization Address City/[facility] Co de Phone Number [facility] * ECG 12 lead (05/15/2024 8:03 AM CEPHALOMETRIC ANALYST) Ventricular Rate EKG/Min 67 BPM [facility] Atrial Rate 67 BPM [facility] OH-Interval (MSEC) 150 ms [facility] QRS-Interval (MSEC) 80 ms [facility] QT-Interval (MSEC) 398 ms [facility] QTc 420 ms [facility] P [place] 74 degrees [facility] R [place] 51 degrees [facility] T [place] 45 degrees [facility] Diagnosis Normal sinus rhythm ST elevation, consider early repolarization , pericarditis, vs injury Borderline ECG When compared with ECG of 14-MAY-2024 18:41, No significant change was found Confirmed by JAMES ROBBINS M.D. ([id number]) on 05/15/2024 5:23:45 PM [facility] 05/15/2024 8:03 AM CEPHALOMETRIC ANALYST 05/15/2024 5:23 PM CEPHALOMETRIC ANALYST Eileen Otero MD ECG ORDERABLES Final Result Performing Organization Address [facility] Co de Phone Number [facility] * (ABNORMAL) Troponin T high-sensitivity 6-hour (05/15/2024 7:25 AM CEPHALOMETRIC ANALYST) Trop T hs 530(C) <=14 ng/L Comment: Critical Result called to and read back by Jo WARE [id number], DATE: 2024-05-15 08:34:40 BY: [email or web address] Interpretive Data For further hscTnT resources including the diagnostic algorithm and an aid in interpretation, copy and paste this link: [email or web address]/[email or web address] Current Interpretive Data last revised 2020. Trop T hs interp Significa nt(C) [facility]EE[facility]K Comment:Critical Result call ed to and read back by Jo WARE [id number], DATE: 2024-05-15 08:34:40 BY: [email or web address] Blood 05/15/2024 7:25 AM CEPHALOMETRIC ANALYST 05/15/2024 8:04 AM CEPHALOMETRIC ANALYST Eileen Otero MD LAB BLOOD ORDERABLES Final Resul t Performing Organization Address [facility] Co de Phone Number [address] [place] [address] * Erythrocyte sedimentation rate (05/15/2024 7:25 AM CEPHALOMETRIC ANALYST) Erythrocyte sedimentation rate <2 1 - 20 mm/hr Blood 05/15/2024 7:25 AM CEPHALOMETRIC ANALYST 05/15/2024 8:03 AM CEPHALOMETRIC ANALYST Eileen Otero MD LAB BLOOD ORDERABLES Final Resul t Performing Organization Address [facility] Co de Phone Number [address] [place] [address] * CRP (acute phase) (05/15/2024 7:25 AM CEPHALOMETRIC ANALYST) CRP <0.2 <=10.0 mg/L Blood 05/15/2024 7:25 AM CEPHALOMETRIC ANALYST 05/15/2024 8:04 AM CEPHALOMETRIC ANALYST Magdalene Spears MD LAB BLOOD ORDERABLES Final Result Performing Organization Address [facility] Co de Phone Number [address] [place] [address] * (ABNORMAL) Troponin T high-sensitivity 4-hour (05/15/2024 5:11 AM CEPHALOMETRIC ANALYST) Trop T hs 423(C) <=14 ng/L Comment: Critical Result called to and read back by [id number], DATE: 2024-05-15 06:15:57 BY: [id number] Interpretive Data For further hscTnT resources including the diagnostic algorithm and an aid in interpretation, copy and paste this link: [email or web address]/show/hsTrop Current Interpretive Data last revised 2020. Trop T hs pct delta 49(C) % DEEPAK Comment:Critical Result call ed to and read back by [id number], DATE: 2024-05-15 06:15:57 BY: [id number] Trop T hs interp Significa nt(C) DEEPAK Comment:Critical Result call ed to and read back by [id number], DATE: 2024-05-15 06:15:57 BY: [id number] Blood 05/15/2024 5:11 AM CEPHALOMETRIC ANALYST 05/15/2024 5:35 AM CEPHALOMETRIC ANALYST Eileen Otero MD LAB BLOOD ORDERABLES Final Resul t DEEPAK SIMEON [address] [facility] Department [place] [address] * (ABNORMAL) Troponin T high-sensitivity 2-hour (05/15/2024 3:47 AM CEPHALOMETRIC ANALYST) Trop T hs 348(C) <=14 ng/L Comment: Critical Result called to and read back by [id number], DATE: 2024-05-15 04:45:33 BY: [id number] Interpretive Data For further hscTnT resources including the diagnostic algorithm and an aid in interpretation, copy and paste this link: [email or web address]/show/hsTrop Current Interpretive Data last revised 2020. Trop T hs pct delta 23(C) % DEEPAK Comment:Critical Result call ed to and read back by [id number], DATE: 2024-05-15 04:45:33 BY: [id number] Trop T hs interp Significa nt(C) DEEPAK Comment:Critical Result call ed to and read back by [id number], DATE: 2024-05-15 04:45:33 BY: [id number] Blood 05/15/2024 3:47 AM CEPHALOMETRIC ANALYST 05/15/2024 4:00 AM CEPHALOMETRIC ANALYST Eileen Otero MD LAB BLOOD ORDERABLES Final Resul t Performing Organization Address [facility] de Phone Number DEEPAK [address] Department [place] [address] * Heparin anti factor Xa activity (05/15/2024 3:47 AM CEPHALOMETRIC ANALYST) [facility] Anti Factor Xa 0.40 IUnits/mL Comment: Interpretive [...] revised on 2018. Blood 05/15/2024 3:47 AM CEPHALOMETRIC ANALYST 05/15/2024 4:01 AM CEPHALOMETRIC ANALYST Eileen Otero MD LAB BLOOD ORDERABLES Final Resul t Performing Organization Address [facility]/ZIP Co de Phone Number DEEPAK [facility] Department [place] [address] * (ABNORMAL) Troponin T high-sensitivity 6-hour (05/15/2024 1:29 AM CEPHALOMETRIC ANALYST) Trop T hs 278(C) <=14 ng/L Comment: Critical Result called to and read back by [id number], DATE: 2024-05-15 02:04:46 BY: [id number] Interpretive Data For further hscTnT resources including the diagnostic algorithm and an aid in interpretation, copy and paste this link: [email or web address]/show/hsTrop Current Interpretive Data last revised 2020. Trop T hs delta See Comment ng/L DEEPAK Comment:Inappropriate collec tion time to report a delta. Trop T hs pct delta See Comment % DEEPAK Comment:Inappropriate collec tion time to report a delta. Trop T hs interp See Comment DEEPAK Comment:Inappropriate collec tion time to report a delta. Blood 05/15/2024 1:29 AM CEPHALOMETRIC ANALYST 05/15/2024 1:33 AM CEPHALOMETRIC ANALYST us Waqas Mcdonald MD LAB BLOOD ORDERABLE S Final Result DEEPAK [facility] Department [place] [address] * (ABNORMAL) Troponin T high-sensitivity series (baseline, 2hr, 4hr, 6hr) (05/15/2024 1:29 AM CEPHALOMETRIC ANALYST) Trop T hs 283(C) <=14 ng/L Comment: Critical Result called to and read back by [id number], DATE: 2024-05-15 02:04:53 BY: [id number] Interpretive Data For further hscTnT resources including the diagnostic algorithm and an aid in interpretation, copy and paste this link: [email or web address]/show/[email or web address] Current Interpretive Data last revised 2020. Blood 05/15/2024 1:29 AM CEPHALOMETRIC ANALYST 05/15/2024 1:33 AM CEPHALOMETRIC ANALYST Eileen Otero MD LAB BLOOD ORDERABLES Final Resul t Performing Organization Address [facility] de Phone Number DEEPAK [address] [address] * eGFR (05/15/2024 1:29 AM CEPHALOMETRIC ANALYST) Pathologist [facility] eGFR >90 >=60 mL/min/1. 73 m2 Comment: [...] data was last reviewed 2021. Blood 05/15/2024 1:2 9 AM CEPHALOMETRIC ANALYST 05/15/2024 1:33 AM CEPHALOMETRIC ANALYST Eileen Otero MD LAB BLOOD ORDERABLES Final Resul t Performing Organization Address [facility] Co de Phone Number [address] [place] [place] [address] * (ABNORMAL) CBC without differential (05/15/2024 1:29 AM CEPHALOMETRIC ANALYST) [facility] WBC 11.3(H) 3.8 - 9.9 K/cumm Hgb 8.3(L) 11.9 - 15.5 g/dL [facility] Hct 28.7(L) 35.6 - 45.5 % [facility] Plt 577(H) 150 - 400 K/cumm [facility] MPV 8.8(L) 9.1 - 12.3 fL [facility] RBC 4.11 3.90 - 5.20 M/cumm [facility] MCV 69.8(L) 81.3 - 96.4 fL [facility] MCH 20.2(L) 27.1 - 33.3 pg [facility] MCHC 28.9(L) 32.3 - 35.7 g/dL [facility] RDW CV 19.0(H) 11.1 - 14.9 % [facility] RDW SD 46.5 35.7 - 48.1 fL [facility] NRBC abs 0.00 0.00 - 0.01 K/cumm [facility] Blood 05/15/2024 1:29 AM CEPHALOMETRIC ANALYST 05/15/2024 1:33 AM CEPHALOMETRIC ANALYST Eileen Otero MD LAB BLOOD ORDERABLES Final Resul t [facility] [address] [facility] Department [place] [address] * Basic metabolic panel (05/15/2024 1:29 AM CEPHALOMETRIC ANALYST) Sodium 140 135 - 145 mmol/L Potassium, pl 3.6 3.3 - 4.9 mmol/L [facility] Chloride 106 97 - 110 mmol/L [facility] CO2 26 22 - 32 mmol/L [facility] Anion gap 8 2 - 15 mmol/L [facility] BUN 8 6 - 25 mg/dL [facility] Creatinine 0.61 0.60 - 1.10 mg/dL [facility] Glucose 86 70 - 199 mg/dL [facility] Comment: Interpretive Data Fasting glucose >/= 126 [...] 2022. Calcium 8.6 8.5 - 10.3 mg/dL DEEPAK SIMEON Blood 05/15/2024 1:29 AM CEPHALOMETRIC ANALYST 05/15/2024 1:33 AM CEPHALOMETRIC ANALYST Eileen Otero MD LAB BLOOD ORDERABLES Final Resul t Performing Organization Address City/[facility]/ZIP Co de Phone Number DEEPAK [address] [place] [address] * (ABNORMAL) Troponin T high-sensitivity 4-hour (05/14/2024 11:19 PM CEPHALOMETRIC ANALYST) Trop T hs 238(C) <=14 ng/L Comment: Critical Result called to and read back by [id number], DATE: 2024-05-15 00:04:49 BY: [id number] Interpretive Data For further hscTnT resources including the diagnostic algorithm and an aid in interpretation, copy and paste this link: https://nrl.[employer].org/show/hsTrop Current Interpretive Data last revised 2020. Trop T hs pct delta 80(C) % DEEPAK Comment:Critical Result call ed to and read back by [id number], DATE: 2024-05-15 00:04:49 BY: [id number] Trop T hs interp Significa nt(C) DEEPAK Comment:Critical Result call ed to and read back by [id number], DATE: 2024-05-15 00:04:49 BY: [id number] Blood 05/14/2024 11:1 9 PM CEPHALOMETRIC ANALYST 05/14/2024 11:26 PM CEPHALOMETRIC ANALYST us Waqas Mcdonald MD LAB BLOOD ORDERABLE S Final Result Performing Organization Address City/[facility]/ZIP Co de Phone Number DEEPAK [address] Department [place] [address] * (ABNORMAL) CBC without differential (05/14/2024 11:19 PM CEPHALOMETRIC ANALYST) [facility] WBC 10.9(H) 3.8 - 9.9 K/cumm Hgb 8.0(L) 11.9 - 15.5 g/dL [facility] Hct 27.2(L) 35.6 - 45.5 % [facility] Plt 539(H) 150 - 400 K/cumm [facility] MPV 8.7(L) 9.1 - 12.3 fL [facility] RBC 3.92 3.90 - 5.20 M/cumm [facility] MCV 69.4(L) 81.3 - 96.4 fL [facility] MCH 20.4(L) 27.1 - 33.3 pg [facility] MCHC 29.4(L) 32.3 - 35.7 g/dL [facility] RDW CV 19.0(H) 11.1 - 14.9 % [facility] RDW SD 46.5 35.7 - 48.1 fL [facility] NRBC abs 0.00 0.00 - 0.01 K/cumm [facility] Blood 05/14/2024 11:1 9 PM CEPHALOMETRIC ANALYST 05/14/2024 11:26 PM CEPHALOMETRIC ANALYST Narrative [facility] - 05/14/2024 11:28 PM CEPHALOMETRIC ANALYST Baseline prior to heparin initiation us Sheri Carr MD LAB BLOOD ORDERABLES nal Result [facility] [address] [facility] Department [place] [address] * Heparin anti factor Xa activity (05/14/2024 9:16 PM CEPHALOMETRIC ANALYST) [facility] Anti Factor Xa <0.10 IUnits/mL Comment: Baseline RN: [id number]/ MLS: [id number] Interpretive Data Enoxaparin therapeutic range (peak): VTE [...] revised on 2018. Blood 05/14/2024 9:16 PM CEPHALOMETRIC ANALYST 05/14/2024 9:19 PM CEPHALOMETRIC ANALYST Narrative [facility] - 05/14/2024 9:40 PM CEPHALOMETRIC ANALYST Baseline prior to heparin initiation Sheri Carr MD LAB BLOOD ORDERABLES Fi nal Result Performing Organization Address [facility] de Phone Number [place] [id number] [facility] [place] [address] * Protime-INR (05/14/2024 9:16 PM CEPHALOMETRIC ANALYST) [facility] Signature PT 13.3 12.0 - 14.6 sec INR 1.0 0.9 - 1.2 DEEPAK Comment: Ref Range High Interpretive data Oral anticoagulant therapeutic ranges: Venous thromboembolism prophylaxis or treatment: 2.0-3.0 CARDIOLOGY Standard range: 2.0-3.0 High-intensity range: 2.5-3.5 Refer to indication-specific guidelines for appropriate target ranges for prosthetic heart valve replacement. Current interpretive data was last revised on 2019. Blood 05/14/2024 9:16 PM CEPHALOMETRIC ANALYST 05/14/2024 9:19 PM CEPHALOMETRIC ANALYST Sheri Carr MD LAB BLOOD ORDERABLES Fi nal Result Performing Organization Address [facility] de Phone Number [address] [place] [address] * (ABNORMAL) Troponin T high-sensitivity 2-hour (05/14/2024 8:38 PM CEPHALOMETRIC ANALYST) Trop T hs 176(H) <=14 ng/L Comment: Interpretive Data For further hscTnT resources including the diagnostic algorithm and an aid in interpretation, copy and paste this link: https://nrl.[employer].org/show/hsTrop Current Interpretive Data last revised 2020. Trop T hs pct delta 33(C) % DEEPAK Comment:Critical Result call ed to and read back by [id number], DATE: 2024-05-14 21:09:28 BY: [id number] Trop T hs interp Significa nt(C) DEEPAK Comment:Critical Result call ed to and read back by [id number], DATE: 2024-05-14 21:09:28 BY: [id number] Blood 05/14/2024 8:38 PM CEPHALOMETRIC ANALYST 05/14/2024 8:41 PM CEPHALOMETRIC ANALYST us Waqas Mcdonald MD LAB BLOOD ORDERABLE S Final Result Performing Organization Address [facility]/ZIP Co de Phone Number [address] [place] [address] * (ABNORMAL) Iron profile w/ IBC (05/14/2024 8:38 PM CEPHALOMETRIC ANALYST) [facility] Iron 10(L) 35 - 145 mcg/dL TIBC 415(H) 250 - 400 mcg/dL [facility] Transferrin saturation 2(L) 20 - 50 % DEEPAK Blood 05/14/2024 8:38 PM CEPHALOMETRIC ANALYST 05/14/2024 8:41 PM CEPHALOMETRIC ANALYST us Sheri Carr MD LAB BLOOD ORDERABLES Fi nal Result [address] [place] [address] * Lipid panel (05/14/2024 8:38 PM CEPHALOMETRIC ANALYST) Pathologist [facility] Cholesterol 124 30 - 199 mg/dL Comment: [...] NCEP Expert Panel. Circulation 2004;110:227 3. Ilya M et al. TOÑO Cardiol. 2019September 06;5(5):540-548. doi: 10.1001/jamacardio.2020.0013 Current Interpretive Data was [...] ratio 3 DEEPAK Blood 05/14/2024 8:38 PM CEPHALOMETRIC ANALYST 05/14/2024 8:41 PM CEPHALOMETRIC ANALYST Narrative DEEPAK - 05/14/2024 9:43 PM CEPHALOMETRIC ANALYST This lipid panel was automatically ordered due to a significant change in Troponin. The dietary status of the patient at the collection time should be correlated with the lipid results. us Waqas Mcdonald MD LAB BLOOD ORDERABLE S Final Result DEEPAK [address] [facility] Department [place] [address] * CT Chest PE (CTA) W Contrast (05/14/2024 8:30 PM CEPHALOMETRIC ANALYST) Anatomical Region Laterality Modality Body N/A Computed Tomogra phy 05/14/2024 8:36 PM CEPHALOMETRIC ANALYST Narrative 05/14/2024 8:39 PM CEPHALOMETRIC ANALYST EXAM DESCRIPTION: CT CHEST PE (CTA) W [...] covid and flu when she was here [place] and it was negative. Patient states [...] Helene Olivas D.O. PS T: Report ID: [id number] Reading Location: [place] [address] Procedure Note Helene Olivas, DO - 05/14/2024 EXAM DESCRIPTION: CT CHEST [...] Helene Olivas D.O. PS T: Report ID: [id number] Reading Location: [place] [address] Sheri Carr MD IMG CT PROCEDURES Final Result * (ABNORMAL) POCT troponin (05/14/2024 6:59 PM CEPHALOMETRIC ANALYST) Troponin I Point of Care 0.78(C) 0.00 [...] last revised 2020. Blood 05/14/2024 6:59 PM CEPHALOMETRIC ANALYST 05/14/2024 6:59 PM CEPHALOMETRIC ANALYST us Notinfile Unknown LAB POCT ORDERABLES - DEVICE F inal Result Performing Organization Address City/State/[facility] Co de Phone Number DEEPAK [address] [facility] Department [place] [address] * XR Chest 1 Vw Portable (if patient condition/safety warrant portable) (05/14/2024 6:52 PM CEPHALOMETRIC ANALYST) Anatomical Region Laterality Modality Body, Chest N/A Computed Radiogr aphy 05/14/2024 7:05 PM CEPHALOMETRIC ANALYST Narrative 05/14/2024 7:05 PM CEPHALOMETRIC ANALYST EXAM DESCRIPTION: XR CHEST 1 VIEW REASON [...] Van Moon M.D. KT T: Report ID: [id number] Reading Location: [place] [address] Procedure Note Van Moon MD - 05/14/2024 [...] it was negative. Patient states EMS gave [id number] of aspirin. TECHNIQUE: 1 radiographic view(s) of [...] Van Moon M.D. KT T: Report ID: [id number] Reading Location: [place] [address] Sheri Carr MD IMG XR PROCEDURES Final Result * (ABNORMAL) Troponin T high-sensitivity series (baseline, 2hr, 4hr, 6hr) (05/14/2024 6:48 PM CEPHALOMETRIC ANALYST) Trop T hs 132(H) <=14 ng/L Comment: Interpretive Data For further hscTnT resources including the diagnostic algorithm and an aid in interpretation, copy and paste this link: https://nrl.testcatalog.org/show/hsTrop Current Interpretive Data last revised 2020. Blood 05/14/2024 6:48 PM CEPHALOMETRIC ANALYST 05/14/2024 6:52 PM CEPHALOMETRIC ANALYST Sheri Carr MD LAB BLOOD ORDERABLES Fi nal Result Performing Organization Address [facility] Co de Phone Number DEEPAK [address] [place] [address] * eGFR (05/14/2024 6:48 PM CEPHALOMETRIC ANALYST) eGFR >90 >=60 mL/min/1. 73 m2 Comment: [...] last reviewed 2021. Blood 05/14/2024 6:48 PM CEPHALOMETRIC ANALYST 05/14/2024 6:52 PM CEPHALOMETRIC ANALYST Sheri Carr MD LAB BLOOD ORDERABLES Fi nal Result Performing Organization Address City/[facility]/ZIP Co de Phone Number DEEPAK [address] [place] [address] * Differential, auto (05/14/2024 6:48 PM CEPHALOMETRIC ANALYST) Neutrophil abs 4.3 1.5 - 6.5 K/cumm Imm gran abs 0.0 0.0 - 0.1 K/cumm [facility] Lymphocyte abs 2.7 0.8 - 3.3 K/cumm [facility] Monocyte abs 0.7 0.2 - 0.8 K/cumm [facility] Eosinophil abs 0.1 0.0 - 0.5 K/cumm [facility] Basophil abs 0.1 0.0 - 0.1 K/cumm [facility] Neutrophil pct 54.4 % [facility] Comment: Interpretive Data Percent cell count reference ranges are not reported, since discordance with absolute values may lead to misinterpretation of CBC data. Current Interpretive Data was last revised on 2017. Imm gran pct 0.4 % [facility] Comment: Interpretive Data Percent cell count reference ranges are not reported, since discordance with absolute values may lead to misinterpretation of CBC data. Current Interpretive Data was last revised on 2017. Lymphocyte pct 34.1 % [facility] Comment: Interpretive Data Percent cell count reference ranges are not reported, since discordance with absolute values may lead to misinterpretation of CBC data. Current Interpretive Data was last revised on 2017. Monocyte pct 8.7 % [facility] Comment: Interpretive Data Percent cell count reference ranges are not reported, since discordance with absolute values may lead to misinterpretation of CBC data. Current Interpretive Data was last revised on 2017. Eosinophil pct 1.5 % [facility] Comment: Interpretive Data Percent cell count reference ranges are not reported, since discordance with absolute values may lead to misinterpretation of CBC data. Current Interpretive Data was last revised on 2017. Basophil pct 0.9 % [facility] Comment: Interpretive Data Percent cell count reference ranges are not reported, since discordance with absolute values may lead to misinterpretation of CBC data. Current Interpretive Data was last revised on 2017. Blood 05/14/2024 6:48 PM CEPHALOMETRIC ANALYST 05/14/2024 6:52 PM CEPHALOMETRIC ANALYST us Sheri Carr MD LAB BLOOD ORDERABLES Fi nal Result DEEPAK [address] [facility] Department [place] [address] * (ABNORMAL) CBC with auto differential (05/14/2024 6:48 PM CEPHALOMETRIC ANALYST) [facility] WBC 7.8 3.8 - 9.9 K/cumm Hgb 8.0(L) 11.9 - 15.5 g/dL [facility] Hct 27.3(L) 35.6 - 45.5 % [facility] Plt 548(H) 150 - 400 K/cumm [facility] MPV 8.6(L) 9.1 - 12.3 fL [facility] RBC 3.93 3.90 - 5.20 M/cumm [facility] MCV 69.5(L) 81.3 - 96.4 fL [facility] MCH 20.4(L) 27.1 - 33.3 pg [facility] MCHC 29.3(L) 32.3 - 35.7 g/dL [facility] RDW CV 18.7(H) 11.1 - 14.9 % [facility] RDW SD 45.6 35.7 - 48.1 fL [facility] NRBC abs 0.00 0.00 - 0.01 K/cumm [facility] Blood Venous blood specimen / Unknown 05/14/2024 6:48 PM CEPHALOMETRIC ANALYST 05/14/2024 6:52 PM CEPHALOMETRIC ANALYST us Sheri Carr MD LAB BLOOD ORDERABLES Fi nal Result [facility] [address] [facility] Department [place] [address] * (ABNORMAL) Comprehensive metabolic panel (05/14/2024 6:48 PM CEPHALOMETRIC ANALYST) [facility] Sodium 140 135 - 145 mmol/L Potassium, pl 4.0 3.3 - 4.9 mmol/L [facility] Chloride 106 97 - 110 mmol/L [facility] CO2 25 22 - 32 mmol/L [facility] Anion gap 9 2 - 15 mmol/L [facility] BUN 10 6 - 25 mg/dL [facility] Creatinine 0.63 0.60 - 1.10 mg/dL [facility] Glucose 102 70 - 199 mg/dL [facility] Comment: Interpretive Data Fasting glucose >/= 126 [...] 2022. Calcium 8.5 8.5 - 10.3 mg/dL [facility] Bilirubin, total 0.2 0.1 - 1.2 mg/dL [facility] Protein, pl 5.9(L) 6.5 - 8.5 g/dL [facility] Albumin 3.8 3.5 - 5.0 g/dL [facility] Alk phos 85 40 - 130 Units/L [facility] ALT 20 7 - 45 Units/L [facility] AST 28 10 - 45 Units/L [facility] Blood 05/14/2024 6:48 PM CEPHALOMETRIC ANALYST 05/14/2024 6:52 PM CEPHALOMETRIC ANALYST us Sheri Carr MD LAB BLOOD ORDERABLES nal Result DEEPAK [address] [facility] Department [place] [address] * ECG 12 lead (05/14/2024 6:41 PM CEPHALOMETRIC ANALYST) [facility] Ventricular Rate EKG/Min 82 BPM [facility] Atrial Rate 82 BPM [facility] [place]-Interval (MSEC) 142 ms [facility] QRS-Interval (MSEC) 76 ms [facility] QT-Interval (MSEC) 368 ms [facility] QTc 429 ms [facility] P [place] 72 degrees [facility] R [place] 51 degrees [facility] T [place] 68 degrees [facility] Diagnosis Age and gender specific ECG analysis Normal sinus rhythm ST elevation, consider early repolarization , pericarditis, vs injury Abnormal ECG When compared with ECG of 14-MAY-2024 18:41, No significant change was found Confirmed by JAMES ROBBINS M.D. ([id number]) on 05/15/2024 4:24:16 PM [facility] 05/14/2024 6:41 PM CEPHALOMETRIC ANALYST 05/15/2024 4:24 PM CEPHALOMETRIC ANALYST Jluis Mason MD ECG ORDERABLES Final Result Performing Organization Address [facility] Phone Number [facility] * ECG 12 lead (05/14/2024 6:41 PM CEPHALOMETRIC ANALYST) Ventricular Rate EKG/Min 79 BPM [facility] Atrial Rate 79 BPM [facility] [place]-Interval (MSEC) 142 ms [facility] QRS-Interval (MSEC) 78 ms [facility] QT-Interval (MSEC) 368 ms [facility] QTc 421 ms [facility] P [place] 71 degrees [facility] R [place] 46 degrees [facility] T [place] 63 degrees [facility] Diagnosis Age and gender specific ECG analysis Normal sinus rhythm Early repolarization When compared with ECG of 14-MAR-2024 19:35, ST elevation now present in Inferior leads ST elevation now present in Lateral leads Early repolarization is now. Confirmed by SULTAN BARAJAS M.D. ([id number]) on 05/14/2024 8:09:34 PM [facility] 05/14/2024 6:41 PM CEPHALOMETRIC ANALYST 05/14/2024 8:09 PM CEPHALOMETRIC ANALYST Sheri Carr MD ECG ORDERABLES Final R esult Performing Organization Address [facility] Phone Number [facility] * (ABNORMAL) Urinalysis reflex to microscopic and culture Urine (05/08/2024 8:37 PM CEPHALOMETRIC ANALYST) Color, ur Yellow Yellow Clarity, ur Cloudy(A) Clear [place] Specific gravity, ur 1.025 1.003 - 1.030 [place] pH, urine 6.0 [facility] Comment: Interpretive Data U rine pH is affected by diet, medications, systemic acid-base disturbances, and renal tubular function. pH may affect urinary stone formation. For example, urine pH below 6.0 may help reduce the tendency for calcium phosphate stones and pH greater than 6.0 may reduce the tendency for uric acid stone formation. Source: [facility] Current Interpretive Data was last revised on 2017 Protein, ur ql 1+(A) Negative [facility] Glucose, ur ql Negative Negative [facility] Ketones, ur Trace Negative [facility] Bilirubin, ur Negative Negative [facility] Blood, ur 3+(A) Negative [facility] Urobilinogen, ur 2.0(A) <2.0 mg/dL [facility] Nitrite, ur Negative Negative [facility] Leukocyte esterase, ur 3+(A) Negative [facility] UA reflex comment Reflex to microscopic UA will be performed. [facility] Urine 05/08/2024 8:37 PM CEPHALOMETRIC ANALYST 05/08/2024 8:40 PM CEPHALOMETRIC ANALYST Narrative [facility] - 05/08/2024 8:51 PM CEPHALOMETRIC ANALYST If patient unable to urinate, straight cath Raymon Mendoza MD LAB MICROBIOLOGY - GENERAL ORDERABLES Final Result Performing Organization Address [facility] de Phone Number [address] [place] [address] * (ABNORMAL) Urinalysis, microscopic only (05/08/2024 8:37 PM CEPHALOMETRIC ANALYST) WBC, ur 11-20(A) 0 - 5 /HPF RBC, ur >50(A) 0 - 2 /HPF [facility] Epithelial cells, squamous, ur 1-5 0 - 5 /HPF [facility] Mucous, ur Present(A) [facility] Culture Reflex Comment Reflex to urine culture will be performed. [facility] Urine 05/08/2024 8:37 PM CEPHALOMETRIC ANALYST 05/08/2024 8:40 PM CEPHALOMETRIC ANALYST Raymon Mendoza MD LAB URINE ORDERABLE S Final Result Performing Organization Address [facility] Co de Phone Number [address] [employer] [place], [place] [id number] * Urine culture Urine (05/08/2024 8:37 PM CEPHALOMETRIC ANALYST) Report Final Report: Growth indicative of contamination with periurethral sowmya. Please submit a new specimen with special attention given to the collection process and to prompt transport to the laboratory. Comment:Testing performed by : [facility], [address] [place] [address] Organism GROWTH INDICATES CONTAM WITH PERIURETHRAL SOWMYA. [facility] Urine 05/08/2024 8:37 PM CEPHALOMETRIC ANALYST 05/09/2024 4:01 AM CEPHALOMETRIC ANALYST Narrative [facility] - 05/10/2024 7:34 AM CEPHALOMETRIC ANALYST Urine culture reflexed based upon urinalysis results. Testing performed by [facility] ([phone]) us Raymon Mendoza MD LAB MICROBIOLOGY - GENERAL ORDERABLES Final Result [facility] [address] [facility] Department [place] [address] * Influenza A/B, RSV, and COVID-19 PCR Nasopharyngeal (05/08/2024 8:32 PM CEPHALOMETRIC ANALYST) COVID-19 RNA Negative Negative Influenza A RNA Negative Negative [facility] Influenza B RNA Negative Negative [facility] RSV RNA Negative Negative [facility] Comment: Interpretive data: Testing performed by [facility]. This test is performed using the [employer] Xpert Xpress CoV-2/Flu/RSV plus assay. This is a multiplex, real-time reverse transcriptase PCR assay intended for the qualitative detection of nucleic acid from SARS-CoV-2, influenza A, influenza B, and respiratory syncytial virus. This assay has been cleared by the [place] Food and Drug administration. The performance characteristics have been verified by the [facility]. Results must be considered in the clinical context, and a negative result does not rule out infection. Interpretive Data last revised 2023 Nasopharyngeal 05/08/2024 8: 32 PM CEPHALOMETRIC ANALYST 05/08/2024 8:38 PM CEPHALOMETRIC ANALYST Narrative [facility] - 05/08/2024 9:19 PM CEPHALOMETRIC ANALYST Is the Patient experiencing symptoms consistent with COVID?->Yes Raymon Mendoza MD LAB MICROBIOLOGY - GENERAL ORDERABLES Final Result Performing Organization Address City/[facility]/ZIP Co de Phone Number [facility] [address] [address] * Sepsis Lactate w/ Reflex (05/08/2024 8:32 PM CEPHALOMETRIC ANALYST) Sepsis Lactate 1.0 0.7 - 2.0 mmol/L Blood 05/08/2024 8:32 PM CEPHALOMETRIC ANALYST 05/08/2024 8:38 PM CEPHALOMETRIC ANALYST Result [facility] Raymon Mendoza MD LAB BLOOD ORDERABLE S Final Result Performing Organization Address [facility] Phone Number [facility] [address] [address] * eGFR (05/08/2024 8:32 PM CEPHALOMETRIC ANALYST) eGFR >90 >=60 mL/min/1. 73 m2 Comment: [...] last reviewed 2021. Blood 05/08/2024 8:32 PM CEPHALOMETRIC ANALYST 05/08/2024 8:38 PM CEPHALOMETRIC ANALYST Raymon Mendoza MD LAB BLOOD ORDERABLE S Final Result [facility] [address] [facility] Department [place] [address] * Differential, auto (05/08/2024 8:32 PM CEPHALOMETRIC ANALYST) Neutrophil abs 4.2 1.5 - 6.5 K/cumm Imm gran abs 0.0 0.0 - 0.1 K/cumm [facility] Lymphocyte abs 1.9 0.8 - 3.3 K/cumm [facility] Monocyte abs 0.6 0.2 - 0.8 K/cumm [facility] Eosinophil abs 0.0 0.0 - 0.5 K/cumm [facility] Basophil abs 0.0 0.0 - 0.1 K/cumm [facility] Neutrophil pct 62.5 % [facility] Comment: Interpretive Data Percent cell count reference ranges are not reported, since discordance with absolute values may lead to misinterpretation of CBC data. Current Interpretive Data was last revised on 2017. Imm gran pct 0.4 % [facility] Comment: Interpretive Data Percent cell count reference ranges are not reported, since discordance with absolute values may lead to misinterpretation of CBC data. Current Interpretive Data was last revised on 2017. Lymphocyte pct 27.4 % [facility] Comment: Interpretive Data Percent cell count reference ranges are not reported, since discordance with absolute values may lead to misinterpretation of CBC data. Current Interpretive Data was last revised on 2017. Monocyte pct 9.1 % [facility] Comment: Interpretive Data Percent cell count reference ranges are not reported, since discordance with absolute values may lead to misinterpretation of CBC data. Current Interpretive Data was last revised on 2017. Eosinophil pct 0.3 % [facility] Comment: Interpretive Data Percent cell count reference ranges are not reported, since discordance with absolute values may lead to misinterpretation of CBC data. Current Interpretive Data was last revised on 2017. Basophil pct 0.3 % [facility] Comment: Interpretive Data Percent cell count reference ranges are not reported, since discordance with absolute values may lead to misinterpretation of CBC data. Current Interpretive Data was last revised on 2017. Blood 05/08/2024 8:32 PM CEPHALOMETRIC ANALYST 05/08/2024 8:38 PM CEPHALOMETRIC ANALYST Raymon Mendoza MD LAB BLOOD ORDERABLE S Final Result Performing Organization Address [facility] Co de Phone Number [facility] [address] [place] [address] * (ABNORMAL) CBC with auto differential (05/08/2024 8:32 PM CEPHALOMETRIC ANALYST) Pathologist [facility] WBC 6.8 3.8 - 9.9 K/cumm Hgb 10.0(L) 11.9 - 15.5 g/dL [facility] Hct 34.8(L) 35.6 - 45.5 % [facility] Plt 492(H) 150 - 400 K/cumm [facility] MPV 9.0(L) 9.1 - 12.3 fL [facility] RBC 4.89 3.90 - 5.20 M/cumm [facility] MCV 71.2(L) 81.3 - 96.4 fL [facility] MCH 20.4(L) 27.1 - 33.3 pg [facility] MCHC 28.7(L) 32.3 - 35.7 g/dL [facility] RDW CV 19.0(H) 11.1 - 14.9 % [facility] RDW SD 46.3 35.7 - 48.1 fL [facility] NRBC abs 0.00 0.00 - 0.01 K/cumm [facility] Blood 05/08/2024 8:32 PM CEPHALOMETRIC ANALYST 05/08/2024 8:38 PM CEPHALOMETRIC ANALYST Raymon Mendoza MD LAB BLOOD ORDERABLE S Final Result Performing Organization Address City/[facility] Co de Phone Number [facility] [address] [place] [address] * Comprehensive metabolic panel (05/08/2024 8:32 PM CEPHALOMETRIC ANALYST) Pathologist [facility] Sodium 138 135 - 145 mmol/L Potassium, pl 3.7 3.3 - 4.9 mmol/L [facility] Chloride 104 97 - 110 mmol/L [facility] CO2 22 22 - 32 mmol/L [facility] Anion gap 12 2 - 15 mmol/L [facility] BUN 17 6 - 25 mg/dL [facility] Creatinine 0.75 0.60 - 1.10 mg/dL [facility] Glucose 110 70 - 199 mg/dL [facility] Comment: Interpretive Data Fasting glucose >/= 126 [...] 2022. Calcium 9.4 8.5 - 10.3 mg/dL [facility] Bilirubin, total 0.2 0.1 - 1.2 mg/dL [facility] Protein, pl 7.2 6.5 - 8.5 g/dL [facility] Albumin 4.4 3.5 - 5.0 g/dL [facility] Alk phos 90 40 - 130 Units/L [facility] ALT 13 7 - 45 Units/L [facility] AST 22 10 - 45 Units/L [facility] Blood 05/08/2024 8:32 PM CEPHALOMETRIC ANALYST 05/08/2024 8:38 PM CEPHALOMETRIC ANALYST us Raymon Mendoza MD LAB BLOOD ORDERABLE S Final Result [facility] [address] [facility] Department [place] [address] * XR Chest 1 Vw Portable (if patient condition/safety warrant portable) (05/08/2024 8:26 PM CEPHALOMETRIC ANALYST) Anatomical Region Laterality Modality Body, Chest N/A Computed Radiogr aphy 05/08/2024 8:46 PM CEPHALOMETRIC ANALYST Narrative 05/08/2024 8:49 PM CEPHALOMETRIC ANALYST EXAM DESCRIPTION: XR CHEST 1 VIEW REASON [...] signed by Hussein BATRES T: Report ID: [id number] Reading Location: [place] [address] Procedure Note Hussein Jeffries MD - 05/08/2024 [...] signed by Hussein BATRES T: Report ID: [id number] Reading Location: [place] [address] us Raymon Mendoza MD IMG XR PROCEDURES F inal Result from Last 3 Months Insurance BLUE ACCESS FL [facility] CHOICE PLUS IDSD [facility] CHOICE PLUS IDPA AETNA BETTER [facility] AETNA BETTER [facility] Advance Directives For more information, please contact: [phone] * Full Code (Latest Code Status on File) Date Activated Date Inactivated Comments 05/15/2024 12:10 AM 05/16/2024 3:53 PM * Full Code Date Activated Date Inactivated Comments 03/27/2021 1:09 PM 03/28/2021 4:40 PM Care Teams Gas Meter Prover Relationship Specialty Start Date End Date Patrick Kapadia MD PCP - General Family Medicine 02/11/21
--- OUTSIDE RECORDS SUMMARY | 2024-07-31 23:01 | XMS_ITS | Encounter Summary ---
Author Organization [facility] Address [address] [place] [address] Care Team Providers Care Round Up Ring Hand Name Role Phone Patrick Kapadia MD Primary Care Provider Makeda Echavarria MD Unavailable Encounter Details Date Type Department Care Team (Late Contact Info) Description 10/14/2018 Abstract [facility] [address] [place] [address] , Generic ConversionMD Social History Tobacco Use Types Packs/Day Years Used Date Smoking Tobacco: Never Assessed Comments Unknown Sex and Gender Information Value Date Recorded Sex Assigned at Female 06/01/2024 8:11 AM AUTOMATIC DRY STARCH OPERATOR Legal Sex Female 9:28 PM AUTOMATIC DRY STARCH OPERATOR Gender Identity Female 06/01/2024 8:11 AM AUTOMATIC DRY STARCH OPERATOR Sexual Orientation Not on file documented as of this encounter Plan of Treatment Upcoming Encounters Date Type Department Care Team (Late Contact Info) Description 11/12/2024 2:45 PM CDT Office Visit [facility] [address] [place] [phone] Makeda Echavarria MD [address] [place] [address] documented as of this encounter Visit Diagnoses Not on filedocumented in this encounter Care Teams Round Up Ring Hand Relationship Specialty Start Date End Date Patrick Kapadia MD [address] [place] [phone] PCP - General FAMILY PRACTICE 04/04/19 Makeda Echavarria MD [address] [place] [address] Consulting Physician CARDIOVASCULAR DISEASE 05/31/24 documented as of this encounter
--- OUTSIDE RECORDS SUMMARY | 2024-07-31 23:01 | XMS_ITS | Clinical Summary ---
Author Organization [facility] Address [address] [place] [address] Care Team Providers Care Field Associate Name Role Phone Patrick Kapadia MD Primary Care Provider [phone]- [phone] Makeda Richards MD Unavailable Allergies Active Allergy Reactions Criticality Noted Date Comments Sulfamethoxazole-Trimethoprim Rash Low 2018 Prochlorperazine Other (see comment) 05/03/2019 spasms Medications escitalopram (LEXAPRO) 10 MG tablet Take 1 tablet (10 mg total) by mouth nightly at bedtime. Active buPROPion SR (WELLBUTRIN SR) 150 MG 12 hr tablet Take 1 tablet (150 mg total) by mouth 2 (two) times daily. Active ALPRAZolam (XANAX) 0.25 MG tablet Take 1 tablet (0.25 mg total) by mouth daily as needed for Anxiety. Active Active Problems Estimated Date of Delivery Comme nts Yes 12/06/2019 No known active problems Encounters Date Type Department Care Team Description 06/01/2024 10:30 AM EMPLOYEE BENEFITS SPECIALIST Office Visit [facility] [address] [place] [phone] Makeda Richards MD Heart Problem 06/01/2024 9:59 AM EMPLOYEE BENEFITS SPECIALIST - 06/01/2024 11:59 PM EMPLOYEE BENEFITS SPECIALIST Hospital Encounter [facility] [address] [place] [address] Makeda Richards MD Discharge Disposition: Home or Self Care (Routine Discharge) 06/01/2024 Travel 05/30/2024 Orders Only [facility] [address] [place] [address] Makeda Richards MD 05/24/2024 Abstract [facility] [address] [place] [address] Abstract, Doc Pccl 05/23/2024 Telephone [facility] [address] [place] [phone] Makeda Richards MD Appointment Request 05/21/2024 Scan [facility] [address] [place] [phone] Scanned, Doc Pccl Holter Monitor Report (SCAN) 05/21/2024 Scan [facility] [address] [place] [address] Scanned, Doc Pccl from Last 3 Months Family History Medical History Relation Comments Hypertension Father Relation Status Comments Brother 1 Alive Brother 2 Alive Father Alive Mother Alive Sister Alive Social History Tobacco Use Types Packs/Day Years Used Date Smoking Tobacco: Every Day Cigarettes Last attempted to quit: 04/19/2019 Smokeless Tobacco: Never Tobacco Cessation:Ready to Q uit: Not Asked; Counseling Given: Not Answered Alcohol Use Standard Drinks/Week Comments Yes 0 (1 standard drink = 0.6 oz pur e alcohol) occ AUDIT-C Answer Date Recorded Frequency of Alcohol Consumption Never 05/03/2019 Average Number of Drinks Not on file 019 Frequency of Binge Drinking Not on file 04/09 Estimated Date of Delivery Comme nts Yes 12/06/2019 Sex and Gender Information Value Date Recorded Sex Assigned at Female 06/01/2024 8:11 AM EMPLOYEE BENEFITS SPECIALIST Legal Sex Female 9:28 PM EMPLOYEE BENEFITS SPECIALIST Gender Identity Female 06/01/2024 8:11 AM EMPLOYEE BENEFITS SPECIALIST Sexual Orientation Not on file Last Filed Vital Signs Vital Sign Reading Time Taken Comments Blood Pressure 122/79 06/01/2024 1:55 PM EMPLOYEE BENEFITS SPECIALIST Pulse 80 06/01/2024 1:55 PM EMPLOYEE BENEFITS SPECIALIST Temperature 37.1 C (98.7 F) 05/03/2019 4:09 PM EMPLOYEE BENEFITS SPECIALIST Respiratory Rate 20 06/01/2024 1:55 PM EMPLOYEE BENEFITS SPECIALIST Oxygen Saturation 99% 06/01/2024 1:55 PM EMPLOYEE BENEFITS SPECIALIST Inhaled Oxygen Concentration - - Weight 65.8 kg (145 lb) 06/01/2024 1:55 PM EMPLOYEE BENEFITS SPECIALIST Height 170.2 cm (5' 7 ) 06/01/2024 1:55 PM EMPLOYEE BENEFITS SPECIALIST Body Mass Index 22.71 06/01/2024 1:55 PM EMPLOYEE BENEFITS SPECIALIST Plan of Treatment Upcoming Encounters Date Type Department Care Team (Late st Contact Info) Description 11/12/2024 2:45 PM CDT Office Visit [facility] [place] [address] Makeda Richards MD [address] [place] [address] Health Maintenance Due Date Last Done Comments ASCVD LDL 1982 ASCVD Statin 1982 Cervical Cancer Screening Pap Smear (Age 30 to 64) Every 3 Years 1982 Annual Physical 1985 Pneumococcal Vaccine: Pediatrics (0 to 5 Years) and At-Risk Patients (6 to 64 Years) (1 of 2 - PCV) 1988 Hepatitis C 2000 Hepatitis B Vaccines (1 of 3 - 19+ 3-dose series) 2001 Cervical Cancer Screening Pap with HPV Testing (Age 30 to 64) Every 5 Years 2012 Cervical Cancer Screening with HPV 2012 COVID-19 Vaccine ( - 2023- season) 2024 Influenza Adult (#1) 2024 Mammogram Screening 04/26/2024 04/26/2022 DTaP, Tdap and Td Vaccines (7 - Td or Tdap) 09/10/2029 09/11/2019, 11/06/1986, 12/14/1983, Additional history exists RSV Immunization or 60+ Years (1 - 1-dose 75+ series) 2057 HPV Vaccines Aged Out No longer eligi ble based on patient's age to complete this topic Meningococcal B Vaccine Aged Out No l onger eligible based on patient's age to complete this topic Meningococcal Vaccine Aged Out No kobe jalen eligible based on patient's age to complete this topic RSV Immunizations Under 20 Months Aged Out No longer eligible based on patient's age to complete this topic Procedures Procedure Name Priority Date/Time Associated Diagnosis Comments ECG 12-LEAD Routine 06/01/2024 10:09 AM EMPLOYEE BENEFITS SPECIALIST Atrial fibrillation, unspecified type (CMS/HCC HHS/HCC) HOLTER DOCUMENT (SCAN ORDER) Routine 05/21/2024 from Last 3 Months Results * ECG 12 lead (HOSPITAL PERFORMED ONLY) (06/01/2024 10:09 AM EMPLOYEE BENEFITS SPECIALIST) 06/01/2024 10:0 9 AM EMPLOYEE BENEFITS SPECIALIST Narrative [facility] - 06/01/2024 6:24 PM EMPLOYEE BENEFITS SPECIALIST [address] 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: : 1980 Requested By: MAKEDA RICHARDS Order Number: [id number] Reading : Makeda Richards Measurements Intervals [place] Rate: 78 P: 69 CO: 137 QRS: 60 QRSD: 89 T: 48 QT: 352 QTc: 401 Interpretive Statements SINUS RHYTHM WITH MARKED SINUS ARRHYTHMIA POSSIBLE RIGHT VENTRICULAR CONDUCTION DELAY [RSR (QR) IN V1/V2] OYEE BENEFITS SPECIALIST us Makeda Richards MD ECG ORDERABLES Final Result [facility] * HOLTER DOCUMENT (05/21/2024) us Doc Pccl Scanned SCANNING Final Result [facility] from Last 3 Months Insurance T Care Teams Field Associate Relationship Specialty Start Date End Date Patrick Kapadia MD [address] [place] [phone] PCP - General FAMILY PRACTICE 04/04/19 Makeda Richards MD [address] [place] [address] Consulting Physician CARDIOVASCULAR DISEASE 05/31/24
--- NOTE | 2024-07-31 23:08 | ED.FEMALEGU ---
HPI - Female Genitourinary General Chief complaint: Vaginal Bleeding Stated complaint: Vaginal Bleeding Time Seen by Provider: 07/31/24 23:07 Source: patient Mode of arrival: ambulatory Limitations: no limitations History of Present Illness HPI Narrative: patient is a 44-year-old female with lots of stress and now having heavy menstrual bleeding with clots on a normal cycle patient. Also, she just started Prozac and having correlated dizziness on week 2 of medication. All in all, she is having stress related changes at this time. She was hoping to have off work for few days. She has labs planned in the next week. no abdominal pain. She had bilateral tubal removal. MD elicited complaint: vaginal bleeding ( Heavy menstrual cycle with clots; she is due for her cycle at this time) Pertinent past history: hysterectomy ( Bilateral tubes removed) and other ( anxiety and depression) Onset (ago): day(s) ( 1) Location of symptoms: none Severity: mild Female Urogenital Radiation: Non-Radiating Severity scale (1-10): 1 Quality of pain: other ( no pain) Consistency: other ( no pain) Vaginal discharge: none Vaginal bleeding: heavy, dark red and clots Exacerbating factors: other ( increased stress over the past week with work and social stressors) Relieving factors: other ( newly on Prozac 1 week; no suicide or homicide ideation) Associated symptoms: denies other symptoms Treatment prior to arrival: none Sexual activity: Yes Possible : unsure if Related Data Home Medications ?Medication ?Instructions ?Recorded ?Confirmed ?Last Taken ?Type fluoxetine 20 mg tablet 60 mg PO HS 03/13/20 05/17/22 Unknown History cholecalciferol (vitamin D3) 100 100 mcg PO DAILY 01/02/21 05/17/22 Unknown History mcg (4,000 unit) tablet bupropion HCl 150 mg 24 hr tablet, 300 mg PO DAILY 09/18/21 05/17/22 Unknown History extended release Allergies Allergy/AdvReac Type Severity Reaction Status Date / Time prochlorperazine (From AdvReac Muscle Verified 07/31/24 23:48 Compazine) Spasms Review of Systems Review of Systems: All systems reviewed & are unremarkable except as noted in HPI and below Constitutional: Constitutional: Reports no additional constitutional complaints Eyes: Eyes: Reports no additional eye complaints ENT: Reports system reviewed and no additional complaints, except as documented Cardiovascular: Cardiovascular: Reports no additional cardiovascular complaints Respiratory: Respiratory: Reports no additional respiratory complaints Gastrointestinal: Gastrointestinal: Reports no additional gastrointestinal complaints Genitourinary: Genitourinary: Reports no additional female genitourinary complaints Musculoskeletal: Musculoskeletal: Reports no additional musculoskeletal complaints Integumentary/Breasts: Skin/Breast: Reports system reviewed and no additional complaints, except as docu Neurologic: Reports system reviewed and no additional complaints, except as documented Psychiatric: Psychiatric: Reports no additional psychiatric complaints Endocrine: Endocrine: Reports no additional endocrine complaints Hematologic/Lymphatic: Hematologic/Lymphatic: Reports no additional hematologic/lymphatic complaints Allergic/Immunologic: Allergic/Immunologic: Reports no additional allergic/immunologic complaints PMFSH Past Medical History Medical History Cellulitis of right breast Justina-Danlos syndrome Fibromyalgia Surgical History Surgical History Previous back surgery Social History Social History Smoking status: Former smoker Tobacco type: cigarettes Alcohol intake: current Drinks per week: 1 Substance use: current Gender identity (if verbalized by the patient): Female Sexual Orientation (if Verbalized by the Patient): Straight or Heterosexual Spiritual care concerns: No Exam Const: General: healthy appearing Nutritional Appearance: well nourished Orientation/consciousness: patient oriented x3 Limitations: no limitations HENMT: Head: normal to inspection Ears: external ears normal Face/Nose/Sinus: Normal external nose present Eyes: Conjunctivae: conjunctivae normal Pupils: Equal, round and reactive pupils present EOM: EOMs intact bilaterally Neck: Neck: normal visual inspection Chest: Chest palpation & inspection: normal inspection of the chest Resp: Effort & Inspection: normal respiratory effort and not labored Auscultation: clear to auscultation bilaterally and no crackles Cardio: Rate: regular rate Rhythm: regular rhythm Heart sounds: no murmurs GI: Inspection: non-distended GI Palp: Yes Soft to palpation and No Tenderness to palpation present (GI) Auscultation: normal bowel sounds : General: Yes bladder normal to palpation Back/Spine/Pelvis: Back: no CVA tenderness Skin: General skin exam: normal color Rashes: no rashes Wounds: no wounds Neuro: General: patient oriented x3 Cranial nerves: Yes Nystagmus not present Speech: normal speech Gait exam (Neuro): Normal gait present Extrem: General: normal to inspection Psych: Appearance: grossly normal Mental Status: mental status grossly normal Affect: normal affect Attitude: cooperative MDM - Female Genitourinary MDM Narrative Medical decision making narrative: patient is a 44-year-old female with work and social stressors. Patient is here with changes of her menstrual cycle and dizziness. She just started Prozac a week ago. No suicide or homicide ideation. We will give the patient off work for 2 days. 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 Lab Data Attestation: I reviewed the patient's lab results. Labs: Lab Results 07/31/24 07/31/24 Range/Units 23:08 23:09 Urine Color Light yellow (Yellow) Urine Appearance Sl cloudy A (Clear) Urine pH 6.0 (5.0-8.0) Ur Specific [place] 1.025 H (1.010-1.020) Urine Protein Negative (Negative) Urine Glucose (UA) Negative (Negative) Urine Ketones Trace H (Negative) Ur Blood (Man) 3+ H (Negative) Urine Nitrate Negative (Negative) Urine Bilirubin Negative (Negative) Urine Urobilinogen 0.2 (0.2-1.0) mg/dL Leukocyte Esterase Rfl Negative (Negative) AMBER/UL Urine RBC 21-50 H (0-2) /hpf Urine WBC None seen (0-3) /hpf Ur Squamous Epith Cells Few (Few) /hpf Urine Bacteria Trace (None) /hpf Urine Test Negative Discharge Plan Discharge Clinical Impression: Acute reaction to situational stress Menorrhagia Qualifiers: Menorrhagia type: with regular cycle Qualified Code(s): N92.0 - Excessive and frequent menstruation with regular cycle Patient Disposition: Home, Self-Care Condition: Stable Instructions: Stress (ED), Menorrhagia (ED) Additional Instructions: Please follow-up with the primary doctor in the next week. Please get your labs done in the next week. Patient Language: Bulgarian Prescriptions: No Action cholecalciferol (vitamin D3) 100 mcg (4,000 unit) Tablet 100 mcg PO DAILY bupropion HCl 150 mg tablet extended release 24 hr 300 mg PO DAILY fluoxetine 20 mg tablet 60 mg PO HS Follow-up/Referrals: Karon,Vinicio Sin MD [Primary Care Provider] - Stand Alone Forms: Work/School Release IP Time of Disposition: 23:44
[2024-07-31 23:17] LABS: Pregnancy On Board Control Positive; Urine Pregnancy Test Negative
[2024-07-31 23:22] LABS: Add Urine Microscopic? YES; Appearance Urine Sl Cloudy (Clear); Bilirubin Urine Negative (Negative); Blood Urine 3+ (Negative); Color Urine Light Yellow (Yellow); Glucose Urine UA Negative (Negative); Ketones Urine Trace (Negative); Leukocyte Esterase Ur Negative LEU/UL (Negative); Nitrate Urine Negative (Negative); Protein Urine Negative (Negative); Specific Grav Ur 1.025 (1.010-1.020); Urobilinogen Urine 0.2 mg/dL (0.2-1.0)
[2024-07-31 23:23] LABS: Bacteria Urine Trace /hpf; RBC Urine 21-50 /hpf (0-2); Squamous Epithelial Cell Urine Few /hpf (Few); WBC Urine None seen /hpf (0-3)
--- OUTSIDE RECORDS SUMMARY | 2024-07-31 23:48 | XMS_ITS | Clinical Summary ---
Author Organization [facility] Address [address] [place] [address] Care Team Providers Care Nurse General Duty Name Role Phone Patrick Kapadia MD Primary Care Provider [phone]- [phone] Makeda Richards MD Unavailable Allergies Active Allergy [...] Department Care Team Description 06/01/2024 10:30 AM INDUSTRIAL SAFETY AND HEALTH TECHNICIAN Office Visit [facility] [address] [place] [phone] Makeda Richards MD Heart Problem 06/01/2024 9:59 AM INDUSTRIAL SAFETY AND HEALTH TECHNICIAN - 06/01/2024 11:59 PM INDUSTRIAL SAFETY AND HEALTH TECHNICIAN Hospital Encounter [facility] [address] [place] [address] Makeda Richards MD Discharge Disposition: Home or Self Care (Routine Discharge) 06/01/2024 Travel 05/30/2024 Orders Only [facility] [address] [place] [address] Makeda Richards MD 05/24/2024 Abstract [facility] [address] [place] [address] Abstract, Doc Pccl 05/23/2024 Telephone [facility] [address] [place] [phone] Makeda Richards MD Appointment Request 05/21/2024 Scan [facility] [address] [place] [phone] [phone] Scanned, Doc Pccl Holter Monitor Report (SCAN) 05/21/2024 Scan [facility] [address] [place] [address] Scanned, Doc Pccl from Last 3 Months [...] Sex Assigned at Female 06/01/2024 8:11 AM INDUSTRIAL SAFETY AND HEALTH TECHNICIAN Legal Sex Female 9:28 PM INDUSTRIAL SAFETY AND HEALTH TECHNICIAN Gender Identity Female 06/01/2024 8:11 AM INDUSTRIAL SAFETY AND HEALTH TECHNICIAN Sexual Orientation Not on file Last Filed Vital Signs Vital Sign Reading Time Taken Comments Blood Pressure 122/79 06/01/2024 1:55 PM INDUSTRIAL SAFETY AND HEALTH TECHNICIAN Pulse 80 06/01/2024 1:55 PM INDUSTRIAL SAFETY AND HEALTH TECHNICIAN Temperature 37.1 C (98.7 F) 05/03/2019 4:09 PM INDUSTRIAL SAFETY AND HEALTH TECHNICIAN Respiratory Rate 20 06/01/2024 1:55 PM INDUSTRIAL SAFETY AND HEALTH TECHNICIAN Oxygen Saturation 99% 06/01/2024 1:55 PM INDUSTRIAL SAFETY AND HEALTH TECHNICIAN Inhaled Oxygen Concentration - - Weight 65.8 kg (145 lb) 06/01/2024 1:55 PM INDUSTRIAL SAFETY AND HEALTH TECHNICIAN Height 170.2 cm (5' 7 ) 06/01/2024 1:55 PM INDUSTRIAL SAFETY AND HEALTH TECHNICIAN Body Mass Index 22.71 06/01/2024 1:55 PM INDUSTRIAL SAFETY AND HEALTH TECHNICIAN Plan of Treatment Upcoming Encounters Date Type Department Care Team (Late st Contact Info) Description 11/12/2024 2:45 PM CDT Office Visit [facility] [place] [address] Makeda Richards MD [address] [place] [address] Health Maintenance Due Date Last [...] Comments ECG 12-LEAD Routine 06/01/2024 10:09 AM INDUSTRIAL SAFETY AND HEALTH TECHNICIAN Atrial fibrillation, unspecified type (CMS/HCC HHS/HCC) HOLTER DOCUMENT (SCAN ORDER) Routine 05/21/2024 from Last 3 Months Results * ECG 12 lead (HOSPITAL PERFORMED ONLY) (06/01/2024 10:09 AM INDUSTRIAL SAFETY AND HEALTH TECHNICIAN) 06/01/2024 10:0 9 AM INDUSTRIAL SAFETY AND HEALTH TECHNICIAN Narrative [facility] RAD - 06/01/2024 6:24 PM INDUSTRIAL SAFETY AND HEALTH TECHNICIAN [address] 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: : 1980 Requested By: MAKEDA RICHARDS Order Number: [id number] Reading : Makeda Richards Measurements Intervals [place] Rate: 78 P: 69 IN: 137 QRS: 60 QRSD: 89 T: 48 QT: 352 QTc: 401 Interpretive Statements SINUS RHYTHM WITH MARKED SINUS ARRHYTHMIA POSSIBLE RIGHT VENTRICULAR CONDUCTION DELAY [RSR (QR) IN V1/V2] STRIAL SAFETY AND HEALTH TECHNICIAN us Makeda Richards MD ECG ORDERABLES Final Result [facility] * HOLTER DOCUMENT (05/21/2024) us Doc Pccl Scanned SCANNING Final Result [facility] from Last 3 Months Insurance T Care Teams Nurse General Duty Relationship Specialty Start Date End Date Patrick Kapadia MD [address] [place] [phone] PCP - General FAMILY PRACTICE 04/04/19 Makeda Richards MD [address] [place] [address] Consulting Physician CARDIOVASCULAR DISEASE 05/31/24
--- OUTSIDE RECORDS SUMMARY | 2024-07-31 23:48 | XMS_ITS ---
Author Organization [facility] Address [address] [place] [address] Care Team Providers Care Infrastructure Analyst Name Role Phone Patrick Kapadia MD Primary Care Provider Active Problems Problem Noted Date Diagnosed Date Pericarditis 05/15/2024 Chest pain, unspecified type 05/14/2024 Smoker 05/14/2024 Mass of right breast 04/26/2022 Absence of both breasts 08/19/2021 Overview (08/19/2021): Added automatically from request for surgery [id number] Encounter to discuss treatment options 2 Infection of breast implant 05/27/2021 Overview (05/27/2021): Added automatically from request for surgery [id number] Encounter for postoperative wound check 05/14/19 22 History of breast cancer 05/14/2021 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 05/09/2020 Overview (03/09/2021): Added automatically from request for surgery [id number] Current Treatment and Therapy Plans No current plan information found. Past Treatment and Therapy Plans No past plan information found. Lifetime Dose Tracking * Chemical Lifetime Dose Automatic Entry Manual Entr y Air kerma at the reference point (Ka,r) 399 mGy 0 mGy 399 mGy
--- OUTSIDE RECORDS SUMMARY | 2024-07-31 23:48 | XMS_ITS | Encounter Summary ---
Author Organization [facility] Address [address] [place] [address] Care Team Providers Care Apparatus Engineering Technologist Name Role Phone Patrick Kapadia MD Primary Care Provider Makeda Echavarria MD Unavailable Encounter Details Date Type Department Care Team (Late Contact Info) Description 10/14/2018 Abstract [facility] [address] [place] [address] , Generic ConversionMD Social History Tobacco Use Types Packs/Day Years Used Date Smoking Tobacco: Never Assessed Comments Unknown Sex and Gender Information Value Date Recorded Sex Assigned at Female 06/01/2024 8:11 AM 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 Legal Sex Female 9:28 PM FLOOR COVERER Gender Identity Female 06/01/2024 8:11 AM FLOOR COVERER Sexual Orientation Not on file documented as of this encounter Plan of Treatment Upcoming Encounters Date Type Department Care Team (Late Contact Info) Description 11/12/2024 2:45 PM CDT Office Visit [facility] [place] [address] [place] [phone] Makeda Echavarria MD [address] [place] [address] documented as of this encounter Visit Diagnoses Not on filedocumented in this encounter Care Teams Apparatus Engineering Technologist Relationship Specialty Start Date End Date Patrick Kapadia MD [address] [place] [phone] PCP - General FAMILY PRACTICE 04/04/19 Makeda Echavarria MD [address] [place] [address] Consulting Physician CARDIOVASCULAR DISEASE 05/31/24 documented as of this encounter
--- OUTSIDE RECORDS SUMMARY | 2024-07-31 23:49 | XMS_ITS | Clinical Summary ---
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 Active cyclobenzaprine (FLEXERIL) 5 mg [...] (08/19/2021): Added automatically from request for surgery [id number] Encounter to discuss treatment options 2 Infection of breast implant 05/27/2021 Overview (05/27/2021): Added automatically from request for surgery [id number] Encounter for postoperative wound check 05/14/19 22 History of breast cancer 05/14/2021 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 05/09/2020 Overview (03/09/2021): Added automatically from request for surgery [id number] Encounters Date Type Department Care Team Description 05/18/2024 Telephone [facility] Medical [facility] Cardiology [address] [place] [address] Ritu Contreras NP 05/15/2024 3:30 PM DELICATESSEN SLICER - 05/15/2024 4:30 PM [facility] Surgery [facility] Cardiac Mold Yarn Supervisor [address] [place] [address] Ja Porras MD LEFT HEART CATHETERIZATION WITH CORONARY ANGIOGRAPHY AND WITH OR WITHOUT LEFT VENTRICULOGRAM [id number] 05/14/2024 7:31 PM DELICATESSEN SLICER - 05/16/2024 11:40 AM [facility] Hospital Encounter [address] [address] Sheri Carr MD Brother, MD Branden Bazzi Vibhu, MD Telemaque, Magdalene Weaver MD Chest pain, unspecified type (Primary Dx); SOB (shortness of breath); Pericarditis; Smoker Discharge Disposition: Discharge to home or self care 05/08/2024 11:15 PM DELICATESSEN SLICER - 05/09/2024 12:47 AM [facility] Emergency [address] [address] Viral syndrome (Primary Dx); Anemia, unspecified type [...] sentinal lymph node, bilateral tissue expanders. TISSUE SWEDGER REMOVAL 05/09/2021 - 06/08/2021 Right TISSUE SWEDGER PLACEMENT 08/07/2021 - 09/05/2021 Right Medical History [...] uit: Not Asked; Counseling Given: Not Answered [facility] Utilities Answer Date Recorded In the [...] often do you attend chur ch or christian services? Never 05/15/2024 Do you belong to any clubs o r organizations such as anabaptism groups, unions, fraternal or athletic groups, or [...] any time in the past 12 m [facility], were you homeless or living in a fpc (including now)? No 05/15/2024 Personal Safety Answer [...] Comments Blood Pressure 116/72 05/16/2024 11:00 AM DELICATESSEN SLICER Pulse 72 05/16/2024 11:00 AM DELICATESSEN SLICER Temperature 36.6 C (97.8 F) 05/16/2024 11:00 AM DELICATESSEN SLICER Respiratory Rate 18 05/16/2024 11:00 AM DELICATESSEN SLICER Oxygen Saturation 100% 05/16/2024 11:00 AM DELICATESSEN SLICER Inhaled Oxygen Concentration - - Weight 63.5 kg (140 lb) 05/14/2024 6:43 PM DELICATESSEN SLICER Height 170.2 cm (5' 7 ) 05/14/2024 6:43 PM DELICATESSEN SLICER Body Mass Index 21.93 05/14/2024 6:43 PM DELICATESSEN SLICER Plan of Treatment Health Maintenance Due Date [...] this topic Medical Devices Implanted Type Area Pet Walker Device Identifier Shelf Expiration Date Model / Serial / Lot [employer] Natrelle Inspira Smooth Shell Surface Xfull Profile Implant 445cc Srx-445 - [id number] - [id number] Implanted:Qty: 1 on 02/25/2022 by Red Leon MD at [facility] Breast Right: Breast [employer] [id number] 02/22/2026 SRX-445 / [id number] / [employer] Natrelle Inspira Smooth Shell Surface Xfull Profile Implant 445cc Srx-445 - [id number] - [id number] Implanted:Qty: 1 on 02/25/2022 by Red Leon MD at [facility] Breast Right: Breast [employer] [id number] 02/10/2026 SRX-445 / [id number] / [employer] 867j-Di-52-T Implant Mammary Natrelle Te Smooth 166c-Bl-19-T With Fourte - [id number] - [id number] Implanted:Qty: 1 on 03/27/2021 by Red Leon MD at [facility] Right: Breast [employer] [id number] 01/04/2024 133S-FX-1 1-T / [id number] / [id number] [employer] 164e-Iw-08-T Implant Mammary Natrelle Te Smooth 167r-Yw-31-T With Fourte - [id number] - [id number] Implanted:Qty: 1 on 08/27/2021 by Red Leon MD at [facility] Right: Breast [employer] [id number] 08/12/2025 133S-FX-1 1-T / [id number] / Description:Filled with 100c c of 0.9% Sodium Chloride [employer] System Closure Repair Femoral Artery Suture Mediated Perclose Prostyle 48186-64 - [id number] Implanted:Qty: 1 on 05/15/2024 by Ja Porras MD at [facility] [employer] 03/08/2026 [id number] / / [id number] Explanted Type Area Pet Walker Device Identifier Shelf Expiration Date Model / Serial / Lot 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 Explanted:Qty : 1 on 02/25/2022 by Red Leon MD at [facility] Breast Right: Breast [employer] / / [id number] [employer] 384v-Or-86-T Implant Mammary Naomi Te Smooth 841p-Wb-38-T With Fourte - [id number] - [id number] Implanted:Qty : 1 on 03/27/2021 by Red Leon MD at [facility] Explanted:Qty : 1 on 02/25/2022 by Nataliya Noe MD at [facility] Left: Breast [employer] [id number] 11/25/2023 133S-FX-1 1-T / [id number] / [id number] Procedures Procedure Name Priority Date/Time Associated Diagnosis Comments DIFFERENTIAL AUTO Add On 05/16/2024 8:4 6 AM DELICATESSEN SLICER CBC WITH AUTO DIFFERENTIAL Add-On 05/16/2024 8:46 AM DELICATESSEN SLICER EGFR Routine 05/16/2024 2:52 AM DELICATESSEN SLICER HEPARIN ANTI FACTOR XA ACTIVITY Routine 05/16/2024 2:52 AM DELICATESSEN SLICER BASIC METABOLIC PANEL Routine 05/16/2024 2:52 AM DELICATESSEN SLICER LEFT HEART CATHETERIZATION WITH CORONARY ANGIOGRAPHY AND WITH AND WITHOUT LEFT VENTRICULOGRAM Routine 05/15/2024 3:51 PM DELICATESSEN SLICER Chest pain, unspecified type POCT ACTIVATED CLOTTING TIME, LOW RANGE Routine 05/15/2024 3:31 PM DELICATESSEN SLICER B ABO / RH CONFIRMATION TESTING STAT 05/15/2024 2:10 PM DELICATESSEN SLICER ANTIBODY SCREEN STAT 05/15/2024 12:56 PM DELICATESSEN SLICER ABO/RH STAT 05/15/2024 12:56 PM DELICATESSEN SLICER HCG, BLOOD, QUANTITATIVE STAT 05/15/2024 12:56 PM DELICATESSEN SLICER TYPE AND SCREEN STAT 05/15/2024 12:56 PM DELICATESSEN SLICER HEPARIN ANTI FACTOR XA ACTIVITY Timed 05/15/2024 10:01 AM DELICATESSEN SLICER TRANSTHORACIC ECHO (TTE) COMPLETE W DOPPLER/CF WO CONTRAST Routine 05/15/2024 9:27 AM DELICATESSEN SLICER ECG 12-LEAD Routine 05/15/2024 9:24 AM DELICATESSEN SLICER ECG 12-LEAD Routine 05/15/2024 8:03 AM DELICATESSEN SLICER CRP (ACUTE PHASE) Timed 05/15/2024 7:2 5 AM DELICATESSEN SLICER ERYTHROCYTE SEDIMENTATION RATE Routine 05/15/2024 7:25 AM DELICATESSEN SLICER TROPONIN T HIGH-SENSITIVITY 6-HOUR Timed 05/15/2024 7:25 AM DELICATESSEN SLICER TROPONIN T HIGH-SENSITIVITY 4-HR Timed 05/15/2024 5:11 AM DELICATESSEN SLICER TROPONIN T HIGH-SENSITIVITY 2-HOUR Timed 05/15/2024 3:47 AM DELICATESSEN SLICER HEPARIN ANTI FACTOR XA ACTIVITY Timed 05/15/2024 3:47 AM DELICATESSEN SLICER EGFR Routine 05/15/2024 1:29 AM DELICATESSEN SLICER TROPONIN T HIGH-SENSITIVITY SERIES (BASELINE, 2HR, 4HR, 6HR) Routine 05/15/2024 1:29 AM DELICATESSEN SLICER CBC WITHOUT DIFFERENTIAL Routine 05/15/2024 1:29 AM DELICATESSEN SLICER BASIC METABOLIC PANEL Routine 05/15/2024 1:29 AM DELICATESSEN SLICER TROPONIN T HIGH-SENSITIVITY 6-HOUR Timed 05/15/2024 1:29 AM DELICATESSEN SLICER CBC WITHOUT DIFFERENTIAL STAT 05/14/2024 11:19 PM DELICATESSEN SLICER TROPONIN T HIGH-SENSITIVITY 4-HR Timed 05/14/2024 11:19 PM DELICATESSEN SLICER PROTIME-INR STAT 05/14/2024 9:16 PM DELICATESSEN SLICER HEPARIN ANTI FACTOR XA ACTIVITY STAT 05/14/2024 9:16 PM DELICATESSEN SLICER LIPID PANEL Timed 05/14/2024 8:38 PM DELICATESSEN SLICER IRON PROFILE W/ IBC Timed 05/14/2024 8 :38 PM DELICATESSEN SLICER TROPONIN T HIGH-SENSITIVITY 2-HOUR Timed 05/14/2024 8:[address] CHEST PE W CONTRAST ED 8:30 PM DELICATESSEN SLICER POCT TROPONIN DEVICE Routine 05/14/2024 6:59 PM DELICATESSEN SLICER XR CHEST 1 VIEW ED 05/14/2024 6:52 PM DELICATESSEN SLICER EGFR STAT 05/14/2024 6:48 PM DELICATESSEN SLICER DIFFERENTIAL AUTO STAT 05/14/2024 6:4 8 PM DELICATESSEN SLICER TROPONIN T HIGH-SENSITIVITY SERIES (BASELINE, 2HR, 4HR, 6HR) STAT 05/14/2024 6:48 PM DELICATESSEN SLICER COMPREHENSIVE METABOLIC PANEL STAT 05/14/2024 6:48 PM DELICATESSEN SLICER CBC WITH AUTO DIFFERENTIAL STAT 05/14/2024 6:48 PM DELICATESSEN SLICER ECG 12-LEAD Routine 05/14/2024 6:41 PM DELICATESSEN SLICER ECG 12-LEAD STAT 05/14/2024 6:41 PM DELICATESSEN SLICER URINALYSIS, MICROSCOPIC ONLY STAT 05/08/2024 8:37 PM DELICATESSEN SLICER URINE CULTURE STAT 05/08/2024 8:37 PM DELICATESSEN SLICER URINALYSIS AND REFLEX TO MICROSCOPIC AND CULTURE STAT 05/08/2024 8:37 PM DELICATESSEN SLICER EGFR STAT 05/08/2024 8:32 PM DELICATESSEN SLICER DIFFERENTIAL AUTO STAT 05/08/2024 8:3 2 PM DELICATESSEN SLICER SEPSIS LACTATE WITH REFLEX Routine 05/08/2024 8:32 PM DELICATESSEN SLICER COMPREHENSIVE METABOLIC PANEL STAT 05/08/2024 8:32 PM DELICATESSEN SLICER CBC WITH AUTO DIFFERENTIAL STAT 05/08/2024 8:32 PM DELICATESSEN SLICER INFLUENZA A/B, RSV, AND COVID-19 PCR Routine 05/08/2024 8:32 PM DELICATESSEN SLICER XR CHEST 1 VIEW ED 05/08/2024 8:26 PM DELICATESSEN SLICER from Last 3 Months Results * Differential, auto (05/16/2024 8:46 AM DELICATESSEN SLICER) Pathologist [facility] Neutrophil abs 4.6 1.5 - 6.5 K/cumm Imm gran abs 0.0 0.0 - 0.1 K/cumm [facility] Lymphocyte abs 2.6 0.8 - 3.3 K/cumm [facility] Monocyte abs 0.8 0.2 - 0.8 K/cumm [facility] Eosinophil abs 0.1 0.0 - 0.5 K/cumm [facility] Basophil abs 0.1 0.0 - 0.1 K/cumm [facility] Neutrophil pct 56.1 % [facility] Comment: Interpretive Data Percent cell count reference ranges are not reported, since discordance with absolute values may lead to misinterpretation of CBC data. Current Interpretive Data was last revised on 2017. Imm gran pct 0.4 % [facility] Comment: Interpretive Data Percent cell count reference ranges are not reported, since discordance with absolute values may lead to misinterpretation of CBC data. Current Interpretive Data was last revised on 2017. Lymphocyte pct 31.6 % [facility] Comment: Interpretive Data Percent cell count reference ranges are not reported, since discordance with absolute values may lead to misinterpretation of CBC data. Current Interpretive Data was last revised on 2017. Monocyte pct 10.1 % [facility] Comment: Interpretive Data Percent cell count reference ranges are not reported, since discordance with absolute values may lead to misinterpretation of CBC data. Current Interpretive Data was last revised on 2017. Eosinophil pct 1.1 % [facility] Comment: Interpretive Data Percent cell count reference ranges are not reported, since discordance with absolute values may lead to misinterpretation of CBC data. Current Interpretive Data was last revised on 2017. Basophil pct 0.7 % [facility] Comment: Interpretive Data Percent cell count reference ranges are not reported, since discordance with absolute values may lead to misinterpretation of CBC data. Current Interpretive Data was last revised on 2017. Blood 05/16/2024 8:46 AM DELICATESSEN SLICER 05/16/2024 8:52 AM DELICATESSEN SLICER us Magdalene Spears MD LAB BLOOD ORDERABLES Final Result [facility] [address] [place] [address] * (ABNORMAL) CBC with auto differential (05/16/2024 8:46 AM DELICATESSEN SLICER) Pathologist [facility] WBC 8.1 3.8 - 9.9 K/cumm Hgb 7.6(L) 11.9 - 15.5 g/dL [facility] Hct 27.0(L) 35.6 - 45.5 % [facility] Plt 466(H) 150 - 400 K/cumm [facility] MPV 8.9(L) 9.1 - 12.3 fL [facility] RBC 3.77(L) 3.90 - 5.20 M/cumm [facility] MCV 71.6(L) 81.3 - 96.4 fL [facility] MCH 20.2(L) 27.1 - 33.3 pg [facility] MCHC 28.1(L) 32.3 - 35.7 g/dL [facility] RDW CV 19.0(H) 11.1 - 14.9 % [facility] RDW SD 48.7(H) 35.7 - 48.1 fL [facility] NRBC abs 0.00 0.00 - 0.01 K/cumm [facility] Blood 05/16/2024 8:46 AM DELICATESSEN SLICER 05/16/2024 8:52 AM DELICATESSEN SLICER us Magdalene Spears MD LAB BLOOD ORDERABLES Final Result [facility] [address] [place] [address] * eGFR (05/16/2024 2:52 AM DELICATESSEN SLICER) eGFR >90 >=60 mL/min/1. 73 m2 Comment: [...] last reviewed 2021. Blood 05/16/2024 2:52 AM DELICATESSEN SLICER 05/16/2024 3:10 AM DELICATESSEN SLICER us Eileen Otero MD LAB BLOOD ORDERABLES Final Resul t Performing Organization Address [facility]/ZIP Co de Phone Number DEEPA[facility] [address] [facility] [place] [address] * Heparin anti factor Xa activity (05/16/2024 2:52 AM DELICATESSEN SLICER) Pathologist [facility] Anti Factor Xa 0.23 IUnits/mL Comment: Ref [...] revised on 2018. Blood 05/16/2024 2:52 AM DELICATESSEN SLICER 05/16/2024 3:10 AM DELICATESSEN SLICER Magdalene Spears MD LAB BLOOD ORDERABLES Final Result Performing Organization Address City/[facility]/ZIP Co de Phone Number [facility] [address] [place] [address] * (ABNORMAL) Basic metabolic panel (05/16/2024 2:52 AM DELICATESSEN SLICER) Pathologist [facility] Sodium 143 135 - 145 mmol/L Potassium, pl 4.0 3.3 - 4.9 mmol/L [facility] Chloride 111(H) 97 - 110 mmol/L [facility] CO2 23 22 - 32 mmol/L [facility] Anion gap 9 2 - 15 mmol/L [facility] BUN 10 6 - 25 mg/dL [facility] Creatinine 0.59(L) 0.60 - 1.10 mg/dL [facility] Glucose 108 70 - 199 mg/dL [facility] Comment: Interpretive Data Fasting glucose >/= 126 [...] 2022. Calcium 8.6 8.5 - 10.3 mg/dL [facility] Blood 05/16/2024 2:52 AM DELICATESSEN SLICER 05/16/2024 3:10 AM DELICATESSEN SLICER us Eileen Otero MD LAB BLOOD ORDERABLES Final Resul t [facility] [address] [place] [address] * LEFT HEART CATHETERIZATION WITH CORONARY ANGIOGRAPHY AND WITH AND WITHOUT LEFT VENTRICULOGRAM (05/15/2024 3:51 PM DELICATESSEN SLICER) Anatomical Region Laterality Modality X-Ray Angiograph y Narrative 05/16/2024 7:19 AM DELICATESSEN SLICER Patient Id: Shruti Luque is a 44 y.o. female. MR#: [id number] Date of the procedure: 05/15/2024 Procedure: Left heart catheterization Coronary angiogram Left ventricular cineangiogram Perclose Moderate sedation Indications: I was asked by Dr. Garcia to do cardiac catheterization on this patient came in chest pain and EKG showed J-point elevation in the inferior and the anterolateral leads with a CT depressions suggestive of pericarditis. But her troponins [...] and draped in the usual fashion. Six Belarusian sheath placed in the right femoral artery by using Seldinger technique. Left heart catheterization and CHAPA left ventricular cineangiogram performed by using 6 Belarusian pigtail catheter. Left and right coronary angiography performed using 6 Belarusian JL4 and 6 JR4 catheters. There were no complications. The sheath removed and hemostasis secured with Perclose. Anesthesia: Local Moderate sedation: Patient received 1 mg of Versed and 75 mcg of fentanyl by the nurse for conscious sedation. Patient vital signs monitored under my supervision in the cath lab technologist during and after the procedure for at least the 30 minutes. Please see the cath lab technologist log report for details Hemodynamics: Procedure performed [...] MD This report was transcribed using the Voy[employer] voice recognition system without human delivery analyst. In an effort to expedite patient care, this report has not been adjusted for typographical, grammatical, and syntax by a trained medical staff credentialing coordinator. Despite proof reading there may be errors. Please contact me if you have any questions. us Ritu Contreras NP CV CARDIAC CATH PROCEDURES Final Result * POCT Activated clotting time, low range (05/15/2024 3:31 PM DELICATESSEN SLICER) ACT 123 123 - 168 sec POC Performer [id number] [facility] POC Device Number [id number] [facility] Blood 05/15/2024 3:31 PM DELICATESSEN SLICER 05/15/2024 3:31 PM DELICATESSEN SLICER Magdalene Spears MD LAB POCT ORDERABLES - DEVICE Final Result [facility] [address] * ABO / Rh Confirmation Testing (05/15/2024 2:10 PM DELICATESSEN SLICER) Pathologist [facility] ABO/Rh Confirmation B Positive [facility] Blood 05/15/2024 2:10 PM DELICATESSEN SLICER 05/15/2024 2:41 PM DELICATESSEN SLICER Ja Porras MD LAB BLOOD ORDERABLES Final Result Performing Organization Address [facility] Co de Phone Number DELISA[address] [place] [address] [facility] * ABO/Rh (05/15/2024 12:56 PM DELICATESSEN SLICER) Pathologist [facility] ABO/Rh B Positive Blood 05/15/2024 12:5 6 PM DELICATESSEN SLICER 05/15/2024 1:11 PM DELICATESSEN SLICER Ja Porras MD LAB BLOOD BANK TEST ORDERAB LES Final Result Performing Organization Address [facility] Co de Phone Number [address] [place] [address] * Antibody screen (05/15/2024 12:56 PM DELICATESSEN SLICER) Pathologist [facility] Migdalia, indirect, Gel Interpretation Negative ABSC Blood 05/15/2024 12:5 6 PM DELICATESSEN SLICER 05/15/2024 1:11 PM DELICATESSEN SLICER Ja Porrsa MD LAB BLOOD BANK TEST ORDERAB LES Final Result Performing Organization Address [facility] Co de Phone Number [address] [place] [address] * hCG, blood, quantitative (05/15/2024 12:56 PM DELICATESSEN SLICER) Pathologist [facility] hCG, quant <5.0 0.0 - 5.0 IUnits/L Comment: Interpretive Data Male: < 5 IU/L Non- premenopausal Female: <5 IU/L The Sol hCG Beta Quant assay procedure was used. Results from different manufacturers or methods may not be comparable. Serial testing should be performed using the same method. Interpretive Data was last revised on 2023 Blood 05/15/2024 12:5 6 PM DELICATESSEN SLICER 05/15/2024 1:11 PM DELICATESSEN SLICER Ja Porras MD LAB BLOOD ORDERABLES Final Result Performing Organization Address [facility] de Phone Number DEEPA[facility] [address] [place] [address] * Heparin anti factor Xa activity (05/15/2024 10:01 AM DELICATESSEN SLICER) [facility] Anti Factor Xa 0.30 IUnits/mL Comment: Interpretive [...] on 2018. Blood 05/15/2024 10:0 1 AM DELICATESSEN SLICER 05/15/2024 10:58 AM DELICATESSEN SLICER Eileen Otero MD LAB BLOOD ORDERABLES Final Resul t Performing Organization Address City/[facility]/ZIP Co de Phone Number [facility] [address] [place] [address] * TRANSTHORACIC ECHO (TTE) COMPLETE W DOPPLER/CF WO CONTRAST (05/15/2024 9:27 AM DELICATESSEN SLICER) Anatomical Region Laterality Modality Ultrasound 05/15/2024 9:01 AM DELICATESSEN SLICER Narrative 05/15/2024 11:15 AM DELICATESSEN SLICER Adult Echocardiogram + ----- + :Name: SHRUTI LUQUE Study Date: 05/15/2024 Status: B : : Patient Location: [address]^[id number]^Height: 67 in : : Weight: 140 lbBP: [...] Date: 05/15/2024Status: ADITHYA : : Patient Location: [address]^[id number]^Height: 67 in : : : 140 lbBP: [...] * ECG 12 lead (05/15/2024 9:24 AM DELICATESSEN SLICER) Pathologist [facility] Ventricular Rate EKG/Min 65 BPM [facility] Atrial Rate 65 BPM [facility] CT-Interval (MSEC) 142 ms [facility] QRS-Interval (MSEC) 88 ms [facility] QT-Interval (MSEC) 394 ms [facility] QTc 409 ms [facility] P [place] 76 degrees [facility] R [place] 69 degrees [facility] T [place] 64 degrees [facility] Diagnosis Normal sinus rhythm ST elevation, consider early repolarization , pericarditis, or injury Abnormal ECG When compared with ECG of 15-MAY-2024 08:03, No significant change was found Confirmed by JAMES ROBBINS M.D. ([id number]) on 05/16/2024 3:16:42 PM [facility] 05/15/2024 9:24 AM DELICATESSEN SLICER 05/16/2024 3:16 PM DELICATESSEN SLICER us Magdalene Spears MD ECG ORDERABLES Monique l Result [facility] * ECG 12 lead (05/15/2024 8:03 AM DELICATESSEN SLICER) Pathologist [facility] Ventricular Rate EKG/Min 67 BPM [facility] Atrial Rate 67 BPM [facility] CT-Interval (MSEC) 150 ms [facility] QRS-Interval (MSEC) 80 ms [facility] QT-Interval (MSEC) 398 ms [facility] QTc 420 ms [facility] P [place] 74 degrees [facility] R [place] 51 degrees [facility] T [place] 45 degrees [facility] Diagnosis Normal sinus rhythm ST elevation, consider early repolarization , pericarditis, vs injury Borderline ECG When compared with ECG of 14-MAY-2024 18:41, No significant change was found Confirmed by JAMES ROBBINS M.D. ([id number]) on 05/15/2024 5:23:45 PM [facility] 05/15/2024 8:03 AM DELICATESSEN SLICER 05/15/2024 5:23 PM DELICATESSEN SLICER Eileen Otero MD ECG ORDERABLES Final Result [facility] * (ABNORMAL) Troponin T high-sensitivity 6-hour (05/15/2024 7:25 AM DELICATESSEN SLICER) Pathologist [facility] Trop T hs 530(C) <=14 ng/L Comment: Critical Result called to and read back by Jo WARE [id number], DATE: 2024-05-15 08:34:40 BY: [email or web address] Interpretive Data For further hscTnT resources including the diagnostic algorithm and an aid in interpretation, copy and paste this link: [email or web address] Current Interpretive Data last revised 2020. Trop T hs interp Significa nt(C) [facility] Comment:Critical Result call ed to and read back by Jo WARE [id number], DATE: 2024-05-15 08:34:40 BY: [email or web address] Blood 05/15/2024 7:25 AM DELICATESSEN SLICER 05/15/2024 8:04 AM DELICATESSEN SLICER Eileen Otero MD LAB BLOOD ORDERABLES Final Resul t Performing Organization Address [facility] Co de Phone Number DEEPAK [address] [address] * Erythrocyte sedimentation rate (05/15/2024 7:25 AM DELICATESSEN SLICER) Erythrocyte sedimentation rate <2 1 - 20 mm/hr Blood 05/15/2024 7:25 AM DELICATESSEN SLICER 05/15/2024 8:03 AM DELICATESSEN SLICER Eileen Otero MD LAB BLOOD ORDERABLES Final Resul t Performing Organization Address [facility] de Phone Number DEEPAK [address] [address] * CRP (acute phase) (05/15/2024 7:25 AM DELICATESSEN SLICER) Pathologist [facility] CRP <0.2 <=10.0 mg/L Blood 05/15/2024 7:25 AM DELICATESSEN SLICER 05/15/2024 8:04 AM DELICATESSEN SLICER Magdalene Spears MD LAB BLOOD ORDERABLES Final Result Performing Organization Address [facility] de Phone Number DEEPAK [address] [address] * (ABNORMAL) Troponin T high-sensitivity 4-hour (05/15/2024 5:11 AM DELICATESSEN SLICER) Trop T hs 423(C) <=14 ng/L Comment: Critical Result called to and read back by [id number], DATE: 2024-05-15 06:15:57 BY: [id number] Interpretive Data For further hscTnT resources including the diagnostic algorithm and an aid in interpretation, copy and paste this link: https://nrl.testcatalog.org/show/hsTrop Current Interpretive Data last revised 2020. Trop T hs pct delta 49(C) % [facility] Comment:Critical Result call ed to and read back by [id number], DATE: 2024-05-15 06:15:57 BY: [id number] Trop T hs interp Significa nt(C) DEEPAK Comment:Critical Result call ed to and read back by [id number], DATE: 2024-05-15 06:15:57 BY: [id number] Blood 05/15/2024 5:11 AM DELICATESSEN SLICER 05/15/2024 5:35 AM DELICATESSEN SLICER Eileen Otero MD LAB BLOOD ORDERABLES Final Resul t Performing Organization Address [facility] de Phone Number DEEPAK [address] [place] [address] * (ABNORMAL) Troponin T high-sensitivity 2-hour (05/15/2024 3:47 AM DELICATESSEN SLICER) Trop T hs 348(C) <=14 ng/L Comment: Critical Result called to and read back by [id number], DATE: 2024-05-15 04:45:33 BY: [id number] Interpretive Data For further hscTnT resources including the diagnostic algorithm and an aid in interpretation, copy and paste this link: https://nrl.testcatalog.org/show/hsTrop Current Interpretive Data last revised 2020. Trop T hs pct delta 23(C) % DEEPAK Comment:Critical Result call ed to and read back by [id number], DATE: 2024-05-15 04:45:33 BY: [id number] Trop T hs interp Significa nt(C) DEEPAK Comment:Critical Result call ed to and read back by [id number], DATE: 2024-05-15 04:45:33 BY: [id number] Blood 05/15/2024 3:47 AM DELICATESSEN SLICER 05/15/2024 4:00 AM DELICATESSEN SLICER Eileen Otero MD LAB BLOOD ORDERABLES Final Resul t Performing Organization Address City/[facility] Co de Phone Number DEEPAK [address] [place] [address] * Heparin anti factor Xa activity (05/15/2024 3:47 AM DELICATESSEN SLICER) Anti Factor Xa 0.40 IUnits/mL Comment: Interpretive [...] revised on 2018. Blood 05/15/2024 3:47 AM DELICATESSEN SLICER 05/15/2024 4:01 AM DELICATESSEN SLICER us Eileen Otero MD LAB BLOOD ORDERABLES Final Resul t [facility] [address] [facility] [place] [address] * (ABNORMAL) Troponin T high-sensitivity 6-hour (05/15/2024 1:29 AM DELICATESSEN SLICER) Trop T hs 278(C) <=14 ng/L Comment: Critical Result called to and read back by [id number], DATE: 2024-05-15 02:04:46 BY: [id number] Interpretive Data For further hscTnT resources including [...] report a delta. Blood 05/15/2024 1:29 AM DELICATESSEN SLICER 05/15/2024 1:33 AM DELICATESSEN SLICER us Waqas Mcdonald MD LAB BLOOD ORDERABLE S Final Result Performing Organization Address City/[facility]/ZIP Co de Phone Number DEEPAK [address] [employer] [place], [place] [id number] * (ABNORMAL) Troponin T high-sensitivity series (baseline, 2hr, 4hr, 6hr) (05/15/2024 1:29 AM DELICATESSEN SLICER) Pathologist [facility] Trop T hs 283(C) <=14 ng/L Comment: Critical Result called to and read back by [id number], DATE: 2024-05-15 02:04:53 BY: [id number] Interpretive Data For further hscTnT resources including the diagnostic algorithm and an aid in interpretation, copy and paste this link: https://nrl.testcatalog.org/show/hsTrop Current Interpretive Data last revised 2020. Blood 05/15/2024 1:29 AM DELICATESSEN SLICER 05/15/2024 1:33 AM DELICATESSEN SLICER us Eileen Otero MD LAB BLOOD ORDERABLES Final Resul t DEEPAK [address] [place] [address] * eGFR (05/15/2024 1:29 AM DELICATESSEN SLICER) Pathologist [facility] eGFR >90 >=60 mL/min/1. 73 m2 Comment: [...] last reviewed 2021. Blood 05/15/2024 1:29 AM DELICATESSEN SLICER 05/15/2024 1:33 AM DELICATESSEN SLICER us Eileen Otero MD LAB BLOOD ORDERABLES Final Resul t [facility] [address] [facility] [place] [address] * (ABNORMAL) CBC without differential (05/15/2024 1:29 AM DELICATESSEN SLICER) WBC 11.3(H) 3.8 - 9.9 K/cumm Hgb 8.3(L) 11.9 - 15.5 g/dL [facility] Hct 28.7(L) 35.6 - 45.5 % [facility] Plt 577(H) 150 - 400 K/cumm [facility] MPV 8.8(L) 9.1 - 12.3 fL [facility] RBC 4.11 3.90 - 5.20 M/cumm [facility] MCV 69.8(L) 81.3 - 96.4 fL [facility] MCH 20.2(L) 27.1 - 33.3 pg [facility] MCHC 28.9(L) 32.3 - 35.7 g/dL [facility] RDW CV 19.0(H) 11.1 - 14.9 % [facility] RDW SD 46.5 35.7 - 48.1 fL [facility] NRBC abs 0.00 0.00 - 0.01 K/cumm [facility] Blood 05/15/2024 1:29 AM DELICATESSEN SLICER 05/15/2024 1:33 AM DELICATESSEN SLICER Eileen Otero MD LAB BLOOD ORDERABLES Final Resul t Performing Organization Address [facility] de Phone Number [address] [place] [address] * Basic metabolic panel (05/15/2024 1:29 AM DELICATESSEN SLICER) [facility] Sodium 140 135 - 145 mmol/L Potassium, pl 3.6 3.3 - 4.9 mmol/L [facility] Chloride 106 97 - 110 mmol/L [facility] CO2 26 22 - 32 mmol/L [facility] Anion gap 8 2 - 15 mmol/L [facility] BUN 8 6 - 25 mg/dL [facility] Creatinine 0.61 0.60 - 1.10 mg/dL [facility] Glucose 86 70 - 199 mg/dL [facility] Comment: Interpretive Data Fasting glucose >/= 126 [...] 2022. Calcium 8.6 8.5 - 10.3 mg/dL [facility] Blood 05/15/2024 1:29 AM DELICATESSEN SLICER 05/15/2024 1:33 AM DELICATESSEN SLICER us Eileen Otero MD LAB BLOOD ORDERABLES Final Resul t Performing Organization Address [facility] Co de Phone Number [address] [place] [address] * (ABNORMAL) Troponin T high-sensitivity 4-hour (05/14/2024 11:19 PM DELICATESSEN SLICER) Pathologist [facility] Trop T hs 238(C) <=14 ng/L Comment: Critical Result called to and read back by [id number], DATE: 2024-05-15 00:04:49 BY: [id number] Interpretive Data For further hscTnT resources including the diagnostic algorithm and an aid in interpretation, copy and paste this link: https://nrl.testcatalog.org/show/hsTrop Current Interpretive Data last revised 2020. Trop T hs pct delta 80(C) % [facility] Comment:Critical Result call ed to and read back by [id number], DATE: 2024-05-15 00:04:49 BY: [id number] Trop T hs interp Significa nt(C) DEEPAK Comment:Critical Result call ed to and read back by [id number], DATE: 2024-05-15 00:04:49 BY: [id number] Blood 05/14/2024 11:1 9 PM DELICATESSEN SLICER 05/14/2024 11:26 PM DELICATESSEN SLICER us Waqas Mcdonald MD LAB BLOOD ORDERABLE S Final Result [facility] [address] [facility] [place] [address] * (ABNORMAL) CBC without differential (05/14/2024 11:19 PM DELICATESSEN SLICER) [facility] WBC 10.9(H) 3.8 - 9.9 K/cumm Hgb 8.0(L) 11.9 - 15.5 g/dL [facility] Hct 27.2(L) 35.6 - 45.5 % [facility] Plt 539(H) 150 - 400 K/cumm [facility] MPV 8.7(L) 9.1 - 12.3 fL [facility] RBC 3.92 3.90 - 5.20 M/cumm [facility] MCV 69.4(L) 81.3 - 96.4 fL [facility] MCH 20.4(L) 27.1 - 33.3 pg [facility] MCHC 29.4(L) 32.3 - 35.7 g/dL [facility] RDW CV 19.0(H) 11.1 - 14.9 % [facility] RDW SD 46.5 35.7 - 48.1 fL [facility] NRBC abs 0.00 0.00 - 0.01 K/cumm [facility] Blood 05/14/2024 11:1 9 PM DELICATESSEN SLICER 05/14/2024 11:26 PM DELICATESSEN SLICER Narrative [facility] - 05/14/2024 11:28 PM DELICATESSEN SLICER Baseline prior to heparin initiation Sheri Carr MD LAB BLOOD ORDERABLES nal Result DEEPAK [address] [facility] [place] [address] * Heparin anti factor Xa activity (05/14/2024 9:16 PM DELICATESSEN SLICER) Anti Factor Xa <0.10 IUnits/mL Comment: Baseline RN: [id number]/ MLS: [id number] Interpretive Data Enoxaparin therapeutic range (peak): VTE [...] revised on 2018. Blood 05/14/2024 9:16 PM DELICATESSEN SLICER 05/14/2024 9:19 PM DELICATESSEN SLICER Narrative [facility] - 05/14/2024 9:40 PM DELICATESSEN SLICER Baseline prior to heparin initiation Sheri Carr MD LAB BLOOD ORDERABLES Fi nal Result Performing Organization Address [facility] de Phone Number [address] [address] * Protime-INR (05/14/2024 9:16 PM DELICATESSEN SLICER) Pathologist [facility] PT 13.3 12.0 - 14.6 sec INR 1.0 0.9 - 1.2 DEEPAK SIMEON Comment: Ref Range High Interpretive data Oral anticoagulant therapeutic ranges: Venous thromboembolism prophylaxis or treatment: 2.0-3.0 CARDIOLOGY Standard range: 2.0-3.0 High-intensity range: 2.5-3.5 Refer to indication-specific guidelines for appropriate target ranges for prosthetic heart valve replacement. Current interpretive data was last revised on 2019. Blood 05/14/2024 9:16 PM DELICATESSEN SLICER 05/14/2024 9:19 PM DELICATESSEN SLICER Sheri Carr MD LAB BLOOD ORDERABLES nal Result Performing Organization Address [facility] de Phone Number [address] [address] * (ABNORMAL) Troponin T high-sensitivity 2-hour (05/14/2024 8:38 PM DELICATESSEN SLICER) Pathologist [facility] Trop T hs 176(H) <=14 ng/L Comment: Interpretive Data For further hscTnT resources including the diagnostic algorithm and an aid in interpretation, copy and paste this link: https://nrl.testcatalog.org/show/hsTrop Current Interpretive Data last revised 2020. Trop T hs pct delta 33(C) % DEEPAK [facility] Comment:Critical Result call ed to and read back by [id number], DATE: 2024-05-14 21:09:28 BY: [id number] Trop T hs interp Significa nt(C) DEEPAK [facility] Comment:Critical Result call ed to and read back by [id number], DATE: 2024-05-14 21:09:28 BY: [id number] Blood 05/14/2024 8:38 PM DELICATESSEN SLICER 05/14/2024 8:41 PM DELICATESSEN SLICER us Waqas Mcdonald MD LAB BLOOD ORDERABLE S Final Result Performing Organization Address [facility] Co de Phone Number [address] [place] [address] * (ABNORMAL) Iron profile w/ IBC (05/14/2024 8:38 PM DELICATESSEN SLICER) Iron 10(L) 35 - 145 mcg/dL TIBC 415(H) 250 - 400 mcg/dL [facility] Transferrin saturation 2(L) 20 - 50 % DEEPAK Blood 05/14/2024 8:38 PM DELICATESSEN SLICER 05/14/2024 8:41 PM DELICATESSEN SLICER us Sheri Carr MD LAB BLOOD ORDERABLES Fi nal Result Performing Organization Address [facility] Co de Phone Number [address] [address] * Lipid panel (05/14/2024 8:38 PM DELICATESSEN SLICER) Cholesterol 124 30 - 199 mg/dL Comment: [...] ratio 3 DEEPAK Blood 05/14/2024 8:38 PM DELICATESSEN SLICER 05/14/2024 8:41 PM DELICATESSEN SLICER Narrative [facility] - 05/14/2024 9:43 PM DELICATESSEN SLICER This lipid panel was automatically ordered due to a significant change in Troponin. The dietary status of the patient at the collection time should be correlated with the lipid results. us Waqas Mcdonald MD LAB BLOOD ORDERABLE S Final Result DEEPAK [address] [facility] Department of Laboratories [place], [place] [id number] * CT Chest PE (CTA) W Contrast (05/14/2024 8:30 PM DELICATESSEN SLICER) Anatomical Region Laterality Modality Body N/A Computed Tomogra phy 05/14/2024 8:36 PM DELICATESSEN SLICER Narrative 05/14/2024 8:39 PM DELICATESSEN SLICER EXAM DESCRIPTION: CT CHEST PE (CTA) W [...] signed by Helene ISSA T: Report ID: [id number] Reading Location: [id number] Procedure Note Olivas Helene Ignacio, DO - [...] Helene Olivas D.O. PS T: Report ID: [id number] Reading Location: [place] [address] Sheri Carr MD IMG CT PROCEDURES Final Result * (ABNORMAL) POCT troponin (05/14/2024 6:59 PM DELICATESSEN SLICER) Pathologist [facility] Troponin I Point of Care 0.78(C) 0.00 [...] last revised 2020. Blood 05/14/2024 6:59 PM DELICATESSEN SLICER 05/14/2024 6:59 PM DELICATESSEN SLICER us Notinfile Unknown LAB POCT ORDERABLES - DEVICE F inal Result DEEPAK [address] [facility] [place] [address] * XR Chest 1 Vw Portable (if patient condition/safety warrant portable) (05/14/2024 6:52 PM DELICATESSEN SLICER) Anatomical Region Laterality Modality Body, Chest N/A Computed Radiogr aphy 05/14/2024 7:05 PM DELICATESSEN SLICER Narrative 05/14/2024 7:05 PM DELICATESSEN SLICER EXAM DESCRIPTION: XR CHEST 1 VIEW REASON [...] Van Moon M.D. KT T: Report ID: [id number] Reading Location: [id number] Procedure Note Van Moon MD - 05/14/2024 [...] it was negative. Patient states EMS gave [id number] of aspirin. TECHNIQUE: 1 radiographic view(s) of [...] Van Moon M.D. KT T: Report ID: [id number] Reading Location: [place] [address] Sheri Carr MD IMG XR PROCEDURES Final Result * (ABNORMAL) Troponin T high-sensitivity series (baseline, 2hr, 4hr, 6hr) (05/14/2024 6:48 PM DELICATESSEN SLICER) Pathologist [facility] Trop T hs 132(H) <=14 ng/L Comment: Interpretive Data For further hscTnT resources including the diagnostic algorithm and an aid in interpretation, copy and paste this link: https://nrl.testcatalog.org/show/hsTrop Current Interpretive Data last revised 2020. Blood 05/14/2024 6:48 PM DELICATESSEN SLICER 05/14/2024 6:52 PM DELICATESSEN SLICER Sheri Carr MD LAB BLOOD ORDERABLES Fi nal Result DEEPAK [address] [facility] [place] [address] * eGFR (05/14/2024 6:48 PM DELICATESSEN SLICER) Pathologist [facility] eGFR >90 >=60 mL/min/1. 73 m2 Comment: [...] last reviewed 2021. Blood 05/14/2024 6:48 PM DELICATESSEN SLICER 05/14/2024 6:52 PM DELICATESSEN SLICER Sheri Carr MD LAB BLOOD ORDERABLES nal Result [facility] [address] [facility] [place] [address] * Differential, auto (05/14/2024 6:48 PM DELICATESSEN SLICER) Pathologist [facility] Neutrophil abs 4.3 1.5 - 6.5 K/cumm Imm gran abs 0.0 0.0 - 0.1 K/cumm [facility] Lymphocyte abs 2.7 0.8 - 3.3 K/cumm [facility] Monocyte abs 0.7 0.2 - 0.8 K/cumm [facility] Eosinophil abs 0.1 0.0 - 0.5 K/cumm [facility] Basophil abs 0.1 0.0 - 0.1 K/cumm [facility] Neutrophil pct 54.4 % [facility] Comment: Interpretive Data Percent cell count reference ranges are not reported, since discordance with absolute values may lead to misinterpretation of CBC data. Current Interpretive Data was last revised on 2017. Imm gran pct 0.4 % [facility] Comment: Interpretive Data Percent cell count reference ranges are not reported, since discordance with absolute values may lead to misinterpretation of CBC data. Current Interpretive Data was last revised on 2017. Lymphocyte pct 34.1 % [facility] Comment: Interpretive Data Percent cell count reference ranges are not reported, since discordance with absolute values may lead to misinterpretation of CBC data. Current Interpretive Data was last revised on 2017. Monocyte pct 8.7 % [facility] Comment: Interpretive Data Percent cell count reference ranges are not reported, since discordance with absolute values may lead to misinterpretation of CBC data. Current Interpretive Data was last revised on 2017. Eosinophil pct 1.5 % [facility] Comment: Interpretive Data Percent cell count reference ranges are not reported, since discordance with absolute values may lead to misinterpretation of CBC data. Current Interpretive Data was last revised on 2017. Basophil pct 0.9 % [facility] Comment: Interpretive Data Percent cell count reference ranges are not reported, since discordance with absolute values may lead to misinterpretation of CBC data. Current Interpretive Data was last revised on 2017. Blood 05/14/2024 6:48 PM DELICATESSEN SLICER 05/14/2024 6:52 PM DELICATESSEN SLICER us Sheri Carr MD LAB BLOOD ORDERABLES Fi nal Result [facility] [address] [facility] Department of Laboratories [place], [place] [phone] * (ABNORMAL) CBC with auto differential (05/14/2024 6:48 PM DELICATESSEN SLICER) WBC 7.8 3.8 - 9.9 K/cumm Hgb 8.0(L) 11.9 - 15.5 g/dL [facility] Hct 27.3(L) 35.6 - 45.5 % [facility] Plt 548(H) 150 - 400 K/cumm [facility] MPV 8.6(L) 9.1 - 12.3 fL [facility] RBC 3.93 3.90 - 5.20 M/cumm [facility] MCV 69.5(L) 81.3 - 96.4 fL [facility] MCH 20.4(L) 27.1 - 33.3 pg [facility] MCHC 29.3(L) 32.3 - 35.7 g/dL [facility] RDW CV 18.7(H) 11.1 - 14.9 % [facility] RDW SD 45.6 35.7 - 48.1 fL [facility] NRBC abs 0.00 0.00 - 0.01 K/cumm [facility] Blood Venous blood specimen / Unknown 05/14/2024 6:48 PM DELICATESSEN SLICER 05/14/2024 6:52 PM DELICATESSEN SLICER us Sheri Carr MD LAB BLOOD ORDERABLES Fi nal Result [facility] [address] [facility] [place] [address] * (ABNORMAL) Comprehensive metabolic panel (05/14/2024 6:48 PM DELICATESSEN SLICER) Sodium 140 135 - 145 mmol/L Potassium, pl 4.0 3.3 - 4.9 mmol/L [facility] Chloride 106 97 - 110 mmol/L [facility] CO2 25 22 - 32 mmol/L [facility] Anion gap 9 2 - 15 mmol/L [facility] BUN 10 6 - 25 mg/dL [facility] Creatinine 0.63 0.60 - 1.10 mg/dL [facility] Glucose 102 70 - 199 mg/dL [facility] Comment: Interpretive Data Fasting glucose >/= 126 [...] 2022. Calcium 8.5 8.5 - 10.3 mg/dL [facility] Bilirubin, total 0.2 0.1 - 1.2 mg/dL [facility] Protein, pl 5.9(L) 6.5 - 8.5 g/dL [facility] Albumin 3.8 3.5 - 5.0 g/dL [facility] Alk phos 85 40 - 130 Units/L [facility] ALT 20 7 - 45 Units/L [facility] AST 28 10 - 45 Units/L [facility] Blood 05/14/2024 6:48 PM DELICATESSEN SLICER 05/14/2024 6:52 PM DELICATESSEN SLICER us Sheri Carr MD LAB BLOOD ORDERABLES Fi nal Result Performing Organization Address City/[facility]/ZIP Co de Phone Number [facility] [address] [facility] Department of Laboratories [place] [phone] * ECG 12 lead (05/14/2024 6:41 PM DELICATESSEN SLICER) Ventricular Rate EKG/Min 82 BPM [facility] Atrial Rate 82 BPM [facility] CT-Interval (MSEC) 142 ms [facility] QRS-Interval (MSEC) 76 ms [facility] QT-Interval (MSEC) 368 ms [facility] QTc 429 ms [facility] P [place] 72 degrees [facility] R [place] 51 degrees [facility] T [place] 68 degrees [facility] Diagnosis Age and gender specific ECG analysis Normal sinus rhythm ST elevation, consider early repolarization , pericarditis, vs injury Abnormal ECG When compared with ECG of 14-MAY-2024 18:41, No significant change was found Confirmed by JAMES ROBBINS M.D. ([id number]) on 05/15/2024 4:24:16 PM [facility] 05/14/2024 6:41 PM DELICATESSEN SLICER 05/15/2024 4:24 PM DELICATESSEN SLICER us Jluis Mason MD ECG ORDERABLES Final Result Performing Organization Address [facility]/ZIP Co de Phone Number [facility] * ECG 12 lead (05/14/2024 6:41 PM DELICATESSEN SLICER) Ventricular Rate EKG/Min 79 BPM [facility] Atrial Rate 79 BPM [facility] CT-Interval (MSEC) 142 ms [facility] QRS-Interval (MSEC) 78 ms [facility] QT-Interval (MSEC) 368 ms [facility] QTc 421 ms [facility] P [place] 71 degrees [facility] R [place] 46 degrees [facility] T [place] 63 degrees [facility] Diagnosis Age and gender specific ECG analysis Normal sinus rhythm Early repolarization When compared with ECG of 14-MAR-2024 19:35, ST elevation now present in Inferior leads ST elevation now present in Lateral leads Early repolarization is now. Confirmed by SULTAN BARAJAS M.D. ([id number]) on 05/14/2024 8:09:34 PM [facility] 05/14/2024 6:41 PM DELICATESSEN SLICER 05/14/2024 8:09 PM DELICATESSEN SLICER us Sheri Carr MD ECG ORDERABLES Final R esult [facility] * (ABNORMAL) Urinalysis reflex to microscopic and culture Urine (05/08/2024 8:37 PM DELICATESSEN SLICER) Color, ur Yellow Yellow Clarity, ur Cloudy(A) Clear [facility] Specific gravity, ur 1.025 1.003 - 1.030 [facility] pH, urine 6.0 [facility] Comment: Interpretive Data U rine pH is affected by diet, medications, systemic acid-base disturbances, and renal tubular function. pH may affect urinary stone formation. For example, urine pH below 6.0 may help reduce the tendency for calcium phosphate stones and pH greater than 6.0 may reduce the tendency for uric acid stone formation. Source: [facility] [employer] Current Interpretive Data was last revised on 2017 Protein, ur ql 1+(A) Negative [facility] Glucose, ur ql Negative Negative [facility] Ketones, ur Trace Negative [facility] Bilirubin, ur Negative Negative [facility] Blood, ur 3+(A) Negative [facility] Urobilinogen, ur 2.0(A) <2.0 mg/dL [facility] Nitrite, ur Negative Negative [facility] Leukocyte esterase, ur 3+(A) Negative [facility] UA reflex comment Reflex to microscopic UA will be performed. [facility] Urine 05/08/2024 8:37 PM DELICATESSEN SLICER 05/08/2024 8:40 PM DELICATESSEN SLICER Narrative [facility] - 05/08/2024 8:51 PM DELICATESSEN SLICER If patient unable to urinate, straight cath Raymon Mendoza MD LAB MICROBIOLOGY - GENERAL ORDERABLES Final Result Performing Organization Address [facility] Co de Phone Number [address] [address] * (ABNORMAL) Urinalysis, microscopic only (05/08/2024 8:37 PM DELICATESSEN SLICER) WBC, ur 11-20(A) 0 - 5 /HPF RBC, ur >50(A) 0 - 2 /HPF [facility] Epithelial cells, squamous, ur 1-5 0 - 5 /HPF [facility] Mucous, ur Present(A) [facility] Culture Reflex Comment Reflex to urine culture will be performed. [facility] Urine 05/08/2024 8:37 PM DELICATESSEN SLICER 05/08/2024 8:40 PM DELICATESSEN SLICER Raymon Mendoza MD LAB URINE ORDERABLE S Final Result Performing Organization Address [facility] de Phone Number [address] [address] * Urine culture Urine (05/08/2024 8:37 PM DELICATESSEN SLICER) Report Final Report: Growth indicative of contamination with periurethral sowmya. Please submit a new specimen with special attention given to the collection process and to prompt transport to the laboratory. Comment:Testing performed by : [facility], [address], [place]., [address] Organism GROWTH INDICATES CONTAM WITH PERIURETHRAL SOWMYA. [facility] Urine 05/08/2024 8:37 PM DELICATESSEN SLICER 05/09/2024 4:01 AM DELICATESSEN SLICER Narrative [facility] - 05/10/2024 7:34 AM DELICATESSEN SLICER Urine culture reflexed based upon urinalysis results. Testing performed by [facility] ([phone]) Raymon Mendoza MD LAB MICROBIOLOGY - GENERAL ORDERABLES Final Result Performing Organization Address [facility] Co de Phone Number DEE[facility] [place] [address] * Influenza A/B, RSV, and COVID-19 PCR Nasopharyngeal (05/08/2024 8:32 PM DELICATESSEN SLICER) [facility] COVID-19 RNA Negative Negative Influenza A RNA Negative Negative [facility] Influenza B RNA Negative Negative [facility] RSV RNA Negative Negative [facility] Comment: Interpretive data: Testing performed by [facility]. This test is performed using the [employer] Xpert Xpress CoV-2/Flu/RSV plus assay. This is a multiplex, real-time reverse transcriptase PCR assay intended for the qualitative detection of nucleic acid from SARS-CoV-2, influenza A, influenza B, and respiratory syncytial virus. This assay has been cleared by the [place] Food and Drug administration. The performance characteristics have been verified by the [facility]. Results must be considered in the clinical context, and a negative result does not rule out infection. Interpretive Data last revised 2023 Nasopharyngeal 05/08/2024 8: 32 PM DELICATESSEN SLICER 05/08/2024 8:38 PM DELICATESSEN SLICER Narrative [facility] - 05/08/2024 9:19 PM DELICATESSEN SLICER Is the Patient experiencing symptoms consistent with COVID?->Yes Raymon Mendoza MD LAB MICROBIOLOGY - GENERAL ORDERABLES Final Result Performing Organization Address City/[facility]/ZIP Co de Phone Number [facility] [address] [place] [address] * Sepsis Lactate w/ Reflex (05/08/2024 8:32 PM DELICATESSEN SLICER) [facility] Sepsis Lactate 1.0 0.7 - 2.0 mmol/L Blood 05/08/2024 8:32 PM DELICATESSEN SLICER 05/08/2024 8:38 PM DELICATESSEN SLICER Raymon Mendoza MD LAB BLOOD ORDERABLE S Final Result Performing Organization Address [facility] Co de Phone Number DEEPAK [address] [place] [address] * eGFR (05/08/2024 8:32 PM DELICATESSEN SLICER) Pathologist [facility] eGFR >90 >=60 mL/min/1. 73 m2 Comment: [...] last reviewed 2021. Blood 05/08/2024 8:32 PM DELICATESSEN SLICER 05/08/2024 8:38 PM DELICATESSEN SLICER Raymon Mendoza MD LAB BLOOD ORDERABLE S Final Result Performing Organization Address [facility] Co de Phone Number DEEPAK [address] [place] [address] * Differential, auto (05/08/2024 8:32 PM DELICATESSEN SLICER) Pathologist [facility] Neutrophil abs 4.2 1.5 - 6.5 K/cumm Imm gran abs 0.0 0.0 - 0.1 K/cumm [facility] Lymphocyte abs 1.9 0.8 - 3.3 K/cumm [facility] Monocyte abs 0.6 0.2 - 0.8 K/cumm [facility] Eosinophil abs 0.0 0.0 - 0.5 K/cumm [facility] Basophil abs 0.0 0.0 - 0.1 K/cumm [facility] Neutrophil pct 62.5 % [facility] Comment: Interpretive Data Percent cell count reference ranges are not reported, since discordance with absolute values may lead to misinterpretation of CBC data. Current Interpretive Data was last revised on 2017. Imm gran pct 0.4 % [facility] Comment: Interpretive Data Percent cell count reference ranges are not reported, since discordance with absolute values may lead to misinterpretation of CBC data. Current Interpretive Data was last revised on 2017. Lymphocyte pct 27.4 % [facility] Comment: Interpretive Data Percent cell count reference ranges are not reported, since discordance with absolute values may lead to misinterpretation of CBC data. Current Interpretive Data was last revised on 2017. Monocyte pct 9.1 % [facility] Comment: Interpretive Data Percent cell count reference ranges are not reported, since discordance with absolute values may lead to misinterpretation of CBC data. Current Interpretive Data was last revised on 2017. Eosinophil pct 0.3 % [facility] Comment: Interpretive Data Percent cell count reference ranges are not reported, since discordance with absolute values may lead to misinterpretation of CBC data. Current Interpretive Data was last revised on 2017. Basophil pct 0.3 % [facility] Comment: Interpretive Data Percent cell count reference ranges are not reported, since discordance with absolute values may lead to misinterpretation of CBC data. Current Interpretive Data was last revised on 2017. Blood 05/08/2024 8:32 PM DELICATESSEN SLICER 05/08/2024 8:38 PM DELICATESSEN SLICER us Raymon Mendoza MD LAB BLOOD ORDERABLE S Final Result DEE[facility]K [facility] [address] [facility] [place] [address] * (ABNORMAL) CBC with auto differential (05/08/2024 8:32 PM DELICATESSEN SLICER) WBC 6.8 3.8 - 9.9 K/cumm Hgb 10.0(L) 11.9 - 15.5 g/dL [facility] Hct 34.8(L) 35.6 - 45.5 % [facility] Plt 492(H) 150 - 400 K/cumm [facility] MPV 9.0(L) 9.1 - 12.3 fL [facility] RBC 4.89 3.90 - 5.20 M/cumm [facility] MCV 71.2(L) 81.3 - 96.4 fL [facility] MCH 20.4(L) 27.1 - 33.3 pg [facility] MCHC 28.7(L) 32.3 - 35.7 g/dL [facility] RDW CV 19.0(H) 11.1 - 14.9 % [facility] RDW SD 46.3 35.7 - 48.1 fL [facility] NRBC abs 0.00 0.00 - 0.01 K/cumm [facility] Blood 05/08/2024 8:32 PM DELICATESSEN SLICER 05/08/2024 8:38 PM DELICATESSEN SLICER us Raymon Mendoza MD LAB BLOOD ORDERABLE S Final Result [facility] [address] [facility] [place] [address] * Comprehensive metabolic panel (05/08/2024 8:32 PM DELICATESSEN SLICER) Sodium 138 135 - 145 mmol/L Potassium, pl 3.7 3.3 - 4.9 mmol/L [facility] Chloride 104 97 - 110 mmol/L [facility] CO2 22 22 - 32 mmol/L [facility] Anion gap 12 2 - 15 mmol/L [facility] BUN 17 6 - 25 mg/dL [facility] Creatinine 0.75 0.60 - 1.10 mg/dL [facility] Glucose 110 70 - 199 mg/dL [facility] Comment: Interpretive Data Fasting glucose >/= 126 [...] 2022. Calcium 9.4 8.5 - 10.3 mg/dL [facility] Bilirubin, total 0.2 0.1 - 1.2 mg/dL [facility] Protein, pl 7.2 6.5 - 8.5 g/dL [facility] Albumin 4.4 3.5 - 5.0 g/dL [facility] Alk phos 90 40 - 130 Units/L [facility] ALT 13 7 - 45 Units/L [facility] AST 22 10 - 45 Units/L [facility] Blood 05/08/2024 8:32 PM DELICATESSEN SLICER 05/08/2024 8:38 PM DELICATESSEN SLICER us Raymon Mendoza MD LAB BLOOD ORDERABLE S Final Result [facility] [address] [facility] [place] [address] * XR Chest 1 Vw Portable (if patient condition/safety warrant portable) (05/08/2024 8:26 PM DELICATESSEN SLICER) Anatomical Region Laterality Modality Body, Chest N/A Computed Radiogr aphy 05/08/2024 8:46 PM DELICATESSEN SLICER Narrative 05/08/2024 8:49 PM DELICATESSEN SLICER EXAM DESCRIPTION: XR CHEST 1 VIEW REASON [...] signed by Hussein BATRES T: Report ID: [id number] Reading Location: [place] [address] Procedure Note Hussein Jeffries MD - 05/08/2024 [...] signed by Hussein BATRES T: Report ID: [id number] Reading Location: [place] [address] Raymon Mendoza MD IMG XR PROCEDURES F inal Result from Last [address] [place] [address] [place] [address] [facility] CHOICE PLUS IDPA [facility] CHOICE PLUS IDPA [employer] BETTER [facility] [employer] BETTER [facility] Advance Directives For more information, please contact: [phone] * Full Code (Latest Code Status on File) Date Activated Date Inactivated Comments 05/15/2024 12:10 AM 05/16/2024 3:53 PM * Full Code Date Activated Date Inactivated Comments 03/27/2021 1:09 PM 03/28/2021 4:40 PM Care Teams Contact Center Associate Relationship Specialty Start Date End Date Patrick Kapadia MD PCP - General Family Medicine 02/11/21
--- OUTSIDE RECORDS SUMMARY | 2024-07-31 23:49 | XMS_ITS | Referral Summary ---
Author Organization [facility] Outpatient [facility] Address [address] [place] [address] Care Team Providers Care Auto Refinisher Name Role Phone Patrick Kapadia MD Primary Care Provider Encounters Date Type Department Care Team Description 05/18/2024 Telephone [facility] Cardiology [address] [place] [phone] Ritu Contreras NP 05/14/2024 7:31 PM MANAGER DATA WAREHOUSE - 05/16/2024 11:40 AM [facility] Hospital Encounter [address] [address] Sheri Carr MD Brother, MD Branden Bazzi Vibhu, MD [facility], Magdalene Weaver MD Chest pain, unspecified type (Primary Dx); SOB (shortness of breath); Pericarditis; Smoker Discharge Disposition: Discharge to home or self care 05/15/2024 3:30 PM MANAGER DATA WAREHOUSE - 05/15/2024 4:30 PM [facility] Surgery [facility] Cardiac Cranberry Grower [address] [place] [id number] Ja Porras MD LEFT HEART CATHETERIZATION WITH CORONARY ANGIOGRAPHY AND WITH OR WITHOUT LEFT VENTRICULOGRAM [id number] 05/08/2024 11:15 PM MANAGER DATA WAREHOUSE - 05/09/2024 12:47 AM MANAGER DATA WAREHOUSE Emergency [address] [address] Viral syndrome (Primary Dx); Anemia, unspecified type [...] multivitamin capsule Take 1 capsule by mouth early childhood education instructor before breakfast Active cyclobenzaprine (FLEXERIL) 5 mg [...] (08/19/2021): Added automatically from request for surgery [id number] Encounter to discuss treatment options 2 Infection of breast implant 05/27/2021 Overview (05/27/2021): Added automatically from request for surgery [id number] Encounter for postoperative wound check 05/14/19 22 History of breast cancer 05/14/2021 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 05/09/2020 Overview (03/09/2021): Added automatically from request for surgery [id number] Immunizations Immunization Administration Dates Next Due DTP 11/06/1986,12/14/1983,1982 ,1982,1982 MMR 07/19/1991,10/12/1983 OPV 11/06/1986,10/12/1983,1982 ,1982 Tdap 09/11/2019 Social History Tobacco Use Types Packs/Day Years Used Date Smoking Tobacco: Every Day Cigarettes 0.3 20 Started: 2001; Last attempted to quit: 2021 Smokeless Tobacco: Never Tobacco Cessation:Ready to Q uit: Not Asked; Counseling Given: Not Answered [facility] Utilities Answer Date Recorded In the past 12 months has th [employer] electric, gas, oil, or water company threatened [...] often do you attend chur ch or temple services? Never 05/15/2024 Do you belong to any clubs o r organizations such as episcopal groups, unions, fraternal or athletic groups, or [...] any time in the past 12 m [facility], were you homeless or living in a residential (including now)? No 05/15/2024 Personal Safety Answer [...] Comments Blood Pressure 116/72 05/16/2024 11:00 AM MANAGER DATA WAREHOUSE Pulse 72 05/16/2024 11:00 AM MANAGER DATA WAREHOUSE Temperature 36.6 C (97.8 F) 05/16/2024 11:00 AM MANAGER DATA WAREHOUSE Respiratory Rate 18 05/16/2024 11:00 AM MANAGER DATA WAREHOUSE Oxygen Saturation 100% 05/16/2024 11:00 AM MANAGER DATA WAREHOUSE Inhaled Oxygen Concentration - - Weight 63.5 kg (140 lb) 05/14/2024 6:43 PM MANAGER DATA WAREHOUSE Height 170.2 cm (5' 7 ) 05/14/2024 6:43 PM MANAGER DATA WAREHOUSE Body Mass Index 21.93 05/14/2024 6:43 PM MANAGER DATA WAREHOUSE Plan of Treatment Not on file Medical Devices Implanted Type Area Perinatal Social Worker Device Identifier Shelf Expiration Date Model / Serial / Lot [employer] Natrelle Inspira Smooth Shell Surface Xfull Profile Implant 445cc Srx-445 - [id number] - [id number] Implanted:Qty: 1 on 02/25/2022 by Red Leon MD at [facility] Breast Right: Breast [employer] [id number] 02/22/2026 SRX-445 / [id number] / [employer] Natrelle Inspira Smooth Shell Surface Xfull Profile Implant 445cc Srx-445 - [id number] - [id number] Implanted:Qty: 1 on 02/25/2022 by Red Leon MD at [facility] Breast Right: Breast [employer] [id number] 02/10/2026 SRX-445 / [id number] / [employer] 248e-Df-99-T Implant Mammary Natrelle Te Smooth [id number]-Zs-90-T With Fourte - [id number] - [id number] Implanted:Qty: 1 on 03/27/2021 by Red Leon MD at [facility] Right: Breast [employer] [id number] 01/04/2024 133S-FX-1 1-T / [id number] / [id number] [employer] 180j-Qu-99-T Implant Mammary Natrelle Te Smooth 293b-Zb-64-T With Fourte - [id number] - [id number] Implanted:Qty: 1 on 08/27/2021 by Red Leon MD at [facility] Right: Breast [employer] [id number] 08/12/2025 133S-FX-1 1-T / [id number] / Description:Filled with 100c c of 0.9% Sodium Chloride [employer] System Closure Repair Femoral Artery Suture Mediated Perclose Prostyle 38533-44 - [id number] Implanted:Qty: 1 on 05/15/2024 by Ja Porras MD at [facility] [employer] 03/08/2026 [id number] / / [id number] Explanted Type Area Perinatal Social Worker Device Identifier Shelf Expiration Date Model / Serial / Lot Right Tissue Aircraft Engine Specialist Explanted:Qty : 1 on 02/25/2022 by Red Leon MD at [facility] Breast Right: Breast [employer] / / [id number] [employer] 960g-Ni-89-T Implant Mammary Natrelle Te Smooth 295h-Ox-38-T With Fourte - [id number] - [id number] Implanted:Qty : 1 on 03/27/2021 by Red Leon MD at [facility] Explanted:Qty : 1 on 02/25/2022 by Nataliya Noe MD at [facility] Left: Breast [employer] [id number] 11/25/2023 133S-FX-1 1-T / [id number] / [id number] Procedures Procedure Name Priority Date/Time Associated Diagnosis Comments DIFFERENTIAL AUTO Add On 05/16/2024 8:4 6 AM MANAGER DATA WAREHOUSE CBC WITH AUTO DIFFERENTIAL Add-On 05/16/2024 8:46 AM MANAGER DATA WAREHOUSE EGFR Routine 05/16/2024 2:52 AM MANAGER DATA WAREHOUSE HEPARIN ANTI FACTOR XA ACTIVITY Routine 05/16/2024 2:52 AM MANAGER DATA WAREHOUSE BASIC METABOLIC PANEL Routine 05/16/2024 2:52 AM MANAGER DATA WAREHOUSE LEFT HEART CATHETERIZATION WITH CORONARY ANGIOGRAPHY AND WITH AND WITHOUT LEFT VENTRICULOGRAM Routine 05/15/2024 3:51 PM MANAGER DATA WAREHOUSE Chest pain, unspecified type POCT ACTIVATED CLOTTING TIME, LOW RANGE Routine 05/15/2024 3:31 PM MANAGER DATA WAREHOUSE B ABO / RH CONFIRMATION TESTING STAT 05/15/2024 2:10 PM MANAGER DATA WAREHOUSE ANTIBODY SCREEN STAT 05/15/2024 12:56 PM MANAGER DATA WAREHOUSE ABO/RH STAT 05/15/2024 12:56 PM MANAGER DATA WAREHOUSE HCG, BLOOD, QUANTITATIVE STAT 05/15/2024 12:56 PM MANAGER DATA WAREHOUSE TYPE AND SCREEN STAT 05/15/2024 12:56 PM MANAGER DATA WAREHOUSE HEPARIN ANTI FACTOR XA ACTIVITY Timed 05/15/2024 10:01 AM MANAGER DATA WAREHOUSE TRANSTHORACIC ECHO (TTE) COMPLETE W DOPPLER/CF WO CONTRAST Routine 05/15/2024 9:27 AM MANAGER DATA WAREHOUSE ECG 12-LEAD Routine 05/15/2024 9:24 AM MANAGER DATA WAREHOUSE ECG 12-LEAD Routine 05/15/2024 8:03 AM MANAGER DATA WAREHOUSE CRP (ACUTE PHASE) Timed 05/15/2024 7:2 5 AM MANAGER DATA WAREHOUSE ERYTHROCYTE SEDIMENTATION RATE Routine 05/15/2024 7:25 AM MANAGER DATA WAREHOUSE TROPONIN T HIGH-SENSITIVITY 6-HOUR Timed 05/15/2024 7:25 AM MANAGER DATA WAREHOUSE TROPONIN T HIGH-SENSITIVITY 4-HR Timed 05/15/2024 5:11 AM MANAGER DATA WAREHOUSE TROPONIN T HIGH-SENSITIVITY 2-HOUR Timed 05/15/2024 3:47 AM MANAGER DATA WAREHOUSE HEPARIN ANTI FACTOR XA ACTIVITY Timed 05/15/2024 3:47 AM MANAGER DATA WAREHOUSE EGFR Routine 05/15/2024 1:29 AM MANAGER DATA WAREHOUSE TROPONIN T HIGH-SENSITIVITY SERIES (BASELINE, 2HR, 4HR, 6HR) Routine 05/15/2024 1:29 AM MANAGER DATA WAREHOUSE CBC WITHOUT DIFFERENTIAL Routine 05/15/2024 1:29 AM MANAGER DATA WAREHOUSE BASIC METABOLIC PANEL Routine 05/15/2024 1:29 AM MANAGER DATA WAREHOUSE TROPONIN T HIGH-SENSITIVITY 6-HOUR Timed 05/15/2024 1:29 AM MANAGER DATA WAREHOUSE CBC WITHOUT DIFFERENTIAL STAT 05/14/2024 11:19 PM MANAGER DATA WAREHOUSE TROPONIN T HIGH-SENSITIVITY 4-HR Timed 05/14/2024 11:19 PM MANAGER DATA WAREHOUSE PROTIME-INR STAT 05/14/2024 9:16 PM MANAGER DATA WAREHOUSE HEPARIN ANTI FACTOR XA ACTIVITY STAT 05/14/2024 9:16 PM MANAGER DATA WAREHOUSE LIPID PANEL Timed 05/14/2024 8:38 PM MANAGER DATA WAREHOUSE IRON PROFILE W/ IBC Timed 05/14/2024 8 :38 PM MANAGER DATA WAREHOUSE TROPONIN T HIGH-SENSITIVITY 2-HOUR Timed 05/14/2024 8:38 PM [address] DATA [facility] CT CHEST PE W CONTRAST ED 8:30 PM MANAGER DATA WAREHOUSE POCT TROPONIN DEVICE Routine 05/14/2024 6:59 PM MANAGER DATA WAREHOUSE XR CHEST 1 VIEW ED 05/14/2024 6:52 PM MANAGER DATA WAREHOUSE EGFR STAT 05/14/2024 6:48 PM MANAGER DATA WAREHOUSE DIFFERENTIAL AUTO STAT 05/14/2024 6:4 8 PM MANAGER DATA WAREHOUSE TROPONIN T HIGH-SENSITIVITY SERIES (BASELINE, 2HR, 4HR, 6HR) STAT 05/14/2024 6:48 PM MANAGER DATA WAREHOUSE COMPREHENSIVE METABOLIC PANEL STAT 05/14/2024 6:48 PM MANAGER DATA WAREHOUSE CBC WITH AUTO DIFFERENTIAL STAT 05/14/2024 6:48 PM MANAGER DATA WAREHOUSE ECG 12-LEAD Routine 05/14/2024 6:41 PM MANAGER DATA WAREHOUSE ECG 12-LEAD STAT 05/14/2024 6:41 PM MANAGER DATA WAREHOUSE URINALYSIS, MICROSCOPIC ONLY STAT 05/08/2024 8:37 PM MANAGER DATA WAREHOUSE URINE CULTURE STAT 05/08/2024 8:37 PM MANAGER DATA WAREHOUSE URINALYSIS AND REFLEX TO MICROSCOPIC AND CULTURE STAT 05/08/2024 8:37 PM MANAGER DATA WAREHOUSE EGFR STAT 05/08/2024 8:32 PM MANAGER DATA WAREHOUSE DIFFERENTIAL AUTO STAT 05/08/2024 8:3 2 PM MANAGER DATA WAREHOUSE SEPSIS LACTATE WITH REFLEX Routine 05/08/2024 8:32 PM MANAGER DATA WAREHOUSE COMPREHENSIVE METABOLIC PANEL STAT 05/08/2024 8:32 PM MANAGER DATA WAREHOUSE CBC WITH AUTO DIFFERENTIAL STAT 05/08/2024 8:32 PM MANAGER DATA WAREHOUSE INFLUENZA A/B, RSV, AND COVID-19 PCR Routine 05/08/2024 8:32 PM MANAGER DATA WAREHOUSE XR CHEST 1 VIEW ED 05/08/2024 8:26 PM MANAGER DATA WAREHOUSE from Last 3 Months Results * Differential, auto (05/16/2024 8:46 AM MANAGER DATA WAREHOUSE) Neutrophil abs 4.6 1.5 - 6.5 K/cumm Imm gran abs 0.0 0.0 - 0.1 K/cumm [facility] Lymphocyte abs 2.6 0.8 - 3.3 K/cumm [facility] Monocyte abs 0.8 0.2 - 0.8 K/cumm [facility] Eosinophil abs 0.1 0.0 - 0.5 K/cumm [facility] Basophil abs 0.1 0.0 - 0.1 K/cumm [facility] Neutrophil pct 56.1 % [facility] Comment: Interpretive Data Percent cell count reference ranges are not reported, since discordance with absolute values may lead to misinterpretation of CBC data. Current Interpretive Data was last revised on 2017. Imm gran pct 0.4 % [facility] Comment: Interpretive Data Percent cell count reference ranges are not reported, since discordance with absolute values may lead to misinterpretation of CBC data. Current Interpretive Data was last revised on 2017. Lymphocyte pct 31.6 % [facility] Comment: Interpretive Data Percent cell count reference ranges are not reported, since discordance with absolute values may lead to misinterpretation of CBC data. Current Interpretive Data was last revised on 2017. Monocyte pct 10.1 % [facility] Comment: Interpretive Data Percent cell count reference ranges are not reported, since discordance with absolute values may lead to misinterpretation of CBC data. Current Interpretive Data was last revised on 2017. Eosinophil pct 1.1 % [facility] Comment: Interpretive Data Percent cell count reference ranges are not reported, since discordance with absolute values may lead to misinterpretation of CBC data. Current Interpretive Data was last revised on 2017. Basophil pct 0.7 % [facility] Comment: Interpretive Data Percent cell count reference ranges are not reported, since discordance with absolute values may lead to misinterpretation of CBC data. Current Interpretive Data was last revised on 2017. Blood 05/16/2024 8:46 AM MANAGER DATA WAREHOUSE 05/16/2024 8:52 AM MANAGER DATA WAREHOUSE us Magdalene Spears MD LAB BLOOD ORDERABLES Final Result DEEPAK [address] [facility] [place] [address] * (ABNORMAL) CBC with auto differential (05/16/2024 8:46 AM MANAGER DATA WAREHOUSE) [facility] WBC 8.1 3.8 - 9.9 K/cumm Hgb 7.6(L) 11.9 - 15.5 g/dL [facility] Hct 27.0(L) 35.6 - 45.5 % [facility] Plt 466(H) 150 - 400 K/cumm [facility] MPV 8.9(L) 9.1 - 12.3 fL [facility] RBC 3.77(L) 3.90 - 5.20 M/cumm [facility] MCV 71.6(L) 81.3 - 96.4 fL [facility] MCH 20.2(L) 27.1 - 33.3 pg [facility] MCHC 28.1(L) 32.3 - 35.7 g/dL [facility] RDW CV 19.0(H) 11.1 - 14.9 % [facility] RDW SD 48.7(H) 35.7 - 48.1 fL [facility] NRBC abs 0.00 0.00 - 0.01 K/cumm [facility] Blood 05/16/2024 8:46 AM MANAGER DATA WAREHOUSE 05/16/2024 8:52 AM MANAGER DATA WAREHOUSE us Magdalene Spears MD LAB BLOOD ORDERABLES Final Result [address] Department [place] [address] * eGFR (05/16/2024 2:52 AM MANAGER DATA WAREHOUSE) [facility] eGFR >90 >=60 mL/min/1. 73 m2 [...] last reviewed 2021. Blood 05/16/2024 2:52 AM MANAGER DATA WAREHOUSE 05/16/2024 3:10 AM MANAGER DATA WAREHOUSE us Eileen Otero MD LAB BLOOD ORDERABLES Final Resul t DEEPAK [address] [facility] [place] [address] * Heparin anti factor Xa activity (05/16/2024 2:52 AM MANAGER DATA WAREHOUSE) [facility] Anti Factor Xa 0.23 IUnits/mL Comment: Ref [...] revised on 2018. Blood 05/16/2024 2:52 AM MANAGER DATA WAREHOUSE 05/16/2024 3:10 AM MANAGER DATA WAREHOUSE Magdalene Spears MD LAB BLOOD ORDERABLES Final Result Performing Organization Address City/[facility]/ZIP Co de Phone Number DEEPAK [address] [facility] Department [place] [address] * (ABNORMAL) Basic metabolic panel (05/16/2024 2:52 AM MANAGER DATA WAREHOUSE) Sodium 143 135 - 145 mmol/L Potassium, pl 4.0 3.3 - 4.9 mmol/L [facility] Chloride 111(H) 97 - 110 mmol/L [facility] CO2 23 22 - 32 mmol/L [facility] Anion gap 9 2 - 15 mmol/L [facility] BUN 10 6 - 25 mg/dL [facility] Creatinine 0.59(L) 0.60 - 1.10 mg/dL [facility] Glucose 108 70 - 199 mg/dL [facility] Comment: Interpretive Data Fasting glucose [...] 2022. Calcium 8.6 8.5 - 10.3 mg/dL [facility] Blood 05/16/2024 2:52 AM MANAGER DATA WAREHOUSE 05/16/2024 3:10 AM MANAGER DATA WAREHOUSE Eileen Otero MD LAB BLOOD ORDERABLES Final Resul t Performing Organization Address City/[facility]/ZIP Co de Phone Number DEEPAK [address] [facility] Department [place] [address] * LEFT HEART CATHETERIZATION WITH CORONARY ANGIOGRAPHY AND WITH AND WITHOUT LEFT VENTRICULOGRAM (05/15/2024 3:51 PM MANAGER DATA WAREHOUSE) Anatomical Region Laterality Modality X-Ray Angiograph y Narrative 05/16/2024 7:19 AM MANAGER DATA WAREHOUSE Patient Id: Shruti Luque is a 44 y.o. female. MR#: [id number] Date of the procedure: 05/15/2024 Procedure: Left heart catheterization Coronary angiogram Left ventricular cineangiogram Perclose Moderate sedation Indications: I was asked by Dr. Garcia to do cardiac catheterization on this patient came in chest pain and EKG showed J-point elevation in the inferior and the anterolateral leads with a WA depressions suggestive of pericarditis. But her troponins [...] and draped in the usual fashion. Six Ghanaian sheath placed in the right femoral artery by using Seldinger technique. Left heart catheterization and CHAPA left ventricular cineangiogram performed by using 6 Ghanaian pigtail catheter. Left and right coronary angiography performed using 6 Ghanaian JL4 and 6 JR4 catheters. There were no complications. The sheath removed and hemostasis secured with Perclose. Anesthesia: Local Moderate sedation: Patient received 1 mg of Versed and 75 mcg of fentanyl by the nurse for conscious sedation. Patient vital signs monitored under my supervision in the finishing lab technician during and after the procedure for at least the 30 minutes. Please see the finishing lab technician log report for details Hemodynamics: Procedure performed [...] MD This report was transcribed using the iPrint voice recognition system without human machine taper. In an effort to expedite patient care, this report has not been adjusted for typographical, grammatical, and syntax by a trained medical records secretary. Despite proof reading there may be errors. Please contact me if you have any questions. Ritu Contreras NP CV CARDIAC CATH PROCEDURES Final Result * POCT Activated clotting time, low range (05/15/2024 3:31 PM MANAGER DATA WAREHOUSE) Pathologist [facility] ACT 123 123 - 168 sec POC Performer [id number] [facility] POC Device Number [id number] [facility] Blood 05/15/2024 3:31 PM MANAGER DATA WAREHOUSE 05/15/2024 3:31 PM MANAGER DATA WAREHOUSE Magdalene Spears MD LAB POCT ORDERABLES - DEVICE Final Result Performing Organization Address [facility]/ZIP Co de Phone Number [address] [facility] [place] [address] * ABO / Rh Confirmation Testing (05/15/2024 2:10 PM MANAGER DATA WAREHOUSE) [facility] ABO/Rh Confirmation B Positive [facility] Blood 05/15/2024 2:10 PM MANAGER DATA WAREHOUSE 05/15/2024 2:41 PM MANAGER DATA WAREHOUSE Ja Porras MD LAB BLOOD ORDERABLES Final Result Performing Organization Address [facility] Co de Phone Number [address] [employer] [place] [address] MHB * ABO/Rh (05/15/2024 12:56 PM MANAGER DATA WAREHOUSE) [facility] ABO/Rh B Positive Blood 05/15/2024 12:5 6 PM MANAGER DATA WAREHOUSE 05/15/2024 1:11 PM MANAGER DATA WAREHOUSE Ja Porras MD LAB BLOOD BANK TEST ORDERAB LES Final Result Performing Organization Address [facility] Co de Phone Number [address] [facility] [place] [address] * Antibody screen (05/15/2024 12:56 PM MANAGER DATA WAREHOUSE) Pathologist [facility] Migdalia, indirect, Gel Interpretation Negative ABSC Blood 05/15/2024 12:5 6 PM MANAGER DATA WAREHOUSE 05/15/2024 1:11 PM MANAGER DATA WAREHOUSE Ja Porras MD LAB BLOOD BANK TEST ORDERAB LES Final Result Performing Organization Address [facility] de Phone Number DEEPAK [address] [address] * hCG, blood, quantitative (05/15/2024 12:56 PM MANAGER DATA WAREHOUSE) hCG, quant <5.0 0.0 - 5.0 IUnits/L Comment: Interpretive Data Male: < 5 IU/L Non- premenopausal Female: <5 IU/L The Sol hCG Beta Quant assay procedure was used. Results from different manufacturers or methods may not be comparable. Serial testing should be performed using the same method. Interpretive Data was last revised on 2023 Blood 05/15/2024 12:5 6 PM MANAGER DATA WAREHOUSE 05/15/2024 1:11 PM MANAGER DATA WAREHOUSE Ja Porras MD LAB BLOOD ORDERABLES Final Result Performing Organization Address [facility] de Phone Number DEEPAK [address] [address] * Heparin anti factor Xa activity (05/15/2024 10:01 AM MANAGER DATA WAREHOUSE) Anti Factor Xa 0.30 IUnits/mL Comment: Interpretive [...] on 2018. Blood 05/15/2024 10:0 1 AM MANAGER DATA WAREHOUSE 05/15/2024 10:58 AM MANAGER DATA WAREHOUSE us Eileen Otero MD LAB BLOOD ORDERABLES Final Resul t [facility]K [address] [facility] Department [place] [address] * TRANSTHORACIC ECHO (TTE) COMPLETE W DOPPLER/CF WO CONTRAST (05/15/2024 9:27 AM MANAGER DATA WAREHOUSE) Anatomical Region Laterality Modality Ultrasound 05/15/2024 9:01 AM MANAGER DATA WAREHOUSE Narrative 05/15/2024 11:15 AM MANAGER DATA WAREHOUSE Adult Echocardiogram + ----- + :Name: SHRUTI LUQUE Study Date: 05/15/2024 Status: B : : Patient Location: [address]^[id number]^Height: 67 in : : Weight: 140 lbBP: [...] Date: 05/15/2024Status: MHB : : Patient Location: [address]^[id number]^Height: 67 in : : : 140 lbBP: [...] * ECG 12 lead (05/15/2024 9:24 AM MANAGER DATA WAREHOUSE) Ventricular Rate EKG/Min 65 BPM [facility] Atrial Rate 65 BPM [facility] WA-Interval (MSEC) 142 ms [facility] QRS-Interval (MSEC) 88 ms [facility] QT-Interval (MSEC) 394 ms [facility] QTc 409 ms [facility] P [place] 76 degrees [facility] R [place] 69 degrees [facility] T [place] 64 degrees [facility] Diagnosis Normal sinus rhythm ST elevation, consider early repolarization , pericarditis, or injury Abnormal ECG When compared with ECG of 15-MAY-2024 08:03, No significant change was found Confirmed by JAMES ROBBINS M.D. ([id number]) on 05/16/2024 3:16:42 PM [facility] 05/15/2024 9:24 AM MANAGER DATA WAREHOUSE 05/16/2024 3:16 PM MANAGER DATA WAREHOUSE Magdalene Spears MD ECG ORDERABLES Monique l Result Performing Organization Address City/[facility] Co de Phone Number [facility] * ECG 12 lead (05/15/2024 8:03 AM MANAGER DATA WAREHOUSE) Ventricular Rate EKG/Min 67 BPM [facility] Atrial Rate 67 BPM [facility] WA-Interval (MSEC) 150 ms [facility] QRS-Interval (MSEC) 80 ms [facility] QT-Interval (MSEC) 398 ms [facility] QTc 420 ms [facility] P [place] 74 degrees [facility] R [place] 51 degrees [facility] T [place] 45 degrees [facility] Diagnosis Normal sinus rhythm ST elevation, consider early repolarization , pericarditis, vs injury Borderline ECG When compared with ECG of 14-MAY-2024 18:41, No significant change was found Confirmed by JAMES ROBBINS M.D. ([id number]) on 05/15/2024 5:23:45 PM [facility] 05/15/2024 8:03 AM MANAGER DATA WAREHOUSE 05/15/2024 5:23 PM MANAGER DATA WAREHOUSE Eileen Otero MD ECG ORDERABLES Final Result Performing Organization Address [facility] Co de Phone Number [facility] * (ABNORMAL) Troponin T high-sensitivity 6-hour (05/15/2024 7:25 AM MANAGER DATA WAREHOUSE) Trop T hs 530(C) <=14 ng/L Comment: Critical Result called to and read back by Jo WARE [id number], DATE: 2024-05-15 08:34:40 BY: [email or web address] Interpretive Data For further hscTnT resources including the diagnostic algorithm and an aid in interpretation, copy and paste this link: [email or web address] Current Interpretive Data last revised 2020. Trop T hs interp Significa nt(C) DEEPAK Comment:Critical Result call ed to and read back by Jo WARE [id number], DATE: 2024-05-15 08:34:40 BY: [email or web address] Blood 05/15/2024 7:25 AM MANAGER DATA WAREHOUSE 05/15/2024 8:04 AM MANAGER DATA WAREHOUSE Eileen Otero MD LAB BLOOD ORDERABLES Final Resul t Performing Organization Address [facility] Co de Phone Number [address] [facility] [place] [address] * Erythrocyte sedimentation rate (05/15/2024 7:25 AM MANAGER DATA WAREHOUSE) Erythrocyte sedimentation rate <2 1 - 20 mm/hr Blood 05/15/2024 7:25 AM MANAGER DATA WAREHOUSE 05/15/2024 8:03 AM MANAGER DATA WAREHOUSE Eileen Otero MD LAB BLOOD ORDERABLES Final Resul t Performing Organization Address [facility] Co de Phone Number [address] [facility] [place] [address] * CRP (acute phase) (05/15/2024 7:25 AM MANAGER DATA WAREHOUSE) CRP <0.2 <=10.0 mg/L Blood 05/15/2024 7:25 AM MANAGER DATA WAREHOUSE 05/15/2024 8:04 AM MANAGER DATA WAREHOUSE Magdalene Spears MD LAB BLOOD ORDERABLES Final Result Performing Organization Address [facility] Co de Phone Number [address] [facility] [place] [address] * (ABNORMAL) Troponin T high-sensitivity 4-hour (05/15/2024 5:11 AM MANAGER DATA WAREHOUSE) Trop T hs 423(C) <=14 ng/L Comment: Critical Result called to and read back by [id number], DATE: 2024-05-15 06:15:57 BY: [id number] Interpretive Data For further hscTnT resources including the diagnostic algorithm and an aid in interpretation, copy and paste this link: [email or web address]/show/hsTrop Current Interpretive Data last revised 2020. Trop T hs pct delta 49(C) % DEEPAK Comment:Critical Result call ed to and read back by [id number], DATE: 2024-05-15 06:15:57 BY: [id number] Trop T hs interp Significa nt(C) DEEPAK Comment:Critical Result call ed to and read back by [id number], DATE: 2024-05-15 06:15:57 BY: [id number] Blood 05/15/2024 5:11 AM MANAGER DATA WAREHOUSE 05/15/2024 5:35 AM MANAGER DATA WAREHOUSE Eileen Otero MD LAB BLOOD ORDERABLES Final Resul t DEEPAK SIMEON [address] [facility] [place] [address] * (ABNORMAL) Troponin T high-sensitivity 2-hour (05/15/2024 3:47 AM MANAGER DATA WAREHOUSE) Trop T hs 348(C) <=14 ng/L Comment: Critical Result called to and read back by [id number], DATE: 2024-05-15 04:45:33 BY: [id number] Interpretive Data For further hscTnT resources including the diagnostic algorithm and an aid in interpretation, copy and paste this link: [email or web address]://[email or web address]/show/hsTrop Current Interpretive Data last revised 2020. Trop T hs pct delta 23(C) % DEEPAK Comment:Critical Result call ed to and read back by [id number], DATE: 2024-05-15 04:45:33 BY: [id number] Trop T hs interp Significa nt(C) DEEPAK Comment:Critical Result call ed to and read back by [id number], DATE: 2024-05-15 04:45:33 BY: [id number] Blood 05/15/2024 3:47 AM MANAGER DATA WAREHOUSE 05/15/2024 4:00 AM MANAGER DATA WAREHOUSE Eileen Otero MD LAB BLOOD ORDERABLES Final Resul t Performing Organization Address [facility] de Phone Number DEEPAK [address] [place] [address] * Heparin anti factor Xa activity (05/15/2024 3:47 AM MANAGER DATA WAREHOUSE) [facility] Anti Factor Xa 0.40 IUnits/mL Comment: Interpretive [...] revised on 2018. Blood 05/15/2024 3:47 AM MANAGER DATA WAREHOUSE 05/15/2024 4:01 AM MANAGER DATA WAREHOUSE Eileen Otero MD LAB BLOOD ORDERABLES Final Resul t Performing Organization Address [facility]/ZIP Co de Phone Number DEEPAK [facility]0 [facility] [place] [address] * (ABNORMAL) Troponin T high-sensitivity 6-hour (05/15/2024 1:29 AM MANAGER DATA WAREHOUSE) Trop T hs 278(C) <=14 ng/L Comment: Critical Result called to and read back by [id number], DATE: 2024-05-15 02:04:46 BY: [id number] Interpretive Data For further hscTnT resources including the diagnostic algorithm and an aid in interpretation, copy and paste this link: [email or web address]/show/hsTrop Current Interpretive Data last revised 2020. Trop T hs delta See Comment ng/L DEEPAK Comment:Inappropriate collec tion time to report a delta. Trop T hs pct delta See Comment % DEEPAK Comment:Inappropriate collec tion time to report a delta. Trop T hs interp See Comment DEEPAK Comment:Inappropriate collec tion time to report a delta. Blood 05/15/2024 1:29 AM MANAGER DATA WAREHOUSE 05/15/2024 1:33 AM MANAGER DATA WAREHOUSE us Waqas Mcdonald MD LAB BLOOD ORDERABLE S Final Result DEEPAK [facility]0 [facility] [place] [address] * (ABNORMAL) Troponin T high-sensitivity series (baseline, 2hr, 4hr, 6hr) (05/15/2024 1:29 AM MANAGER DATA WAREHOUSE) Trop T hs 283(C) <=14 ng/L Comment: Critical Result called to and read back by [id number], DATE: 2024-05-15 02:04:53 BY: [id number] Interpretive Data For further hscTnT resources including the diagnostic algorithm and an aid in interpretation, copy and paste this link: [email or web address]://[email or web address]/show/hsTrop Current Interpretive Data last revised 2020. Blood 05/15/2024 1:29 AM MANAGER DATA WAREHOUSE 05/15/2024 1:33 AM MANAGER DATA WAREHOUSE Eileen Otero MD LAB BLOOD ORDERABLES Final Resul t Performing Organization Address [facility] de Phone Number DEEPAK [address] [address] * eGFR (05/15/2024 1:29 AM MANAGER DATA WAREHOUSE) Pathologist [facility] eGFR >90 >=60 mL/min/1. 73 m2 [...] reviewed 2021. Blood 05/15/2024 1:2 9 AM MANAGER DATA WAREHOUSE 05/15/2024 1:33 AM MANAGER DATA WAREHOUSE Eileen Otero MD LAB BLOOD ORDERABLES Final Resul t Performing Organization Address [facility] Co de Phone Number [id number] [place] [facility] [place] [address] * (ABNORMAL) CBC without differential (05/15/2024 1:29 AM MANAGER DATA WAREHOUSE) [facility] WBC 11.3(H) 3.8 - 9.9 K/cumm Hgb 8.3(L) 11.9 - 15.5 g/dL [facility] Hct 28.7(L) 35.6 - 45.5 % [facility] Plt 577(H) 150 - 400 K/cumm [facility] MPV 8.8(L) 9.1 - 12.3 fL [facility] RBC 4.11 3.90 - 5.20 M/cumm [facility] MCV 69.8(L) 81.3 - 96.4 fL [facility] MCH 20.2(L) 27.1 - 33.3 pg [facility] MCHC 28.9(L) 32.3 - 35.7 g/dL [facility] RDW CV 19.0(H) 11.1 - 14.9 % [facility] RDW SD 46.5 35.7 - 48.1 fL [facility] NRBC abs 0.00 0.00 - 0.01 K/cumm [facility] Blood 05/15/2024 1:29 AM MANAGER DATA WAREHOUSE 05/15/2024 1:33 AM MANAGER DATA WAREHOUSE Eileen Otero MD LAB BLOOD ORDERABLES Final Resul t [facility] [address] [facility] [place] [address] * Basic metabolic panel (05/15/2024 1:29 AM MANAGER DATA WAREHOUSE) Sodium 140 135 - 145 mmol/L Potassium, pl 3.6 3.3 - 4.9 mmol/L [facility] Chloride 106 97 - 110 mmol/L [facility] CO2 26 22 - 32 mmol/L [facility] Anion gap 8 2 - 15 mmol/L [facility] BUN 8 6 - 25 mg/dL [facility] Creatinine 0.61 0.60 - 1.10 mg/dL [facility] Glucose 86 70 - 199 mg/dL [facility] Comment: Interpretive Data Fasting glucose [...] mg/dL DEEPAK SIMEON Blood 05/15/2024 1:29 AM MANAGER DATA WAREHOUSE 05/15/2024 1:33 AM MANAGER DATA WAREHOUSE Eileen Otero MD LAB BLOOD ORDERABLES Final Resul t Performing Organization Address City/[facility]/ZIP Co de Phone Number DEEPAK [address] [facility] [place] [address] * (ABNORMAL) Troponin T high-sensitivity 4-hour (05/14/2024 11:19 PM MANAGER DATA WAREHOUSE) Trop T hs 238(C) <=14 ng/L Comment: Critical Result called to and read back by [id number], DATE: 2024-05-15 00:04:49 BY: [id number] Interpretive Data For further hscTnT resources including the diagnostic algorithm and an aid in interpretation, copy and paste this link: https://nrl.[employer]catalog.org/show/hsTrop Current Interpretive Data last revised 2020. Trop T hs pct delta 80(C) % DEEPAK Comment:Critical Result call ed to and read back by [id number], DATE: 2024-05-15 00:04:49 BY: [id number] Trop T hs interp Significa nt(C) DEEAPK Comment:Critical Result call ed to and read back by [id number], DATE: 2024-05-15 00:04:49 BY: [id number] Blood 05/14/2024 11:1 9 PM MANAGER DATA WAREHOUSE 05/14/2024 11:26 PM MANAGER DATA WAREHOUSE us Waqas Mcdonald MD LAB BLOOD ORDERABLE S Final Result Performing Organization Address City/[facility]/ZIP Co de Phone Number DEEPAK [address] [place] [address] * (ABNORMAL) CBC without differential (05/14/2024 11:19 PM MANAGER DATA WAREHOUSE) [facility] WBC 10.9(H) 3.8 - 9.9 K/cumm Hgb 8.0(L) 11.9 - 15.5 g/dL [facility] Hct 27.2(L) 35.6 - 45.5 % [facility] Plt 539(H) 150 - 400 K/cumm [facility] MPV 8.7(L) 9.1 - 12.3 fL [facility] RBC 3.92 3.90 - 5.20 M/cumm [facility] MCV 69.4(L) 81.3 - 96.4 fL [facility] MCH 20.4(L) 27.1 - 33.3 pg [facility] MCHC 29.4(L) 32.3 - 35.7 g/dL [facility] RDW CV 19.0(H) 11.1 - 14.9 % [facility] RDW SD 46.5 35.7 - 48.1 fL [facility] NRBC abs 0.00 0.00 - 0.01 K/cumm [facility] Blood 05/14/2024 11:1 9 PM MANAGER DATA WAREHOUSE 05/14/2024 11:26 PM MANAGER DATA WAREHOUSE Narrative [facility] - 05/14/2024 11:28 PM MANAGER DATA WAREHOUSE Baseline prior to heparin initiation us Sheri Carr MD LAB BLOOD ORDERABLES nal Result [facility] [address] [facility] [place] [address] * Heparin anti factor Xa activity (05/14/2024 9:16 PM MANAGER DATA WAREHOUSE) [facility] Anti Factor Xa <0.10 IUnits/mL Comment: Baseline RN: [id number]/ MLS: [id number] Interpretive Data Enoxaparin therapeutic range (peak): VTE [...] revised on 2018. Blood 05/14/2024 9:16 PM MANAGER DATA WAREHOUSE 05/14/2024 9:19 PM MANAGER DATA WAREHOUSE Narrative [facility] - 05/14/2024 9:40 PM MANAGER DATA WAREHOUSE Baseline prior to heparin initiation Sheri Carr MD LAB BLOOD ORDERABLES Fi nal Result Performing Organization Address [facility] de Phone Number [place] [address] [facility] [place] [address] * Protime-INR (05/14/2024 9:16 PM MANAGER DATA WAREHOUSE) [facility] Signature PT 13.3 12.0 - 14.6 sec INR 1.0 0.9 - 1.2 DEEPAK Comment: Ref Range High Interpretive data Oral anticoagulant therapeutic ranges: Venous thromboembolism prophylaxis or treatment: 2.0-3.0 CARDIOLOGY Standard range: 2.0-3.0 High-intensity range: 2.5-3.5 Refer to indication-specific guidelines for appropriate target ranges for prosthetic heart valve replacement. Current interpretive data was last revised on 2019. Blood 05/14/2024 9:16 PM MANAGER DATA WAREHOUSE 05/14/2024 9:19 PM MANAGER DATA WAREHOUSE Sheri Carr MD LAB BLOOD ORDERABLES Fi nal Result Performing Organization Address [facility] de Phone Number [address] [place] [address] * (ABNORMAL) Troponin T high-sensitivity 2-hour (05/14/2024 8:38 PM MANAGER DATA WAREHOUSE) Trop T hs 176(H) <=14 ng/L Comment: Interpretive Data For further hscTnT resources including the diagnostic algorithm and an aid in interpretation, copy and paste this link: https://nrl.testcatalog.org/show/hsTrop Current Interpretive Data last revised 2020. Trop T hs pct delta 33(C) % DEEPAK Comment:Critical Result call ed to and read back by [id number], DATE: 2024-05-14 21:09:28 BY: [id number] Trop T hs interp Significa nt(C) DEEPAK Comment:Critical Result call ed to and read back by [id number], DATE: 2024-05-14 21:09:28 BY: [id number] Blood 05/14/2024 8:38 PM MANAGER DATA WAREHOUSE 05/14/2024 8:41 PM MANAGER DATA WAREHOUSE us Waqas Mcdonald MD LAB BLOOD ORDERABLE S Final Result Performing Organization Address [facility]/ZIP Co de Phone Number [address] [place] [address] * (ABNORMAL) Iron profile w/ IBC (05/14/2024 8:38 PM MANAGER DATA WAREHOUSE) [facility] Iron 10(L) 35 - 145 mcg/dL TIBC 415(H) 250 - 400 mcg/dL [facility] Transferrin saturation 2(L) 20 - 50 % DEEPAK Blood 05/14/2024 8:38 PM MANAGER DATA WAREHOUSE 05/14/2024 8:41 PM MANAGER DATA WAREHOUSE us Sheri Carr MD LAB BLOOD ORDERABLES Fi nal Result [address] [place] [address] * Lipid panel (05/14/2024 8:38 PM MANAGER DATA WAREHOUSE) Pathologist [facility] Cholesterol 124 30 - 199 mg/dL [...] ratio 3 DEEPAK Blood 05/14/2024 8:38 PM MANAGER DATA WAREHOUSE 05/14/2024 8:41 PM MANAGER DATA WAREHOUSE Narrative DEEPAK - 05/14/2024 9:43 PM MANAGER DATA WAREHOUSE This lipid panel was automatically ordered due to a significant change in Troponin. The dietary status of the patient at the collection time should be correlated with the lipid results. us Waqas Mcdonald MD LAB BLOOD ORDERABLE S Final Result DEEPAK [address] [facility] [place] [address] * CT Chest PE (CTA) W Contrast (05/14/2024 8:30 PM MANAGER DATA WAREHOUSE) Anatomical Region Laterality Modality Body N/A Computed Tomogra phy 05/14/2024 8:36 PM MANAGER DATA WAREHOUSE Narrative 05/14/2024 8:39 PM MANAGER DATA WAREHOUSE EXAM DESCRIPTION: CT CHEST PE (CTA) W [...] Helene Olivas D.O. PS T: Report ID: [id number] Reading Location: [place] [address] Procedure Note Helene Olivas, DO - 05/14/2024 [...] Helene Olivas D.O. PS T: Report ID: [id number] Reading Location: [place] [address] Sheri Carr MD IMG CT PROCEDURES Final Result * (ABNORMAL) POCT troponin (05/14/2024 6:59 PM MANAGER DATA WAREHOUSE) Troponin I Point of Care 0.78(C) 0.00 [...] last revised 2020. Blood 05/14/2024 6:59 PM MANAGER DATA WAREHOUSE 05/14/2024 6:59 PM MANAGER DATA WAREHOUSE us Notinfile Unknown LAB POCT ORDERABLES - DEVICE F inal Result Performing Organization Address City/State/[facility] Co de Phone Number DEEPAK [address] [facility] Department [place] [address] * XR Chest 1 Vw Portable (if patient condition/safety warrant portable) (05/14/2024 6:52 PM MANAGER DATA WAREHOUSE) Anatomical Region Laterality Modality Body, Chest N/A Computed Radiogr aphy 05/14/2024 7:05 PM MANAGER DATA WAREHOUSE Narrative 05/14/2024 7:05 PM MANAGER DATA WAREHOUSE EXAM DESCRIPTION: XR CHEST 1 VIEW REASON [...] Van Moon M.D. KT T: Report ID: [id number] Reading Location: [place] [address] Procedure Note Van Moon MD - 05/14/2024 [...] it was negative. Patient states EMS gave [id number] of aspirin. TECHNIQUE: 1 radiographic view(s) of [...] Van Moon M.D. KT T: Report ID: [id number] Reading Location: [place] [address] Sheri Carr MD IMG XR PROCEDURES Final Result * (ABNORMAL) Troponin T high-sensitivity series (baseline, 2hr, 4hr, 6hr) (05/14/2024 6:48 PM MANAGER DATA WAREHOUSE) Trop T hs 132(H) <=14 ng/L Comment: Interpretive Data For further hscTnT resources including the diagnostic algorithm and an aid in interpretation, copy and paste this link: https://nrl.testcatalog.org/show/hsTrop Current Interpretive Data last revised 2020. Blood 05/14/2024 6:48 PM MANAGER DATA WAREHOUSE 05/14/2024 6:52 PM MANAGER DATA WAREHOUSE Sheri Carr MD LAB BLOOD ORDERABLES Fi nal Result Performing Organization Address [facility] Co de Phone Number DEEPAK [address] [place] [facility] [place] [address] * eGFR (05/14/2024 6:48 PM MANAGER DATA WAREHOUSE) eGFR >90 >=60 mL/min/1. 73 m2 Comment: [...] last reviewed 2021. Blood 05/14/2024 6:48 PM MANAGER DATA WAREHOUSE 05/14/2024 6:52 PM MANAGER DATA WAREHOUSE Sheri Carr MD LAB BLOOD ORDERABLES Fi nal Result Performing Organization Address City/[facility]/ZIP Co de Phone Number DEEPAK [address] [place] [facility] [place] [address] * Differential, auto (05/14/2024 6:48 PM MANAGER DATA WAREHOUSE) Neutrophil abs 4.3 1.5 - 6.5 K/cumm Imm gran abs 0.0 0.0 - 0.1 K/cumm [facility] Lymphocyte abs 2.7 0.8 - 3.3 K/cumm [facility] Monocyte abs 0.7 0.2 - 0.8 K/cumm [facility] Eosinophil abs 0.1 0.0 - 0.5 K/cumm [facility] Basophil abs 0.1 0.0 - 0.1 K/cumm [facility] Neutrophil pct 54.4 % [facility] Comment: Interpretive Data Percent cell count reference ranges are not reported, since discordance with absolute values may lead to misinterpretation of CBC data. Current Interpretive Data was last revised on 2017. Imm gran pct 0.4 % [facility] Comment: Interpretive Data Percent cell count reference ranges are not reported, since discordance with absolute values may lead to misinterpretation of CBC data. Current Interpretive Data was last revised on 2017. Lymphocyte pct 34.1 % [facility] Comment: Interpretive Data Percent cell count reference ranges are not reported, since discordance with absolute values may lead to misinterpretation of CBC data. Current Interpretive Data was last revised on 2017. Monocyte pct 8.7 % [facility] Comment: Interpretive Data Percent cell count reference ranges are not reported, since discordance with absolute values may lead to misinterpretation of CBC data. Current Interpretive Data was last revised on 2017. Eosinophil pct 1.5 % [facility] Comment: Interpretive Data Percent cell count reference ranges are not reported, since discordance with absolute values may lead to misinterpretation of CBC data. Current Interpretive Data was last revised on 2017. Basophil pct 0.9 % [facility] Comment: Interpretive Data Percent cell count reference ranges are not reported, since discordance with absolute values may lead to misinterpretation of CBC data. Current Interpretive Data was last revised on 2017. Blood 05/14/2024 6:48 PM MANAGER DATA WAREHOUSE 05/14/2024 6:52 PM MANAGER DATA WAREHOUSE us Sheri Carr MD LAB BLOOD ORDERABLES Fi nal Result DEEPAK [address] [facility] Department [place] [address] * (ABNORMAL) CBC with auto differential (05/14/2024 6:48 PM MANAGER DATA WAREHOUSE) [facility] WBC 7.8 3.8 - 9.9 K/cumm Hgb 8.0(L) 11.9 - 15.5 g/dL [facility] Hct 27.3(L) 35.6 - 45.5 % [facility] Plt 548(H) 150 - 400 K/cumm [facility] MPV 8.6(L) 9.1 - 12.3 fL [facility] RBC 3.93 3.90 - 5.20 M/cumm [facility] MCV 69.5(L) 81.3 - 96.4 fL [facility] MCH 20.4(L) 27.1 - 33.3 pg [facility] MCHC 29.3(L) 32.3 - 35.7 g/dL [facility] RDW CV 18.7(H) 11.1 - 14.9 % [facility] RDW SD 45.6 35.7 - 48.1 fL [facility] NRBC abs 0.00 0.00 - 0.01 K/cumm [facility] Blood Venous blood specimen / Unknown 05/14/2024 6:48 PM MANAGER DATA WAREHOUSE 05/14/2024 6:52 PM MANAGER DATA WAREHOUSE us Sheri Carr MD LAB BLOOD ORDERABLES Fi nal Result [facility] [address] [facility] [place] [address] * (ABNORMAL) Comprehensive metabolic panel (05/14/2024 6:48 PM MANAGER DATA WAREHOUSE) [facility] Sodium 140 135 - 145 mmol/L Potassium, pl 4.0 3.3 - 4.9 mmol/L [facility] Chloride 106 97 - 110 mmol/L [facility] CO2 25 22 - 32 mmol/L [facility] Anion gap 9 2 - 15 mmol/L [facility] BUN 10 6 - 25 mg/dL [facility] Creatinine 0.63 0.60 - 1.10 mg/dL [facility] Glucose 102 70 - 199 mg/dL [facility] Comment: Interpretive Data Fasting glucose [...] 2022. Calcium 8.5 8.5 - 10.3 mg/dL [facility] Bilirubin, total 0.2 0.1 - 1.2 mg/dL [facility] Protein, pl 5.9(L) 6.5 - 8.5 g/dL [facility] Albumin 3.8 3.5 - 5.0 g/dL [facility] Alk phos 85 40 - 130 Units/L [facility] ALT 20 7 - 45 Units/L [facility] AST 28 10 - 45 Units/L [facility] Blood 05/14/2024 6:48 PM MANAGER DATA WAREHOUSE 05/14/2024 6:52 PM MANAGER DATA WAREHOUSE us Sheri Carr MD LAB BLOOD ORDERABLES nal Result DEEPAK [address] [facility] [place] [address] * ECG 12 lead (05/14/2024 6:41 PM MANAGER DATA WAREHOUSE) [facility] Ventricular Rate EKG/Min 82 BPM [facility] Atrial Rate 82 BPM [facility] [place]-Interval (MSEC) 142 ms [facility] QRS-Interval (MSEC) 76 ms [facility] QT-Interval (MSEC) 368 ms [facility] QTc 429 ms [facility] P [place] 72 degrees [facility] R [place] 51 degrees [facility] T [place] 68 degrees [facility] Diagnosis Age and gender specific ECG analysis Normal sinus rhythm ST elevation, consider early repolarization , pericarditis, vs injury Abnormal ECG When compared with ECG of 14-MAY-2024 18:41, No significant change was found Confirmed by JAMES ROBBINS M.D. ([id number]) on 05/15/2024 4:24:16 PM [facility] 05/14/2024 6:41 PM MANAGER DATA WAREHOUSE 05/15/2024 4:24 PM MANAGER DATA WAREHOUSE Jluis Mason MD ECG ORDERABLES Final Result Performing Organization Address [facility] Phone Number [facility] * ECG 12 lead (05/14/2024 6:41 PM MANAGER DATA WAREHOUSE) Ventricular Rate EKG/Min 79 BPM [facility] Atrial Rate 79 BPM [facility] [place]-Interval (MSEC) 142 ms [facility] QRS-Interval (MSEC) 78 ms [facility] QT-Interval (MSEC) 368 ms [facility] QTc 421 ms [facility] P [place] 71 degrees [facility] R [place] 46 degrees [facility] T [place] 63 degrees [facility] Diagnosis Age and gender specific ECG analysis Normal sinus rhythm Early repolarization When compared with ECG of 14-MAR-2024 19:35, ST elevation now present in Inferior leads ST elevation now present in Lateral leads Early repolarization is now. Confirmed by SULTAN BARAJAS M.D. ([id number]) on 05/14/2024 8:09:34 PM [facility] 05/14/2024 6:41 PM MANAGER DATA WAREHOUSE 05/14/2024 8:09 PM MANAGER DATA WAREHOUSE Sheri Carr MD ECG ORDERABLES Final R esult Performing Organization Address [facility] Phone Number [facility] * (ABNORMAL) Urinalysis reflex to microscopic and culture Urine (05/08/2024 8:37 PM MANAGER DATA WAREHOUSE) Color, ur Yellow Yellow Clarity, ur Cloudy(A) [...] tendency for uric acid stone formation. Source: [facility] Current Interpretive Data was last revised on 2017 Protein, ur ql 1+(A) Negative [facility] [facility] Glucose, ur ql Negative Negative [facility] Ketones, ur Trace Negative [facility] Bilirubin, ur Negative Negative [facility] Blood, ur 3+(A) Negative [facility] Urobilinogen, ur 2.0(A) <2.0 mg/dL [facility] Nitrite, ur Negative Negative [facility] Leukocyte esterase, ur 3+(A) Negative [facility] UA reflex comment Reflex to microscopic UA will be performed. [facility] Urine 05/08/2024 8:37 PM [employer] 05/08/2024 8:40 PM [employer]NAGER [employer] Narrative [facility] - 05/08/2024 8:51 PM MANAGER DATA WAREHOUSE If patient unable to urinate, straight cath Raymon Mendoza MD LAB MICROBIOLOGY - GENERAL ORDERABLES Final Result Performing Organization Address [facility] de Phone Number [address] [facility] [place] [address] * (ABNORMAL) Urinalysis, microscopic only (05/08/2024 8:37 PM MANAGER DATA [employer]AREHOU[employer]) WBC, ur 11-20(A) 0 - 5 /HPF RBC, ur >50(A) 0 - 2 /HPF [facility] Epithelial cells, squamous, ur 1-5 0 - 5 /HPF [facility] Mucous, ur Present(A) [facility] Culture Reflex Comment Reflex to urine culture will be performed. [facility] Urine 05/08/2024 8:37 PM MANAGER DATA WAREHOUSE 05/08/2024 8:40 PM MANAGER DATA [employer]AREHOUSE Raymon Mendoza MD LAB URINE ORDERABLE S Final Result Performing Organization Address [facility] Co de Phone Number [address] [facility] [place], [place] [id number] * Urine culture Urine (05/08/2024 8:37 PM MANAGER DATA WAREHOUSE) Report Final Report: Growth indicative of contamination with periurethral sowmya. Please submit a new specimen with special attention given to the collection process and to prompt transport to the laboratory. Comment:Testing performed by : [facility], [address] [facility] [place]., [address] Organism GROWTH INDICATES CONTAM WITH PERIURETHRAL SOWMYA. [facility] Urine 05/08/2024 8:37 PM MANAGER DATA WAREHOUSE 05/09/2024 4:01 AM MANAGER DATA WAREHOUSE Narrative [facility] - 05/10/2024 7:34 AM MANAGER DATA WAREHOUSE Urine culture reflexed based upon urinalysis results. Testing performed by [facility] Microbiology Laboratory ([phone]) us Raymon Mendoza MD LAB MICROBIOLOGY - GENERAL ORDERABLES Final Result [facility] [address] [facility] [place] [address] * Influenza A/B, RSV, and COVID-19 PCR Nasopharyngeal (05/08/2024 8:32 PM MANAGER DATA [employer]AREHOU[employer]) COVID-19 RNA Negative Negative Influenza A RNA Negative Negative [facility] Influenza B RNA Negative Negative [facility] RSV RNA Negative Negative [facility] Comment: Interpretive data: Testing performed by [facility]. This test is performed using the [employer] Xpert Xpress CoV-2/Flu/RSV plus assay. This is a multiplex, real-time reverse transcriptase PCR assay intended for the qualitative detection of nucleic acid from SARS-CoV-2, influenza A, influenza B, and respiratory syncytial virus. This assay has been cleared by the [place] Food and Drug administration. The performance characteristics have been verified by the [facility]. Results must be considered in the clinical context, and a negative result does not rule out infection. Interpretive Data last revised 2023 Nasopharyngeal 05/08/2024 8: 32 PM MANAGER DATA WAREHOUSE 05/08/2024 8:38 PM MANAGER DATA WAREHOUSE Narrative [facility] - 05/08/2024 9:19 PM MANAGER DATA WAREHOUSE Is the Patient experiencing symptoms consistent with COVID?->Yes Raymon Mendoza MD LAB MICROBIOLOGY - GENERAL ORDERABLES Final Result Performing Organization Address City/[facility]/ZIP Co de Phone Number [facility] [address] [address] * Sepsis Lactate w/ Reflex (05/08/2024 8:32 PM MANAGER DATA WAREHOUSE) Sepsis Lactate 1.0 0.7 - 2.0 mmol/L Blood 05/08/2024 8:32 PM MANAGER DATA WAREHOUSE 05/08/2024 8:38 PM MANAGER DATA WAREHOUSE Result [facility] Raymon Mendoza MD LAB BLOOD ORDERABLE S Final Result Performing Organization Address [facility] Phone Number [facility] [address] [address] * eGFR (05/08/2024 8:32 PM MANAGER DATA [employer]AREHOU[employer]) eGFR >90 >=60 mL/min/1. 73 m2 Comment: [...] last reviewed 2021. Blood 05/08/2024 8:32 PM MANAGER DATA WAREHOUSE 05/08/2024 8:38 PM MANAGER DATA WAREHOUSE Raymon Mendoza MD LAB BLOOD ORDERABLE S Final Result [facility] [address] [facility] [place] [address] * Differential, auto (05/08/2024 8:32 PM MANAGER DATA [employer]AREHOU[employer]) Neutrophil abs 4.2 1.5 - 6.5 K/cumm Imm gran abs 0.0 0.0 - 0.1 K/cumm [facility] Lymphocyte abs 1.9 0.8 - 3.3 K/cumm [facility] Monocyte abs 0.6 0.2 - 0.8 K/cumm [facility] Eosinophil abs 0.0 0.0 - 0.5 K/cumm [facility] Basophil abs 0.0 0.0 - 0.1 K/cumm [facility] Neutrophil pct 62.5 % [facility] Comment: Interpretive Data Percent cell count reference ranges are not reported, since discordance with absolute values may lead to misinterpretation of CBC data. Current Interpretive Data was last revised on 2017. Imm gran pct 0.4 % [facility] Comment: Interpretive Data Percent cell count reference ranges are not reported, since discordance with absolute values may lead to misinterpretation of CBC data. Current Interpretive Data was last revised on 2017. Lymphocyte pct 27.4 % [facility] Comment: Interpretive Data Percent cell count reference ranges are not reported, since discordance with absolute values may lead to misinterpretation of CBC data. Current Interpretive Data was last revised on 2017. Monocyte pct 9.1 % [facility] Comment: Interpretive Data Percent cell count reference ranges are not reported, since discordance with absolute values may lead to misinterpretation of CBC data. Current Interpretive Data was last revised on 2017. Eosinophil pct 0.3 % [facility] Comment: Interpretive Data Percent cell count reference ranges are not reported, since discordance with absolute values may lead to misinterpretation of CBC data. Current Interpretive Data was last revised on 2017. Basophil pct 0.3 % [facility] Comment: Interpretive Data Percent cell count reference ranges are not reported, since discordance with absolute values may lead to misinterpretation of CBC data. Current Interpretive Data was last revised on 2017. Blood 05/08/2024 8:32 PM MANAGER DATA [employer]HOUSE 05/08/2024 8:38 PM MANAGER DATA [employer]AREHOUSE Raymon Mendoza MD LAB BLOOD ORDERABLE S Final Result Performing Organization Address [facility] Co de Phone Number [facility] [address] [place] [address] * (ABNORMAL) CBC with auto differential (05/08/2024 8:32 PM MANAGER DATA WAREHOUSE) Pathologist [facility] WBC 6.8 3.8 - 9.9 K/cumm Hgb 10.0(L) 11.9 - 15.5 g/dL [facility] Hct 34.8(L) 35.6 - 45.5 % [facility] Plt 492(H) 150 - 400 K/cumm [facility] MPV 9.0(L) 9.1 - 12.3 fL [facility] RBC 4.89 3.90 - 5.20 M/cumm [facility] MCV 71.2(L) 81.3 - 96.4 fL [facility] MCH 20.4(L) 27.1 - 33.3 pg [facility] MCHC 28.7(L) 32.3 - 35.7 g/dL [facility] RDW CV 19.0(H) 11.1 - 14.9 % [facility] RDW SD 46.3 35.7 - 48.1 fL [facility] NRBC abs 0.00 0.00 - 0.01 K/cumm [facility] Blood 05/08/2024 8:32 PM MANAGER DATA [employer]HOUSE 05/08/2024 8:38 PM MANAGER [employer]SE Raymon Mendoza MD LAB BLOOD ORDERABLE S Final Result Performing Organization Address City/[facility] Co de Phone Number [facility] [address] [place] [address] * Comprehensive metabolic panel (05/08/2024 8:32 PM MANAGER DATA WAREHOUSE) Pathologist [facility] Sodium 138 135 - 145 mmol/L Potassium, pl 3.7 3.3 - 4.9 mmol/L [facility] Chloride 104 97 - 110 mmol/L [facility] CO2 22 22 - 32 mmol/L [facility] Anion gap 12 2 - 15 mmol/L [facility] BUN 17 6 - 25 mg/dL [facility] Creatinine 0.75 0.60 - 1.10 mg/dL [facility] Glucose 110 70 - 199 mg/dL [facility] Comment: Interpretive Data Fasting glucose [...] 2022. Calcium 9.4 8.5 - 10.3 mg/dL [facility] Bilirubin, total 0.2 0.1 - 1.2 mg/dL [facility] Protein, pl 7.2 6.5 - 8.5 g/dL [facility] Albumin 4.4 3.5 - 5.0 g/dL [facility] Alk phos 90 40 - 130 Units/L [facility] ALT 13 7 - 45 Units/L [facility] AST 22 10 - 45 Units/L [facility] Blood 05/08/2024 8:32 PM MANAGER DATA [employer]HOUSE 05/08/2024 8:38 PM MANAGER DATA WAREHOUSE us Raymon Mendoza MD LAB BLOOD ORDERABLE S Final Result [facility] [address] [facility] [place] [address] * XR Chest 1 Vw Portable (if patient condition/safety warrant portable) (05/08/2024 8:26 PM MANAGER DATA [employer]AREHOUSE) Anatomical Region Laterality Modality Body, Chest N/A Computed Radiogr aphy 05/08/2024 8:46 PM MANAGER DATA WAREHOUSE Narrative 05/08/2024 8:49 PM MANAGER DATA WAREHOUSE EXAM DESCRIPTION: XR CHEST 1 VIEW REASON [...] signed by Hussein BATRES T: Report ID: [id number] Reading Location: [place] [address] Procedure Note Hussein Jeffries MD - 05/08/2024 [...] signed by Hussein BATRES T: Report ID: [id number] Reading Location: [place] [address] us Raymon Mendoza MD IMG XR PROCEDURES F inal Result from Last 3 Months Insurance BLUE ACCESS CO [facility] CHOICE PLUS [employer] [facility] CHOICE PLUS [employer] AETNA BETTER [facility] AETNA BETTER [facility] Advance Directives For more information, please contact: [phone] * Full Code (Latest Code Status on File) Date Activated Date Inactivated Comments 05/15/2024 12:10 AM 05/16/2024 3:53 PM * Full Code Date Activated Date Inactivated Comments 03/27/2021 1:09 PM 03/28/2021 4:40 PM Care Teams Auto Refinisher Relationship Specialty Start Date End Date Patrick Kapadia MD PCP - General Family Medicine 02/11/21
== END 2024-07-31 23:54 | disposition home or self-care (01) ==
LOC: CHSED 23:47
PROVIDERS: Emergency Provider Emergency Medicine; PCP Family Medicine
DX: F43.0 Acute stress reaction (principal); N92.0 Excessive and frequent menstruation with regular cycle; Z79.899 Other long term (current) drug therapy; Z87.891 Personal history of nicotine dependence
CPT/HCPCS: 81001; 81025; 99283